=== PATIENT | male | born 1950 | race Caucasian/White ===

== ENCOUNTER 2019-09-01 01:05 | Emergency (ER) | payer MEDICARE, MEDICAID, SELFPAY ==
[2019-09-01 01:14] VITALS: BP 196/116; PULSE 95; RESP 18; TEMP 36.7; O2SAT 94; BMI 27.9
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
[2019-09-01 02:00] VITALS: BP 170/109; PULSE 81; RESP 20; O2SAT 94
[2019-09-01 03:28] VITALS: BP 143/113; PULSE 76; RESP 20; O2SAT 95
--- NOTE | 2019-09-01 03:53 | PC.NURSE ---
Pt attempted to use the urinal without success. Gave pt a whole sandwich, string cheese, and a lorelei carmen. pt requested to sit on the side of the bed to eat . left call light within reach and instructed pt to call when ready to lay down again.
[2019-09-01 06:55] VITALS: BP 130/82; PULSE 87; RESP 20; TEMP 36.7; O2SAT 95
== END 2019-09-01 07:06 | disposition home or self-care (01) ==
PROVIDERS: Emergency Provider Emergency Medicine
DX: T68.XXXA Hypothermia, initial encounter (principal); W17.89XA Other fall from one level to another, initial encounter
CPT/HCPCS: 99282

== ENCOUNTER 2020-01-26 20:04 | Observation (INO) | payer MEDICARE, MEDICAID, SELFPAY ==
[2020-01-26] VITALS (10 sets, daily range): BP systolic 165–183; BP diastolic 100–131; PULSE 83–92; RESP 14–20; TEMP 37.1; O2SAT 94–100; BMI 27.9
--- NOTE | 2020-01-26 20:32 | DI.RAD.S_ITS ---
PROCEDURE: XR CHEST 1V INDICATIONS: Fever TECHNIQUE: One view of the chest was acquired. COMPARISON: [facility], CR, XR CHEST 1 VIEW, 09/23/2019, 5:52. FINDINGS: Surgical changes and devices: None. Lungs and pleura: Mild perihilar prominence is seen that could indicate pulmonary venous congestion or developing lower lobe infiltrates. No pleural effusions or pneumothorax. Aeration of the right lung is markedly improved when compared to the prior radiographs from 09/23/2019. Mediastinum: Mediastinal contours appear normal. Heart size is normal. Bones and chest wall: No suspicious bony lesions. Overlying soft tissues appear unremarkable. IMPRESSION: Mild prominence of the perihilar lung markings may indicate pulmonary vascular congestion or possible developing consolidations. Dictated by: Mikael Moseley M.D. on 01/26/2020 at 21:29 Approved by: Mikael Moseley M.D. on 01/26/2020 at 21:31
--- NOTE | 2020-01-26 20:32 | DI.CT.S_ITS ---
PROCEDURE: CT ABDOMEN PELVIS W CON INDICATIONS: IV contrast only/abdominal pain/diarrhea TECHNIQUE: After the administration of intravenous contrast, 5 mm thick sections acquired from the diaphragm to the symphysis. 5 mm coronal and sagittal reformats were acquired. For radiation dose reduction, the following was used: automated exposure control, adjustment of mA and/or kV according to patient size. COMPARISON: None. FINDINGS: Image quality: Excellent. ABDOMEN: Lung bases: Lung bases are clear except for a slight right pleural effusion. Heart size is mildly enlarged and there is a slight pericardial effusion on the right. Solid organs: Liver is normal in size and enhancement. Gallbladder contains a peripherally calcified gallstone but no definite biliary distension or acute cholecystitis is found.. Biliary system is non dilated. Pancreas enhances normally. Spleen is normal in size and enhancement. No adrenal nodules. Kidneys demonstrate normal size and enhancement, without hydronephrosis. Peritoneum and bowel: Bowel loops demonstrate normal wall thickness and caliber. No free fluid or air. Nodes and vessels: No retroperitoneal or mesenteric adenopathy by size criteria. The inferior vena cava is normal in size. There is a fusiform 4.6 cm maximal axial dimension infrarenal abdominal aortic aneurysm without evidence of associated perianeurysmal fibrosis or aneurysm leak. Miscellaneous: No ventral hernias. PELVIS: Genitourinary: Bladder wall thickness is normal considering absence of full filling. Miscellaneous: No inguinal hernias or adenopathy. Bones: No suspicious bony lesions. No vertebral body compression fractures. IMPRESSION: Source of abdominal pain and diarrhea not found. No sign of diverticulitis or colitis. Note is made of cardiomegaly and a slight right pericardial effusion and also a small right pleural effusion. Note: These findings are concordant with the preliminary interpretation. Dictated by: Simon Alexandra M.D. on 01/27/2020 at 8:50 Approved by: Simon Alexandra M.D. on 01/27/2020 at 8:56
--- NOTE | 2020-01-26 20:32 | DI.CT.S_ITS ---
PROCEDURE: CT HEAD/BRAIN WO CON INDICATIONS: Weakness TECHNIQUE: Noncontrast 4.5 mm thick angled axial sections acquired from the foramen magnum to the vertex, with coronal and sagittal reformats. For radiation dose reduction, the following was used: automated exposure control, adjustment of mA and/or kV according to patient size. COMPARISON: [facility], CT, CT ANGIO HEAD AND NECK TPA, 09/20/2019, 10:14. FINDINGS: Image quality: Excellent. CSF spaces: Basal cisterns are patent. No extra-axial fluid collections. The ventricles are symmetric in size and shape. Brain: No acute intracranial hemorrhage or mass effect. A chronic small focus of encephalomalacia is seen in the white matter of the anterior frontal lobe. A small chronic lacunar infarct is noted in the left thalamus. There is cerebral volume loss for age, with resultant ventricular and sulcal prominence. There are periventricular and deep white matter chronic small vessel ischemic changes. There is intracranial internal carotid artery atherosclerosis. Skull and face: Calvarium and visualized facial bones appear intact, without suspicious lesions. Sinuses: Visualized sinuses and mastoids are clear. IMPRESSION: 1. No acute intracranial abnormality. 2. Old lacunar infarcts in the left thalamus and the right anterior frontal lobe white matter. 3. Mild age related changes including mild cerebral volume loss and chronic microvascular ischemic changes. Dictated by: Mikael Moseley M.D. on 01/26/2020 at 21:31 Approved by: Mikael Moseley M.D. on 01/26/2020 at 21:34
--- NOTE | 2020-01-26 20:37 | ED.WEAKNESS ---
HPI - Weakness General Chief complaint: Weakness Stated complaint: thinks possible stroke Time Seen by Provider: 01/26/20 20:17 Source: patient Mode of arrival: Ambulatory Limitations: no limitations History of Present Illness HPI Narrative: Patient drove himself here. Did take a water taxi from home. Patient complains of worsening ongoing weakness with watery diarrhea in the past month. Patient states he was seen for stroke in [place] within the last 2 months. Syncope was his chief complaint for the stroke. No syncope for this complaint. On complains of watery diarrhea generalized weakness in no injury. Rectal temperature 99.5? increased urination as well. Patient lives alone. Still in process of obtaining of family physician. Was getting medications from an urgent care./walk-in clinic patient denies any chest pain abdominal pain. No headache. Has chronic back pain which is not not new. History of aortic aneurysms but again denies any new back pain. Again, no chest or abdominal pain. No numbness tingling weakness. No syncope. Denies denies any slurred speech or facial droop. No altered mental status or confusion. No numbness or tingling or weakness to the hands or feet. [facility] in last month and a half patient has history of polysubstance abuse, atrial fibrillation as well as congestive heart failure. Hospital had history of intubation secondary to pneumonia? Patient left against medical advice from the hospital at that time. Symptoms ongoing for at least 1 month. Not acute. Ongoing 1 month of generalized weakness and diarrhea MD Complaint: generalized weakness Related Data Home Medications Medication Instructions Recorded Confirmed ATENOLOL (Tenormin) 0 PO *UK DOSE/FREQUENCY #0 11/15/05 FENOFIBRATE (TRICOR) 0 PO * UK DOSE/FREQUENCY #0 11/15/05 Allergies Allergy/AdvReac Type Severity Reaction Status Date / Time No Known Drug Allergies Allergy Verified 01/26/20 20:13 Review of Systems Review of Systems Narrative: GENERAL: Denies chills, complains of fatigue, malaise, denies fever, sweats. HEENT: Denies sinus pain, ear pain, sore throat, difficulty swallowing, dizziness. RESPIRATORY: Denies dyspnea, cough, wheezing, hemoptysis, sputum. CARDIOVASCULAR: Denies chest pain, palpitations, orthopnea, edema, GASTROINTESTINAL: Denies nausea, vomiting, abdominal pain, complains diarrhea, denies constipation, melena. : Denies dysuria, frequency, incontinence, hematuria, urinary retention. MUSCULOSKELETAL: denies weakness, complains of chronic joint pain, or bony pain SKIN: Denies rash, skin lesions NEUROLOGIC: Denies weakness, headache, numbness, change in speech, confusion, seizures, incoordination. PSYCHIATRIC: No concerning psychosocial issues. ROS Unobtainable: All systems reviewed & are unremarkable except as noted in HPI and below Patient History Medical History Hypertension (Acute) Social History household members: none lives independently: Yes Smoking Status: Never smoker Smoking Status: Never smoker alcohol intake frequency: a few times a week Alcohol type: beer Substance Use Type: methamphetamine Exam Narrative Exam Narrative: GENERAL: patient appears stated age. Well-nourished, well-developed patient, in no distress, not toxic HEAD: Atraumatic. Normocephalic. EYES: Pupils equal round and reactive. Extraocular motions intact. No scleral icterus. No injection or drainage. ENT: Nose without bleeding, purulent drainage. Throat without erythema, tonsillar hypertrophy or exudate. Airway patent. NECK: Trachea midline. Non tender CARDIOVASCULAR: Regular rate and rhythm without murmurs, gallops, or rubs. RESPIRATORY: Clear to auscultation. Breath sounds equal bilaterally. No wheezes, rales, or rhonchi. GASTROINTESTINAL: Abdomen soft, non-tender, nondistended. EXTREMITIES: No edema or joint tenderness. BACK: Nontender without deformity or crepitance. No flank tenderness. NEURO: AOx4. Clear speech no facial droop light touch intact to bilateral face hands and legs. Strong equal pretzel twister. Negative pronator drift. Able to lift both legs in the air and hold in here individually for 10 seconds. Strong bilateral hip flexion and knee flexion and extensions SKIN: No rash or erythema of visible areas PSYCH: Not anxious, is cooperative Initial Vital Signs Initial Vital Signs: Vital Signs Temperature 98.8 F 01/26/20 20:10 Pulse Rate 92 H 01/26/20 20:10 Respiratory Rate 17 01/26/20 20:10 Blood Pressure 183/121 H 01/26/20 20:10 Pulse Oximetry 100 10/06/20 20:10 Scores NIH Stroke Scale Level of Conciousness: Alert, keenly responsive Ask month/age: Answers both questions correctly. Open/close eyes, close hand: Performs both tasks correctly Best gaze horizontal: Normal Visual [place]: No visual loss Facial palsy: Normal symetrical movement Left arm drift: No drift for full 10 sec Right arm drift: No drift for full 10 sec Left leg drift: No drift for full 5 sec Right leg drift: No drift for full 5 sec Limb ataxia: Absent Sensory on face/arms/legs: Normal, no sensory loss Best language: No aphasia, normal Dysarthria: Normal Extinction or inattention: No abnormality Total NIH Stroke scale score: 0 Course Course Course Narrative: No new complaints here. Patient had steady self gait in the hallway to the bathroom and back. No ataxia Decision to Admit Date: 01/27/20 Decision to Admit time: 00:08 Orders Ordered: ED Orders 01/26/20 20:25 Complete Blood Count AUTO DIFF Stat Comprehensive Metabolic Panel Stat Ethanol (ETOH) Stat Lipase Stat Troponin I Stat 01/26/20 20:32 CT abdomen pelvis w con Stat CT head/brain wo con Stat XR chest 1V Stat Clostridium Difficile Tox PCR Stat 01/26/20 20:34 Stool Culture Stat 01/26/20 20:36 EKG-12 Lead Stat 01/26/20 21:10 COVID19 -ED/INPAT/OR/L&D Stat 01/26/20 22:06 CT chest wo con Stat 01/26/20 22:20 Urinalysis and Microscopic Stat Urine Drug Screen, Rapid Stat Acetaminophen (Tylenol) 650 mg PO Q6HR PRN PRN Reason: Fever/Mild Pain (1-3) Apixaban (Eliquis) 5 mg PO BID CONG Aspirin (Aspirin Ec) 81 mg PO DAILY CONG Atorvastatin Calcium (Lipitor) 40 mg PO BEDTIME CONG Clopidogrel Bisulfate (Plavix) 75 mg PO DAILY CONG Enoxaparin Sodium (Lovenox) 40 mg SUBCUT DAILY CONG Ondansetron HCl (Zofran) 4 mg IV Q8HR PRN PRN Reason: Nausea And Vomiting Discontinued Medications Aspirin (Aspirin Chew) 324 mg PO NOW ONE Stop: 01/27/20 00:06 Last Admin: 01/27/20 00:15 Dose: 324 mg Documented by: KSWANSO Sodium Chloride (Normal Saline 0.9%) 1,000 mls @ 1,000 mls/hr IV BOLUS ONE Stop: 01/26/20 21:31 Last Infusion: 01/26/20 23:14 Dose: 0 mls/hr Documented by: Admin: 01/26/20 20:44 Dose: 1,000 mls/hr Documented by: DOROTHY Sodium Chloride (Normal Saline 0.9%) 1,000 mls @ 1,000 mls/hr IV BOLUS ONE Stop: 01/26/20 21:31 Last Admin: 01/26/20 23:27 Dose: Not Given Documented by: DOROTHY Metoprolol Succinate (Toprol Xl) 25 mg PO NOW ONE Stop: 01/27/20 00:06 Last Admin: 01/27/20 00:15 Dose: 25 mg Documented by: DOROTHY Ondansetron HCl (Zofran) 4 mg IV NOW ONE Stop: 01/26/20 20:33 Last Admin: 01/26/20 20:44 Dose: 4 mg Documented by: DOROTHY Reevaluation(s) Reevaluation #1: Reviewed results with patient and agrees for admission and MRI in the morning Time: 00:08 Consultations Consultation #1: Spoke with Dr. hall, stroke provider as [facility]. No tPA or endovascular studies indicated this time. Ongoing for 1 month. Would benefit for MRI with and without contrast in the morning Time: 00:08 Consultation #2: Spoke with Nica, hospitalist, will admit observation overnight and MRI in the morning as well as echocardiogram. Patient is not not toxic. No antibiotics indicated this time Time: 00:09 Vital Signs Vital signs: Vital Signs - 8 hr 01/26/20 20:10 01/26/20 20:34 01/26/20 21:06 Temperature 98.8 F Pulse Rate 92 H 91 H 83 Respiratory Rate 17 18 20 Blood Pressure 183/121 H 172/112 H Pulse Oximetry 100 94 97 01/26/20 21:30 01/26/20 22:00 01/26/20 22:03 Temperature Pulse Rate 88 86 87 Respiratory Rate 14 16 15 Blood Pressure 175/131 H Pulse Oximetry 96 94 95 01/26/20 22:04 01/26/20 22:30 01/26/20 23:00 Temperature Pulse Rate 91 H 88 90 Respiratory Rate 17 14 15 Blood Pressure 171/105 H 165/107 H 173/100 H Pulse Oximetry 94 97 96 01/26/20 23:30 01/27/20 00:00 01/27/20 00:02 Temperature Pulse Rate 87 87 89 Respiratory Rate 15 17 16 Blood Pressure 178/112 H Pulse Oximetry 94 96 98 MDM - Weakness Differential Diagnosis Differential diagnosis: Likely anemia, dehydration and other (Electrolyte imbalance/colitis/diarrhea/substance abuse) Medical Records Attestation: I reviewed the patient's medical records. Medical records narrative: [facility] Lab Data Attestation: I reviewed the patient's lab results. Result diagrams: 01/26/20 20:25 01/26/20 20:25 Labs: Lab Results 01/26/20 01/26/20 01/26/20 Range/Units 20:25 20:25 20:25 WBC 6.2 (4.5-11.0) X10^3/uL RBC 4.71 (4.5-5.9) X10^6/uL Hgb 13.0 L (13.5-17.5) g/dL Hct 39.1 L (41-53) % MCV 83.0 (80-100) fL MCH 27.7 (26-34) PG MCHC 33.3 (30-36) % RDW 16.6 H (11.6-14.8) % Plt Count 162 (150-400) X10^3/uL Neut % (Auto) 71.1 (50-75) % Lymph % (Auto) 16.3 L (25-40) % [place] % (Auto) 9.9 (3-14) % Eos % (Auto) 1.9 L (2-4) % Baso % (Auto) 0.8 (0-2) % Neut # (Auto) 4400 (2044-1038) /uL Lymph # (Auto) 1000 L (8461-7416) /uL [place] # (Auto) 600 (0-900) /uL Eos # (Auto) 100 (0-450) /uL Baso # (Auto) 0 (0-100) /uL Sodium 139 (137-145) mmol/L Potassium 3.4 (3.4-5.1) mmol/L Chloride 103 (98-107) mmol/L Carbon Dioxide 32 (22-32) mmol/L BUN 14 (9-20) mg/dL Creatinine 0.68 (0.66-1.25) mg/dL Estimated GFR > 60.0 (>60) mL/min BUN/Creatinine Ratio 20.6 (6-22) Glucose 106 (80-110) mg/dL Calcium 8.9 (8.4-10.2) mg/dL Magnesium (1.6-2.3) mg/dL Total Bilirubin 0.8 (0.2-1.3) mg/dL AST 45 (17-59) IU/L ALT 31 (<50) IU/L Alkaline Phosphatase 85 (38-126) U/L Troponin I < 0.012 (0.01-0.034) ng/mL Total Protein 7.1 (6.3-8.2) g/dL Albumin 3.9 (3.5-5.0) g/dL Globulin 3.2 (1.7-4.1) g/dL Albumin/Globulin Ratio 1.2 (1.0-2.8) Lipase 61 (23-300) U/L Urine Color Urine Appearance Urine pH (4.5-8.0) Ur Specific [place] (1.000-1.035) Urine Protein (Negative) Urine Glucose (UA) (Negative) g/dL Urine Ketones (NEGATIVE) Urine Occult Blood (Negative) Urine Nitrate (Negative) Urine Bilirubin (NEGATIVE) Urine Urobilinogen (0.2) E.U./dL Ur Leukocyte Esterase (NEGATIVE) Urine RBC (0-5/HPF) Urine WBC (0-5/HPF) Uric Acid Crystals (None) Urine Bacteria (None) Hyaline Casts (None) Ur Culture Indicated? U Opiates 300ng/mL cut (Negative) Ur Oxycodone Screen (Negative) Urine Methadone Screen (Negative) Ur Barbiturates Screen (Negative) U Tricyclic Antidepress (Negative) Ur Phencyclidine Scrn (Negative) Ur Amphetamines Screen (Negative) U Methamphetamines Scrn (Negative) Ur MDMA Scrn (Ecstasy) (Negative) U Benzodiazepines Scrn (Negative) Urine Cocaine Screen (Negative) U Marijuana (THC) Screen (Negative) Ethyl Alcohol ( - 10) mg/dL COVID-19 PCR (Negative) 01/26/20 01/26/20 01/26/20 Range/Units 20:25 20:25 21:10 WBC (4.5-11.0) X10^3/uL RBC (4.5-5.9) X10^6/uL Hgb (13.5-17.5) g/dL Hct (41-53) % MCV (80-100) fL MCH (26-34) PG MCHC (30-36) % RDW (11.6-14.8) % Plt Count (150-400) X10^3/uL Neut % (Auto) (50-75) % Lymph % (Auto) (25-40) % [place] % (Auto) (3-14) % Eos % (Auto) (2-4) % Baso % (Auto) (0-2) % Neut # (Auto) (3484-3045) /uL Lymph # (Auto) (5858-6867) /uL [place] # (Auto) (0-900) /uL Eos # (Auto) (0-450) /uL Baso # (Auto) (0-100) /uL Sodium (137-145) mmol/L Potassium (3.4-5.1) mmol/L Chloride (98-107) mmol/L Carbon Dioxide (22-32) mmol/L BUN (9-20) mg/dL Creatinine (0.66-1.25) mg/dL Estimated GFR (>60) mL/min BUN/Creatinine Ratio (6-22) Glucose (80-110) mg/dL Calcium (8.4-10.2) mg/dL Magnesium 2.0 (1.6-2.3) mg/dL Total Bilirubin (0.2-1.3) mg/dL AST (17-59) IU/L ALT (<50) IU/L Alkaline Phosphatase (38-126) U/L Troponin I (0.01-0.034) ng/mL Total Protein (6.3-8.2) g/dL Albumin (3.5-5.0) g/dL Globulin (1.7-4.1) g/dL Albumin/Globulin Ratio (1.0-2.8) Lipase (23-300) U/L Urine Color Urine Appearance Urine pH (4.5-8.0) Ur Specific [place] (1.000-1.035) Urine Protein (Negative) Urine Glucose (UA) (Negative) g/dL Urine Ketones (NEGATIVE) Urine Occult Blood (Negative) Urine Nitrate (Negative) Urine Bilirubin (NEGATIVE) Urine Urobilinogen (0.2) E.U./dL Ur Leukocyte Esterase (NEGATIVE) Urine RBC (0-5/HPF) Urine WBC (0-5/HPF) Uric Acid Crystals (None) Urine Bacteria (None) Hyaline Casts (None) Ur Culture Indicated? U Opiates 300ng/mL cut (Negative) Ur Oxycodone Screen (Negative) Urine Methadone Screen (Negative) Ur Barbiturates Screen (Negative) U Tricyclic Antidepress (Negative) Ur Phencyclidine Scrn (Negative) Ur Amphetamines Screen (Negative) U Methamphetamines Scrn (Negative) Ur MDMA Scrn (Ecstasy) (Negative) U Benzodiazepines Scrn (Negative) Urine Cocaine Screen (Negative) U Marijuana (THC) Screen (Negative) Ethyl Alcohol < 10 ( - 10) mg/dL COVID-19 PCR Negative (Negative) 01/26/20 01/26/20 Range/Units 22:20 22:20 WBC (4.5-11.0) X10^3/uL RBC (4.5-5.9) X10^6/uL Hgb (13.5-17.5) g/dL Hct (41-53) % MCV (80-100) fL MCH (26-34) PG MCHC (30-36) % RDW (11.6-14.8) % Plt Count (150-400) X10^3/uL Neut % (Auto) (50-75) % Lymph % (Auto) (25-40) % [place] % (Auto) (3-14) % Eos % (Auto) (2-4) % Baso % (Auto) (0-2) % Neut # (Auto) (5614-1972) /uL Lymph # (Auto) (9102-9329) /uL [place] # (Auto) (0-900) /uL Eos # (Auto) (0-450) /uL Baso # (Auto) (0-100) /uL Sodium (137-145) mmol/L Potassium (3.4-5.1) mmol/L Chloride (98-107) mmol/L Carbon Dioxide (22-32) mmol/L BUN (9-20) mg/dL Creatinine (0.66-1.25) mg/dL Estimated GFR (>60) mL/min BUN/Creatinine Ratio (6-22) Glucose (80-110) mg/dL Calcium (8.4-10.2) mg/dL Magnesium (1.6-2.3) mg/dL Total Bilirubin (0.2-1.3) mg/dL AST (17-59) IU/L ALT (<50) IU/L Alkaline Phosphatase (38-126) U/L Troponin I (0.01-0.034) ng/mL Total Protein (6.3-8.2) g/dL Albumin (3.5-5.0) g/dL Globulin (1.7-4.1) g/dL Albumin/Globulin Ratio (1.0-2.8) Lipase (23-300) U/L Urine Color Yellow Urine Appearance Clear Urine pH 6.5 (4.5-8.0) Ur Specific [place] 1.015 (1.000-1.035) Urine Protein 1+ H (Negative) Urine Glucose (UA) Negative (Negative) g/dL Urine Ketones Negative (NEGATIVE) Urine Occult Blood Negative (Negative) Urine Nitrate Negative (Negative) Urine Bilirubin Negative (NEGATIVE) Urine Urobilinogen 0.2 (0.2) E.U./dL Ur Leukocyte Esterase Negative (NEGATIVE) Urine RBC None seen (0-5/HPF) Urine WBC None seen (0-5/HPF) Uric Acid Crystals Occasional (None) Urine Bacteria None seen (None) Hyaline Casts 0-1/lpf (None) Ur Culture Indicated? Cult not indicated U Opiates 300ng/mL cut Negative (Negative) Ur Oxycodone Screen Negative (Negative) Urine Methadone Screen Negative (Negative) Ur Barbiturates Screen Negative (Negative) U Tricyclic Antidepress Negative (Negative) Ur Phencyclidine Scrn Negative (Negative) Ur Amphetamines Screen Negative (Negative) U Methamphetamines Scrn Positive H (Negative) Ur MDMA Scrn (Ecstasy) Negative (Negative) U Benzodiazepines Scrn Negative (Negative) Urine Cocaine Screen Negative (Negative) U Marijuana (THC) Screen Negative (Negative) Ethyl Alcohol ( - 10) mg/dL COVID-19 PCR (Negative) Point of Care Testing Glucose POC [address] scan - head: Radiologist Impression: [address] [id number] [address] Scan Report Signed Patient: Alexx Rodriguez#: [id number] : 9Acct:[id number] Age/Sex: 69 / MDate of Service: 01/26/20 Loc: ED Accession Number: [id number] Procedure: CT head/brain wo con Ordering Provider: Jorge Hampton MD PROCEDURE: CT HEAD/BRAIN WO CON INDICATIONS: Weakness TECHNIQUE: Noncontrast 4.5 mm thick angled axial sections acquired from the foramen magnum to the vertex, with coronal and sagittal reformats. For radiation dose reduction, the following was used: automated exposure control, adjustment of mA and/or kV according to patient size. COMPARISON: [facility], CT, CT ANGIO HEAD AND NECK TPA, 09/20/2019, 10:14. FINDINGS: Image quality: Excellent. CSF spaces: Basal cisterns are patent. No extra-axial fluid collections. The ventricles are symmetric in size and shape. Brain: No acute intracranial hemorrhage or mass effect. A chronic small focus of encephalomalacia is seen in the white matter of the anterior frontal lobe. A small chronic lacunar infarct is noted in the left thalamus. There is cerebral volume loss for age, with resultant ventricular and sulcal prominence. There are periventricular and deep white matter chronic small vessel ischemic changes. There is intracranial internal carotid artery atherosclerosis. Skull and face: Calvarium and visualized facial bones appear intact, without suspicious lesions. Sinuses: Visualized sinuses and mastoids are clear. IMPRESSION: 1. No acute intracranial abnormality. 2. Old lacunar infarcts in the left thalamus and the right anterior frontal lobe white matter. 3. Mild age related changes including mild cerebral volume loss and chronic microvascular ischemic changes. Dictated by: Mikael Moseley M.D. on 01/26/2020 at 21:31 Approved by: Mikael Moseley M.D. on 01/26/2020 at 21:34 CT scan - chest: Radiologist Impression: Faxed report small bilateral pleural effusions. Possible bronchitis. Reactive mediastinal lymph nodes. CT scan - abdomen/pelvis: Radiologist Impression: Trace bilateral pleural effusions. Unruptured fusiform infrarenal abdominal aortic aneurysm. Non emergent/incidental findings in the report. Chest x-ray: Radiologist Impression: [address] [address] XRay Report Signed Patient: Alexx Rodriguez#: [id number] : 9Acct:[id number] Age/Sex: 69 / MDate of Service: 01/26/20 Loc: ED Accession Number: [id number] Procedure: XR chest 1V Ordering Provider: Jorge Hampton MD PROCEDURE: XR CHEST 1V INDICATIONS: Fever TECHNIQUE: One view of the chest was acquired. COMPARISON: [facility], , XR CHEST 1 VIEW, 09/23/2019, 5:52. FINDINGS: Surgical changes and devices: None. Lungs and pleura: Mild perihilar prominence is seen that could indicate pulmonary venous congestion or developing lower lobe infiltrates. No pleural effusions or pneumothorax. Aeration of the right lung is markedly improved when compared to the prior radiographs from 09/23/2019. Mediastinum: Mediastinal contours appear normal. Heart size is normal. Bones and chest wall: No suspicious bony lesions. Overlying soft tissues appear unremarkable. IMPRESSION: Mild prominence of the perihilar lung markings may indicate pulmonary vascular congestion or possible developing consolidations. Dictated by: Mikael Moseley M.D. on 01/26/2020 at 21:29 Approved by: Mikael Moseley M.D. on 01/26/2020 at 21:31 ECG Data Attestation: I personally reviewed and interpreted this ECG as follows: Interpretation: Atrial fibrillation [place] rate 79, no ST elevation or depression MDM Narrative Medical decision making narrative: At this time, patient does not present clinically for acute stroke. Has generalized weakness ongoing steadily for the past month with daily watery diarrhea. Has decreased oral intake as well. NIH score 0 Discharge Plan Departure Patient Disposition: Admitted as Observation Clinical Impression: Altered mental status Qualifiers: Altered mental status type: unspecified Qualified Code(s): R41.82 - Altered mental status, unspecified Discharge Date/Time: 01/27/20 01:01 Admit Date/Time: 01/27/20 00:04 Admit Provider: Emelia Schwarz
[2020-01-26] MEDS: ONDANSETRON 4 MG/2 ML INJ IV (20:44)
[2020-01-26] MEDS: SODIUM CHLORIDE 0.9% 1,000 ML 1000 ML IV (20:44)
[2020-01-26 20:57] LABS: Add Manual Diff / Slide Review NO; Basophils Absolute Auto 0 /uL (0-100); Basophils Percent Auto 0.8 % (0-2); Eosinophils Absolute Auto 100 /uL (0-450); Eosinophils Percent Auto 1.9 % (2-4); Hematocrit 39.1 % (41-53); Lymphocytes Absolute Auto 1000 /uL (1100-4500); Lymphocytes Percent Auto 16.3 % (25-40); Mean Corpuscular HGB Conc 33.3 % (30-36); Mean Corpuscular Hemoglobin 27.7 PG (26-34); Monocytes Absolute Auto 600 /uL (0-900); Monocytes Percent Auto 9.9 % (3-14); Neutrophils Absolute Auto 4400 /uL (1500-7000); Neutrophils Percent Auto 71.1 % (50-75); Platelet Count 162 X10^3/uL (150-400); Red Blood Cell Count 4.71 X10^6/uL (4.5-5.9); Red Cell Distribution Width 16.6 % (11.6-14.8); White Blood Cell Count 6.2 X10^3/uL (4.5-11.0)
[2020-01-26 21:04] LABS: Lipase 61 U/L (23-300)
[2020-01-26 21:06] LABS: Alanine Aminotransferase 31 IU/L (<50); Albumin 3.9 g/dL (3.5-5.0); Albumin Globulin Ratio 1.2 (1.0-2.8); Alkaline Phosphatase 85 U/L (38-126); Aspartate Aminotransferase 45 IU/L (17-59); BUN Creatinine Ratio 20.6 (6-22); Bilirubin Total 0.8 mg/dL (0.2-1.3); Blood Urea Nitrogen 14 mg/dL (9-20); Calcium 8.9 mg/dL (8.4-10.2); Carbon Dioxide 32 mmol/L (22-32); Chloride 103 mmol/L (98-107); Estimated Glomerular Filt Rate > 60.0 mL/min (>60); Globulin 3.2 g/dL (1.7-4.1); Glucose 106 mg/dL (80-110); HEMOLYSIS < 15 (0-50); Potassium 3.4 mmol/L (3.4-5.1); Sodium 139 mmol/L (137-145); Total Protein 7.1 g/dL (6.3-8.2)
[2020-01-26 21:17] LABS: Troponin I < 0.012 ng/mL (0.01-0.034)
[2020-01-26 21:41] LABS: COVID19 -Nasal RAPID Negative (Negative)
--- NOTE | 2020-01-26 22:06 | DI.CT.S_ITS ---
PROCEDURE: CT CHEST WO CON INDICATIONS: shortness of breath TECHNIQUE: Noncontrast 5 mm thick sections acquired from the pulmonary apices to the posterior costophrenic angles. 1 mm lung window, 5 mm thick coronal and sagittal and 7 mm axial MIP reformats were then acquired. For radiation dose reduction, the following was used: automated exposure control, adjustment of mA and/or kV according to patient size. COMPARISON: [facility], CT, CT CHEST WITH CONTRAST, 09/20/2019, 10:26. [facility], CR, XR CHEST 1 VIEW, 09/21/2019, 12:22. [facility], CR, XR CHEST 1V, 01/26/2020, 20:47. FINDINGS: Image quality: Excellent. Lungs and pleura: No definite acute air space opacities. No significant pleural effusions or pneumothorax. There is a scant right posterior pleural effusion measuring approximately 1.3 cm in maximal thickness. Central and peripheral airways are patent and normal in internal caliber but there is a chronic pattern of mild peribronchial soft tissue prominence, consistent with chronic bronchitis. Suspect chronic CHF is superimposed. Mediastinum: Heart size is globally enlarged, chronically. No pericardial effusion. No mediastinal adenopathy by size criteria. Thoracic aorta and central pulmonary arteries are normal in size. Esophagus is normal in caliber. No hiatal hernia. Bones and chest wall: No suspicious bony lesions. No vertebral body compression fractures. No axillary or supraclavicular adenopathy by size criteria. Thyroid gland is not well seen. Abdomen: Visualized upper abdominal solid organs and bowel loops appear normal in the absence of contrast. IMPRESSION: Chronic CHF pattern with superimposed scant right posterior pleural effusion and chronic peribronchial soft tissue prominence consistent with chronic bronchitis. No focal pneumonia found. Note: These findings are concordant with the preliminary interpretation. Dictated by: Simon Alexandra M.D. on 01/27/2020 at 8:07 Approved by: Simon Alexandra M.D. on 01/27/2020 at 8:12
[2020-01-26 22:26] LABS: Bacteria Urine None Seen; RBC Urine None Seen (0-5/HPF); WBC Urine None Seen (0-5/HPF)
[2020-01-26 22:28] LABS: Appearance Urine UA CLEAR; Bilirubin Urine UA NEGATIVE (NEGATIVE); Color Urine UA YELLOW; Glucose Urine UA NEGATIVE (Negative); Ketones Urine UA NEGATIVE (NEGATIVE); Leukocyte Esterase Urine UA NEGATIVE (NEGATIVE); Nitrite Urine UA NEGATIVE (Negative); Occult Blood Urine UA NEGATIVE (Negative); Protein Urine UA 1+ (Negative); Specific Gravity Urine UA 1.015 (1.000-1.035); Urobilinogen Urine UA 0.2 E.U./dL (0.2); pH Urine UA 6.5 (4.5-8.0)
[2020-01-26 22:32] LABS: UR Morphine/Opiate cutoff 300 Negative (Negative); Ur Creatinine Normal (Normal); Ur Specific Gravity Normal (Normal); Urine Amphetamines Negative (Negative); Urine Barbiturates Negative (Negative); Urine Benzodiazepines Negative (Negative); Urine Cocaine Negative (Negative); Urine MDMA Negative (Negative); Urine Methadone Negative (Negative); Urine Methamphetamines Positive (Negative); Urine Oxycodone Negative (Negative); Urine Phencyclidine Negative (Negative); Urine Tetrahydrocannabinol Negative (Negative); Urine Tricyclic Antidepressant Negative (Negative); Urine pH Normal (Normal)
[2020-01-26 22:37] LABS: Hyaline Casts Urine 0-1/LPF; Uric Acid Crystals Urine Occasional
[2020-01-26 22:38] LABS: Culture Indicated Urine Cult Not Indicated
[2020-01-26 22:38] LABS: Ethanol (ETOH) < 10 mg/dL
[2020-01-27] VITALS (10 sets, daily range): BP systolic 134–178; BP diastolic 88–112; PULSE 74–93; RESP 14–20; TEMP 36.2–37.1; O2SAT 91–98; BMI 27.9
[2020-01-27] MEDS: ASPIRIN 81 MG CHEW TAB 324 MG PO (00:15)
[2020-01-27] MEDS: METOPROLOL ER 25 MG TABLET PO (00:15)
[2020-01-27 01:23] LABS: Hemoglobin A1C% w Est Avg Glu 5.9 % (4.0-6.0)
--- NOTE | 2020-01-27 02:03 | P.HP_ITS ---
History of Present Illness History of Present Illness Date Patient Seen: 01/27/20 Time Patient Seen: 01:30 Chief complaint: Recent CVA, altered mentation and weakness Narrative: Jayden Rodriguez is a 69-year-old male with a history of methamphetamine use who presented to the emergency department with weakness. The patient has a stroke history dating back to September 06 of this year where upon he initially presented to [place] with shortness of breath and diagnosed with pneumonia. He left Against Medical Advice. He then presented himself to [facility] where he became very agitated and confused, was sedated and intubated. At that time his only complaint was that he had scrotal pain and that he had a past medical history of hypertension and hyperlipidemia and was not taking any medications at that time. At that time he was admitted to the ICU for management of acute encephalopathy related to substance abuse. Imaging indicated that he had a acute infarction involving deep white matter of the right frontal lobe. He was eventually discharged to home 36 days later. The patient was then seen in the [facility] Emergency Department id and admitted on October 16 for confusion and disorientation. He was placed on a psychiatric hold and then eventually released. Today he basically stated that he was feeling weak for several weeks. He does not complain of any chest pain or shortness of breath, denies headaches, visual changes, numbing or tingling of the upper or lower extremities, diarrhea or constipation. He states that his last methamphetamine use was 2 weeks ago. He continues to state that he is not taking any of his prescribed medications. He does state he is interested in inpatient rehab. States he has been using methamphetamine for the past 7 years, intermittently. In the ED they did a multitude of imaging studies most of which were negative except for his head CT which reported ?Old lacunar infarcts in the left thalamus and the right anterior frontal lobe white matter.?. He was administered aspirin 325 mg p.o. and metoprolol 25 mg p.o. in the emergency department. His admission temperature was 98.8?, blood pressure 155/111, heart rate 74, respiratory rate 16, oxygen saturation 98% on room air, he weighs 88.4 kg with a BMI of 27.9. His WBC is 6.2, RBC 4.71, hemoglobin 13, hematocrit 39.1, platelet count 162. Basic metabolic panel is generally within normal limits, hemoglobin A1c is normal at 5.9, liver enzymes are also within normal limits, troponin is negative, lipase normal at 61, and COVID-19 screen is negative. Patient History Medical History (Updated 01/27/20 @ 02:17 by ISABEL Benavidez) Atrial fibrillation, chronic (Acute) Essential hypertension (Acute) Essential hypertension (Chronic) History of CVA (cerebrovascular accident) (Acute) Hypertension (Acute) Methamphetamine use (Acute) Surgical History (Updated 01/27/20 @ 02:18 by ISABEL Benavidez) History of appendectomy (Acute) History of inguinal hernia repair (Acute) History of tonsillectomy (Acute) Family & Social History Family History (Updated 01/27/20 @ 02:19 by ISABEL Benavidez) Mother CVA (cerebral vascular accident) Father Leukemia Social History: household members none Prior Living Arrangements House lives independently Yes Safety & Behavioral: Feels Safe in Current No Environment Suicidal Ideation Description None Suicide Plan Description No Plan Tobacco & Substance use: Smoking Status Never smoker alcohol intake frequency a few times a week Substance Use Type methamphetamine Meds Home Medications and Allergies Home Medications Medication Instructions Recorded Confirmed Type apixaban [Eliquis] 5 mg PO BID 01/27/20 01/27/20 History atorvastatin 40 mg PO BEDTIME 01/27/20 01/27/20 History clonidine [[id number]] 0.1 mg TRANSDERMAL WEEKLY 01/27/20 01/27/20 History famotidine [Pepcid] 20 mg PO BID 01/27/20 01/27/20 History furosemide [Lasix] 40 mg PO BID 01/27/20 01/27/20 History lisinopril [Prinivil] 20 mg PO DAILY 01/27/20 01/27/20 History melatonin 3 mg PO BEDTIME PRN 01/27/20 01/27/20 History metoprolol succinate [Toprol XL] 50 mg PO DAILY 01/27/20 01/27/20 History olanzapine [Zyprexa Zydis] 5 mg PO BEDTIME 01/27/20 01/27/20 History potassium chloride 20 meq PO DAILY 01/27/20 01/27/20 History Allergies Allergy/AdvReac Type Severity Reaction Status Date / Time No Known Drug Allergies Allergy Verified 01/26/20 20:13 Review of Systems Review of Systems ROS: Yes All systems reviewed with the patient and are negative except as otherwise documented Exam Vital Signs (past 8 hours): - 01/26/20 20:10 01/26/20 20:34 01/26/20 21:06 Temperature 98.8 F Pulse Rate 92 H 91 H 83 Respiratory Rate 17 18 20 Blood Pressure 183/121 H 172/112 H Pulse Oximetry 100 94 97 01/26/20 21:30 01/26/20 22:00 01/26/20 22:03 Temperature Pulse Rate 88 86 87 Respiratory Rate 14 16 15 Blood Pressure 175/131 H Pulse Oximetry 96 94 95 01/26/20 22:04 01/26/20 22:30 01/26/20 23:00 Temperature Pulse Rate 91 H 88 90 Respiratory Rate 17 14 15 Blood Pressure 171/105 H 165/107 H 173/100 H Pulse Oximetry 94 97 96 01/26/20 23:30 01/27/20 00:00 01/27/20 00:02 Temperature Pulse Rate 87 87 89 Respiratory Rate 15 17 16 Blood Pressure 178/112 H Pulse Oximetry 94 96 98 01/27/20 00:15 01/27/20 01:00 Temperature Pulse Rate 79 74 Respiratory Rate Blood Pressure 178/112 H 155/111 H Pulse Oximetry Oxygen Delivery Method Room Air Narrative Exam Narrative: Gen: Alert, oriented, ill-appearing 69 y.o. male, NAD HEENT: normocephalic, atraumatic, conjunctiva clear, sclera non-icteric, oral mucosa pink and moist Neck: supple, full ROM, no JVD, trachea is midline Resp: Lungs CTA, non-labored breathing CV: RRR, no murmur or rubs Abd: soft, non-tender, normoactive BTs Skin: no lesions or rashes, dry and intact Neuro: NIH score 0, Alert and oriented X 4 w/no focal deficits. Speech clear and coherent. Extremities: moves all 4 extremities, is ambulatory, negative Martha?s sign Psyche: Depressed affect. Objective Labs Result Diagrams: 01/26/20 20:25 01/26/20 20:25 Labs: Laboratory Results - last 24 hr 01/26/20 01/26/20 01/26/20 20:25 20:25 20:25 WBC 6.2 RBC 4.71 Hgb 13.0 L Hct 39.1 L MCV 83.0 MCH 27.7 MCHC 33.3 RDW 16.6 H Plt Count 162 Neut % (Auto) 71.1 Lymph % (Auto) 16.3 L [place] % (Auto) 9.9 Eos % (Auto) 1.9 L Baso % (Auto) 0.8 Neut # (Auto) 4400 Lymph # (Auto) 1000 L [place] # (Auto) 600 Eos # (Auto) 100 Baso # (Auto) 0 Sodium 139 Potassium 3.4 Chloride 103 Carbon Dioxide 32 BUN 14 Creatinine 0.68 Estimated GFR > 60.0 BUN/Creatinine Ratio 20.6 Glucose 106 Hemoglobin A1c Calcium 8.9 Magnesium Total Bilirubin 0.8 AST 45 ALT 31 Alkaline Phosphatase 85 Troponin I < 0.012 Total Protein 7.1 Albumin 3.9 Globulin 3.2 Albumin/Globulin Ratio 1.2 Lipase 61 Urine Color Urine Appearance Urine pH Ur Specific Merkel Urine Protein Urine Glucose (UA) Urine Ketones Urine Occult Blood Urine Nitrate Urine Bilirubin Urine Urobilinogen Ur Leukocyte Esterase Urine RBC Urine WBC Uric Acid Crystals Urine Bacteria Hyaline Casts Ur Culture Indicated? U Opiates 300ng/mL cut Ur Oxycodone Screen Urine Methadone Screen Ur Barbiturates Screen U Tricyclic Antidepress Ur Phencyclidine Scrn Ur Amphetamines Screen U Methamphetamines Scrn Ur MDMA Scrn (Ecstasy) U Benzodiazepines Scrn Urine Cocaine Screen U Marijuana (THC) Screen Ethyl Alcohol COVID-19 PCR 01/26/20 01/26/20 01/26/20 20:25 20:25 20:25 WBC RBC Hgb Hct MCV MCH MCHC RDW Plt Count Neut % (Auto) Lymph % (Auto) [place] % (Auto) Eos % (Auto) Baso % (Auto) Neut # (Auto) Lymph # (Auto) [place] # (Auto) Eos # (Auto) Baso # (Auto) Sodium Potassium Chloride Carbon Dioxide BUN Creatinine Estimated GFR BUN/Creatinine Ratio Glucose Hemoglobin A1c 5.9 Calcium Magnesium 2.0 Total Bilirubin AST ALT Alkaline Phosphatase Troponin I Total Protein Albumin Globulin Albumin/Globulin Ratio Lipase Urine Color Urine Appearance Urine pH Ur Specific Merkel Urine Protein Urine Glucose (UA) Urine Ketones Urine Occult Blood Urine Nitrate Urine Bilirubin Urine Urobilinogen Ur Leukocyte Esterase Urine RBC Urine WBC Uric Acid Crystals Urine Bacteria Hyaline Casts Ur Culture Indicated? U Opiates 300ng/mL cut Ur Oxycodone Screen Urine Methadone Screen Ur Barbiturates Screen U Tricyclic Antidepress Ur Phencyclidine Scrn Ur Amphetamines Screen U Methamphetamines Scrn Ur MDMA Scrn (Ecstasy) U Benzodiazepines Scrn Urine Cocaine Screen U Marijuana (THC) Screen Ethyl Alcohol < 10 COVID-19 PCR 01/26/20 01/26/20 01/26/20 21:10 22:20 22:20 WBC RBC Hgb Hct MCV MCH MCHC RDW Plt Count Neut % (Auto) Lymph % (Auto) [place] % (Auto) Eos % (Auto) Baso % (Auto) Neut # (Auto) Lymph # (Auto) [place] # (Auto) Eos # (Auto) Baso # (Auto) Sodium Potassium Chloride Carbon Dioxide BUN Creatinine Estimated GFR BUN/Creatinine Ratio Glucose Hemoglobin A1c Calcium Magnesium Total Bilirubin AST ALT Alkaline Phosphatase Troponin I Total Protein Albumin Globulin Albumin/Globulin Ratio Lipase Urine Color Yellow Urine Appearance Clear Urine pH 6.5 Ur Specific Merkel 1.015 Urine Protein 1+ H Urine Glucose (UA) Negative Urine Ketones Negative Urine Occult Blood Negative Urine Nitrate Negative Urine Bilirubin Negative Urine Urobilinogen 0.2 Ur Leukocyte Esterase Negative Urine RBC None seen Urine WBC None seen Uric Acid Crystals Occasional Urine Bacteria None seen Hyaline Casts 0-1/lpf Ur Culture Indicated? Cult not indicated U Opiates 300ng/mL cut Negative Ur Oxycodone Screen Negative Urine Methadone Screen Negative Ur Barbiturates Screen Negative U Tricyclic Antidepress Negative Ur Phencyclidine Scrn Negative Ur Amphetamines Screen Negative U Methamphetamines Scrn Positive H Ur MDMA Scrn (Ecstasy) Negative U Benzodiazepines Scrn Negative Urine Cocaine Screen Negative U Marijuana (THC) Screen Negative Ethyl Alcohol COVID-19 PCR Negative Assessment & Plan Assessment & Plan narrative: Jayden Rodriguez will be admitted for further workup for further progression of a CVA. Suspected TIA versus stroke, acute, present on admission -Cardiac telemetry -NIH scoring and neuro checks q 4 hours -he is continued on his home dose of apixaban 5 mg p.o. twice daily -initiate clopidogrel 75 mg p.o. daily and aspirin 81 mg p.o. daily -MR stroke scheduled for 01/26 -Complete Echo for 01/26 -PT/OT/ST evaluation Hypertension, acute with an admission bp of 183/121, present on admission -Allow for permissive hypertension of 220/110 HR 60 to allow for brain perfusion -he was given metoprolol 25 mg p.o. once in the emergency department -he will start on his home doses of metoprolol succinate 50 mg p.o. b.i.d. and lisinopril 20 mg p.o. daily in the morning HLD -Lipid panel, pending -Atorvastatin 40 mg po at bedtime Risk stratification -Fasting lipid panel pending -A1c 5.9 % Methamphetamine abuse, current, present on admission -it is still currently showing in his urine, patient states he has not used for 2 weeks. -He would like to go to inpatient rehab, but may need to follow-up outpatient VTE prophylaxis: Wells risk score: 0, however Caprini score of 7 indicates high risk due to a prior stroke he had previously been prescribed apixaban 5 mg p.o. twice daily and he will be restarted on this. Consults: none Patient is observation status as his stay is not likely to exceed 2 midnights. FEN: Saline lock, heart healthy diet, BMP and magnesium in the am. Dispo: Patient would like to go to inpatient rehab, but may need to follow-up outpatient Code Status: full code as discussed with patient Scores NIHSS Level of Conciousness: Alert, keenly responsive Ask month/age: Answers both questions correctly. Open/close eyes, close hand: Performs both tasks correctly Best gaze horizontal: Normal Visual madrid: No visual loss Facial palsy: Normal symetrical movement Left arm drift: No drift for full 10 sec Right arm drift: No drift for full 10 sec Left leg drift: No drift for full 5 sec Right leg drift: No drift for full 5 sec Limb ataxia: Absent Sensory on face/arms/legs: Normal, no sensory loss Best language: No aphasia, normal Dysarthria: Normal Extinction or inattention: No abnormality Total NIH Stroke scale score: 0 Wells' Criteria for PE Clinical signs and symptoms of DVT: No PE is #1 Dx or equally likely: No Heart rate > 100: No Immobilization at least 3 days or surg in previous 4 weeks: No History of PE or DVT: No Hemoptysis: No Malignancy w/Treatment within 6 months or palliative: No Wells' PE Score total: 0 Quality VTE Deep Vein Thrombosis/Pulmonary Embolism Present on Admission: No
[2020-01-27] MEDS: lisinopriL 20 MG TABLET PO ×2 (03:32→09:33)
[2020-01-27 06:21] LABS: Add Manual Diff / Slide Review NO; Basophils Absolute Auto 0 /uL (0-100); Basophils Percent Auto 0.6 % (0-2); Eosinophils Absolute Auto 200 /uL (0-450); Eosinophils Percent Auto 3.7 % (2-4); Hematocrit 39.4 % (41-53); Hemoglobin 13.2 g/dL (13.5-17.5); Lymphocytes Absolute Auto 1200 /uL (1100-4500); Lymphocytes Percent Auto 20.4 % (25-40); Mean Corpuscular HGB Conc 33.7 % (30-36); Mean Corpuscular Volume 83.3 fL (80-100); Monocytes Absolute Auto 600 /uL (0-900); Monocytes Percent Auto 10.8 % (3-14); Neutrophils Absolute Auto 3600 /uL (1500-7000); Neutrophils Percent Auto 64.5 % (50-75); Platelet Count 155 X10^3/uL (150-400); Red Blood Cell Count 4.73 X10^6/uL (4.5-5.9); Red Cell Distribution Width 16.8 % (11.6-14.8); White Blood Cell Count 5.6 X10^3/uL (4.5-11.0)
[2020-01-27 06:33] LABS: Cholesterol 169 mg/dL (140-199); HDL Cholesterol 47 mg/dL (40-60); LDL Cholesterol Calculated 107 mg/dL (<100); Triglycerides 75 mg/dL (35-150)
[2020-01-27 06:35] LABS: Alanine Aminotransferase 31 IU/L (<50); Albumin 3.6 g/dL (3.5-5.0); Albumin Globulin Ratio 1.2 (1.0-2.8); Alkaline Phosphatase 81 U/L (38-126); Aspartate Aminotransferase 39 IU/L (17-59); BUN Creatinine Ratio 19.4 (6-22); Bilirubin Total 0.9 mg/dL (0.2-1.3); Blood Urea Nitrogen 13 mg/dL (9-20); Calcium 8.6 mg/dL (8.4-10.2); Carbon Dioxide 31 mmol/L (22-32); Chloride 104 mmol/L (98-107); Estimated Glomerular Filt Rate > 60.0 mL/min (>60); Globulin 3.1 g/dL (1.7-4.1); Glucose 96 mg/dL (80-110); HEMOLYSIS < 15 (0-50); Magnesium 1.9 mg/dL (1.6-2.3); Potassium 3.3 mmol/L (3.4-5.1); Sodium 138 mmol/L (137-145); Total Protein 6.7 g/dL (6.3-8.2)
[2020-01-27] MEDS: POTASSIUM CHLORIDE 20 MEQ/15 ML UDC 40 MEQ PO (07:40)
--- NOTE | 2020-01-27 08:47 | DI.MRI.S_ITS ---
PROCEDURE: MR STROKE Pre- and post-contrast brain MRI, non-contrast brain MR angiogram, pre- and postcontrast neck MR angiogram INDICATIONS: hx of left and right CVA TECHNIQUE: Brain: Noncontrast axial T1 spin echo, axial T2 fast spin echo, sagittal and axial FLAIR, coronal T2 fast spin echo, axial gradient echo, axial diffusion and ADC through the brain. After the administration of contrast, axial 3D VIBE of the cranial vasculature and brain. Brain MRA: Non-contrast 3-D time of flight MR angiogram, with multiple hunwoex-kqkcsmibw-kyxwcyeuja (MIP) reformats performed. Neck MRA: Axial and sagittal TruFISP through the neck. Coronal dynamic MR angiogram during administration of contrast in the arterial and venous phases, with 3-dimenstional dotsbgr-sjxnjngon-myullcogsj (MIP) reformats constructed from subtraction images. COMPARISON: [facility], CT, CT HEAD WITHOUT CONTRAST, 09/11/2019, 11:51. [facility], MR, MR BRAIN WITHOUT CONTRAST, 09/21/2019, 14:50. [facility], CT, CT HEAD/BRAIN WO CON, 01/26/2020, 20:48. [facility], CT, CT ANGIO HEAD AND NECK TPA, 09/20/2019, 10:14. FINDINGS: Image quality: Excellent. BRAIN: CSF spaces: Ventricles are normal in size and shape. Basal cisterns are patent. No extra-axial fluid collections. Brain: No intracranial bleeds or mass effects. Briones-white matter interface is normal. Diffusion weighted images show no acute ischemic insults. Brainstem appears normal. Normal intravascular flow voids are present. No abnormal intracranial enhancement. Brain parenchymal volume loss is seen. Chronic small vessel ischemic changes are seen. Remote lacunar infarcts are seen involving the left thalamus and the deep white matter of the right frontal lobe. Skull and face: Calvarial marrow signal is normal. Orbits appear normal. Sinuses: Sinuses and mastoids are clear. BRAIN MR ANGIOGRAM: Anterior circulation: Intracranial internal carotid arteries are normal in size and enhancement. The flow within the paired anterior cerebral arteries is normal and symmetric. The flow within the middle cerebral arteries is normal and symmetric. The anterior communicating artery is seen. No stenoses, occlusions, or aneurysms. Posterior circulation: The left vertebral artery is dominant to the right. The distal right vertebral artery largely terminates in the right posterior inferior cerebellar artery. There is a normal appearing basilar artery. The flow within the posterior cerebral arteries is normal and symmetric. No stenoses, occlusions, or aneurysms. NECK MR ANGIOGRAM: Carotids: Great vessels demonstrate a conventional anatomy as they arise from the aortic arch. The origins of the common carotid arteries appear patent. The calibers and courses of both common carotid arteries are normal. The bifurcation regions appear normal bilaterally. The internal carotid arteries demonstrate normal course and caliber. Posterior circulation: The origins of the vertebral arteries are not well seen. However, there is believed to be approximately 50% narrowing of each vertebral artery origin. More superior portions of both vertebral arteries demonstrate normal course and caliber, and join to form a normal appearing basilar artery. The left vertebral artery is dominant to the right. Miscellaneous: Subclavian arteries appear patent. Pre-contrast images through the neck show no soft tissue abnormalities. IMPRESSION: BRAIN MRI: No findings of acute or subacute infarction can be seen. Note is made of age-appropriate brain parenchymal volume loss and chronic small vessel ischemic changes. Areas of prior lacunar infarction are seen involving the left thalamus and the deep white matter of the right frontal lobe. No masses or abnormal enhancement can be seen. BRAIN MR ANGIOGRAM: The distal right vertebral artery largely terminates in the right posterior inferior cerebellar artery. No significant intracranial arterial abnormality is seen. NECK MR ANGIOGRAM: The origins of the vertebral arteries are not well seen. However, it is believed that there is an approximately 50% narrowing involving each vertebral artery origin. No hemodynamically significant stenosis can be seen of the carotid arteries. Dictated by: Jj Paz M.D. on 01/27/2020 at 14:38 Approved by: Jj Paz M.D. on 01/27/2020 at 14:45
[2020-01-27 08:52] LABS: NT-proBNP (BNP-Adult 18+) 3170 pg/mL (<125)
[2020-01-27] MEDS: APIXABAN 5 MG TABLET PO (09:33)
[2020-01-27] MEDS: METOPROLOL ER 50 MG TABLET PO (09:33)
[2020-01-27] MEDS: CLOPIDOGREL 75 MG TABLET PO (09:33)
[2020-01-27] MEDS: ASPIRIN EC 81 MG TABLET PO (09:33)
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
[2020-01-27] MEDS: FUROSEMIDE 40 MG/4 ML VIAL IV (11:27)
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
--- NOTE | 2020-01-27 16:20 | P.DS_ITS ---
History of Present Illness History of Present Illness Date Patient Seen: 01/27/20 Time Patient Seen: 16:20 Chief complaint: Recent CVA, altered mentation and weakness Narrative: As per ISABEL Guardado: Jayden Rodriguez is a 69-year-old male with a history of methamphetamine use who presented to the emergency department with weakness. The patient has a stroke history dating back to September 06 of this year where upon he initially presented t [facility] with shortness of breath and diagnosed with pneumonia. He left Against Medical Advice. He then presented himself to [facility] where he became very agitated and confused, was sedated and intubated. At that time his only complaint was that he had scrotal pain and that he had a past medical history of hypertension and hyperlipidemia and was not taking any medications at that time. At that time he was admitted to the ICU for management of acute encephalopathy related to substance abuse. Imaging indicated that he had a acute infarction involving deep white matter of the right frontal lobe. He was eventually discharged to home 36 days later. The patient was then seen in the [facility] Emergency Department id and admitted on October 16 for confusion and disorientation. He was placed on a psychiatric hold and then eventually released. Today he basically stated that he was feeling weak for several weeks. He does not complain of any chest pain or shortness of breath, denies headaches, visual changes, numbing or tingling of the upper or lower extremities, diarrhea or constipation. He states that his last methamphetamine use was 2 weeks ago. He continues to state that he is not taking any of his prescribed medications. He does state he is interested in inpatient rehab. States he has been using methamphetamine for the past 7 years, intermittently. In the ED they did a multitude of imaging studies most of which were negative except for his head CT which reported ?Old lacunar infarcts in the left thalamus and the right anterior frontal lobe white matter.?. He was administered aspirin 325 mg p.o. and metoprolol 25 mg p.o. in the emergency department. His admission temperature was 98.8?, blood pressure 155/111, heart rate 74, respiratory rate 16, oxygen saturation 98% on room air, he weighs 88.4 kg with a BMI of 27.9. His WBC is 6.2, RBC 4.71, hemoglobin 13, hematocrit 39.1, platelet count 162. Basic metabolic panel is generally within normal limits, hemoglobin A1c is normal at 5.9, liver enzymes are also within normal limits, troponin is negative, lipase normal at 61, and COVID-19 screen is negative. Discharge Providers Provider Date of admission: 01/27/20 00:04 Discharge Date: 01/27/20 Consults: 01/27/20 00:53 Consult to Occupational Therapy Evaluate & Treat Comment: Physician Instructions: Evaluate and treat Consult to Physical Therapy Evaluate & Treat Comment: Physician Instructions: Evaluate and Treat 01/27/20 01:56 Consult to SEISMOGRAPH SUPERVISOR - Derrick Engineer Routine Comment: Interested in inpatient rehab, meth use, CVA SEISMOGRAPH SUPERVISOR Consult: Substance Abuse Assess Discharge provider: DO Lencho Flores Hospital Course Discharge Diagnosis: Fatigue, chronic, present on admission Hypertensive urgency, present on admission Chronic systolic heart failure with an ejection fraction of 40-45% Atrial fibrillation likely chronic HLD, chronic Methamphetamine abuse Hospital Course: Jayden Rodriguez is a 69-year-old male with a past medical history of methamphetamine abuse, hypertension, chronic systolic heart failure, atrial fibrillation of unknown type, hyperlipidemia who presented with fatigue and weakness over the past few weeks. Given his prior history of recent CVA the ER provider was concerned that he may have had a TIA leading to his isolated weakness, despite a nonfocal exam. MRI was performed which was unremarkable except for his prior infarcts. He has not been taking his medications for his heart failure and was likely slightly volume overloaded. He was able to ambulate without difficulty, he did have mild lower extremity edema and some shortness of breath but did not require oxygen. Patient has a complex social situation and social work was consulted. Patient was cleared by physical therapy for return home verses his truck, although the patient knows that he is not supposed to drive. Patient's home medications were sent to a local pharmacy. Social work was able to secure him a couple nights at a motel and will assist the patient and returning to his home. Exam Vital Signs (past 8 hours): - 01/27/20 11:12 01/27/20 15:35 Temperature 98.3 F 98.0 F Pulse Rate 85 85 Respiratory Rate 20 20 Blood Pressure 162/88 H 154/95 H Pulse Oximetry 93 96 Oxygen Delivery Method Room Air Oxygen Flow Rate 0 Narrative Exam Narrative: Gen: Alert, oriented, ill-appearing 69 y.o. male, NAD HEENT: normocephalic, atraumatic, conjunctiva clear, sclera non-icteric, oral mucosa pink and moist Neck: supple, full ROM, no JVD, trachea is midline Resp: Lungs CTA, non-labored breathing CV: RRR, no murmur or rubs Abd: soft, non-tender, normoactive BTs Skin: no lesions or rashes, dry and intact Neuro: NIH score 0, Alert and oriented X 4 w/no focal deficits. Speech clear and coherent. Extremities: moves all 4 extremities, is ambulatory, negative Martha?s sign, mild LE edema. Psyche: Depressed affect, possible mild cognitive impairment. Objective Labs Result Diagrams: 01/27/20 06:03 01/27/20 06:03 Labs: Laboratory Results - last 24 hr 01/26/20 01/26/20 01/26/20 20:25 20:25 20:25 WBC 6.2 RBC 4.71 Hgb 13.0 L Hct 39.1 L MCV 83.0 MCH 27.7 MCHC 33.3 RDW 16.6 H Plt Count 162 Neut % (Auto) 71.1 Lymph % (Auto) 16.3 L [place] % (Auto) 9.9 Eos % (Auto) 1.9 L Baso % (Auto) 0.8 Neut # (Auto) 4400 Lymph # (Auto) 1000 L [place] # (Auto) 600 Eos # (Auto) 100 Baso # (Auto) 0 Sodium 139 Potassium 3.4 Chloride 103 Carbon Dioxide 32 BUN 14 Creatinine 0.68 Estimated GFR > 60.0 BUN/Creatinine Ratio 20.6 Glucose 106 Hemoglobin A1c Calcium 8.9 Magnesium Total Bilirubin 0.8 AST 45 ALT 31 Alkaline Phosphatase 85 Troponin I < 0.012 NT-Pro-B Natriuret Pep Total Protein 7.1 Albumin 3.9 Globulin 3.2 Albumin/Globulin Ratio 1.2 Triglycerides Cholesterol LDL Cholesterol, Calc HDL Cholesterol Lipase 61 Urine Color Urine Appearance Urine pH Ur Specific [place] Urine Protein Urine Glucose (UA) Urine Ketones Urine Occult Blood Urine Nitrate Urine Bilirubin Urine Urobilinogen Ur Leukocyte Esterase Urine RBC Urine WBC Uric Acid Crystals Urine Bacteria Hyaline Casts Ur Culture Indicated? U Opiates 300ng/mL cut Ur Oxycodone Screen Urine Methadone Screen Ur Barbiturates Screen U Tricyclic Antidepress Ur Phencyclidine Scrn Ur Amphetamines Screen U Methamphetamines Scrn Ur MDMA Scrn (Ecstasy) U Benzodiazepines Scrn Urine Cocaine Screen U Marijuana (THC) Screen Ethyl Alcohol COVID-19 PCR 01/26/20 01/26/20 01/26/20 20:25 20:25 20:25 WBC RBC Hgb Hct MCV MCH MCHC RDW Plt Count Neut % (Auto) Lymph % (Auto) [place] % (Auto) Eos % (Auto) Baso % (Auto) Neut # (Auto) Lymph # (Auto) [place] # (Auto) Eos # (Auto) Baso # (Auto) Sodium Potassium Chloride Carbon Dioxide BUN Creatinine Estimated GFR BUN/Creatinine Ratio Glucose Hemoglobin A1c 5.9 Calcium Magnesium 2.0 Total Bilirubin AST ALT Alkaline Phosphatase Troponin I NT-Pro-B Natriuret Pep Total Protein Albumin Globulin Albumin/Globulin Ratio Triglycerides Cholesterol LDL Cholesterol, Calc HDL Cholesterol Lipase Urine Color Urine Appearance Urine pH Ur Specific [place] Urine Protein Urine Glucose (UA) Urine Ketones Urine Occult Blood Urine Nitrate Urine Bilirubin Urine Urobilinogen Ur Leukocyte Esterase Urine RBC Urine WBC Uric Acid Crystals Urine Bacteria Hyaline Casts Ur Culture Indicated? U Opiates 300ng/mL cut Ur Oxycodone Screen Urine Methadone Screen Ur Barbiturates Screen U Tricyclic Antidepress Ur Phencyclidine Scrn Ur Amphetamines Screen U Methamphetamines Scrn Ur MDMA Scrn (Ecstasy) U Benzodiazepines Scrn Urine Cocaine Screen U Marijuana (THC) Screen Ethyl Alcohol < 10 COVID-19 PCR 01/26/20 01/26/20 01/26/20 21:10 22:20 22:20 WBC RBC Hgb Hct MCV MCH MCHC RDW Plt Count Neut % (Auto) Lymph % (Auto) [place] % (Auto) Eos % (Auto) Baso % (Auto) Neut # (Auto) Lymph # (Auto) [place] # (Auto) Eos # (Auto) Baso # (Auto) Sodium Potassium Chloride Carbon Dioxide BUN Creatinine Estimated GFR BUN/Creatinine Ratio Glucose Hemoglobin A1c Calcium Magnesium Total Bilirubin AST ALT Alkaline Phosphatase Troponin I NT-Pro-B Natriuret Pep Total Protein Albumin Globulin Albumin/Globulin Ratio Triglycerides Cholesterol LDL Cholesterol, Calc HDL Cholesterol Lipase Urine Color Yellow Urine Appearance Clear Urine pH 6.5 Ur Specific [place] 1.015 Urine Protein 1+ H Urine Glucose (UA) Negative Urine Ketones Negative Urine Occult Blood Negative Urine Nitrate Negative Urine Bilirubin Negative Urine Urobilinogen 0.2 Ur Leukocyte Esterase Negative Urine RBC None seen Urine WBC None seen Uric Acid Crystals Occasional Urine Bacteria None seen Hyaline Casts 0-1/lpf Ur Culture Indicated? Cult not indicated U Opiates 300ng/mL cut Negative Ur Oxycodone Screen Negative Urine Methadone Screen Negative Ur Barbiturates Screen Negative U Tricyclic Antidepress Negative Ur Phencyclidine Scrn Negative Ur Amphetamines Screen Negative U Methamphetamines Scrn Positive H Ur MDMA Scrn (Ecstasy) Negative U Benzodiazepines Scrn Negative Urine Cocaine Screen Negative U Marijuana (THC) Screen Negative Ethyl Alcohol COVID-19 PCR Negative 01/27/20 01/27/20 01/27/20 06:03 06:03 06:03 WBC 5.6 RBC 4.73 Hgb 13.2 L Hct 39.4 L MCV 83.3 MCH 28.0 MCHC 33.7 RDW 16.8 H Plt Count 155 Neut % (Auto) 64.5 Lymph % (Auto) 20.4 L [place] % (Auto) 10.8 Eos % (Auto) 3.7 Baso % (Auto) 0.6 Neut # (Auto) 3600 Lymph # (Auto) 1200 [place] # (Auto) 600 Eos # (Auto) 200 Baso # (Auto) 0 Sodium 138 Potassium 3.3 L Chloride 104 Carbon Dioxide 31 BUN 13 Creatinine 0.67 Estimated GFR > 60.0 BUN/Creatinine Ratio 19.4 Glucose 96 Hemoglobin A1c Calcium 8.6 Magnesium Total Bilirubin 0.9 AST 39 ALT 31 Alkaline Phosphatase 81 Troponin I NT-Pro-B Natriuret Pep Total Protein 6.7 Albumin 3.6 Globulin 3.1 Albumin/Globulin Ratio 1.2 Triglycerides 75 Cholesterol 169 LDL Cholesterol, Calc 107 H HDL Cholesterol 47 Lipase Urine Color Urine Appearance Urine pH Ur Specific [place] Urine Protein Urine Glucose (UA) Urine Ketones Urine Occult Blood Urine Nitrate Urine Bilirubin Urine Urobilinogen Ur Leukocyte Esterase Urine RBC Urine WBC Uric Acid Crystals Urine Bacteria Hyaline Casts Ur Culture Indicated? U Opiates 300ng/mL cut Ur Oxycodone Screen Urine Methadone Screen Ur Barbiturates Screen U Tricyclic Antidepress Ur Phencyclidine Scrn Ur Amphetamines Screen U Methamphetamines Scrn Ur MDMA Scrn (Ecstasy) U Benzodiazepines Scrn Urine Cocaine Screen U Marijuana (THC) Screen Ethyl Alcohol COVID-19 PCR 01/27/20 01/27/20 06:03 06:03 WBC RBC Hgb Hct MCV MCH MCHC RDW Plt Count Neut % (Auto) Lymph % (Auto) [place] % (Auto) Eos % (Auto) Baso % (Auto) Neut # (Auto) Lymph # (Auto) [place] # (Auto) Eos # (Auto) Baso # (Auto) Sodium Potassium Chloride Carbon Dioxide BUN Creatinine Estimated GFR BUN/Creatinine Ratio Glucose Hemoglobin A1c Calcium Magnesium 1.9 Total Bilirubin AST ALT Alkaline Phosphatase Troponin I NT-Pro-B Natriuret Pep 3170 H Total Protein Albumin Globulin Albumin/Globulin Ratio Triglycerides Cholesterol LDL Cholesterol, Calc HDL Cholesterol Lipase Urine Color Urine Appearance Urine pH Ur Specific [place] Urine Protein Urine Glucose (UA) Urine Ketones Urine Occult Blood Urine Nitrate Urine Bilirubin Urine Urobilinogen Ur Leukocyte Esterase Urine RBC Urine WBC Uric Acid Crystals Urine Bacteria Hyaline Casts Ur Culture Indicated? U Opiates 300ng/mL cut Ur Oxycodone Screen Urine Methadone Screen Ur Barbiturates Screen U Tricyclic Antidepress Ur Phencyclidine Scrn Ur Amphetamines Screen U Methamphetamines Scrn Ur MDMA Scrn (Ecstasy) U Benzodiazepines Scrn Urine Cocaine Screen U Marijuana (THC) Screen Ethyl Alcohol COVID-19 PCR Discharge Plan Discharge Plan Patient Disposition: Home Discharge comment: You were admitted to the hospital with weakness which is likely due to you not taking your chronic medications. You were able to walk around without assistance. please establish care with a primary care provider and continue to take your home medications which were [facility] to [facility]. Discharge orders & Medications Prescriptions: Continued famotidine [Pepcid] 40 mg tablet 20 mg PO BID RF: 0 olanzapine [Zyprexa Zydis] 5 mg tablet,disintegrating 5 mg PO BEDTIME RF: 0 melatonin 3 mg Tablet 3 mg PO BEDTIME PRN (Reason: insomnia) RF: 0 potassium chloride 20 mEq Tablet Extended Release 20 meq PO DAILY RF: 0 furosemide [Lasix] 40 mg tablet 40 mg PO BID 30 Days Qty: 60 RF: 0 atorvastatin 40 mg Tablet 40 mg PO BEDTIME 30 Days Qty: 30 RF: 0 clonidine [[id number]-RQC-5] 0.1 mg/24 hr patch weekly 0.1 mg transdermal WEEKLY 30 Days Qty: 4 RF: 0 metoprolol succinate [Toprol XL] 50 mg tablet extended release 24 hr 50 mg PO DAILY 30 Days Qty: 30 RF: 0 lisinopril [Prinivil] 20 mg tablet 20 mg PO DAILY 30 Days Qty: 30 RF: 0 Eliquis 5 mg tablet 5 mg PO BID 30 Days Qty: 60 RF: 0 Diet/Activity/Treatments Diet: Diet as Tolerated and Low-sodium Activity: As tolerated Visit Report/Discharge Packet Visit Report Forms: Patient Portal/API, Stroke Signs & Symptoms Discharge Data Attending Provider: Emelia Schwarz Admit Date/Time: 01/27/20 00:04 Discharges patient from system. Discharge Date/Time: 01/27/20 18:19 Quality VTE Deep Vein Thrombosis/Pulmonary Embolism Present on Admission: No
--- NOTE | 2020-01-27 17:09 | PM.CHAP ---
Staff referral. Was able to arrange through [facility] two nights in a motel. Nancy at [facility] will be working with Pt on transportation back to [place]. Hernando Yan, [facility] [phone]
--- NOTE | 2020-01-27 18:19 | PC.NURSE ---
pastor Hernando Yan has arranged for pt to stay 2 nights at [facility] (?). pt states knows where it is and denies any difficulties getting there.
[2020-01-27 20:02] LABS: Campylobacter Not Detected (Not Detect); Clostridium difficile toxin AB Not Detected (Not Detect); Enteroaggregative E.coli Not Detected (Not Detect); Enteropathogenic E.coli Not Detected (Not Detect); Enterotoxigenic E.coli It/st Not Detected (Not Detect); Plesiomonsa shigelloides Not Detected (Not Detect); Salmonella Not Detected (Not Detect); Shiga-like toxin-prod E.coli Not Detected (Not Detect); Vibrio Not Detected (Not Detect); Vibrio cholerae Not Detected (Not Detect); Yersinia enterocolitica Not Detected (Not Detect)
[2020-01-27 20:03] LABS: Adenovirus F 40/41 Not Detected (Not Detect); Astrovirus Not Detected (Not Detect); Cryptosporidium Not Detected (Not Detect); Cyclospora cayetanensis Not Detected (Not Detect); Entamoeba histolytica Not Detected (Not Detect); Giardia lamblia Not Detected (Not Detect); Norovirus GI/GII Not Detected (Not Detect); Rotavirus A Not Detected (Not Detect); Sapovirus Not Detected (Not Detect); Shigella/Enteroinvasive E.coli Not Detected (Not Detect)
== END 2020-01-27 18:19 | disposition home or self-care (01) ==
LOC: ED 01-27 00:03 → AC 01-27 00:06
PROVIDERS: Internal Medicine; Admitting Provider Nurse Practitioner Family; Emergency Provider Emergency Medicine; Visit Provider Nurse Practitioner Family
DX: R53.1 Weakness (principal); I48.91 Unspecified atrial fibrillation; I50.22 Chronic systolic (congestive) heart failure; I10 Essential (primary) hypertension; Z86.73 Personal history of transient ischemic attack (TIA), and cerebral infarction without residual deficits; F15.10 Other stimulant abuse, uncomplicated; Z11.59 Encounter for screening for other viral diseases; R10.9 Unspecified abdominal pain; R19.7 Diarrhea, unspecified; R50.9 Fever, unspecified
CPT/HCPCS: 36415; 70450; 70548; 70553; 71045; 71250; 74177; 80053; 80061; 80305; 80320; 81001; 82962; 83036; 83690; 83735; 83880; 84484; 85025; 87045; 87507; 87635; 87899; 93005; 96361; 96374; 96375; 97161; 97165; 97530; 99284; 99285; G0378; A9579; J1940; J2405; Q9967

== ENCOUNTER 2020-04-11 13:43 | Emergency (ER) | payer MEDICARE, MEDICAID, SELFPAY ==
[2020-01-27 00:54] VITALS: BMI 27.9
[2020-04-11] VITALS (28 sets, daily range): BP systolic 139–199; BP diastolic 80–114; PULSE 67–81; RESP 14–37; TEMP 36.4; O2SAT 92–99; BMI 27.2
--- NOTE | 2020-04-11 16:00 | ED.AMS ---
HPI - Altered Mental Status General Chief Complaint: Fever Stated Complaint: confusion,doesn't feel well,keeps falling asleep Time Seen by Provider: 04/11/20 15:52 Source: patient Mode of arrival: Wheelchair History of Present Illness HPI narrative: This is a 69-year-old male who comes forgetfulness and fatigue, chills, shortness of breath and was COVID positive 2 weeks ago. On exam patient denies headache, vision changes. He denies any chest pain shortness of breath or abdominal pain. No nausea or vomiting. No GI or urinary symptoms recently. At this time he is denying any symptoms at all. He does state that his memory has been foggy and a little bit off. He is alert and appropriate on examination patient states he would did test positive for COVID about 2 weeks before. He is on Eliquis, takes medications for hypertension, dyslipidemia, CVA with minimal deficit he describes as generalized weakness and has stated he has a history of triple AAA. He states his only prior surgeries have been tonsil and adenoids. Related Data Home Medications Medication Instructions Recorded Confirmed famotidine [Pepcid] 20 mg PO BID 01/27/20 01/27/20 melatonin 3 mg PO BEDTIME PRN 01/27/20 01/27/20 olanzapine [Zyprexa Zydis] 5 mg PO BEDTIME 01/27/20 01/27/20 potassium chloride 20 meq PO DAILY 01/27/20 01/27/20 Previous Rx's Medication Instructions Recorded Eliquis 5 mg PO BID 30 Days #60 tab 01/27/20 atorvastatin 40 mg PO BEDTIME 30 Days #30 tab 01/27/20 clonidine [Cufjueik-BVP-4] 0.1 mg TRANSDERMAL WEEKLY 30 Days 01/27/20 #4 ea furosemide [Lasix] 40 mg PO BID 30 Days #60 tab 01/27/20 lisinopril [Prinivil] 20 mg PO DAILY 30 Days #30 tab 01/27/20 metoprolol succinate [Toprol XL] 50 mg PO DAILY 30 Days #30 tab 01/27/20 lisinopril 20 mg PO DAILY #30 tab 04/11/20 metoprolol succinate [Toprol XL] 50 mg PO DAILY #30 tab 04/11/20 Allergies Allergy/AdvReac Type Severity Reaction Status Date / Time No Known Drug Allergies Allergy Verified 01/26/20 20:13 Review of Systems Review of Systems ROS Unobtainable: All systems reviewed & are unremarkable except as noted in HPI and below Patient History Medical History Abdominal aortic aneurysm Atrial fibrillation, chronic Essential hypertension Essential hypertension History of CVA (cerebrovascular accident) Hypertension Methamphetamine use Surgical History History of appendectomy History of inguinal hernia repair History of tonsillectomy Family History (Updated 01/27/20 @ 02:19 by ISABEL Benavidez) Mother CVA (cerebral vascular accident) Father Leukemia Social History household members: none lives independently: Yes Smoking Status: Never smoker Smoking Status: Never smoker alcohol intake frequency: a few times a week Alcohol type: beer Substance Use Type: does not use Exam Narrative Exam Narrative: GEN: well nourished, well appearing male, alert and oriented x 3, patient appears to be in mild distress. HEENT: Atraumatic, pupils are equal round reactive to light, extraocular movements are intact, nares are clear, TMs are clear with no fluid, there is no conjunctival pallor. Throat is clear without any exudates, erythema, tonsillar enlargement or uvular deviation, no facial droop. Clear speech. HEART: Regular rate and rhythm without murmur, clicks, rubs. Pulses are equal in upper and lower extremities LUNGS:Lungs clear to auscultation, no wheezes, rales, crackles, chest moves symmetrically ABD:bowel sounds normal, soft, non-tender, no guarding, rebound, rigidity, no masses noted, no hepatosplenomegaly :No CVA tenderness MSCL: Non-tender, no muscle atrophy, muscles strength 5/5 upper and lower extremities, full range of motion, NEURO:CN 2-12 intact SKIN: No rash, erythema or other changes. Initial Vital Signs Initial Vital Signs: Vital Signs Temperature 97.5 F L 04/11/20 14:17 Pulse Rate 72 04/11/20 14:17 Respiratory Rate 20 04/11/20 14:17 Blood Pressure 174/91 H 04/11/20 14:17 Pulse Oximetry 99 04/11/20 14:17 Scores GCS [place] coma scale eye opening: Spontaneous [place] coma scale verbal response: Orientated [place] coma scale motor response: Obey commands [place] coma scale total score: 15 Course Orders Ordered: ED Orders 04/11/20 16:50 CT head/brain wo con Stat EKG-12 Lead Stat 04/11/20 16:51 XR chest 1V Stat 04/11/20 17:30 Arterial Blood Gas Stat C-Reactive Protein Quant Stat Complete Blood Count AUTO DIFF Stat Comprehensive Metabolic Panel Stat D Dimer Stat Ferritin Stat Lactate (Lactic Acid) Stat Lactate Dehydrogenase Stat NT-proBNP (BNP-Adult 18+) Stat Procalcitonin Stat Troponin & CK Cardiac Panel Stat 04/11/20 18:22 COVID19 Stat 04/11/20 18:45 Blood Culture Stat 04/11/20 18:54 Consult to [facility] - Presentation Team Member Stat 04/11/20 19:15 CT angio chest abdomen pelvis Stat Discontinued Medications Metoprolol Succinate (Metoprolol Er 50 Mg Tablet) 50 mg PO NOW ONE Stop: 04/11/20 19:15 Last Admin: 04/11/20 19:55 Dose: 50 mg Documented by: TYSON Metoprolol Tartrate (Metoprolol Tartrate 5 Mg/5 Ml Inj) 5 mg IV Q5M [facility] Stop: 04/11/20 18:11 Last Admin: 04/11/20 19:21 Dose: 5 mg Documented by: Admin: 04/11/20 19:06 Dose: 5 mg Documented by: Admin: 04/11/20 18:32 Dose: 5 mg Documented by: TYSON Vital Signs Vital signs: Vital Signs - 8 hr 04/11/20 14:17 04/11/20 16:26 04/11/20 16:30 Temperature 97.5 F L Pulse Rate 72 74 71 Respiratory Rate 20 Blood Pressure 174/91 H 177/99 H Pulse Oximetry 99 94 93 04/11/20 16:31 04/11/20 17:00 04/11/20 17:30 Temperature Pulse Rate 71 81 78 Respiratory Rate Blood Pressure 166/110 H 187/113 H Pulse Oximetry 94 95 98 04/11/20 18:00 04/11/20 18:30 04/11/20 18:37 Temperature Pulse Rate 81 79 79 Respiratory Rate 14 17 37 H Blood Pressure 187/109 H 197/90 H 199/92 H Pulse Oximetry 94 04/11/20 18:45 04/11/20 19:00 04/11/20 19:09 Temperature Pulse Rate 70 71 75 Respiratory Rate 17 14 19 Blood Pressure 165/105 H 178/102 H 166/112 H Pulse Oximetry 97 96 96 04/11/20 19:10 04/11/20 19:20 04/11/20 19:30 Temperature Pulse Rate 74 68 67 Respiratory Rate 23 21 19 Blood Pressure 177/105 H 181/114 H 166/102 H Pulse Oximetry 96 95 95 04/11/20 19:40 04/11/20 19:55 04/11/20 20:04 Temperature Pulse Rate 73 73 78 Respiratory Rate 15 Blood Pressure 173/93 H 173/93 H Pulse Oximetry 94 04/11/20 20:15 04/11/20 20:20 04/11/20 20:30 Temperature Pulse Rate 71 67 74 Respiratory Rate 19 17 17 Blood Pressure 139/86 153/87 H 150/98 H Pulse Oximetry 94 93 92 MDM - Altered Mental Status Lab Data Attestation: I reviewed the patient's lab results. Result diagrams: 04/11/20 17:30 04/11/20 17:30 Labs: Lab Results 04/11/20 04/11/20 04/11/20 Range/Units 17:30 17:30 17:30 WBC 6.3 (4.5-11.0) X10^3/uL RBC 5.09 (4.5-5.9) X10^6/uL Hgb 13.9 (13.5-17.5) g/dL Hct 42.3 (41-53) % MCV 83.1 (80-100) fL MCH 27.3 (26-34) PG MCHC 32.8 (30-36) % RDW 17.1 H (11.6-14.8) % Plt Count 216 (150-400) X10^3/uL Neut % (Auto) 65.1 (50-75) % Lymph % (Auto) 19.4 L (25-40) % [place] % (Auto) 9.9 (3-14) % Eos % (Auto) 4.5 H (2-4) % Baso % (Auto) 1.1 (0-2) % Neut # (Auto) 4100 (5686-7995) /uL Lymph # (Auto) 1200 (9225-7361) /uL [place] # (Auto) 600 (0-900) /uL Eos # (Auto) 300 (0-450) /uL Baso # (Auto) 100 (0-100) /uL D-Dimer 476 H (<230) ng/mL ABG pH (7.35-7.45) ABG pCO2 (35-45) mmHg ABG pO2 (80-100) mmHg ABG HCO3 (22-26) mmol/L ABG Total CO2 (21-31) mmol/L ABG O2 Saturation (95-100) % ABG Base Excess (-2-2) mmol/L FiO2 Sodium 138 (137-145) mmol/L Potassium 3.2 L (3.4-5.1) mmol/L Chloride 101 (98-107) mmol/L Carbon Dioxide 34 H (22-32) mmol/L BUN 13 (9-20) mg/dL Creatinine 0.75 (0.66-1.25) mg/dL Estimated GFR > 60.0 (>60) mL/min BUN/Creatinine Ratio 17.3 (6-22) Glucose 106 (80-110) mg/dL Lactate (0.7-2.1) mmol/L Calcium 9.0 (8.4-10.2) mg/dL Ferritin 34 (18-464) ng/mL Total Bilirubin 0.8 (0.2-1.3) mg/dL AST 31 (17-59) IU/L ALT 19 (<50) IU/L Alkaline Phosphatase 113 (38-126) U/L Lactate Dehydrogenase 592 (313-618) U/L Total Creatine Kinase 56 (55-170) U/L CK-MB (CK-2) TNP CK-MB (CK-2) Rel Index TNP Troponin I < 0.012 (0.01-0.034) ng/mL C-Reactive Protein 0.8 (<1.0) mg/dL NT-Pro-B Natriuret Pep 1730 H (<125) pg/mL Total Protein 7.7 (6.3-8.2) g/dL Albumin 4.0 (3.5-5.0) g/dL Globulin 3.7 (1.7-4.1) g/dL Albumin/Globulin Ratio 1.1 (1.0-2.8) Procalcitonin (<0.5) ng/mL COVID-19 PCR (Negative) 04/11/20 04/11/20 04/11/20 Range/Units 17:30 17:30 17:30 WBC (4.5-11.0) X10^3/uL RBC (4.5-5.9) X10^6/uL Hgb (13.5-17.5) g/dL Hct (41-53) % MCV (80-100) fL MCH (26-34) PG MCHC (30-36) % RDW (11.6-14.8) % Plt Count (150-400) X10^3/uL Neut % (Auto) (50-75) % Lymph % (Auto) (25-40) % [place] % (Auto) (3-14) % Eos % (Auto) (2-4) % Baso % (Auto) (0-2) % Neut # (Auto) (3268-8991) /uL Lymph # (Auto) (7544-0595) /uL [place] # (Auto) (0-900) /uL Eos # (Auto) (0-450) /uL Baso # (Auto) (0-100) /uL D-Dimer (<230) ng/mL ABG pH 7.45 (7.35-7.45) ABG pCO2 41.4 (35-45) mmHg ABG pO2 74 L (80-100) mmHg ABG HCO3 29 H (22-26) mmol/L ABG Total CO2 30 (21-31) mmol/L ABG O2 Saturation 95 (95-100) % ABG Base Excess 4.0 H (-2-2) mmol/L FiO2 21 Sodium (137-145) mmol/L Potassium (3.4-5.1) mmol/L Chloride (98-107) mmol/L Carbon Dioxide (22-32) mmol/L BUN (9-20) mg/dL Creatinine (0.66-1.25) mg/dL Estimated GFR (>60) mL/min BUN/Creatinine Ratio (6-22) Glucose (80-110) mg/dL Lactate 1.1 (0.7-2.1) mmol/L Calcium (8.4-10.2) mg/dL Ferritin (18-464) ng/mL Total Bilirubin (0.2-1.3) mg/dL AST (17-59) IU/L ALT (<50) IU/L Alkaline Phosphatase (38-126) U/L Lactate Dehydrogenase (313-618) U/L Total Creatine Kinase (55-170) U/L CK-MB (CK-2) CK-MB (CK-2) Rel Index Troponin I (0.01-0.034) ng/mL C-Reactive Protein (<1.0) mg/dL NT-Pro-B Natriuret Pep (<125) pg/mL Total Protein (6.3-8.2) g/dL Albumin (3.5-5.0) g/dL Globulin (1.7-4.1) g/dL Albumin/Globulin Ratio (1.0-2.8) Procalcitonin < 0.05 (<0.5) ng/mL COVID-19 PCR (Negative) 04/11/20 Range/Units 18:22 WBC (4.5-11.0) X10^3/uL RBC (4.5-5.9) X10^6/uL Hgb (13.5-17.5) g/dL Hct (41-53) % MCV (80-100) fL MCH (26-34) PG MCHC (30-36) % RDW (11.6-14.8) % Plt Count (150-400) X10^3/uL Neut % (Auto) (50-75) % Lymph % (Auto) (25-40) % [place] % (Auto) (3-14) % Eos % (Auto) (2-4) % Baso % (Auto) (0-2) % Neut # (Auto) (0660-9116) /uL Lymph # (Auto) (3067-3434) /uL [place] # (Auto) (0-900) /uL Eos # (Auto) (0-450) /uL Baso # (Auto) (0-100) /uL D-Dimer (<230) ng/mL ABG pH (7.35-7.45) ABG pCO2 (35-45) mmHg ABG pO2 (80-100) mmHg ABG HCO3 (22-26) mmol/L ABG Total CO2 (21-31) mmol/L ABG O2 Saturation (95-100) % ABG Base Excess (-2-2) mmol/L FiO2 Sodium (137-145) mmol/L Potassium (3.4-5.1) mmol/L Chloride (98-107) mmol/L Carbon Dioxide (22-32) mmol/L BUN (9-20) mg/dL Creatinine (0.66-1.25) mg/dL Estimated GFR (>60) mL/min BUN/Creatinine Ratio (6-22) Glucose (80-110) mg/dL Lactate (0.7-2.1) mmol/L Calcium (8.4-10.2) mg/dL Ferritin (18-464) ng/mL Total Bilirubin (0.2-1.3) mg/dL AST (17-59) IU/L ALT (<50) IU/L Alkaline Phosphatase (38-126) U/L Lactate Dehydrogenase (313-618) U/L Total Creatine Kinase (55-170) U/L CK-MB (CK-2) CK-MB (CK-2) Rel Index Troponin I (0.01-0.034) ng/mL C-Reactive Protein (<1.0) mg/dL NT-Pro-B Natriuret Pep (<125) pg/mL Total Protein (6.3-8.2) g/dL Albumin (3.5-5.0) g/dL Globulin (1.7-4.1) g/dL Albumin/Globulin Ratio (1.0-2.8) Procalcitonin (<0.5) ng/mL COVID-19 PCR Negative (Negative) Urine Dip Bedside Urine Glucose Negative Bedside Urine Bilirubin - Negative Bedside Urine Ketone - Negative Urine Specific [place] 1.020 Bedside Urine Occult Blood - Negative Bedside Urine pH 7.0 Bedside Urine Protein - Negative Bedside Urine Urobilinogen - Negative Bedside Urine Nitrite - Negative Bedside Urine Leukocytes - Negative Esterase Imaging Data CT scan - head: Radiologist's Impression: Guido Rodriguezsedrick Richard M 1950 [address] [id number] Scan ReportSigned Patient: Jayden Rodriguez AMR#: [id number]: 9Acct:[id number]/Sex: 69 / MDate of Service: 04/11/20Loc: EDAccession Number: [id number] Procedure: CT head/brain wo con Ordering Provider: Shayna Moy D.O. PROCEDURE: CT HEAD/BRAIN WO CON INDICATIONS: confusin, covid + 2 weeks ago, TECHNIQUE: Noncontrast 4.5 mm thick angled axial sections acquired from the foramen magnum to the vertex, with coronal and sagittal reformats. For radiation dose reduction, the following was used: automated exposure control, adjustment of mA and/or kV according to patient size. COMPARISON: [facility], CT, CT HEAD/BRAIN WO CON, 01/26/2020, 20:48. FINDINGS: Image quality: Excellent. CSF spaces: Basal cisterns are patent. No extra-axial fluid collections. Ventricles are normal in size and shape. Brain: No midline shift. No intracranial masses or hemorrhage. Briones-white matter interface is normal. Skull and face: Calvarium and visualized facial bones are intact, without suspicious lesions. Sinuses: Visualized sinuses and mastoids are clear. IMPRESSION: No trauma found. Dictated by: Simon Alexandra M.D. on 04/11/2020 at 17:16 Approved by: Simon Alexandra M.D. on 04/11/2020 at 17:16 Chest x-ray: Radiologist's Impression: Jayden Rodriguez 69 M 1950 [address] [id number] ReportSigned Patient: Jayden Rodriguez AMR#: [id number]: 1950cct:[id number]/Sex: 69 / MDate of Service: 04/11/20Loc: EDAccession Number: [id number] Procedure: XR chest 1V Ordering Provider: Shayna Moy D.O. PROCEDURE: XR CHEST 1V INDICATIONS: flu-like symptoms TECHNIQUE: One view of the chest was acquired. COMPARISON: [facility], CT, CT ANGIO CHEST PE, 04/05/2020, 2:52. [facility], CR, XR CHEST 1 VIEW, 04/05/2020, 0:42. [facility], CT, CT CHEST WO CON, 01/26/2020, 23:02. [facility], CR, XR CHEST 1 VIEW, 09/23/2019, 5:52. [facility], CR, XR CHEST 1V, 01/26/2020, 20:47. FINDINGS: Surgical changes and devices: None. Lungs and pleura: An incomplete inspiratory result is noted, causing a crowded appearance to the lung markings. No focal infiltrates are seen. No pneumothorax or significant pleural effusions are seen. Mediastinum: Mediastinal contours appear normal. Heart size is moderately enlarged. Bones and chest wall: No suspicious bony lesions. Age-appropriate bony degenerative changes are seen. Overlying soft tissues appear unremarkable. IMPRESSION: Limited portable chest examination demonstrating moderate cardiomegaly. If clinically appropriate, a short-term followup chest series (with PA and lateral views) performed in deep inspiration is suggested for further evaluation. Dictated by: Jj Paz M.D. on 04/11/2020 at 16:20 Approved by: Jj Paz M.D. on 04/11/2020 at 16:21 CT scan - abdomen/pelvis: Radiologist's Impression: [address] [id number] Scan ReportSigned Patient: Jayden Rodriguez AMR#: [id number]: 9Acct:[id number]/Sex: 69 / MDate of Service: 04/11/20Loc: EDAccession Number: [id number] Procedure: CT angio chest abdomen pelvis Ordering Provider: Shayna Moy D.O. PROCEDURE: CT ANGIO CHEST ABDOMEN PELVIS INDICATIONS: chest pain/abd, hypertension, confusion TECHNIQUE: Precontrast 5 mm thick sections acquired from the lung apices to the iliac crests. After the administration of intravenous contrast, 2.5 mm thick sections again acquired from the lung apices to the iliac crests. Maximum intensity projection (MIP) oblique sagittal and coronal reformats were then acquired. For radiation dose reduction, the following was used: automated exposure control. COMPARISON: [facility], CT, CT ABDOMEN PELVIS W CON, 01/26/2020, 21:49. [facility], CT, CT ANGIO CHEST PE, 04/05/2020, 2:52. FINDINGS: Image quality: Excellent. AORTA: The ascending thoracic aorta has a normal appearance and size. Scattered atheromatous calcifications are present at the arch. Mild atheromatous plaque is present throughout the descending thoracic aorta. A subtle hypodensity is noted within the anterior aspect of the descending thoracic aorta raising the suspicion for an ill-defined intimal flap; however there is no flow limiting dissection noted. 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 The abdominal aorta measures up to 4.5 cm in lateral diameter. There is no flow differential visualized within the proximal iliac arteries. There is admixture of non-opacified and opacified blood within the descending thoracic and abdominal aorta suggesting poor cardiac output. CHEST: Lungs and pleura: Dependent atelectasis is present bilaterally in the posterior lung bases. No pleural effusion or pneumothorax. No acute airspace opacities. Mediastinum: Heart size is moderately enlarged. Dense atheromatous calcifications are present within the coronary arteries. No pericardial effusion. No mediastinal or hilar adenopathy by size criteria. Central pulmonary arteries are normal in size. Esophagus is normal in caliber. No hiatal hernias. Bones and chest wall: No axillary adenopathy by size criteria. Thyroid gland is unremarkable . No suspicious bony lesions. No vertebral body compression fractures. ABDOMEN: Vasculature: The celiac axis and SMA are widely patent. Moderate stenoses are present at the origins of the bilateral renal arteries. The UMU is patent. Solid organs: Liver is normal in size and enhancement. A solitary calcified gallstone is present within the gallbladder fundus. No gallbladder wall thickening or pericholecystic fluid. Biliary system is non dilated. Pancreas enhances normally. Spleen is normal in size and enhancement. No adrenal nodules. Both kidneys are normal in size and enhancement, without hydronephrosis. Peritoneum and bowel: No free fluid or air. Bowel loops are normal in caliber and wall thickness. The appendix is not visualized; however there is no discrete right lower quadrant fluid or fat stranding to suggest acute appendicitis. There are scattered sigmoid diverticula. No evidence for diverticulitis. Nodes and vessels: No retroperitoneal or mesenteric adenopathy by size criteria. Inferior vena cava is normal in morphology. Miscellaneous: No ventral hernias. PELVIS: Genitourinary: Bladder wall thickness is normal. Miscellaneous: No inguinal adenopathy. There are moderate bilateral fat containing inguinal hernias. Bones: No suspicious bony lesions. No vertebral body compression fractures. IMPRESSION: 1. Questionable partial aortic dissection which appears non flow limiting within the descending thoracic and abdominal aorta as described above. 2. Findings suggesting poor cardiac output. 3. Mild aortic atherosclerosis. Dense coronary atheromatous calcifications. 4. Diverticulosis. No acute diverticulitis. The appendix is not visualized; however there are no ancillary findings to suggest acute appendicitis. Dictated by: Desiree Lentz M.D. on 04/11/2020 at 20:06 Approved by: Desiree Lentz M.D. on 04/11/2020 at 20:23 ECG Data Attestation: I personally reviewed and interpreted this ECG as follows: Interpretation: AFib, rate controlled at 83, QRS of [address]TC [address] No significant ST elevation or depression appreciated. MDM Narrative Medical decision making narrative: CBC does not show major abnormalities. Dimer is elevated, ABG shows elevated bicarb but no other major abnormalities. Mild hypokalemia with a CO2 of 34, normal renal function otherwise normal electrolytes. Patient's LFTs, troponin are negative, and BNP is improved from prior. Patient covid swab is negative today. Patient had a brief episode of abdominal pain while his IV was being placed and was hypertensive, CT imaging was ordered as he has been off his medications for several years. Patient CT imaging shows, angio chest abdomen pelvis which appears non flow-limiting within descending thoracic and abdominal aorta, findings suggesting poor cardiac output. Patient and I discussed findings and patient was also evaluated by social work in department. Discussed at length with patient, recommendations for treatment and to restart his medications. Patient states he was supposed to establish with a local physician this week and skipped his appointment yesterday. Discharge Plan Departure Patient Disposition: Home Clinical Impression: Fatigue, Abdominal aortic aneurysm, Hypertension Activity Restrictions/Additional Instructions: Follow up with your primary care physician. Call in the morning to set up an appointment. You have a aortic aneurysm which does not appear to have acute active changes today but does need close follow-up, further evaluation and intervention. If you continue to not take your medications your high blood pressure will continue to worsen it can break and you would bleed to . It is highly recommended that you take your medications for blood pressure. Return to the ER for fevers, worsening or new chest or abdominal pain lightheadedness, passing out, persistent vomiting, new weakness numbness tingling difficulty with movement or other new or concerning symptoms. You may contact age in disability at [phone] for caregiving coordination You may also contact the emergency department social insurance specialist at [phone] assistance or questions Prescriptions: New lisinopril 20 mg tablet 20 mg PO DAILY Qty: 30 RF: 0 metoprolol succinate [Toprol XL] 50 mg tablet extended release 24 hr 50 mg PO DAILY Qty: 30 RF: 0 No Action famotidine [Pepcid] 40 mg tablet 20 mg PO BID RF: 0 olanzapine [Zyprexa Zydis] 5 mg tablet,disintegrating 5 mg PO BEDTIME RF: 0 melatonin 3 mg Tablet 3 mg PO BEDTIME PRN (Reason: insomnia) RF: 0 potassium chloride 20 mEq Tablet Extended Release 20 meq PO DAILY RF: 0 furosemide [Lasix] 40 mg tablet 40 mg PO BID 30 Days Qty: 60 RF: 0 atorvastatin 40 mg Tablet 40 mg PO BEDTIME 30 Days Qty: 30 RF: 0 clonidine [Gixdwbbp-EBH-4] 0.1 mg/24 hr patch weekly 0.1 mg transdermal WEEKLY 30 Days Qty: 4 RF: 0 metoprolol succinate [Toprol XL] 50 mg tablet extended release 24 hr 50 mg PO DAILY 30 Days Qty: 30 RF: 0 lisinopril [Prinivil] 20 mg tablet 20 mg PO DAILY 30 Days Qty: 30 RF: 0 Eliquis 5 mg tablet 5 mg PO BID 30 Days Qty: 60 RF: 0 Referrals: Alex Huber MD [Primary Care Provider] -
--- NOTE | 2020-04-11 16:50 | DI.CT.S_ITS ---
PROCEDURE: CT HEAD/BRAIN WO CON INDICATIONS: confusin, covid + 2 weeks ago, TECHNIQUE: Noncontrast 4.5 mm thick angled axial sections acquired from the foramen magnum to the vertex, with coronal and sagittal reformats. For radiation dose reduction, the following was used: automated exposure control, adjustment of mA and/or kV according to patient size. COMPARISON: [facility], CT, CT HEAD/BRAIN WO CON, 01/26/2020, 20:48. FINDINGS: Image quality: Excellent. CSF spaces: Basal cisterns are patent. No extra-axial fluid collections. Ventricles are normal in size and shape. Brain: No midline shift. No intracranial masses or hemorrhage. Briones-white matter interface is normal. Skull and face: Calvarium and visualized facial bones are intact, without suspicious lesions. Sinuses: Visualized sinuses and mastoids are clear. IMPRESSION: No trauma found. Dictated by: Simon Alexandra M.D. on 04/11/2020 at 17:16 Approved by: Simon Alexandra M.D. on 04/11/2020 at 17:16
--- NOTE | 2020-04-11 16:51 | DI.RAD.S_ITS ---
PROCEDURE: XR CHEST 1V INDICATIONS: flu-like symptoms TECHNIQUE: One view of the chest was acquired. COMPARISON: [facility], CT, CT ANGIO CHEST PE, 04/05/2020, 2:52. [facility], CR, XR CHEST 1 VIEW, 04/05/2020, 0:42. [facility], CT, CT CHEST WO CON, 01/26/2020, 23:02. [facility], CR, XR CHEST 1 VIEW, 09/23/2019, 5:52. [facility], CR, XR CHEST 1V, 01/26/2020, 20:47. FINDINGS: Surgical changes and devices: None. Lungs and pleura: An incomplete inspiratory result is noted, causing a crowded appearance to the lung markings. No focal infiltrates are seen. No pneumothorax or significant pleural effusions are seen. Mediastinum: Mediastinal contours appear normal. Heart size is moderately enlarged. Bones and chest wall: No suspicious bony lesions. Age-appropriate bony degenerative changes are seen. Overlying soft tissues appear unremarkable. IMPRESSION: Limited portable chest examination demonstrating moderate cardiomegaly. If clinically appropriate, a short-term followup chest series (with PA and lateral views) performed in deep inspiration is suggested for further evaluation. Dictated by: Jj Paz M.D. on 04/11/2020 at 16:20 Approved by: Jj Paz M.D. on 04/11/2020 at 16:21
[2020-04-11 17:38] LABS: Add Manual Diff / Slide Review NO; Basophils Absolute Auto 100 /uL (0-100); Basophils Percent Auto 1.1 % (0-2); Eosinophils Absolute Auto 300 /uL (0-450); Eosinophils Percent Auto 4.5 % (2-4); Hematocrit 42.3 % (41-53); Hemoglobin 13.9 g/dL (13.5-17.5); Lymphocytes Absolute Auto 1200 /uL (1100-4500); Lymphocytes Percent Auto 19.4 % (25-40); Mean Corpuscular HGB Conc 32.8 % (30-36); Mean Corpuscular Hemoglobin 27.3 PG (26-34); Mean Corpuscular Volume 83.1 fL (80-100); Monocytes Absolute Auto 600 /uL (0-900); Monocytes Percent Auto 9.9 % (3-14); Neutrophils Absolute Auto 4100 /uL (1500-7000); Neutrophils Percent Auto 65.1 % (50-75); Platelet Count 216 X10^3/uL (150-400); Red Blood Cell Count 5.09 X10^6/uL (4.5-5.9); Red Cell Distribution Width 17.1 % (11.6-14.8); White Blood Cell Count 6.3 X10^3/uL (4.5-11.0)
[2020-04-11 17:45] LABS: Fractionated Inspired Oxygen 21; HCO3 ABG 29 mmol/L (22-26); Oxygen Saturation ABG 95 % (95-100); PCO2 ABG 41.4 mmHg (35-45); TCO2 ABG 30 mmol/L (21-31); pH ABG 7.45 (7.35-7.45)
[2020-04-11 17:46] LABS: PO2 ABG 74 mmHg (80-100)
[2020-04-11 17:50] LABS: D Dimer 476 ng/mL (<230)
[2020-04-11 17:51] LABS: Alanine Aminotransferase 19 IU/L (<50); Albumin Globulin Ratio 1.1 (1.0-2.8); Alkaline Phosphatase 113 U/L (38-126); Aspartate Aminotransferase 31 IU/L (17-59); BUN Creatinine Ratio 17.3 (6-22); Bilirubin Total 0.8 mg/dL (0.2-1.3); Blood Urea Nitrogen 13 mg/dL (9-20); Carbon Dioxide 34 mmol/L (22-32); Chloride 101 mmol/L (98-107); Creatine Kinase 56 U/L (55-170); Estimated Glomerular Filt Rate > 60.0 mL/min (>60); Globulin 3.7 g/dL (1.7-4.1); Glucose 106 mg/dL (80-110); HEMOLYSIS < 15 (0-50); Lactate (Lactic Acid) 1.1 mmol/L (0.7-2.1); Potassium 3.2 mmol/L (3.4-5.1); Sodium 138 mmol/L (137-145); Total Protein 7.7 g/dL (6.3-8.2)
[2020-04-11 18:03] LABS: NT-proBNP (BNP-Adult 18+) 1730 pg/mL (<125); Troponin I < 0.012 ng/mL (0.01-0.034)
[2020-04-11 18:09] LABS: C-Reactive Protein Quant 0.8 mg/dL (<1.0); Lactate Dehydrogenase 592 U/L (313-618)
[2020-04-11 18:26] LABS: Ferritin 34 ng/mL (18-464)
[2020-04-11 18:30] LABS: Procalcitonin < 0.05 ng/mL (<0.5)
[2020-04-11] MEDS: METOPROLOL TARTRATE 5 MG/5 ML INJ IV ×3 (18:32→19:21)
[2020-04-11 18:40] LABS: COVID19 -Nasal RAPID Negative (Negative)
--- NOTE | 2020-04-11 19:15 | DI.CT.S_ITS ---
PROCEDURE: CT ANGIO CHEST ABDOMEN PELVIS INDICATIONS: chest pain/abd, hypertension, confusion TECHNIQUE: Precontrast 5 mm thick sections acquired from the lung apices to the iliac crests. After the administration of intravenous contrast, 2.5 mm thick sections again acquired from the lung apices to the iliac crests. Maximum intensity projection (MIP) oblique sagittal and coronal reformats were then acquired. For radiation dose reduction, the following was used: automated exposure control. COMPARISON: [facility], CT, CT ABDOMEN PELVIS W CON, 01/26/2020, 21:49. [facility], CT, CT ANGIO CHEST PE, 04/05/2020, 2:52. FINDINGS: Image quality: Excellent. AORTA: The ascending thoracic aorta has a normal appearance and size. Scattered atheromatous calcifications are present at the arch. Mild atheromatous plaque is present throughout the descending thoracic aorta. A subtle hypodensity is noted within the anterior aspect of the descending thoracic aorta raising the suspicion for an ill-defined intimal flap; however there is no flow limiting dissection noted. 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 The abdominal aorta measures up to 4.5 cm in lateral diameter. There is no flow differential visualized within the proximal iliac arteries. There is admixture of non-opacified and opacified blood within the descending thoracic and abdominal aorta suggesting poor cardiac output. CHEST: Lungs and pleura: Dependent atelectasis is present bilaterally in the posterior lung bases. No pleural effusion or pneumothorax. No acute airspace opacities. Mediastinum: Heart size is moderately enlarged. Dense atheromatous calcifications are present within the coronary arteries. No pericardial effusion. No mediastinal or hilar adenopathy by size criteria. Central pulmonary arteries are normal in size. Esophagus is normal in caliber. No hiatal hernias. Bones and chest wall: No axillary adenopathy by size criteria. Thyroid gland is unremarkable . No suspicious bony lesions. No vertebral body compression fractures. ABDOMEN: Vasculature: The celiac axis and SMA are widely patent. Moderate stenoses are present at the origins of the bilateral renal arteries. The UMU is patent. Solid organs: Liver is normal in size and enhancement. A solitary calcified gallstone is present within the gallbladder fundus. No gallbladder wall thickening or pericholecystic fluid. Biliary system is non dilated. Pancreas enhances normally. Spleen is normal in size and enhancement. No adrenal nodules. Both kidneys are normal in size and enhancement, without hydronephrosis. Peritoneum and bowel: No free fluid or air. Bowel loops are normal in caliber and wall thickness. The appendix is not visualized; however there is no discrete right lower quadrant fluid or fat stranding to suggest acute appendicitis. There are scattered sigmoid diverticula. No evidence for diverticulitis. Nodes and vessels: No retroperitoneal or mesenteric adenopathy by size criteria. Inferior vena cava is normal in morphology. Miscellaneous: No ventral hernias. PELVIS: Genitourinary: Bladder wall thickness is normal. Miscellaneous: No inguinal adenopathy. There are moderate bilateral fat containing inguinal hernias. Bones: No suspicious bony lesions. No vertebral body compression fractures. IMPRESSION: 1. Questionable partial aortic dissection which appears non flow limiting within the descending thoracic and abdominal aorta as described above. 2. Findings suggesting poor cardiac output. 3. Mild aortic atherosclerosis. Dense coronary atheromatous calcifications. 4. Diverticulosis. No acute diverticulitis. The appendix is not visualized; however there are no ancillary findings to suggest acute appendicitis. Dictated by: Desiree Lentz M.D. on 04/11/2020 at 20:06 Approved by: Desiree Lentz M.D. on 04/11/2020 at 20:23
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
[2020-04-11] MEDS: METOPROLOL ER 50 MG TABLET PO (19:55)
== END 2020-04-11 22:45 | disposition home or self-care (01) ==
PROVIDERS: Emergency Provider Emergency Medicine; PCP Internal Medicine
DX: R41.0 Disorientation, unspecified (principal); R07.9 Chest pain, unspecified; R10.9 Unspecified abdominal pain; I10 Essential (primary) hypertension; I48.20 Chronic atrial fibrillation, unspecified; Z79.01 Long term (current) use of anticoagulants; Z86.19 Personal history of other infectious and parasitic diseases; R53.83 Other fatigue; I71.4 Abdominal aortic aneurysm, without rupture
CPT/HCPCS: 36415; 36600; 70450; 71045; 71275; 74174; 80053; 81003; 82550; 82728; 82805; 83605; 83615; 83880; 84145; 84484; 85025; 85379; 86140; 87040; 87635; 93005; 96374; 99283; 99284; Q9967

== ENCOUNTER → 2020-04-20 12:21 | Outpatient (CLI) | payer MEDICARE, MEDICAID, SELFPAY ==
[2020-01-27 00:54] VITALS: BMI 27.9
[2020-04-20 13:28] LABS: Add Manual Diff / Slide Review NO; Basophils Absolute Auto 0 /uL (0-100); Basophils Percent Auto 0.6 % (0-2); Eosinophils Absolute Auto 200 /uL (0-450); Eosinophils Percent Auto 3.7 % (2-4); Hematocrit 41.1 % (41-53); Hemoglobin 13.4 g/dL (13.5-17.5); Lymphocytes Absolute Auto 1000 /uL (1100-4500); Lymphocytes Percent Auto 19.1 % (25-40); Mean Corpuscular HGB Conc 32.7 % (30-36); Mean Corpuscular Hemoglobin 27.2 PG (26-34); Mean Corpuscular Volume 83.2 fL (80-100); Monocytes Absolute Auto 500 /uL (0-900); Monocytes Percent Auto 8.8 % (3-14); Neutrophils Absolute Auto 3600 /uL (1500-7000); Neutrophils Percent Auto 67.8 % (50-75); Platelet Count 192 X10^3/uL (150-400); Red Blood Cell Count 4.95 X10^6/uL (4.5-5.9); White Blood Cell Count 5.2 X10^3/uL (4.5-11.0)
[2020-04-20 13:43] LABS: Alanine Aminotransferase 14 IU/L (<50); Albumin 3.9 g/dL (3.5-5.0); Albumin Globulin Ratio 1.3 (1.0-2.8); Alkaline Phosphatase 89 U/L (38-126); Aspartate Aminotransferase 24 IU/L (17-59); BUN Creatinine Ratio 20.3 (6-22); Bilirubin Total 0.9 mg/dL (0.2-1.3); Blood Urea Nitrogen 15 mg/dL (9-20); Calcium 9.2 mg/dL (8.4-10.2); Carbon Dioxide 37 mmol/L (22-32); Chloride 98 mmol/L (98-107); Estimated Glomerular Filt Rate > 60.0 mL/min (>60); Globulin 3.1 g/dL (1.7-4.1); Glucose 134 mg/dL (80-110); HEMOLYSIS < 15 (0-50); Potassium 3.4 mmol/L (3.4-5.1); Sodium 138 mmol/L (137-145)
[2020-04-20 14:14] LABS: Appearance Urine UA CLEAR; Bilirubin Urine UA NEGATIVE (NEGATIVE); Color Urine UA YELLOW; Glucose Urine UA NEGATIVE (Negative); Ketones Urine UA NEGATIVE (NEGATIVE); Leukocyte Esterase Urine UA NEGATIVE (NEGATIVE); Nitrite Urine UA NEGATIVE (Negative); Occult Blood Urine UA TRACE-LYSED (Negative); Protein Urine UA TRACE (Negative); Specific Gravity Urine UA 1.025 (1.000-1.035); pH Urine UA 6.5 (4.5-8.0)
[2020-04-20 14:19] LABS: UR Morphine/Opiate cutoff 300 Negative (Negative); Ur Creatinine Normal (Normal); Ur Specific Gravity Normal (Normal); Urine Amphetamines Positive (Negative); Urine Barbiturates Negative (Negative); Urine Benzodiazepines Negative (Negative); Urine Cocaine Negative (Negative); Urine MDMA Negative (Negative); Urine Methadone Negative (Negative); Urine Methamphetamines Positive (Negative); Urine Oxycodone Negative (Negative); Urine Phencyclidine Negative (Negative); Urine Tetrahydrocannabinol Negative (Negative); Urine Tricyclic Antidepressant Negative (Negative); Urine pH Normal (Normal)
[2020-04-20 14:32] LABS: Bacteria Urine Few (2-10); Culture Indicated Urine Cult Not Indicated; Mucus Urine 2+ (Negative); RBC Urine 0-1/HPF (0-5/HPF); Squamous Epithelial Cell Urine 0-1 /HPF (0-5/HPF); WBC Urine 0-1/HPF (0-5/HPF)
== END ==
PROVIDERS: PCP Family Medicine; Referring Provider Family Medicine; Visit Provider Family Medicine
DX: G92 Toxic encephalopathy (principal); R41.82 Altered mental status, unspecified; I10 Essential (primary) hypertension
CPT/HCPCS: 36415; 80053; 80305; 81001; 85025

== ENCOUNTER 2020-05-09 21:59 | Inpatient (IN) | payer MEDICARE, MEDICAID, SELFPAY ==
[2020-01-27 00:54] VITALS: BMI 27.9
[2020-05-09] VITALS (8 sets, daily range): BP systolic 152–156; BP diastolic 84–90; PULSE 93–102; RESP 15–33; TEMP 37.3–38; O2SAT 93–97
--- NOTE | 2020-05-09 22:07 | DI.RAD.S_ITS ---
PROCEDURE: XR CHEST 1V INDICATIONS: Dyspnea. Fever. TECHNIQUE: One view of the chest was acquired. COMPARISON: [facility], CR, XR CHEST 1V, 04/11/2020, 16:53. [facility], CR, XR CHEST 1V, 01/26/2020, 20:47. FINDINGS: Surgical changes and devices: None. Lungs and pleura: Lungs are unchanged with a chronic interstitial prominence over the mid and lower lungs bilaterally. No pleural effusions or pneumothorax. Mediastinum: Mediastinal contours appear normal. Heart size is at the upper limits of normal. Bones and chest wall: No suspicious bony lesions. Overlying soft tissues appear unremarkable. IMPRESSION: Heart size again seen to be at the upper limits of normal, with stable chronic appearing interstitial prominence over the mid and lower lungs. No definite acute disease. Dictated by: Simon Alexandra M.D. on 05/10/2020 at 8:47 Approved by: Simon Alexandra M.D. on 05/10/2020 at 8:48
[2020-05-09 22:22] LABS: COVID19 -Nasal RAPID Negative (Negative)
--- NOTE | 2020-05-09 22:22 | ED.SOB ---
HPI - SOB/Dyspnea General Chief Complaint: Shortness of Breath/Dyspnea Stated Complaint: SOB COUGH RIGHT INFECTED EYE Time Seen by Provider: 05/09/20 22:07 Source: patient Mode of arrival: Wheelchair Limitations: no limitations History of Present Illness HPI Narrative: The patient has been ill for 2 days. He complains of cough, often productive. He has mild dyspnea. He has fever upon arrival, he does not complain of fever or chills. He has a h/o Afib for which he is anticoagulated as well as a H/O of CVA. Has a history of infrarenal aortic aneurysm measuring 4.5 cm last month. Cholelithiasis was also noted on the CT last month. He does not have chronic dyspnea. He does have chronic lower extremity edema. He denies orthopnea. Hospital records indicate he had an echo August 2019 at [place], [place] revealing left ventricle global hypokinesis with EF of 40-45%. He has no abdominal or back pain. His appetite is normal. He denies genital pain. He says his urine output has increased. There is no associated dysuria. COVID-19 testing has been negative with multiple tests in recent months. He is unaware of direct exposure to COVID-19. Although he does not smoke tobacco, he admits to the triage nurse that he smokes methamphetamine. This is consistent with his known medical history. He has a history of CVA, he is a poor historian. He also informed the triage nurse he has frequent diarrhea. Related Data Home Medications Medication Instructions Recorded Confirmed melatonin 3 mg PO BEDTIME PRN 01/27/20 04/20/20 Previous Rx's Medication Instructions Recorded apixaban 5 mg tablet 5 mg PO BID 30 Days #180 tab 04/20/20 atorvastatin 10 mg tablet 10 mg PO BEDTIME #90 tab 04/20/20 clonidine 0.1 mg/24 hr weekly 0.1 mg TRANSDERMAL WEEKLY 30 Days 04/20/20 transdermal patch #12 ea famotidine 40 mg tablet 20 mg PO BID #180 tab 04/20/20 lisinopril 20 mg tablet 10 mg PO DAILY #90 tab 04/20/20 Allergies Allergy/AdvReac Type Severity Reaction Status Date / Time No Known Drug Allergies Allergy Verified 04/20/20 11:17 Review of Systems Constitutional Constitutional: Reports body ache(s), Denies chills, Reports fatigue, Denies fever(s) and Denies headache(s) Eyes Eyes: Denies change in vision Comments: No visual changes. ENT Ears, Nose, Mouth, and Throat: Denies dizziness, Denies facial pain, Denies headache(s), Denies nasal congestion, Denies neck pain and Denies sore throat Cardiovascular Cardiovascular: Denies chest pain, Denies rapid heart rate, Reports leg edema, Denies lightheadedness and Reports dyspnea Respiratory Respiratory: Reports cough, Reports dyspnea and Denies wheezing Gastrointestinal Gastrointestinal: Denies abdominal pain, Denies diarrhea, Denies nausea and Denies vomiting Comments: Normal appetite. Genitourinary Genitourinary: Denies dysuria Genitourinary: Denies dysuria Comments: See HPI, urinary frequency. Musculoskeletal Musculoskeletal: Denies back pain and Denies neck pain Integumentary/Breasts Skin/Breast: Denies erythema, Denies rash and Denies wounds Neurologic Neurologic: Denies confusion, Denies dizziness and Denies headache(s) Psychiatric Psychiatric: Denies confusion Endocrine Endocrine: Reports fatigue Allergic/Immunologic Allergic/Immunologic: Denies wheezing Patient History Medical History Abdominal aortic aneurysm Atrial fibrillation, chronic Essential hypertension Essential hypertension History of CVA (cerebrovascular accident) Hyperlipidemia Hypertension Methamphetamine use Substance abuse requiring inpatient treatment Surgical History History of appendectomy History of inguinal hernia repair History of tonsillectomy Family History Mother CVA (cerebral vascular accident) Father Leukemia Social History household members: none lives independently: Yes Smoking Status: Never smoker alcohol intake: current (2 beerrs per month ) substance use type: methamphetamine (Uses daily ) Smoking Status: Never smoker alcohol intake frequency: a few times a week Alcohol type: beer Substance Use Type: does not use Exam Initial Vital Signs Initial Vital Signs: Vital Signs Pulse Rate 98 H 05/09/20 22:08 Respiratory Rate 23 05/09/20 22:08 Pulse Oximetry 94 05/09/20 22:08 Const General: cooperative and well developed Nutritional Appearance: well nourished Other: Patient is oriented, but lacks details of his personal medical history. [facility] Head: normal to inspection, normocephalic and atraumatic Mouth: oral mucosae normal Throat: posterior oropharynx normal Eyes Pupils: PERRL EOM: EOM intact bilaterally Neck Neck: No lymphadenopathy and No JVD Chest Chest: normal inspection of the chest Resp Other: Slight right basilar rales. Otherwise clear. Cardio Rate: regular rate Rhythm: regular rhythm Heart Sounds: S1 normal, S2 normal, no click, no gallops, no murmurs and no rubs Pulses: normal peripheral pulses GI Inspection: non-distended Palpation: soft, no hepatosplenomegaly, No guarding and No tender Auscultation: normal bowel sounds Back/Spine/Pelvis Back: No CVA tenderness Skin General: no rashes or lesions noted Neuro General: patient alert, patient oriented x3, gait normal and no focal motor deficits Speech: speech normal Extrem Other: 4+ bilateral lower extremity edema. Normal dorsalis pedis pulses. Psych Other: Oriented, but poor historian. Course Orders Ordered: ED Orders 05/09/20 22:05 COVID19 Stat 05/09/20 22:07 XR chest 1V Stat 05/09/20 22:13 Complete Blood Count AUTO DIFF Stat Comprehensive Metabolic Panel Stat D Dimer Stat Lactate (Lactic Acid) Stat Lipase Stat NT-proBNP (BNP-Adult 18+) Stat Partial Thromboplastin Time Stat Procalcitonin Stat Prothrombin Time INR Stat Troponin & CK Cardiac Panel Stat 05/09/20 22:19 EKG-12 Lead Stat RT Consult Eval and Treat Now 05/09/20 22:48 Blood Culture Stat 05/09/20 23:57 Ictotest Urine Stat 05/10/20 00:04 UA Complete [Urinalysis and Microscopic] Stat 05/10/20 00:05 Urine Drug Screen, Rapid Stat 05/10/20 00:35 US abdomen limited Stat 05/10/20 02:42 CT angio chest abdomen pelvis Stat 05/10/20 04:08 Arterial Blood Gas Stat Acetaminophen (Acetaminophen 325 Mg Tablet) 650 mg PO Q6HR PRN PRN Reason: Fever/Mild Pain (1-3) Bisacodyl (Bisacodyl 10 Mg Supp) 10 mg UT DAILY PRN PRN Reason: Constipation Docusate Sodium (Docusate 100 Mg Capsule) 100 mg PO BID PRN PRN Reason: Constipation Famotidine (Famotidine 20 Mg Tablet) 20 mg PO BID [facility] Azithromycin 500 mg/ Dextrose 250 mls @ 250 mls/hr IV Q24H [facility] Stop: 05/13/20 05:01 Ceftriaxone Sodium/Dextrose (Rocephin) 2 gm in 50 mls @ 100 mls/hr IV Q24H [facility] Naloxone HCl (Naloxone 0.4 Mg/Ml Vial) 0.2 mg IV Q2MIN PRN PRN Reason: Opiate Reversal Ondansetron HCl (Ondansetron 4 Mg/2 Ml Inj) 4 mg IV Q8HR PRN PRN Reason: Nausea And Vomiting Discontinued Medications Acetaminophen (Acetaminophen 325 Mg Tablet) 650 mg PO NOW ONE Stop: 05/09/20 22:38 Last Admin: 05/09/20 22:52 Dose: 650 mg Documented by: ADELIA Furosemide (Furosemide 40 Mg/4 Ml Vial) 40 mg IV NOW ONE Stop: 05/09/20 23:23 Last Admin: 05/09/20 23:31 Dose: 40 mg Documented by: ADELIA Ceftriaxone Sodium/Dextrose (Rocephin) 1 gm in 50 mls @ 100 mls/hr IV NOW ONE Stop: 05/09/20 23:05 Last Infusion: 05/09/20 23:21 Dose: 0 mls/hr Documented by: Admin: 05/09/20 22:49 Dose: 100 mls/hr Documented by: ADELIA Sodium Chloride (Normal Saline 0.9%) 1,000 mls @ 1,000 mls/hr IV BOLUS PRN PRN Reason: Fluid replacement Last Infusion: 05/09/20 23:42 Dose: 0 mls/hr Documented by: Admin: 05/09/20 22:54 Dose: 1,000 mls/hr Documented by: ADELIA Azithromycin 500 mg/ Dextrose 250 mls @ 250 mls/hr IV NOW ONE Stop: 05/10/20 04:42 Last Admin: 05/10/20 05:03 Dose: 250 mls/hr Documented by: Vital Signs Vital signs: Vital Signs - 8 hr 05/09/20 22:08 05/09/20 22:10 05/09/20 22:15 Temperature 100.4 F H Pulse Rate 98 H 102 H 99 H Respiratory Rate 23 27 H 33 H Blood Pressure 152/90 H 152/90 H Pulse Oximetry 94 97 93 05/09/20 22:30 05/09/20 22:52 05/09/20 23:00 Temperature 100.4 F H Pulse Rate 97 H 93 H Respiratory Rate 25 H Blood Pressure 156/84 H Pulse Oximetry 96 05/09/20 23:30 05/09/20 23:45 05/10/20 00:00 Temperature 99.2 F Pulse Rate 93 H 98 H Respiratory Rate 15 20 Blood Pressure Pulse Oximetry 96 05/10/20 00:30 05/10/20 01:00 05/10/20 01:30 Temperature Pulse Rate 89 91 H 85 Respiratory Rate 17 24 21 Blood Pressure Pulse Oximetry 93 94 05/10/20 02:00 05/10/20 02:01 05/10/20 02:30 Temperature Pulse Rate 95 H 89 92 H Respiratory Rate 16 20 23 Blood Pressure 123/74 123/63 Pulse Oximetry 97 96 95 05/10/20 03:02 05/10/20 03:11 05/10/20 03:30 Temperature Pulse Rate 89 91 H 88 Respiratory Rate 13 18 Blood Pressure 128/78 Pulse Oximetry 97 95 91 05/10/20 03:33 05/10/20 04:00 05/10/20 04:30 Temperature Pulse Rate 88 92 H 90 Respiratory Rate 19 16 19 Blood Pressure 135/67 133/79 Pulse Oximetry 93 95 95 05/10/20 04:31 Temperature Pulse Rate 92 H Respiratory Rate 25 H Blood Pressure 112/75 Pulse Oximetry 94 MDM - SOB/Dyspnea Lab Data Result diagrams: 05/09/20 22:13 05/09/20 22:13 Labs: Lab Results 05/09/20 05/09/20 05/09/20 Range/Units 22:05 22:13 22:13 WBC 9.1 (4.5-11.0) X10^3/uL RBC 4.63 (4.5-5.9) X10^6/uL Hgb 12.6 L (13.5-17.5) g/dL Hct 38.8 L (41-53) % MCV 83.8 (80-100) fL MCH 27.2 (26-34) PG MCHC 32.5 (30-36) % RDW 16.7 H (11.6-14.8) % Plt Count 234 (150-400) X10^3/uL Neut % (Auto) 77.5 H (50-75) % Lymph % (Auto) 7.7 L (25-40) % [place] % (Auto) 14.1 H (3-14) % Eos % (Auto) 0.4 L (2-4) % Baso % (Auto) 0.3 (0-2) % Neut # (Auto) 7100 H (5582-8310) /uL Lymph # (Auto) 700 L (9896-8490) /uL [place] # (Auto) 1300 H (0-900) /uL Eos # (Auto) 0 (0-450) /uL Baso # (Auto) 0 (0-100) /uL PT 16.4 H (10.1-12.7) SECONDS INR 1.4 H (0.9-1.3) APTT 36 (26.4-36.2) SECONDS D-Dimer (<230) ng/mL ABG pH (7.35-7.45) ABG pCO2 (35-45) mmHg ABG pO2 (80-100) mmHg ABG HCO3 (22-26) mmol/L ABG Total CO2 (21-31) mmol/L ABG O2 Saturation (95-100) % ABG Base Excess (-2-2) mmol/L FiO2 Sodium (137-145) mmol/L Potassium (3.4-5.1) mmol/L Chloride (98-107) mmol/L Carbon Dioxide (22-32) mmol/L BUN (9-20) mg/dL Creatinine (0.66-1.25) mg/dL Estimated GFR (>60) mL/min BUN/Creatinine Ratio (6-22) Glucose (80-110) mg/dL Lactate (0.7-2.1) mmol/L Calcium (8.4-10.2) mg/dL Total Bilirubin (0.2-1.3) mg/dL AST (17-59) IU/L ALT (<50) IU/L Alkaline Phosphatase (38-126) U/L Total Creatine Kinase (55-170) U/L CK-MB (CK-2) CK-MB (CK-2) Rel Index Troponin I (0.01-0.034) ng/mL NT-Pro-B Natriuret Pep (<125) pg/mL Total Protein (6.3-8.2) g/dL Albumin (3.5-5.0) g/dL Globulin (1.7-4.1) g/dL Albumin/Globulin Ratio (1.0-2.8) Lipase (23-300) U/L Procalcitonin (<0.5) ng/mL Urine Color Urine Appearance Urine pH (4.5-8.0) Ur Specific [place] (1.000-1.035) Urine Protein (Negative) Urine Glucose (UA) (Negative) g/dL Urine Ketones (NEGATIVE) Urine Occult Blood (Negative) Urine Nitrate (Negative) Urine Bilirubin (NEGATIVE) Ur Bilirubin Confirm (Negative) Urine Urobilinogen (0.2) E.U./dL Ur Leukocyte Esterase (NEGATIVE) Urine RBC (0-5/HPF) Urine WBC (0-5/HPF) Ur Squamous Epith Cells (0-5/HPF) Urine Bacteria (None) Urine Mucus (Negative) Ur Culture Indicated? U Opiates 300ng/mL cut (Negative) Ur Oxycodone Screen (Negative) Urine Methadone Screen (Negative) Ur Barbiturates Screen (Negative) U Tricyclic Antidepress (Negative) Ur Phencyclidine Scrn (Negative) Ur Amphetamines Screen (Negative) U Methamphetamines Scrn (Negative) Ur MDMA Scrn (Ecstasy) (Negative) U Benzodiazepines Scrn (Negative) Urine Cocaine Screen (Negative) U Marijuana (THC) Screen (Negative) SARS-CoV-2 (PCR) Negative (Negative) 05/09/20 05/09/20 05/09/20 Range/Units 22:13 22:13 22:13 WBC (4.5-11.0) X10^3/uL RBC (4.5-5.9) X10^6/uL Hgb (13.5-17.5) g/dL Hct (41-53) % MCV (80-100) fL MCH (26-34) PG MCHC (30-36) % RDW (11.6-14.8) % Plt Count (150-400) X10^3/uL Neut % (Auto) (50-75) % Lymph % (Auto) (25-40) % [place] % (Auto) (3-14) % Eos % (Auto) (2-4) % Baso % (Auto) (0-2) % Neut # (Auto) (6057-9300) /uL Lymph # (Auto) (8728-0217) /uL [place] # (Auto) (0-900) /uL Eos # (Auto) (0-450) /uL Baso # (Auto) (0-100) /uL PT (10.1-12.7) SECONDS INR (0.9-1.3) APTT (26.4-36.2) SECONDS D-Dimer (<230) ng/mL ABG pH (7.35-7.45) ABG pCO2 (35-45) mmHg ABG pO2 (80-100) mmHg ABG HCO3 (22-26) mmol/L ABG Total CO2 (21-31) mmol/L ABG O2 Saturation (95-100) % ABG Base Excess (-2-2) mmol/L FiO2 Sodium 134 L (137-145) mmol/L Potassium 3.8 (3.4-5.1) mmol/L Chloride 99 (98-107) mmol/L Carbon Dioxide 30 (22-32) mmol/L BUN 14 (9-20) mg/dL Creatinine 0.68 (0.66-1.25) mg/dL Estimated GFR > 60.0 (>60) mL/min BUN/Creatinine Ratio 20.6 (6-22) Glucose 109 (80-110) mg/dL Lactate 1.4 (0.7-2.1) mmol/L Calcium 8.9 (8.4-10.2) mg/dL Total Bilirubin 2.8 H (0.2-1.3) mg/dL AST 34 (17-59) IU/L ALT 19 (<50) IU/L Alkaline Phosphatase 116 (38-126) U/L Total Creatine Kinase (55-170) U/L CK-MB (CK-2) CK-MB (CK-2) Rel Index Troponin I (0.01-0.034) ng/mL NT-Pro-B Natriuret Pep (<125) pg/mL Total Protein 7.4 (6.3-8.2) g/dL Albumin 4.0 (3.5-5.0) g/dL Globulin 3.4 (1.7-4.1) g/dL Albumin/Globulin Ratio 1.2 (1.0-2.8) Lipase 44 (23-300) U/L Procalcitonin < 0.05 (<0.5) ng/mL Urine Color Urine Appearance Urine pH (4.5-8.0) Ur Specific [place] (1.000-1.035) Urine Protein (Negative) Urine Glucose (UA) (Negative) g/dL Urine Ketones (NEGATIVE) Urine Occult Blood (Negative) Urine Nitrate (Negative) Urine Bilirubin (NEGATIVE) Ur Bilirubin Confirm (Negative) Urine Urobilinogen (0.2) E.U./dL Ur Leukocyte Esterase (NEGATIVE) Urine RBC (0-5/HPF) Urine WBC (0-5/HPF) Ur Squamous Epith Cells (0-5/HPF) Urine Bacteria (None) Urine Mucus (Negative) Ur Culture Indicated? U Opiates 300ng/mL cut (Negative) Ur Oxycodone Screen (Negative) Urine Methadone Screen (Negative) Ur Barbiturates Screen (Negative) U Tricyclic Antidepress (Negative) Ur Phencyclidine Scrn (Negative) Ur Amphetamines Screen (Negative) U Methamphetamines Scrn (Negative) Ur MDMA Scrn (Ecstasy) (Negative) U Benzodiazepines Scrn (Negative) Urine Cocaine Screen (Negative) U Marijuana (THC) Screen (Negative) SARS-CoV-2 (PCR) (Negative) 05/09/20 05/09/20 05/09/20 Range/Units 22:13 22:13 23:57 WBC (4.5-11.0) X10^3/uL RBC (4.5-5.9) X10^6/uL Hgb (13.5-17.5) g/dL Hct (41-53) % MCV (80-100) fL MCH (26-34) PG MCHC (30-36) % RDW (11.6-14.8) % Plt Count (150-400) X10^3/uL Neut % (Auto) (50-75) % Lymph % (Auto) (25-40) % [place] % (Auto) (3-14) % Eos % (Auto) (2-4) % Baso % (Auto) (0-2) % Neut # (Auto) (4731-4443) /uL Lymph # (Auto) (4717-2213) /uL [place] # (Auto) (0-900) /uL Eos # (Auto) (0-450) /uL Baso # (Auto) (0-100) /uL PT (10.1-12.7) SECONDS INR (0.9-1.3) APTT (26.4-36.2) SECONDS D-Dimer 668 H (<230) ng/mL ABG pH (7.35-7.45) ABG pCO2 (35-45) mmHg ABG pO2 (80-100) mmHg ABG HCO3 (22-26) mmol/L ABG Total CO2 (21-31) mmol/L ABG O2 Saturation (95-100) % ABG Base Excess (-2-2) mmol/L FiO2 Sodium (137-145) mmol/L Potassium (3.4-5.1) mmol/L Chloride (98-107) mmol/L Carbon Dioxide (22-32) mmol/L BUN (9-20) mg/dL Creatinine (0.66-1.25) mg/dL Estimated GFR (>60) mL/min BUN/Creatinine Ratio (6-22) Glucose (80-110) mg/dL Lactate (0.7-2.1) mmol/L Calcium (8.4-10.2) mg/dL Total Bilirubin (0.2-1.3) mg/dL AST (17-59) IU/L ALT (<50) IU/L Alkaline Phosphatase (38-126) U/L Total Creatine Kinase 50 L (55-170) U/L CK-MB (CK-2) TNP CK-MB (CK-2) Rel Index TNP Troponin I 0.020 (0.01-0.034) ng/mL NT-Pro-B Natriuret Pep 3010 H (<125) pg/mL Total Protein (6.3-8.2) g/dL Albumin (3.5-5.0) g/dL Globulin (1.7-4.1) g/dL Albumin/Globulin Ratio (1.0-2.8) Lipase (23-300) U/L Procalcitonin (<0.5) ng/mL Urine Color Urine Appearance Urine pH (4.5-8.0) Ur Specific [place] (1.000-1.035) Urine Protein (Negative) Urine Glucose (UA) (Negative) g/dL Urine Ketones (NEGATIVE) Urine Occult Blood (Negative) Urine Nitrate (Negative) Urine Bilirubin (NEGATIVE) Ur Bilirubin Confirm (Negative) Urine Urobilinogen (0.2) E.U./dL Ur Leukocyte Esterase (NEGATIVE) Urine RBC (0-5/HPF) Urine WBC (0-5/HPF) Ur Squamous Epith Cells (0-5/HPF) Urine Bacteria (None) Urine Mucus (Negative) Ur Culture Indicated? U Opiates 300ng/mL cut Negative (Negative) Ur Oxycodone Screen Negative (Negative) Urine Methadone Screen Negative (Negative) Ur Barbiturates Screen Negative (Negative) U Tricyclic Antidepress Negative (Negative) Ur Phencyclidine Scrn Negative (Negative) Ur Amphetamines Screen Positive H (Negative) U Methamphetamines Scrn Positive H (Negative) Ur MDMA Scrn (Ecstasy) Negative (Negative) U Benzodiazepines Scrn Negative (Negative) Urine Cocaine Screen Negative (Negative) U Marijuana (THC) Screen Negative (Negative) SARS-CoV-2 (PCR) (Negative) 05/09/20 05/10/20 Range/Units 23:57 04:08 WBC (4.5-11.0) X10^3/uL RBC (4.5-5.9) X10^6/uL Hgb (13.5-17.5) g/dL Hct (41-53) % MCV (80-100) fL MCH (26-34) PG MCHC (30-36) % RDW (11.6-14.8) % Plt Count (150-400) X10^3/uL Neut % (Auto) (50-75) % Lymph % (Auto) (25-40) % [place] % (Auto) (3-14) % Eos % (Auto) (2-4) % Baso % (Auto) (0-2) % Neut # (Auto) (8643-1917) /uL Lymph # (Auto) (9988-5958) /uL [place] # (Auto) (0-900) /uL Eos # (Auto) (0-450) /uL Baso # (Auto) (0-100) /uL PT (10.1-12.7) SECONDS INR (0.9-1.3) APTT (26.4-36.2) SECONDS D-Dimer (<230) ng/mL ABG pH 7.52 H (7.35-7.45) ABG pCO2 37.3 (35-45) mmHg ABG pO2 92 (80-100) mmHg ABG HCO3 31 H (22-26) mmol/L ABG Total CO2 32 H (21-31) mmol/L ABG O2 Saturation 98 (95-100) % ABG Base Excess 8.0 H (-2-2) mmol/L FiO2 21 Sodium (137-145) mmol/L Potassium (3.4-5.1) mmol/L Chloride (98-107) mmol/L Carbon Dioxide (22-32) mmol/L BUN (9-20) mg/dL Creatinine (0.66-1.25) mg/dL Estimated GFR (>60) mL/min BUN/Creatinine Ratio (6-22) Glucose (80-110) mg/dL Lactate (0.7-2.1) mmol/L Calcium (8.4-10.2) mg/dL Total Bilirubin (0.2-1.3) mg/dL AST (17-59) IU/L ALT (<50) IU/L Alkaline Phosphatase (38-126) U/L Total Creatine Kinase (55-170) U/L CK-MB (CK-2) CK-MB (CK-2) Rel Index Troponin I (0.01-0.034) ng/mL NT-Pro-B Natriuret Pep (<125) pg/mL Total Protein (6.3-8.2) g/dL Albumin (3.5-5.0) g/dL Globulin (1.7-4.1) g/dL Albumin/Globulin Ratio (1.0-2.8) Lipase (23-300) U/L Procalcitonin (<0.5) ng/mL Urine Color [place] Urine Appearance Clear Urine pH 5.5 (4.5-8.0) Ur Specific [place] 1.025 (1.000-1.035) Urine Protein 1+ H (Negative) Urine Glucose (UA) Trace H (Negative) g/dL Urine Ketones Trace H (NEGATIVE) Urine Occult Blood Trace-lysed (Negative) Urine Nitrate Negative (Negative) Urine Bilirubin 1+ H (NEGATIVE) Ur Bilirubin Confirm Negative (Negative) Urine Urobilinogen 4.0 H (0.2) E.U./dL Ur Leukocyte Esterase Negative (NEGATIVE) Urine RBC 0-1/hpf (0-5/HPF) Urine WBC 0-1/hpf (0-5/HPF) Ur Squamous Epith Cells 0-1 /hpf (0-5/HPF) Urine Bacteria None seen (None) Urine Mucus 2+ H (Negative) Ur Culture Indicated? Cult not indicated U Opiates 300ng/mL cut (Negative) Ur Oxycodone Screen (Negative) Urine Methadone Screen (Negative) Ur Barbiturates Screen (Negative) U Tricyclic Antidepress (Negative) Ur Phencyclidine Scrn (Negative) Ur Amphetamines Screen (Negative) U Methamphetamines Scrn (Negative) Ur MDMA Scrn (Ecstasy) (Negative) U Benzodiazepines Scrn (Negative) Urine Cocaine Screen (Negative) U Marijuana (THC) Screen (Negative) SARS-CoV-2 (PCR) (Negative) Imaging Data Chest x-ray: My Impression: Chronic granulomatous changes. Right middle lobe infiltrate. US - abdomen: Radiologist's Impression: Mobile gallstone in the neck of the gallbladder. 7 mm cystic lesion to the anterior head of the pancreas. Partially imaged 6.9 cm distal aortic aneurysm. CTA chest/abdomen/pelvis.: Radiologist's Impression: Infrarenal aortic aneurysm 5.0 x 4.5 cm. No pancreatic cyst is identified. RML bronchovascular ground-glass opacity. The pancreatic cyst identified on ultrasound is not visualized on the CT. Gallstones are once again seen. ECG Data Attestation: I personally reviewed and interpreted this ECG as follows: (Atrial fib rate 100 beats per minute. No acute ST-T wave changes.) [facility] Narrative Medical decision making narrative: The patient presented with productive cough. He had low-grade fever. Chest x-ray was suggestive of RML pneumonia, he was started on Rocephin, followed by Zithromax. Labs indicated a significant increase in his total bilirubin. Cholelithiasis was previously identified on other scans. Ultrasound was done, no evidence of cholecystitis. A pancreatic cyst was seen. There was concern for significant increase in the known aortic aneurysm. CT of the chest/abdomen/pelvis was then ordered. The aneurysm is identified, there is no significant enlargement. An inflammatory area the right middle lobe was identified. It is noted his COVID negative. He has CHF, with complaints of dyspnea and significant peripheral edema. He was treated with Lasix with significant urine output. He is admitted with pneumonia, and CHF. The pancreatic cyst, gallstone, and methamphetamine abuse are also noted. The case was discussed with the hospitalist, ISABEL Montes. He has accepted the patient. Critical Care Time Critical Care Time Critical Care Time: Yes Total Critical Care Time: 60 Attestation: Care included the initial assessment patient, evaluation of EKG, radiology and lab data, and multiple clinical interventions. The findings were discussed with the patient. The clinical situation was then discussed with the admitting hospitalist. See details above. Discharge Plan Departure Clinical Impression: Atrial fibrillation, chronic, Methamphetamine abuse, Cyst of pancreas RML pneumonia Qualifiers: Pneumonia type: due to unspecified organism Qualified Code(s): J18.9 - Pneumonia, unspecified organism Congestive heart failure Qualifiers: Heart failure type: unspecified Heart failure chronicity: acute Qualified Code(s): I50.9 - Heart failure, unspecified Cholelithiasis Qualifiers: Cholecystitis presence: without cholecystitis Biliary obstruction: without biliary obstruction Aortic aneurysm, abdominal Qualifiers: Presence of rupture: without rupture Qualified Code(s): I71.4 - Abdominal aortic aneurysm, without rupture Admit Date/Time: 05/10/20 04:42 Admit Provider: Robert Montes
[2020-05-09 22:33] LABS: INR 1.4 (0.9-1.3); Prothrombin Time 16.4 SECONDS (10.1-12.7)
[2020-05-09 22:35] LABS: Add Manual Diff / Slide Review NO; Basophils Absolute Auto 0 /uL (0-100); Basophils Percent Auto 0.3 % (0-2); Eosinophils Absolute Auto 0 /uL (0-450); Eosinophils Percent Auto 0.4 % (2-4); Hematocrit 38.8 % (41-53); Hemoglobin 12.6 g/dL (13.5-17.5); Lymphocytes Absolute Auto 700 /uL (1100-4500); Lymphocytes Percent Auto 7.7 % (25-40); Mean Corpuscular HGB Conc 32.5 % (30-36); Mean Corpuscular Hemoglobin 27.2 PG (26-34); Mean Corpuscular Volume 83.8 fL (80-100); Monocytes Absolute Auto 1300 /uL (0-900); Monocytes Percent Auto 14.1 % (3-14); Neutrophils Absolute Auto 7100 /uL (1500-7000); Neutrophils Percent Auto 77.5 % (50-75); Platelet Count 234 X10^3/uL (150-400); Red Blood Cell Count 4.63 X10^6/uL (4.5-5.9); Red Cell Distribution Width 16.7 % (11.6-14.8); White Blood Cell Count 9.1 X10^3/uL (4.5-11.0)
[2020-05-09 22:36] LABS: PTT Partial Thromboplastin Tim 36 SECONDS (26.4-36.2)
[2020-05-09 22:44] LABS: Lactate (Lactic Acid) 1.4 mmol/L (0.7-2.1)
[2020-05-09 22:46] LABS: Creatine Kinase 50 U/L (55-170)
[2020-05-09 22:47] LABS: Alanine Aminotransferase 19 IU/L (<50); Albumin Globulin Ratio 1.2 (1.0-2.8); Alkaline Phosphatase 116 U/L (38-126); Aspartate Aminotransferase 34 IU/L (17-59); BUN Creatinine Ratio 20.6 (6-22); Bilirubin Total 2.8 mg/dL (0.2-1.3); Blood Urea Nitrogen 14 mg/dL (9-20); Calcium 8.9 mg/dL (8.4-10.2); Carbon Dioxide 30 mmol/L (22-32); Chloride 99 mmol/L (98-107); Estimated Glomerular Filt Rate > 60.0 mL/min (>60); Globulin 3.4 g/dL (1.7-4.1); Glucose 109 mg/dL (80-110); HEMOLYSIS < 15 (0-50); Lipase 44 U/L (23-300); Potassium 3.8 mmol/L (3.4-5.1); Sodium 134 mmol/L (137-145); Total Protein 7.4 g/dL (6.3-8.2)
[2020-05-09] MEDS: CEFTRIAXONE 1 GM/50 ML FROZ.PIGGY IV (22:49)
[2020-05-09] MEDS: ACETAMINOPHEN 325 MG TABLET 650 MG PO (22:52)
[2020-05-09] MEDS: SODIUM CHLORIDE 0.9% 1,000 ML 1000 ML IV (22:54)
[2020-05-09 22:56] LABS: NT-proBNP (BNP-Adult 18+) 3010 pg/mL (<125)
[2020-05-09 22:57] LABS: D Dimer 668 ng/mL (<230)
[2020-05-09 23:00] LABS: Procalcitonin < 0.05 ng/mL (<0.5)
[2020-05-09] MEDS: FUROSEMIDE 40 MG/4 ML VIAL IV (23:31)
[2020-05-10] VITALS (23 sets, daily range): BP systolic 112–147; BP diastolic 45–86; PULSE 84–98; RESP 13–25; TEMP 36.5–37.8; O2SAT 91–99; BMI 30.2
[2020-05-10 00:16] LABS: Appearance Urine UA CLEAR; Bacteria Urine None Seen; Bilirubin Urine UA 1+ (NEGATIVE); Glucose Urine UA TRACE g/dL (Negative); Ketones Urine UA TRACE (NEGATIVE); Leukocyte Esterase Urine UA NEGATIVE (NEGATIVE); Nitrite Urine UA NEGATIVE (Negative); Occult Blood Urine UA TRACE-LYSED (Negative); Protein Urine UA 1+ (Negative); Specific Gravity Urine UA 1.025 (1.000-1.035); pH Urine UA 5.5 (4.5-8.0)
--- NOTE | 2020-05-10 00:17 | PC.NURSE ---
Patient was using urinal when he had a bowel movement on the floor/side of bed. We cleaned him and the bed and put him back in bed in briefs.
[2020-05-10 00:21] LABS: UR Morphine/Opiate cutoff 300 Negative (Negative); Ur Creatinine 50 (Normal); Ur Specific Gravity 1.025 (Normal); Urine Amphetamines Positive (Negative); Urine Barbiturates Negative (Negative); Urine Benzodiazepines Negative (Negative); Urine Cocaine Negative (Negative); Urine MDMA Negative (Negative); Urine Methadone Negative (Negative); Urine Methamphetamines Positive (Negative); Urine Oxycodone Negative (Negative); Urine Phencyclidine Negative (Negative); Urine Tetrahydrocannabinol Negative (Negative); Urine Tricyclic Antidepressant Negative (Negative); Urine pH 5 (Normal)
[2020-05-10 00:27] LABS: Color Urine UA Amber
--- NOTE | 2020-05-10 00:35 | DI.US.S_ITS ---
PROCEDURE: US ABDOMEN LIMITED INDICATIONS: Elevated LFTs. Fever. TECHNIQUE: Real-time focused scanning was performed of the abdomen, with image documentation. COMPARISON: [facility], CT, CT ANGIO CHEST ABDOMEN PELVIS, 05/10/2020, 2:43. FINDINGS: Limited study at clinician request. The liver is normal in size and echotexture. The hepatic margin may be slightly nodular. The gallbladder is free of wall thickening or adjacent free fluid or tenderness. There is a mobile gallstone within the neck of the gallbladder measuring up to 1.2 x 1.7 cm. The adjacent bile ducts are not dilated. Adjacent to the anterior pancreatic body is a small cyst, measuring 1.7 x 1.2 cm. No pancreatic ductal distension is present. No adjacent inflammation is seen. Note is made of a mid abdominal aortic aneurysm as an incidental finding, measuring up to 4.5 x 4.6 cm in axial dimension and 7 cm craniocaudad, fusiform. IMPRESSION: Fusiform aortic aneurysm as discussed, gallstone mobile within the gallbladder neck. Please refer to the CT scanning with contrast performed same day for additional details. Dictated by: Simon Alexandra M.D. on 05/10/2020 at 8:59 Approved by: Simon Alexandra M.D. on 05/10/2020 at 9:04
[2020-05-10 00:36] LABS: Culture Indicated Urine Cult Not Indicated; Ictotest Urine Negative (Negative); Mucus Urine 2+ (Negative); RBC Urine 0-1/HPF (0-5/HPF); Squamous Epithelial Cell Urine 0-1 /HPF (0-5/HPF); WBC Urine 0-1/HPF (0-5/HPF)
--- NOTE | 2020-05-10 02:42 | DI.CT.S_ITS ---
PROCEDURE: CT ANGIO CHEST ABDOMEN PELVIS INDICATIONS: 6.9 cm aortic aneurysm TECHNIQUE: Precontrast 5 mm thick sections acquired from the lung apices to the iliac crests. After the administration of intravenous contrast, 2.5 mm thick sections again acquired from the lung apices to the iliac crests. Maximum intensity projection (MIP) oblique sagittal and coronal reformats were then acquired. For radiation dose reduction, the following was used: automated exposure control. COMPARISON: [facility], US, US ABDOMEN LIMITED, 05/10/2020, 1:21. [facility], CT, CT ANGIO CHEST ABDOMEN PELVIS, 04/11/2020, 19:34. FINDINGS: Image quality: Excellent. AORTA: Intramural hematoma: Absent Maximum hematoma thickness: Not applicable. Focal contrast enhancement: Intramural blood pool (< 2 mm neck or imperceptible communication with aortic lumen): Absent Ulcer-like projection (broad communication with aortic lumen > 3 mm): Absent . Dissection: Absent Usman classification: Not applicable Maximum aortic diameter: 4.6 x 4.7 cm, behind the transverse duodenum Periaortic hematoma: Absent . CHEST: Lungs and pleura: No acute airspace opacities suggestive of definite pneumonia, but there is what appears to be mild patchy bibasilar alveolar opacification likely secondary to atelectasis. No pleural effusions or pneumothorax. Central and peripheral airways are patent and normal in caliber. Mediastinum: Heart size is normal. No pericardial effusion. No mediastinal or hilar adenopathy by size criteria. Central pulmonary arteries are normal in size. Esophagus is normal in caliber. No hiatal hernias. Bones and chest wall: No axillary adenopathy by size criteria. Thyroid gland normal . No suspicious bony lesions. No vertebral body compression fractures. Normal ABDOMEN: Vasculature: Celiac trunk and mesenteric arteries are patent. Renal arteries are also patent. Solid organs: Liver is normal in size and enhancement. Gallbladder contains a peripherally calcified moderate-sized stones seen at the gallbladder neck, also seen by ultrasound scanning earlier today. . Biliary system is non dilated. Pancreas enhances normally. Spleen is normal in size and enhancement. No adrenal nodules. Both kidneys are normal in size and enhancement, without hydronephrosis. Peritoneum and bowel: No free fluid or air. Bowel loops are normal in caliber and wall thickness. Nodes and vessels: No retroperitoneal or mesenteric adenopathy by size criteria. Inferior vena cava is normal in morphology. Miscellaneous: No ventral hernias. PELVIS: Genitourinary: Bladder wall thickness is normal. Miscellaneous: No inguinal hernias or adenopathy. No ventral hernias. Bones: No suspicious bony lesions. No vertebral body compression fractures. IMPRESSION: Fusiform infrarenal abdominal aortic aneurysm measuring 4.6 x 4.7 cm, somewhat smaller than that measured by ultrasound earlier today likely due to angulation artifact. Note is made of a peripherally calcified gallstone at the gallbladder neck, mobile during ultrasound scanning same day, without evidence of biliary obstruction or acute cholecystitis. Mild lung base presumed dependent atelectasis, producing mild patchy alveolar prominence at each posterior lung base. The appearance is nonspecific. The likelihood of atypical/viral pneumonia as cause of this appearance is considered low. Dictated by: Simon Alexandra M.D. on 05/10/2020 at 9:19 Approved by: Simon Alexandra M.D. on 05/10/2020 at 9:29
[2020-05-10 04:24] LABS: Fractionated Inspired Oxygen 21; HCO3 ABG 31 mmol/L (22-26); Oxygen Saturation ABG 98 % (95-100); PCO2 ABG 37.3 mmHg (35-45); PO2 ABG 92 mmHg (80-100); TCO2 ABG 32 mmol/L (21-31); pH ABG 7.52 (7.35-7.45)
[2020-05-10] MEDS: AZITHROMYCIN 500 MG in DEXTROSE 5% IN WATER 250 ML IV (05:03)
--- NOTE | 2020-05-10 06:05 | PM.HP.1 ---
History of Present Illness History of Present Illness Date Patient Seen: 05/10/20 Time Patient Seen: 06:18 Chief complaint: SOB COUGH Narrative: Mr. Jayden Rodriguez is 69-year-old male with a past medical history significant for methamphetamine abuse, CVA reporting no residual deficits, atrial fibrillation prescribed Eliquis, chronic systolic heart failure, infra-renal abdominal aortic aneurysm hypertension, history of pleural effusion and hyperlipidemia who presents to the ER reporting feeling ill for 2 days and getting worse stating he did not ?think he was going to make?. He denies fever however presents with a fever of 100.4. He reports having a cough and coughing up large amounts of blood-tinged sputum. He denies night sweats or weight loss. The patient additionally reports he has had worsening edema of bilateral lower extremities for 3 days. The patient was seen by Dr. Alex Gonzales to [facility] on 04/20 2020 at that time was referred to a treatment program for his current methamphetamine abuse and history of opiate abuse. He had been previously on Lasix and but potassium for heart failure that were discontinued because the patient was not taking the medications The patient states he had quit taking all his medications because they were ?not right? only to restart 2 days ago. The patient has been previously detained following a DCR evaluation due to grave disability. Today the patient is alert and oriented and conversant and denies thoughts of suicidal ideation or self-harm. The patient denies other recent illnesses and has no headache or dizziness and has sustained no falls or trauma. Reports no nasal congestion or sore throat. He denies complaints of chest pain and feels occasional palpitations but no racing heart with a history of atrial fibrillation. He describes exertional dyspnea but denies shortness of breath at rest. He reports no wheezing. He denies epigastric or abdominal pain. He has no nausea vomiting, no constipation for reports watery diarrhea. Upon arrival to the ER the patient has a temperature of 100.4?, heart rate of 101, blood pressure 152/90, respiratory rate of 20 saturating 96% on room air. Multiple imaging studies are obtained with a CT angiogram of the chest, abdomen pelvis finds no PE, mildly prominent paratracheal lymph nodes, new right middle lobe calcified granuloma, ground-glass opacity surrounding the right middle lobe vasculature with edema, possible pneumonitis of 5.0 by 4.5 infrarenal aortic aneurysm without rupture or acute finding previously measuring 4.9 x 4.4 cm. Normal gallbladder with subtle nodular contour to the liver without mass mild fatty infiltration of the pancreas without inflammation scattered colonic diverticulosis, no free air or fluid. On limited abdominal ultrasound: Mobile gallstone without acute cholecystitis, subtle nodular contour liver without stated ptosis, 7 mm cystic lesion within the anterior head of the pancreas and aortic aneurysm is read described. On laboratory analysis the patient has white count 9.1 with neutrophils of 7100 and monocytes of 13,000. His hemoglobin of 12.6, hematocrit 38.8 platelets of 203 4. PT is 16.4 with an INR 1.4 and PTT of 36. D-dimer is 668. Chemistries are all within normal range and nonfasting glucose is 109. He has elevated bilirubin at 2.8 with AST of 34, ALT of 19 alkaline phosphatase of 116. His lactic acid is 1.4 procalcitonin is negative. He has a proBNP of 3010 and a troponin of 0.020. Urine tox is positive for amphetamines and methamphetamines and urinalysis positive for protein, ketones, bilirubin and Uro bili 10 and negative for leukocyte esterase, nitrites or wbc's. Patient desatted while sleeping in the emergency room an ABG was obtained finding a pH of 7.52, pCO2 37.3, PO2 of 92, bicarb 31 and base excess of 8 on 21% FiO2. In the ER the patient received normal saline 1 L, Tylenol for his fever, Lasix for his heart failure and azithromycin and Rocephin for his pulmonary infiltrate. The patient is admitted to the hospitalist service for further evaluation treatment of CHF and pneumonia Patient History Medical History Abdominal aortic aneurysm Atrial fibrillation, chronic Essential hypertension History of CVA (cerebrovascular accident) Hyperlipidemia Methamphetamine use Substance abuse requiring inpatient treatment Systolic CHF with reduced left ventricular function, NYHA class 2 Surgical History History of appendectomy History of inguinal hernia repair History of tonsillectomy Family & Social History Family History Mother CVA (cerebral vascular accident) Father Leukemia Social History: household members none lives independently Yes Safety & Behavioral: Feels Safe in Current Yes Environment Been Physically Hurt or No Threatened By a Person Tobacco & Substance use: Smoking Status Never smoker alcohol intake current alcohol intake frequency a few times a week Substance Use Type does not use Meds Home Medications and Allergies Home Medications Medication Instructions Recorded Confirmed Type melatonin 3 mg PO BEDTIME PRN 01/27/20 04/20/20 History apixaban 5 mg tablet 5 mg PO BID 30 Days #180 tab 04/20/20 04/20/20 Rx atorvastatin 10 mg tablet 10 mg PO BEDTIME #90 tab 04/20/20 04/20/20 Rx clonidine 0.1 mg/24 hr weekly 0.1 mg TRANSDERMAL WEEKLY 30 Days 04/20/20 04/20/20 Rx transdermal patch #12 ea famotidine 40 mg tablet 20 mg PO BID #180 tab 04/20/20 04/20/20 Rx lisinopril 20 mg tablet 10 mg PO DAILY #90 tab 04/20/20 04/20/20 Rx Allergies Allergy/AdvReac Type Severity Reaction Status Date / Time No Known Drug Allergies Allergy Verified 04/20/20 11:17 Review of Systems Review of Systems ROS: Yes All systems reviewed with the patient and are negative except as otherwise documented Exam Vital Signs (past 8 hours): - 05/09/20 22:08 05/09/20 22:10 05/09/20 22:15 Temperature 100.4 F H Pulse Rate 98 H 102 H 99 H Respiratory Rate 23 27 H 33 H Blood Pressure 152/90 H 152/90 H Pulse Oximetry 94 97 93 05/09/20 22:30 05/09/20 22:52 05/09/20 23:00 Temperature 100.4 F H Pulse Rate 97 H 93 H Respiratory Rate 25 H Blood Pressure 156/84 H Pulse Oximetry 96 05/09/20 23:30 05/09/20 23:45 05/10/20 00:00 Temperature 99.2 F Pulse Rate 93 H 98 H Respiratory Rate 15 20 Blood Pressure Pulse Oximetry 96 05/10/20 00:30 05/10/20 01:00 05/10/20 01:30 Temperature Pulse Rate 89 91 H 85 Respiratory Rate 17 24 21 Blood Pressure Pulse Oximetry 93 94 05/10/20 02:00 05/10/20 02:01 05/10/20 02:30 Temperature Pulse Rate 95 H 89 92 H Respiratory Rate 16 20 23 Blood Pressure 123/74 123/63 Pulse Oximetry 97 96 95 05/10/20 03:02 05/10/20 03:11 05/10/20 03:30 Temperature Pulse Rate 89 91 H 88 Respiratory Rate 13 18 Blood Pressure 128/78 Pulse Oximetry 97 95 91 05/10/20 03:33 05/10/20 04:00 05/10/20 04:30 Temperature Pulse Rate 88 92 H 90 Respiratory Rate 19 16 19 Blood Pressure 135/67 133/79 Pulse Oximetry 93 95 95 05/10/20 04:31 05/10/20 05:00 05/10/20 05:30 Temperature Pulse Rate 92 H 90 87 Respiratory Rate 25 H 18 18 Blood Pressure 112/75 119/67 121/68 Pulse Oximetry 94 94 99 Oxygen Delivery Method Room Air Narrative Exam Narrative: GENERAL APPEARANCE: well developed, overweight elderly male appearing his stated age, in no acute distress. HEENT: Atraumatic, right facial droop, PERRLA, conjunctiva jaundice appearing, EOMs intact without nystagmus, no rhinorrhea, mucous membranes are moist and pink without lesions or exudate. NECK/THYROID: neck supple, no JVD, no carotid bruit, no thyromegaly, trachea midline. LYMPH NODES: no cervical or supraclavicular lymphadenopathy. SKIN: [place], warm and dry, no visible rashes or lesions HEART: Irregularly irregular rhythm, S1-S2, no murmur, no rubs or gallops, brisk capillary refill, 2+ pitting edema LUNGS: Clear upper with bibasilar crackles left greater than right with and expiratory wheeze, no cough present CHEST: Symmetrical movement, no accessory muscle use, good tidal volume, no chest pain with AP or lateral compression. ABDOMEN: Soft, no distention, no abdominal tenderness, palpable liver margin, negative Hitchcock, no flank or suprapubic tenderness, active bowel tones. EXTREMITIES: moves all extremities, strength is 5/5 and symmetrical, no deformities or joint effusions, no clubbing or cyanosis. NEUROLOGIC: AAO x person place and time, no focal neurologic deficits, cranial nerves II-XII grossly intact, sensation intact to light touch. PSYCH: Poor eye contact, cooperative with blunted affect, linear thought, stable behavior. Objective Labs Result Diagrams: 05/10/20 06:20 05/10/20 06:20 Labs: Laboratory Results - last 24 hr 05/09/20 05/09/20 05/09/20 22:05 22:13 22:13 WBC 9.1 RBC 4.63 Hgb 12.6 L Hct 38.8 L MCV 83.8 MCH 27.2 MCHC 32.5 RDW 16.7 H Plt Count 234 Neut % (Auto) 77.5 H Lymph % (Auto) 7.7 L [place] % (Auto) 14.1 H Eos % (Auto) 0.4 L Baso % (Auto) 0.3 Neut # (Auto) 7100 H Lymph # (Auto) 700 L [place] # (Auto) 1300 H Eos # (Auto) 0 Baso # (Auto) 0 PT 16.4 H INR 1.4 H APTT 36 D-Dimer ABG pH ABG pCO2 ABG pO2 ABG HCO3 ABG Total CO2 ABG O2 Saturation ABG Base Excess FiO2 Sodium Potassium Chloride Carbon Dioxide BUN Creatinine Estimated GFR BUN/Creatinine Ratio Glucose Lactate Calcium Total Bilirubin AST ALT Alkaline Phosphatase Total Creatine Kinase CK-MB (CK-2) CK-MB (CK-2) Rel Index Troponin I NT-Pro-B Natriuret Pep Total Protein Albumin Globulin Albumin/Globulin Ratio Lipase Procalcitonin Urine Color Urine Appearance Urine pH Ur Specific [place] Urine Protein Urine Glucose (UA) Urine Ketones Urine Occult Blood Urine Nitrate Urine Bilirubin Ur Bilirubin Confirm Urine Urobilinogen Ur Leukocyte Esterase Urine RBC Urine WBC Ur Squamous Epith Cells Urine Bacteria Urine Mucus Ur Culture Indicated? U Opiates 300ng/mL cut Ur Oxycodone Screen Urine Methadone Screen Ur Barbiturates Screen U Tricyclic Antidepress Ur Phencyclidine Scrn Ur Amphetamines Screen U Methamphetamines Scrn Ur MDMA Scrn (Ecstasy) U Benzodiazepines Scrn Urine Cocaine Screen U Marijuana (THC) Screen SARS-CoV-2 (PCR) Negative 05/09/20 05/09/20 05/09/20 22:13 22:13 22:13 WBC RBC Hgb Hct MCV MCH MCHC RDW Plt Count Neut % (Auto) Lymph % (Auto) [place] % (Auto) Eos % (Auto) Baso % (Auto) Neut # (Auto) Lymph # (Auto) [place] # (Auto) Eos # (Auto) Baso # (Auto) PT INR APTT D-Dimer ABG pH ABG pCO2 ABG pO2 ABG HCO3 ABG Total CO2 ABG O2 Saturation ABG Base Excess FiO2 Sodium 134 L Potassium 3.8 Chloride 99 Carbon Dioxide 30 BUN 14 Creatinine 0.68 Estimated GFR > 60.0 BUN/Creatinine Ratio 20.6 Glucose 109 Lactate 1.4 Calcium 8.9 Total Bilirubin 2.8 H AST 34 ALT 19 Alkaline Phosphatase 116 Total Creatine Kinase CK-MB (CK-2) CK-MB (CK-2) Rel Index Troponin I NT-Pro-B Natriuret Pep Total Protein 7.4 Albumin 4.0 Globulin 3.4 Albumin/Globulin Ratio 1.2 Lipase 44 Procalcitonin < 0.05 Urine Color Urine Appearance Urine pH Ur Specific [place] Urine Protein Urine Glucose (UA) Urine Ketones Urine Occult Blood Urine Nitrate Urine Bilirubin Ur Bilirubin Confirm Urine Urobilinogen Ur Leukocyte Esterase Urine RBC Urine WBC Ur Squamous Epith Cells Urine Bacteria Urine Mucus Ur Culture Indicated? U Opiates 300ng/mL cut Ur Oxycodone Screen Urine Methadone Screen Ur Barbiturates Screen U Tricyclic Antidepress Ur Phencyclidine Scrn Ur Amphetamines Screen U Methamphetamines Scrn Ur MDMA Scrn (Ecstasy) U Benzodiazepines Scrn Urine Cocaine Screen U Marijuana (THC) Screen SARS-CoV-2 (PCR) 05/09/20 05/09/20 05/09/20 22:13 22:13 23:57 WBC RBC Hgb Hct MCV MCH MCHC RDW Plt Count Neut % (Auto) Lymph % (Auto) [place] % (Auto) Eos % (Auto) Baso % (Auto) Neut # (Auto) Lymph # (Auto) [place] # (Auto) Eos # (Auto) Baso # (Auto) PT INR APTT D-Dimer 668 H ABG pH ABG pCO2 ABG pO2 ABG HCO3 ABG Total CO2 ABG O2 Saturation ABG Base Excess FiO2 Sodium Potassium Chloride Carbon Dioxide BUN Creatinine Estimated GFR BUN/Creatinine Ratio Glucose Lactate Calcium Total Bilirubin AST ALT Alkaline Phosphatase Total Creatine Kinase 50 L CK-MB (CK-2) TNP CK-MB (CK-2) Rel Index TNP Troponin I 0.020 NT-Pro-B Natriuret Pep 3010 H Total Protein Albumin Globulin Albumin/Globulin Ratio Lipase Procalcitonin Urine Color Urine Appearance Urine pH Ur Specific [place] Urine Protein Urine Glucose (UA) Urine Ketones Urine Occult Blood Urine Nitrate Urine Bilirubin Ur Bilirubin Confirm Urine Urobilinogen Ur Leukocyte Esterase Urine RBC Urine WBC Ur Squamous Epith Cells Urine Bacteria Urine Mucus Ur Culture Indicated? U Opiates 300ng/mL cut Negative Ur Oxycodone Screen Negative Urine Methadone Screen Negative Ur Barbiturates Screen Negative U Tricyclic Antidepress Negative Ur Phencyclidine Scrn Negative Ur Amphetamines Screen Positive H U Methamphetamines Scrn Positive H Ur MDMA Scrn (Ecstasy) Negative U Benzodiazepines Scrn Negative Urine Cocaine Screen Negative U Marijuana (THC) Screen Negative SARS-CoV-2 (PCR) 05/09/20 05/10/20 23:57 04:08 WBC RBC Hgb Hct MCV MCH MCHC RDW Plt Count Neut % (Auto) Lymph % (Auto) [place] % (Auto) Eos % (Auto) Baso % (Auto) Neut # (Auto) Lymph # (Auto) [place] # (Auto) Eos # (Auto) Baso # (Auto) PT INR APTT D-Dimer ABG pH 7.52 H ABG pCO2 37.3 ABG pO2 92 ABG HCO3 31 H ABG Total CO2 32 H ABG O2 Saturation 98 ABG Base Excess 8.0 H FiO2 21 Sodium Potassium Chloride Carbon Dioxide BUN Creatinine Estimated GFR BUN/Creatinine Ratio Glucose Lactate Calcium Total Bilirubin AST ALT Alkaline Phosphatase Total Creatine Kinase CK-MB (CK-2) CK-MB (CK-2) Rel Index Troponin I NT-Pro-B Natriuret Pep Total Protein Albumin Globulin Albumin/Globulin Ratio Lipase Procalcitonin Urine Color [place] Urine Appearance Clear Urine pH 5.5 Ur Specific [place] 1.025 Urine Protein 1+ H Urine Glucose (UA) Trace H Urine Ketones Trace H Urine Occult Blood Trace-lysed Urine Nitrate Negative Urine Bilirubin 1+ H Ur Bilirubin Confirm Negative Urine Urobilinogen 4.0 H Ur Leukocyte Esterase Negative Urine RBC 0-1/hpf Urine WBC 0-1/hpf Ur Squamous Epith Cells 0-1 /hpf Urine Bacteria None seen Urine Mucus 2+ H Ur Culture Indicated? Cult not indicated U Opiates 300ng/mL cut Ur Oxycodone Screen Urine Methadone Screen Ur Barbiturates Screen U Tricyclic Antidepress Ur Phencyclidine Scrn Ur Amphetamines Screen U Methamphetamines Scrn Ur MDMA Scrn (Ecstasy) U Benzodiazepines Scrn Urine Cocaine Screen U Marijuana (THC) Screen SARS-CoV-2 (PCR) Assessment & Plan Assessment & Plan narrative: This is a 69-year-old male patient who presents to the hospital for 2 days shortness of breath that has been progressive with a productive cough with new findings of [place] granular lesion in the right middle lobe with possible surrounding edema and fever and decompensated heart failure. 1. Right middle lobe lesion, possible pneumonia versus pneumonitis versus granuloma, acute, present on admission, activw. -patient complains 2 days shortness of breath productive cough reporting blood-tinged sputum not previously disclosed to the ER provider and not in evidence since arriving at the hospital. -CT angio of the chest finds calcified granuloma, bronchovesicular ground-glass opacities with edema. -the patient has white count is not elevated at 9.1 have a does have neutrophils of 7100 and monocytes of 13,000. His procalcitonin is negative at less than 0.05 and lactic acid is 1.4. He presents is febrile with temperature 100.4?. -the patient is started on Rocephin in the emergency department will continue Rocephin 2 g IV daily. -the patient is also started on azithromycin in the emergency department and continued at 500 mg daily for 2 more days. -requested respiratory therapy to consult evaluate and treat. -ordered albuterol MDI 2 puffs every 4 hours as needed. -added additional lab testing including CRP, ESR, respiratory panel. -will follow CBC. 2. Decompensated systolic heart failure, acute, present on admission, active. -patient discontinued all his meds until restarting 2 days ago but has not apparently restarted his Lasix. -patient has had progressive swelling in his bilateral lower extremities over the last 3 days. -imaging studies report no evidence of pulmonary edema. ProBNP is 3010. Troponin is within normal range. Last echo apparently from the [facility] in August 2019 finds an EF of 40-45%. -the patient was previously on 40 mg Lasix twice daily. The patient received Lasix 40 mg IV x1 in the emergency department will continue Lasix 40 mg IV daily starting this morning. -will monitor electrolytes and renal function with diuresis. 3. Elevated bilirubin, acute, present on admission, active. -patient has elevated bilirubin on initial labs at 2.8. Previous bilirubin 0.9 obtained on 04/20/2020. -imaging identifies subtle nodularity to the liver with no obstruction and common bile duct measuring 6 mm. -liver margin is palpable and nontender, negative Hitchcock sign. -will obtain acute hepatitis panel. 4. Methamphetamine abuse, chronic, stable -the patient endorses a 40 year history of methamphetamine use current practice is reported as 1 time per week. Patient denies other substance abuse. -urine tox screen is positive for amphetamines and methamphetamines. Last use was a few days ago by smoking, patient denies recent injection of methamphetamine. No evidence of withdrawals. 5. Atrial fibrillation, unknown persistence, chronic, stable. -heart rate on admission is 101. -12 lead EKG reveals atrial fibrillation at a rate of 100 without ectopy or block. No ST or T-wave changes or evidence of infarct. -and potassium is 3.8, obtain a magnesium level. -patient is not currently on rate controlling medication, patient remain on telemetry. 6. Current use long-term anticoagulation, chronic, stable -patient previously been on apixaban for anticoagulation reports having stopped and restarted 2 days ago. -PT is 16.4 and INR is 1.4 with a PTT 36. -will continue apixaban 5 mg twice daily. 7. Hypertension, chronic, stable. -patient with elevated blood pressure 152/90 on admission improving to 125/86 on admission to the acute care floor. -will continue the patient's routine lisinopril 20 mg daily for afterload reduction in heart failure. -will not continue clonidine 0.1 mg with patient discontinuing medication risk of rebound hypertension can complicate his care. 8. Infrarenal abdominal aortic aneurysm, chronic, stable. -imaging describe stable aneurysm at 5 cm how without weaker rupture. VTE prophylaxis: SCDs, anticoagulated on apixaban IV fluid: Saline lock Diet: Heart healthy Code status: Full code, the patient designates Dr. Mckeon to be his surrogate decision maker. The patient is admitted to the hospital due to the severity of his symptoms requiring further treatment and evaluation with complex care plan. Patient is admitted as observation with expected length of stay to be less than 2 midnights. COVID-19 COVID-19 status: Negative Result date/Date tested (Pos, Neg/Pending): 05/10/20
[2020-05-10 06:33] LABS: Add Manual Diff / Slide Review NO; Basophils Absolute Auto 0 /uL (0-100); Basophils Percent Auto 0.4 % (0-2); Eosinophils Absolute Auto 100 /uL (0-450); Eosinophils Percent Auto 1.3 % (2-4); Hematocrit 36.3 % (41-53); Lymphocytes Absolute Auto 1100 /uL (1100-4500); Lymphocytes Percent Auto 11.9 % (25-40); Mean Corpuscular Hemoglobin 27.6 PG (26-34); Mean Corpuscular Volume 83.6 fL (80-100); Monocytes Absolute Auto 1200 /uL (0-900); Monocytes Percent Auto 14.1 % (3-14); Neutrophils Absolute Auto 6400 /uL (1500-7000); Neutrophils Percent Auto 72.3 % (50-75); Platelet Count 214 X10^3/uL (150-400); Red Blood Cell Count 4.34 X10^6/uL (4.5-5.9); Red Cell Distribution Width 16.7 % (11.6-14.8); White Blood Cell Count 8.8 X10^3/uL (4.5-11.0)
[2020-05-10 06:40] LABS: BUN Creatinine Ratio 20.8 (6-22); Blood Urea Nitrogen 16 mg/dL (9-20); Calcium 8.5 mg/dL (8.4-10.2); Carbon Dioxide 36 mmol/L (22-32); Chloride 97 mmol/L (98-107); Estimated Glomerular Filt Rate > 60.0 mL/min (>60); Glucose 110 mg/dL (80-110); HEMOLYSIS < 15 (0-50); Magnesium 1.9 mg/dL (1.6-2.3); Potassium 3.8 mmol/L (3.4-5.1); Sodium 134 mmol/L (137-145)
[2020-05-10 06:49] LABS: NT-proBNP (BNP-Adult 18+) 3440 pg/mL (<125)
[2020-05-10 06:52] LABS: Erythrocyte Sedimentation Rate 22 MM/HR (0-15)
--- NOTE | 2020-05-10 06:54 | DI.ECHO.S_ITS ---
[facility]+ [facility] +---------+ : : [address] : : : : [id number] : : : : Phone: [phone]+ Echocardiogram Report + + :Name: CLAIR MC Study Date: 05/10/2020 Height: 69 in : :[facility] ReadingLocation: Weight: 200 lb : : Gender: Male BSA: 2.1 m2 : :: 1950 Age: 69 yrs BP: 119/67 mmHg: :Ordering Physician: MARIAELENA, : :OCTAVIA Performed By: Mariaa Oliver : :Referring: OCTAVIA FERRELL : + + Interpretation Summary Afib with controlled rate. Normal LV size. Mildly increased wall thickness. Global hypokinesis with dyssynchronous septum consistent with conduction system abnormality. EF is 40- 45%. Severe LAE; moderate ANGELA. Moderate MAc with moderate associated MR. Estimated PA systolic pressure os 61 mm Hg assuming RA pressure of 15 mm Hg. Compared to prior study 09/08/2019 left pleural effusion is no longer present. Procedure: A two-dimensional transthoracic echocardiogram with color flow and Doppler was performed. The study quality was technically adequate. Comparison is made with the echocardiogram of 09/08/2019. The patient was in atrial fibrillation with heart rates between 74-105 bpm during the exam. Left Ventricle: The left ventricle is normal in size. Left ventricular wall thickness is mildly increased. The ejection fraction is estimated to be 40- 45%. Septal motion is consistent with conduction abnormality. Diastolic function could not be accurately assessed due to atrial fibrillation. Right Ventricle: The right ventricle is normal size. Right ventricular systolic function is mildly reduced. Atria: The left atrium is severely dilated. The right atrium is moderately dilated. There is no Doppler evidence for an interatrial shunt. Mitral Valve: There is moderate mitral annular calcification. The mitral valve leaflets are mildly calcified. There is moderate to severe mitral regurgitation. There are multiple regurgitant jets present. Aortic Valve: The aortic valve is trileaflet. The aortic valve opens well. The aortic valve is mildly calcified. There is no aortic valve stenosis. There is mild aortic regurgitation. Tricuspid Valve: The tricuspid valve leaflets are thin and pliable. There is moderate tricuspid regurgitation. The right ventricular systolic pressure is estimated to be at least 61 mmHg based on an estimated right atrial pressure of 15 mm Hg. Pulmonic Valve: The pulmonic valve leaflets are thin and pliable; valve motion is normal. There is mild pulmonic regurgitation. Great Vessels: The aortic root is normal size. The ascending aorta is mildly enlarged. The IVC is dilated (diameter is greater than 2.1 cm) and it collapses less than 50% with a sniff. This suggests a high right atrial pressure of 15 mm Hg. Pericardium/ Pleura There is no pericardial effusion. There is no pleural effusion. MMode/2D Measurements & Calculations LVIDd: 5.1 cm LVOT diam: 2.3 cm IVSd: 1.3 cm Ao root diam: 4.0 cm LVPWd: 1.3 cm asc Aorta Diam: 3.9 cm LV mcdowell. diameter/BSA (cm/m^2): 2.5 LA A2 area: 38.8 cm2 RA long axis: 7.1 cm LA A4 area: 28.0 cm2 RA area: 26.8 cm2 LA length (vol): 6.9 cm RA vol: 86.6 ml LA vol: 133.9 ml RA : 41.9 ml/m2 LA vol index: 64.8 ml/m2 IVC diam: 2.8 cm RVD1 (basal): 4.0 cm TAPSE: 1.5 cm Doppler Measurements & Calculations Ao V2 max: 132.8 cm/sec LVOT Max Donald: 78.4 cm/sec Ao V2 mean: 93.3 cm/sec LV V1 max P.5 mmHg Ao max P.1 mmHg LV V1 VTI: 13.0 cm Ao mean P.0 mmHg BRENDA(I,D): 2.3 cm2 Ao V2 VTI: 23.7 cm BRENDA(V,D): 2.4 cm2 sev ratio: 0.55 BRENDA indexed to BSA (cm^2/m^2): 1.1 MV A max donald: 1.8 cm/sec TR max donald: 337.3 cm/sec Med Peak E' Donald: 63.3 cm/sec TR max P.5 mmHg Lat Peak E' Donald: 6.5 cm/sec PA Accel Time: 0.07 sec MV P1/2t: 46.4 msec MV P1/2t max donald: 121.8 cm/sec SV(LVOT): 53.6 ml MVA(P1/2t): 4.7 cm2 Electronically signed by: Hannah Olivas M.D. on Reading Physician:05/10/2020 07:25 PM
[2020-05-10] MEDS: lisinopriL 20 MG TABLET 10 MG PO (09:17)
[2020-05-10] MEDS: FAMOTIDINE 20 MG TABLET PO ×2 (09:18→20:20)
[2020-05-10] MEDS: FUROSEMIDE 40 MG/4 ML VIAL IV (09:18)
[2020-05-10] MEDS: APIXABAN 5 MG TABLET PO ×2 (09:18→20:20)
[2020-05-10] MEDS: TOBRAMYCIN 0.3% 1 DROPS EYE-BOTH ×5 (09:25→23:29)
[2020-05-10] MEDS: INFLUENZA HD VACCINE 0.7 ML SYRINGE IM (09:26)
--- NOTE | 2020-05-10 10:11 | PT.IIE ---
Surgical History (Last Reviewed 05/10/20 @ 06:30 by ISABEL Sen) History of appendectomy History of inguinal hernia repair History of tonsillectomy Medical History (Last Reviewed 05/10/20 @ 06:30 by ISABEL Sen) Abdominal aortic aneurysm Atrial fibrillation, chronic Essential hypertension History of CVA (cerebrovascular accident) Hyperlipidemia Methamphetamine use Substance abuse requiring inpatient treatment Systolic CHF with reduced left ventricular function, NYHA class 2 Physical Therapy Inpatient Evaluation/Re-Eval M1 PT/OT-IP Prior Functional Status Start: 05/10/20 12:16 Freq: NEEDED Status: Active Protocol: Document 05/10/20 10:11 AB (Rec: 05/10/20 12:31 AB [id number]) Medical Review Prior Functional Status Medical History Reviewed Yes Communication able to make needs known Mobility and Gait pt stated that he is independent with all mobilities and ambulation without AD but limited and with difficulties Social History Household Members none Living Arrangements Homeless Number of Floors (Floors) Two Floors Number of Stairs To Enter/Railing? pt stated that his house is in [facility] but lives in his truck when he is in [place] [facility] information provided is regarding home in [facility]: 3 steps to enter without rails; 10 steps without rails to 2nd level bedroom Home Environment Walk in Shower,Built-In Shower Seat Home Equipment Hand Held Shower,Grab Bars In Shower M2 PT-IP Current Condition Start: 05/10/20 12:16 Freq: NEEDED Status: Active Protocol: Document 05/10/20 10:11 AB (Rec: 05/10/20 12:31 AB [id number]) Physical Therapy Current Condition Current Condition Evaluation Date 05/10/20 Treatment Diagnosis CHF; PNA; generalized weakness Onset Date 05/10/20 Precautions Other Precautions falls M3 PT-IP Subjective Start: 05/10/20 12:16 Freq: NEEDED Status: Active Protocol: Document 05/10/20 10:11 AB (Rec: 05/10/20 12:31 AB [email or web address]) Subjective Physical Therapy Visit Type Type Initial Evaluation Visit Start Time 10:11 Visit Stop Time 10:25 Total Visit Minutes 14 Number of BIT SANDER Visits 0 M4 PT-IP Mobility and Gait Start: 05/10/20 12:16 Freq: NEEDED Status: Active Protocol: Document 05/10/20 10:11 AB (Rec: 05/10/20 12:31 AB [email or web address]) PT-Bed Mobility Assessment Supine to Sit Supine to Sit Standby Assistance Sit to Supine Sit to Supine Standby Assistance PT-Transfer Assessment Sit to and From Stand Sit to and from Stand Standby Assistance Equipment Transfer Assistive Device Front Wheeled Walker Orthotic/Prosthetic Devices or Brace: No Transfers Transfer Destination Toilet Transfer Technique ambulated using FWW Transfer Ability Level of Assist Standby Assistance,Use of Upper Extremities Comments Mobility Comments pt in bed with eyes closed but answered all questions. requested to use the toilet and completed supine to sit SBA. agreed to use the FWW and completed ambulation SBA. completed toileting SBA. ambulated out of the toilet towards the sink using FWW sBA and was able to maintain standing SBA while completing handwashing. pt requested to go back to bed and ambulated ambulation without AD SBA. increase thoracic kyphosis in standing. completed sit to supine SBA. positioned in bed. call light and table placed within reach. Gait Assessment Gait Gait Assistance Required: Standby Assistance Distance (Feet) 15 Able to Maintain Weight Bearing Status Yes During Gait Assistive Devices Assistive Device None,Front Wheeled Walker Orthotic/Prosthetic Devices or Brace: No Gait Deviations General Gait Pattern Antalgic,Decreased Stride Length,Decreased Feet Clearance,Flexed Trunk,Step-to Gait Factors Limiting Gait Function Factors Limiting Gait Function Decreased Activity Tolerance, Limited Range of Motion,Poor Balance,Poor Safety Awareness PT-Balance Assessment Sitting Balance and Reactions Static Sitting Balance Ability Good Dynamic Sitting Balance Ability Good Standing Balance and Reactions Static Standing Balance Ability Good Dynamic Standing Balance Ability Fair Device Used without AD M5 PT-IP Objective Assessments Start: 05/10/20 12:16 Freq: NEEDED Status: Active Protocol: Document 05/10/20 10:11 AB (Rec: 05/10/20 12:31 AB [id number]) Orientation Orientation/Cognition Level of Alertness Alert Orientation Name Safety Awareness Decreased Safety Awareness Comments pt is sleepy but able to participate Gross Range of Motion Lower Extremity ROM Assessment Within Functional Limits Strength Lower Extremity Strength Hip 4-/5 Knee 4-/5 Muscle Tone Muscle Tone WNL Yes M6 PT-IP Treatment Start: 05/10/20 12:16 Freq: NEEDED Status: Active Protocol: Document 05/10/20 10:11 AB (Rec: 05/10/20 12:31 AB [id number]) Physical Therapy Treatment Education Education Provided Safety M7 PT-IP Assessment and Plan Start: 05/10/20 12:16 Freq: NEEDED Status: Active Protocol: Document 05/10/20 10:11 AB (Rec: 05/10/20 12:31 AB [email or web address]) PT Summary Assessment and Plan Potential Rehabilitation Potential Fair Status of Condition at Evaluation Evolving Summary Impairments Pain,ROM,Strength,Balance, Coordination,Sensation,Tone, Cognition,Bed Mobility, Transfers,Gait,Activity Tolerance Assessment Summary pt requiring SBA with mobility but has decrease activity tolerance affecting function. Pt lives on his truck and does not have any assistance. d/c plan depending on progress but pt will need assistance. Goals Bed Mobility Goal Independent Transfer Goal Independent,Front Wheeled Walker Gait Goal Independent,Front Wheel Walker Gait Distance 200 Other Goals improve ambulation without AD SBA 250 up/down 10 steps 1 rail SBA Days to Meet Goals 10 Frequency of Treatment Frequency Of Treatment Once a Day Treatment Plan Physical Therapy Treatment Plan Bed Mobility Training,Transfer Training,Gait Training, Therapeutic Exercise,Balance Retraining,Discharge Planning, Hot or Cold Pack,Neuromuscular Re-ed,Coordination Retraining Recommendations To Nursing Amount of Assist Needed 1 Person Assist Discharge Recommendations PT Discharge Recommendations Home with Assistance,Home Health,SNF Rehab Transportation Needs at Discharge Private Vehicle,Wheelchair/ Cabulance
[2020-05-10 10:26] LABS: Adenovirus Not Detected (Not Detect); Bordetella pertussis Not Detected (Not Detect); Chlamydophila pneumoniae Not Detected (Not Detect); Coronavirus 229E Not Detected (Not Detect); Coronavirus HKU1 Not Detected (Not Detect); Coronavirus NL 63 Not Detected (Not Detect); Coronavirus OC43 Not Detected (Not Detect); Human Metapneumovirus Not Detected (Not Detect); Human Rhinovirus/Enterovirus Detected (Not Detect); Influenza A Not Detected (Not Detect); Influenza B Not Detected (Not Detect); Mycoplasma pneumoniae Not Detected (Not Detect); Parainfluenza Virus 1 Not Detected (Not Detect); Parainfluenza Virus 2 Not Detected (Not Detect); Parainfluenza Virus 3 Not Detected (Not Detect); Parainfluenza Virus 4 Not Detected (Not Detect); Respiratory Syncytial Virus Not Detected (Not Detect); SARS- CoV-2 Not Detected (Not Detecte)
[2020-05-10] MEDS: CEFTRIAXONE 2 GM/50 ML FROZ.PIGGY IV (11:04)
[2020-05-10 11:53] LABS: Adenovirus F 40/41 Not Detected (Not Detect); Astrovirus Not Detected (Not Detect); Campylobacter Not Detected (Not Detect); Clostridium difficile toxin AB Not Detected (Not Detect); Cryptosporidium Not Detected (Not Detect); Cyclospora cayetanensis Not Detected (Not Detect); Entamoeba histolytica Not Detected (Not Detect); Enteroaggregative E.coli Not Detected (Not Detect); Enteropathogenic E.coli Not Detected (Not Detect); Enterotoxigenic E.coli It/st Not Detected (Not Detect); Giardia lamblia Not Detected (Not Detect); Norovirus GI/GII Not Detected (Not Detect); Plesiomonsa shigelloides Not Detected (Not Detect); Rotavirus A Not Detected (Not Detect); Salmonella Not Detected (Not Detect); Sapovirus Not Detected (Not Detect); Shiga-like toxin-prod E.coli Not Detected (Not Detect); Shigella/Enteroinvasive E.coli Not Detected (Not Detect); Vibrio Not Detected (Not Detect); Vibrio cholerae Not Detected (Not Detect); Yersinia enterocolitica Not Detected (Not Detect)
--- NOTE | 2020-05-10 15:05 | CM.IDA ---
Addendum entered by Theodora Hossein, TUNNEL ELASTIC OPERATOR CHAINSTITCH 05/12/20 15:05: According to Chaplain Malia, patient got himself connected w/ Nancy at [facility] and there is a spot at [facility] [employer] for patient this evening, Hernando assisting in transport this afternoon. Addendum entered by Theodora العليniewski, TUNNEL ELASTIC OPERATOR CHAINSTITCH 05/12/20 14:57: DC: Patient DC from the hospital today 05.12.20, patient states he doesn't know if he has a Rx benefit through [facility](?) Discussed w/CM Esperanza Dumas who suggested medical [employer] for Rx coverage? Rx faxed to [facility] and all covered except for Eliquis (which had been filled 05.06.20) for a cost of apprx $17, medical relief fund form completed, signed and provided to [facility]. Patient asks for help to get back to [place] and get a health care technician. Patient cannot tell this TUNNEL ELASTIC OPERATOR CHAINSTITCH if he has a returned case inspector, states he needs one..record shows patient is on Medicaid spend down. Patient says two [place] closed his accts d/t multiple over draft charges. Focused our conversation and suggested the following: DC w/ provided prescription meds, f/u at [facility] for motel voucher program and get to his PCP appts, ask for referral to [facility]/social work. Patient not interested in sobriety at this time. JW Original Note: Initial DCP Assessment Note Patient is a 69 yo male, had been residing alone on [facility] until the last few months, currently living out of his truck in [place]. Patient presents to ED feeling ill over last two days w/persistent SOB and cough PCP: Junior Gonzales (established care 04.20.20) Payer: [facility]/Self Pay Reviewed chart. Patient familiar to this TUNNEL ELASTIC OPERATOR CHAINSTITCH from prior admission January 2020. See assessment note. According to note by Hernando Yan, [facility] P# [phone] on 01.27.20; Was able to arrange through [facility] two nights in a motel. Nancy at [facility] will be working with Pt on transportation back to [place]. Patient reports he is living out of his truck, admits to current poly substance use- ETOH,methamphetamines, opiate abuse. According to RN Malu, patient is able to ambulate, a bit unsteady w/o AD and incontinent of urine on Lasix today. Review of therapy notes tells this TUNNEL ELASTIC OPERATOR CHAINSTITCH that patient is requiring SBA with mobility and does have decrease in activity tolerance affecting his overall function. Therapy recommending home w/assistance. Will plan to complete assessment of need at bedside and complete resource referral if allowed by patient. KATELYN
--- NOTE | 2020-05-10 15:55 | PM.PN.1 ---
Subjective Subjective Date Patient Seen: 05/10/20 Interval history: Patient is 69-year-old male with history of atrial fibrillation, systolic heart failure, infrarenal abdominal aneurysm, hypertension, methamphetamine use presents with cough, dyspnea and complaints of worsening edema in the legs. Patient is quite somnolent this morning and does not offer any complaints. Exam Vital Signs (past 8 hours): - 05/10/20 08:12 05/10/20 09:17 05/10/20 12:25 Temperature 98.1 F 98.9 F Pulse Rate 84 88 Respiratory Rate 16 17 Blood Pressure 114/54 L 119/45 L 130/75 Pulse Oximetry 97 96 05/10/20 15:40 Temperature 98.0 F Pulse Rate 86 Respiratory Rate 20 Blood Pressure 133/83 Pulse Oximetry 96 Oxygen Delivery Method Room Air Oxygen Flow Rate 0 Narrative Exam Narrative: General: Sleepy male no acute distress Lungs: Clear to auscultation Heart: Irregularly irregular Abdomen: Soft nontender Extremities: No edema Objective Labs Result Diagrams: 05/10/20 06:20 05/10/20 06:20 Labs: Laboratory Results - last 24 hr 05/09/20 05/09/20 05/09/20 22:05 22:13 22:13 WBC 9.1 RBC 4.63 Hgb 12.6 L Hct 38.8 L MCV 83.8 MCH 27.2 MCHC 32.5 RDW 16.7 H Plt Count 234 Neut % (Auto) 77.5 H Lymph % (Auto) 7.7 L [place] % (Auto) 14.1 H Eos % (Auto) 0.4 L Baso % (Auto) 0.3 Neut # (Auto) 7100 H Lymph # (Auto) 700 L [place] # (Auto) 1300 H Eos # (Auto) 0 Baso # (Auto) 0 ESR PT 16.4 H INR 1.4 H APTT 36 D-Dimer ABG pH ABG pCO2 ABG pO2 ABG HCO3 ABG Total CO2 ABG O2 Saturation ABG Base Excess FiO2 Sodium Potassium Chloride Carbon Dioxide BUN Creatinine Estimated GFR BUN/Creatinine Ratio Glucose Lactate Calcium Magnesium Total Bilirubin AST ALT Alkaline Phosphatase Total Creatine Kinase CK-MB (CK-2) CK-MB (CK-2) Rel Index Troponin I C-Reactive Protein NT-Pro-B Natriuret Pep Total Protein Albumin Globulin Albumin/Globulin Ratio Lipase Procalcitonin Urine Color Urine Appearance Urine pH Ur Specific [place] Urine Protein Urine Glucose (UA) Urine Ketones Urine Occult Blood Urine Nitrate Urine Bilirubin Ur Bilirubin Confirm Urine Urobilinogen Ur Leukocyte Esterase Urine RBC Urine WBC Ur Squamous Epith Cells Urine Bacteria Urine Mucus Ur Culture Indicated? Stl C. cayetanensis PCR Stool Rotavirus (PCR) Stool Adenovirus (PCR) Stool Astrovirus (PCR) Stool Cryptosporidium PCR Stl E.coli Shiga Tox PCR St Sh/Enteroin Ecoli PCR Stool E coli O157 PCR Stl Enterotoxigenic E PCR Stool EPEC (PCR) Stl E. histolytica PCR Stool Giardia Lamblia PCR Stool Sapovirus (PCR) Stl P. shigelloides PCR St Y.enterocolitica PCR Stool Vibrio (PCR) Stl Vibrio cholerae PCR Stl Enteroaggr Ecoli PCR Stl Norovirus GI/GII PCR U Opiates 300ng/mL cut Ur Oxycodone Screen Urine Methadone Screen Ur Barbiturates Screen U Tricyclic Antidepress Ur Phencyclidine Scrn Ur Amphetamines Screen U Methamphetamines Scrn Ur MDMA Scrn (Ecstasy) U Benzodiazepines Scrn Urine Cocaine Screen U Marijuana (THC) Screen Chlamy pneumoniae PCR Adenovirus (PCR) B.parapertussis DNA PCR Campylobacter (PCR) C. difficile Tox (PCR) Coronavirus OC43 (PCR) Coronavirus HKU1 (PCR) Coronavirus 229E (PCR) SARS-CoV-2 (PCR) Negative Coronavirus NL63 (PCR) Human Metapneumovir PCR Influenza Type A (PCR) Influenza Type B (PCR) M. pneumoniae (PCR) Parainfluenza 1 (PCR) Parainfluenza 2 (PCR) Parainfluenza 3 (PCR) Parainfluenza 4 (PCR) RSV (PCR) Entero/Rhino (PCR) Salmonella (PCR) 05/09/20 05/09/20 05/09/20 22:13 22:13 22:13 WBC RBC Hgb Hct MCV MCH MCHC RDW Plt Count Neut % (Auto) Lymph % (Auto) [place] % (Auto) Eos % (Auto) Baso % (Auto) Neut # (Auto) Lymph # (Auto) [place] # (Auto) Eos # (Auto) Baso # (Auto) ESR PT INR APTT D-Dimer ABG pH ABG pCO2 ABG pO2 ABG HCO3 ABG Total CO2 ABG O2 Saturation ABG Base Excess FiO2 Sodium 134 L Potassium 3.8 Chloride 99 Carbon Dioxide 30 BUN 14 Creatinine 0.68 Estimated GFR > 60.0 BUN/Creatinine Ratio 20.6 Glucose 109 Lactate 1.4 Calcium 8.9 Magnesium Total Bilirubin 2.8 H AST 34 ALT 19 Alkaline Phosphatase 116 Total Creatine Kinase CK-MB (CK-2) CK-MB (CK-2) Rel Index Troponin I C-Reactive Protein NT-Pro-B Natriuret Pep Total Protein 7.4 Albumin 4.0 Globulin 3.4 Albumin/Globulin Ratio 1.2 Lipase 44 Procalcitonin < 0.05 Urine Color Urine Appearance Urine pH Ur Specific [place] Urine Protein Urine Glucose (UA) Urine Ketones Urine Occult Blood Urine Nitrate Urine Bilirubin Ur Bilirubin Confirm Urine Urobilinogen Ur Leukocyte Esterase Urine RBC Urine WBC Ur Squamous Epith Cells Urine Bacteria Urine Mucus Ur Culture Indicated? Stl C. cayetanensis PCR Stool Rotavirus (PCR) Stool Adenovirus (PCR) Stool Astrovirus (PCR) Stool Cryptosporidium PCR Stl E.coli Shiga Tox PCR St Sh/Enteroin Ecoli PCR Stool E coli O157 PCR Stl Enterotoxigenic E PCR Stool EPEC (PCR) Stl E. histolytica PCR Stool Giardia Lamblia PCR Stool Sapovirus (PCR) Stl P. shigelloides PCR St Y.enterocolitica PCR Stool Vibrio (PCR) Stl Vibrio cholerae PCR Stl Enteroaggr Ecoli PCR Stl Norovirus GI/GII PCR U Opiates 300ng/mL cut Ur Oxycodone Screen Urine Methadone Screen Ur Barbiturates Screen U Tricyclic Antidepress Ur Phencyclidine Scrn Ur Amphetamines Screen U Methamphetamines Scrn Ur MDMA Scrn (Ecstasy) U Benzodiazepines Scrn Urine Cocaine Screen U Marijuana (THC) Screen Chlamy pneumoniae PCR Adenovirus (PCR) B.parapertussis DNA PCR Campylobacter (PCR) C. difficile Tox (PCR) Coronavirus OC43 (PCR) Coronavirus HKU1 (PCR) Coronavirus 229E (PCR) SARS-CoV-2 (PCR) Coronavirus NL63 (PCR) Human Metapneumovir PCR Influenza Type A (PCR) Influenza Type B (PCR) M. pneumoniae (PCR) Parainfluenza 1 (PCR) Parainfluenza 2 (PCR) Parainfluenza 3 (PCR) Parainfluenza 4 (PCR) RSV (PCR) Entero/Rhino (PCR) Salmonella (PCR) 05/09/20 05/09/20 05/09/20 22:13 22:13 23:57 WBC RBC Hgb Hct MCV MCH MCHC RDW Plt Count Neut % (Auto) Lymph % (Auto) [place] % (Auto) Eos % (Auto) Baso % (Auto) Neut # (Auto) Lymph # (Auto) [place] # (Auto) Eos # (Auto) Baso # (Auto) ESR PT INR APTT D-Dimer 668 H ABG pH ABG pCO2 ABG pO2 ABG HCO3 ABG Total CO2 ABG O2 Saturation ABG Base Excess FiO2 Sodium Potassium Chloride Carbon Dioxide BUN Creatinine Estimated GFR BUN/Creatinine Ratio Glucose Lactate Calcium Magnesium Total Bilirubin AST ALT Alkaline Phosphatase Total Creatine Kinase 50 L CK-MB (CK-2) TNP CK-MB (CK-2) Rel Index TNP Troponin I 0.020 C-Reactive Protein NT-Pro-B Natriuret Pep 3010 H Total Protein Albumin Globulin Albumin/Globulin Ratio Lipase Procalcitonin Urine Color Urine Appearance Urine pH Ur Specific [place] Urine Protein Urine Glucose (UA) Urine Ketones Urine Occult Blood Urine Nitrate Urine Bilirubin Ur Bilirubin Confirm Urine Urobilinogen Ur Leukocyte Esterase Urine RBC Urine WBC Ur Squamous Epith Cells Urine Bacteria Urine Mucus Ur Culture Indicated? Stl C. cayetanensis PCR Stool Rotavirus (PCR) Stool Adenovirus (PCR) Stool Astrovirus (PCR) Stool Cryptosporidium PCR Stl E.coli Shiga Tox PCR St Sh/Enteroin Ecoli PCR Stool E coli O157 PCR Stl Enterotoxigenic E PCR Stool EPEC (PCR) Stl E. histolytica PCR Stool Giardia Lamblia PCR Stool Sapovirus (PCR) Stl P. shigelloides PCR St Y.enterocolitica PCR Stool Vibrio (PCR) Stl Vibrio cholerae PCR Stl Enteroaggr Ecoli PCR Stl Norovirus GI/GII PCR U Opiates 300ng/mL cut Negative Ur Oxycodone Screen Negative Urine Methadone Screen Negative Ur Barbiturates Screen Negative U Tricyclic Antidepress Negative Ur Phencyclidine Scrn Negative Ur Amphetamines Screen Positive H U Methamphetamines Scrn Positive H Ur MDMA Scrn (Ecstasy) Negative U Benzodiazepines Scrn Negative Urine Cocaine Screen Negative U Marijuana (THC) Screen Negative Chlamy pneumoniae PCR Adenovirus (PCR) B.parapertussis DNA PCR Campylobacter (PCR) C. difficile Tox (PCR) Coronavirus OC43 (PCR) Coronavirus HKU1 (PCR) Coronavirus 229E (PCR) SARS-CoV-2 (PCR) Coronavirus NL63 (PCR) Human Metapneumovir PCR Influenza Type A (PCR) Influenza Type B (PCR) M. pneumoniae (PCR) Parainfluenza 1 (PCR) Parainfluenza 2 (PCR) Parainfluenza 3 (PCR) Parainfluenza 4 (PCR) RSV (PCR) Entero/Rhino (PCR) Salmonella (PCR) 05/09/20 05/10/20 05/10/20 23:57 04:08 06:20 WBC RBC Hgb Hct MCV MCH MCHC RDW Plt Count Neut % (Auto) Lymph % (Auto) [place] % (Auto) Eos % (Auto) Baso % (Auto) Neut # (Auto) Lymph # (Auto) [place] # (Auto) Eos # (Auto) Baso # (Auto) ESR 22 H PT INR APTT D-Dimer ABG pH 7.52 H ABG pCO2 37.3 ABG pO2 92 ABG HCO3 31 H ABG Total CO2 32 H ABG O2 Saturation 98 ABG Base Excess 8.0 H FiO2 21 Sodium Potassium Chloride Carbon Dioxide BUN Creatinine Estimated GFR BUN/Creatinine Ratio Glucose Lactate Calcium Magnesium Total Bilirubin AST ALT Alkaline Phosphatase Total Creatine Kinase CK-MB (CK-2) CK-MB (CK-2) Rel Index Troponin I C-Reactive Protein NT-Pro-B Natriuret Pep Total Protein Albumin Globulin Albumin/Globulin Ratio Lipase Procalcitonin Urine Color [place] Urine Appearance Clear Urine pH 5.5 Ur Specific [place] 1.025 Urine Protein 1+ H Urine Glucose (UA) Trace H Urine Ketones Trace H Urine Occult Blood Trace-lysed Urine Nitrate Negative Urine Bilirubin 1+ H Ur Bilirubin Confirm Negative Urine Urobilinogen 4.0 H Ur Leukocyte Esterase Negative Urine RBC 0-1/hpf Urine WBC 0-1/hpf Ur Squamous Epith Cells 0-1 /hpf Urine Bacteria None seen Urine Mucus 2+ H Ur Culture Indicated? Cult not indicated Stl C. cayetanensis PCR Stool Rotavirus (PCR) Stool Adenovirus (PCR) Stool Astrovirus (PCR) Stool Cryptosporidium PCR Stl E.coli Shiga Tox PCR St Sh/Enteroin Ecoli PCR Stool E coli O157 PCR Stl Enterotoxigenic E PCR Stool EPEC (PCR) Stl E. histolytica PCR Stool Giardia Lamblia PCR Stool Sapovirus (PCR) Stl P. shigelloides PCR St Y.enterocolitica PCR Stool Vibrio (PCR) Stl Vibrio cholerae PCR Stl Enteroaggr Ecoli PCR Stl Norovirus GI/GII PCR U Opiates 300ng/mL cut Ur Oxycodone Screen Urine Methadone Screen Ur Barbiturates Screen U Tricyclic Antidepress Ur Phencyclidine Scrn Ur Amphetamines Screen U Methamphetamines Scrn Ur MDMA Scrn (Ecstasy) U Benzodiazepines Scrn Urine Cocaine Screen U Marijuana (THC) Screen Chlamy pneumoniae PCR Adenovirus (PCR) B.parapertussis DNA PCR Campylobacter (PCR) C. difficile Tox (PCR) Coronavirus OC43 (PCR) Coronavirus HKU1 (PCR) Coronavirus 229E (PCR) SARS-CoV-2 (PCR) Coronavirus NL63 (PCR) Human Metapneumovir PCR Influenza Type A (PCR) Influenza Type B (PCR) M. pneumoniae (PCR) Parainfluenza 1 (PCR) Parainfluenza 2 (PCR) Parainfluenza 3 (PCR) Parainfluenza 4 (PCR) RSV (PCR) Entero/Rhino (PCR) Salmonella (PCR) 05/10/20 05/10/20 05/10/20 06:20 06:20 06:20 WBC 8.8 RBC 4.34 L Hgb 12.0 L Hct 36.3 L MCV 83.6 MCH 27.6 MCHC 33.0 RDW 16.7 H Plt Count 214 Neut % (Auto) 72.3 Lymph % (Auto) 11.9 L [place] % (Auto) 14.1 H Eos % (Auto) 1.3 L Baso % (Auto) 0.4 Neut # (Auto) 6400 Lymph # (Auto) 1100 [place] # (Auto) 1200 H Eos # (Auto) 100 Baso # (Auto) 0 ESR PT INR APTT D-Dimer ABG pH ABG pCO2 ABG pO2 ABG HCO3 ABG Total CO2 ABG O2 Saturation ABG Base Excess FiO2 Sodium 134 L Potassium 3.8 Chloride 97 L Carbon Dioxide 36 H BUN 16 Creatinine 0.77 Estimated GFR > 60.0 BUN/Creatinine Ratio 20.8 Glucose 110 Lactate Calcium 8.5 Magnesium 1.9 Total Bilirubin AST ALT Alkaline Phosphatase Total Creatine Kinase CK-MB (CK-2) CK-MB (CK-2) Rel Index Troponin I C-Reactive Protein 13.0 H NT-Pro-B Natriuret Pep 3440 H Total Protein Albumin Globulin Albumin/Globulin Ratio Lipase Procalcitonin Urine Color Urine Appearance Urine pH Ur Specific [place] Urine Protein Urine Glucose (UA) Urine Ketones Urine Occult Blood Urine Nitrate Urine Bilirubin Ur Bilirubin Confirm Urine Urobilinogen Ur Leukocyte Esterase Urine RBC Urine WBC Ur Squamous Epith Cells Urine Bacteria Urine Mucus Ur Culture Indicated? Stl C. cayetanensis PCR Stool Rotavirus (PCR) Stool Adenovirus (PCR) Stool Astrovirus (PCR) Stool Cryptosporidium PCR Stl E.coli Shiga Tox PCR St Sh/Enteroin Ecoli PCR Stool E coli O157 PCR Stl Enterotoxigenic E PCR Stool EPEC (PCR) Stl E. histolytica PCR Stool Giardia Lamblia PCR Stool Sapovirus (PCR) Stl P. shigelloides PCR St Y.enterocolitica PCR Stool Vibrio (PCR) Stl Vibrio cholerae PCR Stl Enteroaggr Ecoli PCR Stl Norovirus GI/GII PCR U Opiates 300ng/mL cut Ur Oxycodone Screen Urine Methadone Screen Ur Barbiturates Screen U Tricyclic Antidepress Ur Phencyclidine Scrn Ur Amphetamines Screen U Methamphetamines Scrn Ur MDMA Scrn (Ecstasy) U Benzodiazepines Scrn Urine Cocaine Screen U Marijuana (THC) Screen Chlamy pneumoniae PCR Adenovirus (PCR) B.parapertussis DNA PCR Campylobacter (PCR) C. difficile Tox (PCR) Coronavirus OC43 (PCR) Coronavirus HKU1 (PCR) Coronavirus 229E (PCR) SARS-CoV-2 (PCR) Coronavirus NL63 (PCR) Human Metapneumovir PCR Influenza Type A (PCR) Influenza Type B (PCR) M. pneumoniae (PCR) Parainfluenza 1 (PCR) Parainfluenza 2 (PCR) Parainfluenza 3 (PCR) Parainfluenza 4 (PCR) RSV (PCR) Entero/Rhino (PCR) Salmonella (PCR) 05/10/20 05/10/20 07:04 10:29 WBC RBC Hgb Hct MCV MCH MCHC RDW Plt Count Neut % (Auto) Lymph % (Auto) [place] % (Auto) Eos % (Auto) Baso % (Auto) Neut # (Auto) Lymph # (Auto) [place] # (Auto) Eos # (Auto) Baso # (Auto) ESR PT INR APTT D-Dimer ABG pH ABG pCO2 ABG pO2 ABG HCO3 ABG Total CO2 ABG O2 Saturation ABG Base Excess FiO2 Sodium Potassium Chloride Carbon Dioxide BUN Creatinine Estimated GFR BUN/Creatinine Ratio Glucose Lactate Calcium Magnesium Total Bilirubin AST ALT Alkaline Phosphatase Total Creatine Kinase CK-MB (CK-2) CK-MB (CK-2) Rel Index Troponin I C-Reactive Protein NT-Pro-B Natriuret Pep Total Protein Albumin Globulin Albumin/Globulin Ratio Lipase Procalcitonin Urine Color Urine Appearance Urine pH Ur Specific [place] Urine Protein Urine Glucose (UA) Urine Ketones Urine Occult Blood Urine Nitrate Urine Bilirubin Ur Bilirubin Confirm Urine Urobilinogen Ur Leukocyte Esterase Urine RBC Urine WBC Ur Squamous Epith Cells Urine Bacteria Urine Mucus Ur Culture Indicated? Stl C. cayetanensis PCR Not detected Stool Rotavirus (PCR) Not detected Stool Adenovirus (PCR) Not detected Stool Astrovirus (PCR) Not detected Stool Cryptosporidium PCR Not detected Stl E.coli Shiga Tox PCR Not detected St Sh/Enteroin Ecoli PCR Not detected Stool E coli O157 PCR Not detected Stl Enterotoxigenic E PCR Not detected Stool EPEC (PCR) Not detected Stl E. histolytica PCR Not detected Stool Giardia Lamblia PCR Not detected Stool Sapovirus (PCR) Not detected Stl P. shigelloides PCR Not detected St Y.enterocolitica PCR Not detected Stool Vibrio (PCR) Not detected Stl Vibrio cholerae PCR Not detected Stl Enteroaggr Ecoli PCR Not detected Stl Norovirus GI/GII PCR Not detected U Opiates 300ng/mL cut Ur Oxycodone Screen Urine Methadone Screen Ur Barbiturates Screen U Tricyclic Antidepress Ur Phencyclidine Scrn Ur Amphetamines Screen U Methamphetamines Scrn Ur MDMA Scrn (Ecstasy) U Benzodiazepines Scrn Urine Cocaine Screen U Marijuana (THC) Screen Chlamy pneumoniae PCR Not detected Adenovirus (PCR) Not detected B.parapertussis DNA PCR Not detected Campylobacter (PCR) Not detected C. difficile Tox (PCR) Not detected Coronavirus OC43 (PCR) Not detected Coronavirus HKU1 (PCR) Not detected Coronavirus 229E (PCR) Not detected SARS-CoV-2 (PCR) Not detected Coronavirus NL63 (PCR) Not detected Human Metapneumovir PCR Not detected Influenza Type A (PCR) Not detected Influenza Type B (PCR) Not detected M. pneumoniae (PCR) Not detected Parainfluenza 1 (PCR) Not detected Parainfluenza 2 (PCR) Not detected Parainfluenza 3 (PCR) Not detected Parainfluenza 4 (PCR) Not detected RSV (PCR) Not detected Entero/Rhino (PCR) Detected H Salmonella (PCR) Not detected [facility] Medical History Abdominal aortic aneurysm Atrial fibrillation, chronic Essential hypertension History of CVA (cerebrovascular accident) Hyperlipidemia Methamphetamine use Substance abuse requiring inpatient treatment Systolic CHF with reduced left ventricular function, NYHA class 2 Surgical History History of appendectomy History of inguinal hernia repair History of tonsillectomy Family History Mother CVA (cerebral vascular accident) Father Leukemia Social History household members: none lives independently: Yes Smoking Status: Never smoker alcohol intake: current substance use type: methamphetamine (Uses daily ) Assessment & Plan Assessment & Plan narrative: Patient is 69-year-old male with history of atrial fibrillation, systolic heart failure, infrarenal abdominal aneurysm, hypertension, methamphetamine use presents with cough, dyspnea and complaints of worsening edema in the legs. 1. Possible viral pneumonia or pneumonitis -patient complains 2 days shortness of breath productive cough reporting blood-tinged sputum not previously disclosed to the ER provider and not in evidence since arriving at the hospital. -CT angio of the chest finds calcified granuloma, bronchovesicular ground-glass opacities with edema. -the patient has white count is not elevated at 9.1 have a does have neutrophils of 7100 and monocytes of 13,000. His procalcitonin is negative at less than 0.05 and lactic acid is 1.4. He presents is febrile with temperature 100.4?. -COVID PCR negative, respiratory panel positive for rhinovirus -ESR 22, CRP 13, -ordered albuterol MDI 2 puffs every 4 hours as needed. -added additional lab testing including CRP, ESR, respiratory panel. -will follow CBC. 2. Decompensated systolic heart failure, acute, present on admission, active. -patient discontinued all his meds until restarting 2 days ago but has not apparently restarted his Lasix. -patient has had progressive swelling in his bilateral lower extremities over the last 3 days. -imaging studies report no evidence of pulmonary edema. ProBNP is 3010. Troponin is within normal range. Last echo apparently from the [facility] in August 2019 finds an EF of 40-45%. -the patient was previously on 40 mg Lasix twice daily. The patient received Lasix 40 mg IV x1 in the emergency department will continue Lasix 40 mg IV daily starting this morning. -will monitor electrolytes and renal function with diuresis. -echo pending 3. Elevated bilirubin, acute, present on admission, active. -patient has elevated bilirubin on initial labs at 2.8. Previous bilirubin 0.9 obtained on 04/20/2020. -imaging identifies subtle nodularity to the liver with no obstruction and common bile duct measuring 6 mm. -liver margin is palpable and nontender, negative Hitchcock sign. -will obtain acute hepatitis panel. 4. Methamphetamine abuse, chronic, stable -the patient endorses a 40 year history of methamphetamine use current practice is reported as 1 time per week. Patient denies other substance abuse. -urine tox screen is positive for amphetamines and methamphetamines. Last use was a few days ago by smoking, patient denies recent injection of methamphetamine. No evidence of withdrawals. 5. Atrial fibrillation, unknown persistence, chronic, stable. -heart rate on admission is 101. -12 lead EKG reveals atrial fibrillation at a rate of 100 without ectopy or block. No ST or T-wave changes or evidence of infarct. -and potassium is 3.8, magnesium 1.9 -patient is not currently on rate controlling medication, patient remain on telemetry. 6. Current use long-term anticoagulation, chronic, stable -patient previously been on apixaban for anticoagulation reports having stopped and restarted 2 days ago. -PT is 16.4 and INR is 1.4 with a PTT 36. -will continue apixaban 5 mg twice daily. 7. Hypertension, chronic, stable. -patient with elevated blood pressure 152/90 on admission improving to 125/86 on admission to the acute care floor. -will continue the patient's routine lisinopril 20 mg daily for afterload reduction in heart failure. -continue clonidine transdermal patch 8. Infrarenal abdominal aortic aneurysm, chronic, stable. -imaging describe stable aneurysm at 5 cm without rupture VTE prophylaxis: SCDs, anticoagulated on apixaban IV fluid: Saline lock Diet: Heart healthy Code status: Full code, the patient designates Dr. Mckeon to be his surrogate decision maker. Quality VTE Deep Vein Thrombosis/Pulmonary Embolism Present on Admission: No
--- NOTE | 2020-05-10 17:00 | OT.IP.EVAL ---
Past Medical History (Last Reviewed 05/10/20 @ 06:30 by ISABEL Sen) Abdominal aortic aneurysm Atrial fibrillation, chronic Essential hypertension History of CVA (cerebrovascular accident) Hyperlipidemia Methamphetamine use Substance abuse requiring inpatient treatment Systolic CHF with reduced left ventricular function, NYHA class 2 Surgical History (Last Reviewed 05/10/20 @ 06:30 by ISABEL Sen) History of appendectomy History of inguinal hernia repair History of tonsillectomy Occupational Therapy Inpatient Evaluation/Re-Eval M1 PT/OT-IP Prior Functional Status Start: 05/10/20 17:08 Freq: NEEDED Status: Active Protocol: Document 05/10/20 17:09 [facility] (Rec: 05/10/20 17:49 [facility] [id number]) Medical Review Prior Functional Status Medical History Reviewed Yes Communication able to make needs known Mobility and Gait pt stated that he is independent with all mobilities and ambulation without AD but limited and with difficulties Activities of Daily Living and IADL's Pt states needing increased time to do LB dressing needs. Pt states has been just sponge bathing in sinks at restaurants as living out of his truck. Pt states eats out and use of laundry mat for his laundry. Prior Functional Level (Other details) Pt has a CVA 09/07/19 and since that time pt states that he has been weak. Social History Household Members none Living Arrangements Homeless Number of Floors (Floors) Two Floors Number of Stairs To Enter/Railing? pt stated that his house is in [facility] [place] but lives in his truck when he is in [place] [facility] information provided is regarding home in [facility] [place]: 3 steps to enter without rails; 10 steps without rails to 2nd level bedroom Home Environment Walk in Shower,Built-In Shower Seat Home Equipment Hand Held Shower,Grab Bars In Shower M3 OT- IP Subjective and Pain Start: 05/10/20 17:08 Freq: Status: Active Protocol: Document 05/10/20 17:09 [facility] (Rec: 05/10/20 17:49 [facility] [id number]) OT- Subjective Occupational Therapy Visit Type Type Initial Evaluation Visit Start Time 16:34 Visit Stop Time 17:00 Total Visit Minutes 26 Occupational Therapy Visit Comments Patient Comments Pt initially not waking up as very sleepy and then agreed to do OT eval. Patient/Caregiver Goals TO be able to get assist at home to help take care of him. OT Pain Assessment Pain When Pain Assessed During Mobility Pain Present Pain Present Pain Reported M4 OT- IP ADL's Start: 05/10/20 17:08 Freq: Status: Active Protocol: Document 05/10/20 17:09 [facility] (Rec: 05/10/20 17:49 [facility] [id number]) OT [id number] Comments OT Self-Feeding Comments NOt at meal time. OT ADL-Grooming General Evaluation Grooming Ability Standby Assistance Areas Needing Assistance Retrieving/Set-up of Grooming Items Comments OT Grooming Comments Pt able to do while standing at the sink with FWW. OT ADL-Oral Care General Eval Oral Care Ability Standby Assistance Areas of Assistance Retrieving/Set-Up of Items OT ADL-Dressing General Eval Lower Body Dressing Ability Minimal Assistance Comments OT Dressing Comments Pt able to kartik/doff socks while seated at the edge of the bed. Pt able to stand and hold to the wall and grab bar in order to doff brief over his feet while standing. Recommended best for pt to sit in order to doff his brief for safety. OT ADL-Toileting General Evaluation Toileting Ability Independent OT ADL-Bathing Comments OT Bathing Comments Not performed. M5 OT- IP IADL's Start: 05/10/20 17:08 Freq: Status: Active Protocol: Document 05/10/20 17:09 [facility] (Rec: 05/10/20 17:49 [facility] [id number]) OT-Instrumental Activities of Daily Living Medication Management Medication Management Comments Pt states does not take medications as he can not afford them. Money Management Money Management Comments Pt states he gets money from the government, but unable to pay his bills. Meal Preparation Meal Preparation Comments Pt states buys food to eat and also shares with other people . Driving Driving Comments Pt states still drive even though his license has been suspended. M6 OT- IP Functional Cognition Start: 05/10/20 17:08 Freq: Status: Active Protocol: Document 05/10/20 17:09 [facility] (Rec: 05/10/20 17:49 [facility] [id number]) Cognitive Factors Limiting Selfcare Function Cognitive Ability Level of Alertness Alert Patient Orientation Name,Place Attention Span Ability Capable of Focused Attention, Capable of Sustained Attention Ability to Follow Commands Able to Follow One Step Commands Safety Awareness Underestimates Need for Assistance Problem Solving Ability Unable to Identify Errors, Needs Assist to Identify Solutions Cognitive Comments Cognitive Assessment Comments Pt able to follow commands for grooming needs and toileting. Pt just needing safety cues best to sit for LB dressing needs. Pt is aware that he would benefit from assist at home. OT- Vision and Hearing OT- Vision Assessment Vision Assessment Comments Pt states wears glasses but does not have them anymore. M7 OT- IP Mobility and Balance Start: 05/10/20 17:08 Freq: Status: Active Protocol: Document 05/10/20 17:09 [facility] (Rec: 05/10/20 17:49 [facility] [id number]) OT- Bed Mobility Assessment Rolling Type of Rolling Roll to Right Level of Assistance Standby Assistance Supine to Sit Supine to Sit Assist Standby Assistance Sit to Supine Sit to Supine Assist Standby Assistance OT-Transfer Assessment Sit to and From Stand Sit to and from Stand Contact Guard Assistance Transfers Transfer Ability Standby Assistance,Contact Guard Assistance Technique Transfer Destination Bed,Toilet Transfer Technique Stand Step Pivot Devices Transfer Assistive Devices Gait Belt,Front Wheeled Walker Comments Mobility Comments SBA with FWW and CGA without the FWW. OT- Balance Assessment Sitting Balance and Reactions Static Sitting Balance Ability Good Dynamic Sitting Balance Ability Fair Standing Balance and Reactions Static Standing Balance Ability Fair M8 OT- IP Objective Assessments Start: 05/10/20 17:08 Freq: Status: Active Protocol: Document 05/10/20 17:09 [facility] (Rec: 05/10/20 17:49 [facility] [id number]) OT Strength Comments Strength Comments WFL for transfer needs, to formally assess tomorrow. M9 OT- IP Assessment and Plan Start: 05/10/20 17:08 Freq: Status: Active Protocol: Document 05/10/20 17:09 [facility] (Rec: 05/10/20 17:49 [facility] [id number]) OT Summary Assessment and Plan Potential Rehabilitation Potential Good Analytic Complexity at Evaluation Low Summary OT Impairments Pain,Strength,Balance, Functional Cognition, Functional Mobility,Grooming, Dressing,Toileting,Bathing, Toilet Transfers,Shower Transfers,Activity Tolerance Progress Towards Goals Slow Progress due to Medical Issues,Slow Progress due to Activity Tolerance,Slow Progress due to Cognition Assessment Summary Pt low complexity and main barriers are decreased balance , activity tolerance, and now feels that he is needing assist to help care for himself. Pt lives out of his truck when on the [facility] otherwise has a house on [facility] [place]. Pt would benefit from assist at home and home health versus skilled rehab. To do formal cognitive assessment with pt tomorrow. Goals Self-Feeding Goal Independent Grooming Goal Independent Dressing Goal Independent Toileting Goal Independent Bathing Goal Independent Toilet Transfer Goal Independent Shower Transfer Goal Independent Days to Meet Goals 10 Frequency of Treatment Frequency Of Treatment Once a Day Treatment Plan OT Treatment Plan ADL Training,Functional Cognition Training,Functional Mobility,Patient/Family Education,Discharge Planning Other Treatment Recommendations and Next shower , cognitive assessment Treatment Focus Discharge Recommendations OT Discharge Recommendations Home with Assistance,Home Health,SNF Rehab Home Equipment Needs FWW Transportation Needs at Discharge Private Vehicle
[2020-05-10] MEDS: MELATONIN 3 MG TABLET PO (18:40)
[2020-05-10] MEDS: ATORVASTATIN 20 MG TABLET 10 MG PO (20:20)
--- NOTE | 2020-05-10 23:24 | PC.NURSE ---
Patient denies pain. VSS. [place] restless this evening, given PRN melatonin. Patient slept remainder of shift. Refuses SCDs.
[2020-05-11] VITALS (8 sets, daily range): BP systolic 120–166; BP diastolic 71–86; PULSE 93–103; RESP 16–20; TEMP 36.4–37.4; O2SAT 94–98
[2020-05-11 01:50] LABS: HBsAg Screen Negative (Negative); Hepatitis A Antibody IgM Negative (Negative); Hepatitis B Core Antibody IgM Negative (Negative); Hepatitis C Antibody 0.2 s/co ratio (0.0-0.9)
[2020-05-11] MEDS: TOBRAMYCIN 0.3% 1 DROPS EYE-BOTH ×6 (04:09→23:45)
[2020-05-11] MEDS: FAMOTIDINE 20 MG TABLET PO ×2 (08:43→20:35)
[2020-05-11] MEDS: APIXABAN 5 MG TABLET PO ×2 (08:44→20:34)
[2020-05-11] MEDS: FUROSEMIDE 40 MG/4 ML VIAL IV (08:44)
[2020-05-11] MEDS: lisinopriL 20 MG TABLET 10 MG PO (08:45)
--- NOTE | 2020-05-11 09:23 | PT.IPTN ---
Physical Therapy Treatment Note M2 PT-IP Current Condition Start: 05/10/20 12:16 Freq: NEEDED Status: Active Protocol: Document 05/10/20 10:11 [facility] (Rec: 05/10/20 12:31 [facility] [id number]) Physical Therapy Current Condition Current Condition Evaluation Date 05/10/20 Treatment Diagnosis CHF; PNA; generalized weakness Onset Date 05/10/20 Precautions Other Precautions falls M3 PT-IP Subjective Start: 05/10/20 12:16 Freq: NEEDED Status: Active Protocol: Document 05/11/20 09:23 [facility] (Rec: 05/11/20 11:33 [facility] [id number]) Subjective Physical Therapy Visit Type Type Treatment Note Visit Start Time 09:23 Visit Stop Time 09:42 Total Visit Minutes 19 Number of ROLL THREADER OPERATOR Visits 0 Physical Therapy Visit Comments Patient Comments pt requesting to use the toilet M4 PT-IP Mobility and Gait Start: 05/10/20 12:16 Freq: NEEDED Status: Active Protocol: Document 05/11/20 09:23 [facility] (Rec: 05/11/20 11:33 [facility] [id number]) PT-Bed Mobility Assessment Supine to Sit Supine to Sit Standby Assistance PT-Transfer Assessment Sit to and From Stand Sit to and from Stand Standby Assistance Equipment Transfer Assistive Device None Orthotic/Prosthetic Devices or Brace: No Transfers Transfer Destination Toilet Transfer Technique ambulated without AD Transfer Ability Level of Assist Standby Assistance Comments Mobility Comments completed supine to sit SBA and ambulated to the toilet without AD SBA. completed toileting SBA and ambulated to the sink without AD SBA. pt was able to maintain standing balance SBA while completing handwashing. pt agreed to do more ambulation and completed ~ 50 ft in room without AD SBA . cued for upright posture. pt stated that he has to use the toilet again and ambulated to the toilet SBA without AD able to complete handwashing again by the sink. pt agreed to stay up on chair afterwards . positioned on the chair. call light and table placed within reach. Gait Assessment Gait Gait Assistance Required: Standby Assistance Distance (Feet) 50 Able to Maintain Weight Bearing Status Yes During Gait Assistive Devices Assistive Device None Orthotic/Prosthetic Devices or Brace: No Gait Deviations General Gait Pattern Decreased Stride Length, Decreased Feet Clearance, Flexed Trunk Factors Limiting Gait Function Factors Limiting Gait Function Decreased Activity Tolerance, Decreased Strength,Poor Balance,Poor Safety Awareness M5 PT-IP Objective Assessments Start: 05/10/20 12:16 Freq: NEEDED Status: Active Protocol: Document 05/10/20 10:11 [facility] (Rec: 05/10/20 12:31 [facility] [id number]) Orientation Orientation/Cognition Level of Alertness Alert Orientation Name Safety Awareness Decreased Safety Awareness Comments pt is sleepy but able to participate Gross Range of Motion Lower Extremity ROM Assessment Within Functional Limits Strength Lower Extremity Strength Hip 4-/5 Knee 4-/5 Muscle Tone Muscle Tone WNL Yes M6 PT-IP Treatment Start: 05/10/20 12:16 Freq: NEEDED Status: Active Protocol: Document 05/11/20 09:23 [facility] (Rec: 05/11/20 11:33 [facility] [id number]) Physical Therapy Treatment Education Education Provided Safety M7 PT-IP Assessment and Plan Start: 05/10/20 12:16 Freq: NEEDED Status: Active Protocol: Document 05/11/20 09:23 [facility] (Rec: 05/11/20 11:33 [facility] [id number]) PT Summary Assessment and Plan Potential Rehabilitation Potential Good Summary Impairments Strength,Balance,Cognition,Bed Mobility,Transfers,Gait, Activity Tolerance Progress Towards Goals Slow Progress due to Medical Issues,Slow Progress due to Activity Tolerance Assessment Summary pt requiring SBA and was able to tolerate activity better today than yesterday's. will continue to assess progress for d/c plan but at this time need assist at home for safety . Goals Bed Mobility Goal Independent Transfer Goal Independent,Front Wheeled Walker Gait Goal Independent,Front Wheel Walker Gait Distance 200 Other Goals improve ambulation without AD SBA 250 up/down 10 steps 1 rail SBA Days to Meet Goals 10 Frequency of Treatment Frequency Of Treatment Once a Day Treatment Plan Physical Therapy Treatment Plan Bed Mobility Training,Transfer Training,Gait Training, Therapeutic Exercise,Balance Retraining,Discharge Planning, Hot or Cold Pack,Neuromuscular Re-ed,Coordination Retraining Recommendations To Nursing Amount of Assist Needed 1 Person Assist Discharge Recommendations PT Discharge Recommendations Home with Assistance,Home Health,SNF Rehab Transportation Needs at Discharge Private Vehicle,Wheelchair/ Cabulance
--- NOTE | 2020-05-11 13:15 | PM.PN.1 ---
Subjective Subjective Date Patient Seen: 05/11/20 Interval history: Patient is 69-year-old male with history of likely chronic atrial fibrillation, systolic heart failure, infrarenal abdominal aneurysm, hypertension, methamphetamine use presents with low-grade fever, cough, dyspnea and complaints of worsening edema in the legs. Patient is responding to IV Lasix diuresis. He notes improvement in cough and dyspnea though still has some symptoms. Exam Vital Signs (past 8 hours): - 05/11/20 08:00 05/11/20 08:45 05/11/20 12:30 Temperature 98.3 F 97.6 F Pulse Rate 103 H 95 H Respiratory Rate 18 16 Blood Pressure 147/81 H 155/81 H 138/72 Oxygen Delivery Method Room Air Oxygen Flow Rate 0 Narrative Exam Narrative: General: Sleepy male no acute distress Lungs: Bibasilar crackles, no wheeze Heart: Irregularly irregular Abdomen: Soft nontender Extremities: No edema Objective Labs Result Diagrams: 05/10/20 06:20 05/10/20 06:20 Labs: Laboratory Results - last 24 hr 05/10/20 06:20 Hepatitis A IgM Ab Negative Hep Bs Antigen Negative Hep B Core IgM Ab Negative Hepatitis C Antibody 0.2 Hep C Ab Signal/Cutoff Comment PFSH Medical History Abdominal aortic aneurysm Atrial fibrillation, chronic Essential hypertension History of CVA (cerebrovascular accident) Hyperlipidemia Methamphetamine use Substance abuse requiring inpatient treatment Systolic CHF with reduced left ventricular function, NYHA class 2 Surgical History History of appendectomy History of inguinal hernia repair History of tonsillectomy Family History Mother CVA (cerebral vascular accident) Father Leukemia Social History household members: none lives independently: Yes Smoking Status: Never smoker alcohol intake: current substance use type: methamphetamine (Uses daily ) Assessment & Plan Assessment & Plan narrative: Patient is 69-year-old male with history of atrial fibrillation, systolic heart failure, infrarenal abdominal aneurysm, hypertension, methamphetamine use presents with low-grade fever, cough, dyspnea and complaints of worsening edema in the legs. 1. Viral pneumonia or pneumonitis -CT angio of the chest finds calcified granuloma, bronchovesicular ground-glass opacities with edema. -the patient presented febrile with temp 100.4? but normal WBC, normal procalcitonin. -COVID PCR negative, respiratory panel positive for rhinovirus -ESR 22, CRP 13, -ordered albuterol MDI 2 puffs every 4 hours as needed. -continue supportive management 2. Decompensated systolic heart failure, acute, present on admission, active. -improving with IV Lasix diuresis, on 40 mg IV q.d. in addition to 20 mg b.i.d. by mouth -patient was not compliant with home medications including diuretic, most recently on furosemide 20 mg b.i.d. -echo: Normal LV size, mild LVH, LVEF 40-45%, moderate MR -recheck lytes, creatinine in a.m. -consider increase lisinopril from 10 mg to 20 mg q.d. on discharge for more afterload reduction 3. Elevated bilirubin, acute, present on admission, active. -patient has elevated bilirubin on initial labs at 2.8 likely due to hepatic congestion. Previous bilirubin 0.9 obtained on 04/20/2020. -imaging identifies subtle nodularity to the liver with no obstruction and common bile duct measuring 6 mm. -liver margin is palpable and nontender, negative Hitchcock sign. 4. Methamphetamine abuse, chronic, stable -the patient endorses a 40 year history of methamphetamine use current practice is reported as 1 time per week. Patient denies other substance abuse. -urine tox screen is positive for amphetamines and methamphetamines. Last use was a few days ago by smoking, patient denies recent injection of methamphetamine. No evidence of withdrawals. 5. Chronic atrial fibrillation -continue apixaban -patient is not currently on rate controlling medication, patient remain on telemetry. 6. Hypertension, chronic, stable. -continue lisinopril 10 mg q.d., consider increase to 20 mg q.d. on discharge -continue clonidine transdermal 0.1 mg weekly patch 7. Infrarenal abdominal aortic aneurysm, chronic, stable. -imaging describe stable aneurysm at 5 cm without rupture Patient with improvement in hospital course in likely will be ready for discharge tomorrow, . VTE prophylaxis: SCDs, anticoagulated on apixaban IV fluid: Saline lock Diet: Heart healthy Code status: Full code, the patient designates Dr. Linda to be his surrogate decision maker. Quality VTE Deep Vein Thrombosis/Pulmonary Embolism Present on Admission: No
--- NOTE | 2020-05-11 15:56 | OT.IP.TRT ---
Occupational Therapy Treatment Note M2 OT-IP Current Condition Start: 05/10/20 17:08 Freq: Status: Active Protocol: Document 05/10/20 17:09 [facility] (Rec: 05/11/20 08:07 [facility] [id number]) Occupational Therapy Current Condition Current Condition Evaluation Date 05/10/20 Treatment Diagnosis CHF/PNA Diagnosis Onset Date 05/10/20 M3 OT- IP Subjective and Pain Start: 05/10/20 17:08 Freq: Status: Active Protocol: Document 05/11/20 15:37 [facility] (Rec: 05/11/20 15:56 [facility] [id number]) OT- Subjective Occupational Therapy Visit Type Type Treatment Note Visit Start Time 14:50 Visit Stop Time 15:34 Total Visit Minutes 44 Occupational Therapy Visit Comments Patient Comments Pt wanting to shower. Patient/Caregiver Goals Pt wanted someone to help care for him. OT Pain Assessment Pain When Pain Assessed At Rest Pain Present Pain Present Denied Pain M4 OT- IP ADL's Start: 05/10/20 17:08 Freq: Status: Active Protocol: Document 05/11/20 15:37 [facility] (Rec: 05/11/20 15:56 [facility] [id number]) OT ADL-Grooming General Evaluation Grooming Ability Standby Assistance Areas Needing Assistance Retrieving/Set-up of Grooming Items OT ADL-Dressing General Eval Upper Body Dressing Ability Standby Assistance Lower Body Dressing Ability Standby Assistance OT ADL-Toileting Comments OT Toileting Comments Pt not having to use the toilet. OT ADL-Bathing Bathing Type Bathing Type Shower General Evaluation Bathing Ability Minimal Assistance Areas Needing Assistance Wash/Dry Back Devices Bathing Equipment Hand Held Shower Sprayer, Shower Chair with Arms,Grab Bars Comments OT Bathing Comments Pt mainly just needing assist to wash/dry his back. Pt heavy use of grab bars while standing to shower for 50% of the time. M6 OT- IP Functional Cognition Start: 05/10/20 17:08 Freq: Status: Active Protocol: Document 05/11/20 15:37 [facility] (Rec: 05/11/20 15:56 [facility] [id number]) Cognitive Factors Limiting Selfcare Function Cognitive Ability Level of Alertness Alert Patient Orientation Name,Age,Birthday,Month,Date, Year,Day of Week,Place, Situation Attention Span Ability Capable of Focused Attention, Capable of Sustained Attention Ability to Follow Commands Able to Follow Multi-Step Commands Memory Description Short Term Impaired Safety Awareness Underestimates Need for Assistance Cognitive Tests SLUMS Pt scored 27/30 which implies normal for pt's cognition. Pt does admit that he has more trouble with his short term memory since his CVA in 09/08. Cognitive Comments Cognitive Assessment Comments Pt able to sequence on his own for showering needs. Pt just mainly needing cues to sit down while donning/doffing his brief. M7 OT- IP Mobility and Balance Start: 05/10/20 17:08 Freq: Status: Active Protocol: Document 05/11/20 15:37 [facility] (Rec: 05/11/20 15:56 [facility] [id number]) OT- Bed Mobility Assessment Supine to Sit Supine to Sit Assist Standby Assistance Sit to Supine Sit to Supine Assist Standby Assistance Scooting Scooting to Edge of Bed Standby Assistance OT-Transfer Assessment Sit to and From Stand Sit to and from Stand Standby Assistance Transfers Transfer Ability Standby Assistance Technique Transfer Destination Bed,Shower Stall Transfer Technique Stand Step Pivot Devices Transfer Assistive Devices None Comments Mobility Comments SBA for level surfaces and close SBA when stepping over the threshold of the shower. In addition pt having to hold to the grab bar for balance. OT- Balance Assessment Sitting Balance and Reactions Static Sitting Balance Ability Good Dynamic Sitting Balance Ability Good Standing Balance and Reactions Static Standing Balance Ability Fair M8 OT- IP Objective Assessments Start: 05/10/20 17:08 Freq: Status: Active Protocol: Document 05/10/20 17:09 [facility] (Rec: 05/10/20 17:49 [facility] [id number]) OT Strength Comments Strength Comments WFL for transfer needs, to formally assess tomorrow. M9 OT- IP Assessment and Plan Start: 05/10/20 17:08 Freq: Status: Active Protocol: Document 05/11/20 15:37 [facility] (Rec: 05/11/20 15:56 [facility] [id number]) OT Summary Assessment and Plan Potential Rehabilitation Potential Good Analytic Complexity at Evaluation Low Summary OT Impairments Balance,Functional Cognition, Functional Mobility,Dressing, Toileting,Bathing,Shower Transfers Progress Towards Goals Progressing Toward Goals Assessment Summary Pt more steady on his feet and mainly SBA with no devices for level surfaces. Pt is aware that he is forgetful at times and needs to write things down for himself. Pt scored 27/30 for the SLUMS which implies normal cognition . Pt would still benefit from increased assist however unsure where pt will be going. Goals Self-Feeding Goal Independent Grooming Goal Independent Dressing Goal Independent Toileting Goal Independent Bathing Goal Independent Toilet Transfer Goal Independent Shower Transfer Goal Independent Patient/Caregiver Education Goal Demonstrate Energy Conservation and Pacing Days to Meet Goals 5 Frequency of Treatment Frequency Of Treatment Once a Day Treatment Plan OT Treatment Plan ADL Training,Functional Cognition Training,Functional Mobility,Patient/Family Education,Discharge Planning Discharge Recommendations OT Discharge Recommendations Home with Assistance,Home Health,SNF Rehab Transportation Needs at Discharge Private Vehicle
[2020-05-11] MEDS: ATORVASTATIN 20 MG TABLET 10 MG PO (20:35)
[2020-05-12] MEDS: TOBRAMYCIN 0.3% 1 DROPS EYE-BOTH ×3 (04:43→13:48)
[2020-05-12 06:00] VITALS: BP 138/71; PULSE 97; RESP 16; TEMP 36.4; O2SAT 94
[2020-05-12 06:42] LABS: BUN Creatinine Ratio 28.4 (6-22); Blood Urea Nitrogen 19 mg/dL (9-20); Calcium 8.6 mg/dL (8.4-10.2); Carbon Dioxide 36 mmol/L (22-32); Chloride 97 mmol/L (98-107); Estimated Glomerular Filt Rate > 60.0 mL/min (>60); Glucose 165 mg/dL (80-110); HEMOLYSIS < 15 (0-50); Potassium 2.9 mmol/L (3.4-5.1); Sodium 135 mmol/L (137-145)
--- NOTE | 2020-05-12 06:58 | PC.NURSE ---
Pt stable through shift, mild intermittent cough with no expectorant. IV and tele discontinued per PCP. Pt pleasant towards this RN but less pleasant toward others.
[2020-05-12] MEDS: POTASSIUM CHLORIDE 20 MEQ TAB 40 MEQ PO (07:58)
[2020-05-12] MEDS: APIXABAN 5 MG TABLET PO (07:58)
[2020-05-12] MEDS: DOCUSATE 100 MG CAPSULE PO (07:58)
[2020-05-12] MEDS: FUROSEMIDE 20 MG TABLET 40 MG PO (07:58)
[2020-05-12] MEDS: FAMOTIDINE 20 MG TABLET PO (07:58)
[2020-05-12 07:59] VITALS: BP 154/88
[2020-05-12] MEDS: lisinopriL 20 MG TABLET 10 MG PO (07:59)
[2020-05-12 08:00] VITALS: BP 154/88; PULSE 106; RESP 17; TEMP 36.6; O2SAT 95
--- NOTE | 2020-05-12 11:10 | PT-IP ANOTE ---
Patient refused therapy today, stating he does not have further needs and is not willing to participate in ambulation at this time. Offers that he has not had any falls or experienced trouble with ambulation previously.
--- NOTE | 2020-05-12 11:39 | P.DS_ITS ---
History of Present Illness History of Present Illness Chief complaint: SOB COUGH Narrative: Mr. Jayden Rodriguez is 69-year-old male with a past medical history significant for methamphetamine abuse, CVA reporting no residual deficits, atrial fibrillation prescribed Eliquis, chronic systolic heart failure, infra-renal abdominal aortic aneurysm hypertension, history of pleural effusion and hyperlipidemia who presents to the ER reporting feeling ill for 2 days and getting worse stating he did not ?think he was going to make?. He denies fever however presents with a fever of 100.4. He reports having a cough and coughing up large amounts of blood-tinged sputum. He denies night sweats or weight loss. The patient additionally reports he has had worsening edema of bilateral lower extremities for 3 days. The patient was seen by Dr. Alex Gonzales to [facility] on 04/20 2020 at that time was referred to a treatment program for his current methamphetamine abuse and history of opiate abuse. He had been previously on Lasix and but potassium for heart failure that were discontinued because the patient was not taking the medications The patient states he had quit taking all his medications because they were ?not right? only to restart 2 days ago. The patient has been previously detained following a DCR evaluation due to grave disability. Today the patient is alert and oriented and conversant and denies thoughts of suicidal ideation or self-harm. The patient denies other recent illnesses and has no headache or dizziness and has sustained no falls or trauma. Reports no nasal congestion or sore throat. He denies complaints of chest pain and feels occasional palpitations but no racing heart with a history of atrial fibrillation. He describes exertional dyspnea but denies shortness of breath at rest. He reports no wheezing. He denies epigastric or abdominal pain. He has no nausea vomiting, no constipation for reports watery diarrhea. Upon arrival to the ER the patient has a temperature of 100.4?, heart rate of 101, blood pressure 152/90, respiratory rate of 20 saturating 96% on room air. Multiple imaging studies are obtained with a CT angiogram of the chest, abdomen pelvis finds no PE, mildly prominent paratracheal lymph nodes, new right middle lobe calcified granuloma, ground-glass opacity surrounding the right middle lobe vasculature with edema, possible pneumonitis of 5.0 by 4.5 infrarenal aortic aneurysm without rupture or acute finding previously measuring 4.9 x 4.4 cm. Normal gallbladder with subtle nodular contour to the liver without mass mild fatty infiltration of the pancreas without inflammation scattered colonic diverticulosis, no free air or fluid. On limited abdominal ultrasound: Mobile gallstone without acute cholecystitis, subtle nodular contour liver without stated ptosis, 7 mm cystic lesion within the anterior head of the pancreas and aortic aneurysm is read described. On laboratory analysis the patient has white count 9.1 with neutrophils of 7100 and monocytes of 13,000. His hemoglobin of 12.6, hematocrit 38.8 platelets of 203 4. PT is 16.4 with an INR 1.4 and PTT of 36. D-dimer is 668. Chemistries are all within normal range and nonfasting glucose is 109. He has elevated bilirubin at 2.8 with AST of 34, ALT of 19 alkaline phosphatase of 116. His lactic acid is 1.4 procalcitonin is negative. He has a proBNP of 3010 and a troponin of 0.020. Urine tox is positive for amphetamines and methamphetamines and urinalysis positive for protein, ketones, bilirubin and Uro bili 10 and negative for leukocyte esterase, nitrites or wbc's. Patient desatted while sleeping in the emergency room an ABG was obtained finding a pH of 7.52, pCO2 37.3, PO2 of 92, bicarb 31 and base excess of 8 on 21% FiO2. In the ER the patient received normal saline 1 L, Tylenol for his fever, Lasix for his heart failure and azithromycin and Rocephin for his pulmonary infiltrate. The patient is admitted to the hospitalist service for further evaluation treatment of CHF and pneumonia Discharge Providers Provider Date of admission: 05/11/20 15:09 Discharge Date: 05/12/20 Primary care physician: Junior Gonzales DO Consults: 05/10/20 05:17 Consult to Discharge Planning Routine Comment: 05/10/20 05:18 Consult to Physical Therapy Evaluate & Treat Comment: Physician Instructions: Evaluate and Treat 05/10/20 05:23 Consult to CONSOLE ATTENDANT - Slackline Operator Routine Comment: CONSOLE ATTENDANT Consult: Behavioral Health Assess Community Health Res Need Consult to Respiratory Therapy Evaluate & Treat Comment: Physician Instructions: Evaluate and treat 05/10/20 10:46 Consult to Occupational Therapy Evaluate & Treat Comment: Physician Instructions: Evaluate and treat Discharge provider: Thuan Modi MD Summary Hospital Course Discharge Diagnosis: 1. Viral pneumonia 2. Acute on chronic systolic and diastolic heart failure 3. Methamphetamine abuse, chronic 4. Chronic atrial fibrillation 5. Essential hypertension 6. Stable infrarenal abdominal aortic aneurysm Patient is 69-year-old male with history of atrial fibrillation, systolic heart failure, infrarenal abdominal aneurysm, hypertension, methamphetamine use presents with low-grade fever, cough, dyspnea and complaints of worsening edema in the legs. Patient had chest x-ray infiltrate. He was treated supportively for viral pneumonia. He tested negative for COVID but respiratory panel positive for rhinovirus. He had elevated inflammatory markers. He did not have more fevers after admission. He also had evidence of decompensated heart failure. Echo showed normal LV s ize, mild LVH, LVEF 40-45%, moderate MR. Due to atrial fibrillation he probably has combined diastolic and systolic dysfunction. He was diuresed with IV Lasix, lisinopril was increased from 10 mg to 20 mg q.d., and he is started on metoprolol succinate ER 50 mg q.d.. Dyspnea is significantly better/resolved and leg edema also resolved. Patient has limited resources and lives on [address]. We picked up his prescriptions for him and also gave him funds for to nights stay at local [facility]. Status at Discharge Cognitive/behavioral status at discharge: oriented Functional status at discharge: independent ambulation Overall status at discharge: patient is back to baseline Time Spent with Patient Time spent: Greater than 30 minutes Exam Vital Signs (past 8 hours): - 05/12/20 06:00 05/12/20 07:59 05/12/20 08:00 Temperature 97.6 F 97.8 F Pulse Rate 97 H 106 H Respiratory Rate 16 17 Blood Pressure 138/71 154/88 H 154/88 H Pulse Oximetry 94 95 Oxygen Delivery Method Room Air Oxygen Flow Rate 0 Objective Labs Result Diagrams: 05/10/20 06:20 05/12/20 06:10 Labs: Laboratory Results - last 24 hr 05/12/20 06:10 Sodium 135 L Potassium 2.9 L Chloride 97 L Carbon Dioxide 36 H BUN 19 Creatinine 0.67 Estimated GFR > 60.0 BUN/Creatinine Ratio 28.4 H Glucose 165 H Calcium 8.6 PFSH Medical History Abdominal aortic aneurysm Atrial fibrillation, chronic Essential hypertension History of CVA (cerebrovascular accident) Hyperlipidemia Methamphetamine use Substance abuse requiring inpatient treatment Systolic CHF with reduced left ventricular function, NYHA class 2 Surgical History History of appendectomy History of inguinal hernia repair History of tonsillectomy Family History Mother CVA (cerebral vascular accident) Father Leukemia Social History household members: none lives independently: Yes Smoking Status: Never smoker alcohol intake: current substance use type: methamphetamine (Uses daily ) Discharge Plan Discharge Plan Patient Disposition: Home Nursing Discharge Comment: tow picker meds from [place] for patient Discharge orders & Medications Prescriptions: New lisinopril 20 mg tablet 20 mg PO DAILY Qty: 30 RF: 0 metoprolol succinate 50 mg tablet extended release 24 hr 50 mg PO DAILY Qty: 30 RF: 0 furosemide 40 mg tablet 40 mg PO DAILY Qty: 30 RF: 0 atorvastatin [Lipitor] 20 mg Tablet 10 mg PO BEDTIME Qty: 30 RF: 0 Eliquis 5 mg Tablet 5 mg PO BID Qty: 30 RF: 0 Continued melatonin 3 mg Tablet 3 mg PO BEDTIME PRN (Reason: insomnia) RF: 0 famotidine [Pepcid] 40 mg tablet 20 mg PO BID Qty: 30 RF: 0 Discontinued Eliquis 5 mg tablet 5 mg PO BID 30 Days Qty: 180 RF: 1 clonidine [[place]-HGV-3] 0.1 mg/24 hr patch weekly 0.1 mg transdermal WEEKLY 30 Days Qty: 12 RF: 1 lisinopril 20 mg tablet 10 mg PO DAILY Qty: 90 RF: 1 atorvastatin 10 mg tablet 10 mg PO BEDTIME Qty: 90 RF: 1 Follow up/Referrals: Junior Gonzales, [Primary Care Provider] - Discharge Health Status Multidrug resistant organism: No MDRO Diet/Activity/Treatments Diet: Regular Visit Report/Discharge Packet Instructions: DI for Heart Failure, Atorvastatin, Furosemide, Metoprolol, Lisinopril, Apixaban Discharge Data Primary Care Provider: Junior Gonzales Quality VTE Deep Vein Thrombosis/Pulmonary Embolism Present on Admission: No
[2020-05-12 12:00] VITALS: BP 145/76; PULSE 102; RESP 17; TEMP 36.4; O2SAT 94
--- NOTE | 2020-05-12 13:56 | CM.DPC ---
Was called to patient bedside to explain the IMM to him. He said, so you mean I can appeal the discharge?. I explained that he could if he thought he wasn't medically ready for discharge. He said, sure... then I'm appealing the discharge. I said I would get the forms for him to sign to appeal the discharge. He asked if appealing the discharge would give his clothes time to dry. I asked if wet pants were the reason he didn't want to be discharged and he said yes. I asked how he was feeling and he said, I'm feeling just fine. I asked if he thought he needed more time in the hospital to feel better, and he said no - I want to stay until my pants are dry. I told him I could see if we could find a way to dry the pants and he said, than I want to be discharged. I clarified a third time about his desire to appeal his discharge and for a third time said he just wanted to be sure he had dry clothes to leave the hospital and that he did NOT want to appeal the discharge because he felt fine. I feel confident the patient understands that appealing of discharge is about him feeling medically ready for discharge and he clearly doesn't want to appeal the discharge. I spoke to KATHERINE Corral and she was going to get him some paper scrubs to go home in. Marika STONE was going to get his RX filled at [place] (using the medical relief fund) and them point out the hotel he was going to stay in that [facility] was helping to secure. Patient is knowledgeable and accepting of discharge plan of care.
--- NOTE | 2020-05-12 13:59 | PC.NURSE ---
Pt is dressed and ready for discharge home. He has his own vehicle and is not taking any narcotics. Went over d/c instructions with Pt-discussed d/c meds, time of last dose, encouraged Pt to watch for increase in weight or swelling to indicate fluid overload and to try to keep his sodium intake down. Went over stroke education and gave Pt the phone number and location for [facility]. Pt denies further questions and was taken to [facility] via w/c by RESEARCH GENETICIST with all belongings and then free to proceed on to his own vehicle on his own recognizance .
== END 2020-05-12 14:08 | disposition home or self-care (01) | DRG 291 ==
LOC: ED 22:18 → AC 05-10 04:43
PROVIDERS: Internal Medicine; Admitting Provider Nurse Practitioner Adult Health; Emergency Provider Emergency Medicine; PCP Family Medicine; Visit Provider Nurse Practitioner Adult Health
DX: I11.0 Hypertensive heart disease with heart failure (principal); J12.9 Viral pneumonia, unspecified; I48.20 Chronic atrial fibrillation, unspecified; I50.23 Acute on chronic systolic (congestive) heart failure; F15.10 Other stimulant abuse, uncomplicated; B34.8 Other viral infections of unspecified site; R82.2 Biliuria; I71.4 Abdominal aortic aneurysm, without rupture; E78.5 Hyperlipidemia, unspecified; Z91.14 Patient's other noncompliance with medication regimen; Z79.01 Long term (current) use of anticoagulants; Z20.822 Contact with and (suspected) exposure to COVID-19; Z23 Encounter for immunization
CPT/HCPCS: 36415; 36600; 71045; 71275; 74174; 76705; 80048; 80053; 80074; 80305; 81001; 82550; 82805; 83605; 83690; 83735; 83880; 84145; 84484; 85025; 85379; 85610; 85651; 85730; 86140; 87040; 87507; 87633; 87635; 90471; 90662; 93005; 93010; 93306; 94762; 96365; 96375; 97162; 97165; 97530; 97535; 99284; 99291; C9803; G0378; A9270; J0696; J1940; Q9967

== ENCOUNTER 2020-05-20 09:20 | Emergency (ER) | payer MEDICARE, MEDICAID, SELFPAY ==
[2020-05-10 06:07] VITALS: BMI 30.2
[2020-05-20] VITALS (18 sets, daily range): BP systolic 137–182; BP diastolic 85–121; PULSE 70–92; RESP 13–31; TEMP 36.7; O2SAT 96–100
--- NOTE | 2020-05-20 09:28 | DI.RAD.S_ITS ---
PROCEDURE: XR CHEST 1V INDICATIONS: sob TECHNIQUE: One view of the chest was acquired. COMPARISON: [facility], CR, XR CHEST 1V, 05/09/2020, 22:25. FINDINGS: Surgical changes and devices: None. Lungs and pleura: Prominence of the interstitial and central pulmonary vascular markings are again seen, not significantly changed when compared to the radiographs from 05/09/2020. No definite pleural effusion or pneumothorax is identified. Mediastinum: Mediastinal contours appear normal. Heart size is enlarged and stable. Atherosclerotic calcifications are seen in the aorta. Bones and chest wall: No suspicious bony lesions. Overlying soft tissues appear unremarkable. IMPRESSION: Stable cardiomegaly with prominence of the central pulmonary vasculature and interstitial markings that may indicate mild congestive heart failure. Dictated by: Mikael Moseley M.D. on 05/20/2020 at 9:50 Approved by: Mikael Moseley M.D. on 05/20/2020 at 9:52
--- NOTE | 2020-05-20 09:34 | DI.CT.S_ITS ---
PROCEDURE: CT HEAD/BRAIN WO CON INDICATIONS: weakness on eliquis TECHNIQUE: Noncontrast 4.5 mm thick angled axial sections acquired from the foramen magnum to the vertex, with coronal and sagittal reformats. For radiation dose reduction, the following was used: automated exposure control, adjustment of mA and/or kV according to patient size. COMPARISON: [facility], MR, MR BRAIN WITHOUT CONTRAST, 09/21/2019, 14:50. [facility], CT, CT HEAD WITHOUT CONTRAST, 09/08/2019, 3:33. [facility], CT, CT HEAD/BRAIN WO CON, 04/11/2020, 17:04. FINDINGS: Image quality: Excellent. CSF spaces: Basal cisterns are patent. No extra-axial fluid collections. Ventricles are normal in size and shape. Brain: No midline shift. No intracranial masses or hemorrhage. Small area of hypodensity in the right frontal lobe periventricular is unchanged compared to the prior exam. This is at the site of small prior infarct seen on MRI 09/21/2019. No area of hypodensity in a large vascular distribution to suggest acute infarction. Periventricular hypodensity consistent with chronic microvascular ischemic change. Age-related parenchymal loss. Skull and face: Calvarium and visualized facial bones are intact, without suspicious lesions. Sinuses: Visualized sinuses and mastoids are clear. IMPRESSION: 1. No acute intracranial abnormality. 2. Small infarct in the right frontal lobe is unchanged. Dictated by: Sunny Diaz M.D. on 05/20/2020 at 9:48 Approved by: Sunny Diaz M.D. on 05/20/2020 at 9:53
[2020-05-20 09:41] LABS: Add Manual Diff / Slide Review NO; Basophils Absolute Auto 0 /uL (0-100); Basophils Percent Auto 0.7 % (0-2); Eosinophils Absolute Auto 100 /uL (0-450); Eosinophils Percent Auto 2.1 % (2-4); Hematocrit 40.6 % (41-53); Lymphocytes Absolute Auto 900 /uL (1100-4500); Lymphocytes Percent Auto 14.5 % (25-40); Mean Corpuscular Hemoglobin 26.9 PG (26-34); Mean Corpuscular Volume 84.2 fL (80-100); Monocytes Absolute Auto 600 /uL (0-900); Neutrophils Absolute Auto 4800 /uL (1500-7000); Neutrophils Percent Auto 73.7 % (50-75); Platelet Count 263 X10^3/uL (150-400); Red Blood Cell Count 4.83 X10^6/uL (4.5-5.9); White Blood Cell Count 6.5 X10^3/uL (4.5-11.0)
--- NOTE | 2020-05-20 09:42 | ED.NEUROSD ---
HPI - Neuro Symptoms/Deficit General Chief Complaint: Neuro Symptoms/Deficit Stated Complaint: weakness Time Seen by Provider: 05/20/20 09:25 Source: patient and EMS Mode of arrival: EMS Limitations: no limitations History of Present Illness HPI Narrative: Patient is a 69-year-old male past medical history of methamphetamine abuse, CVA with no residual deficits, atrial fibrillation on Eliquis, systolic heart failure, infrarenal abdominal aortic aneurysm, hypertension hyperlipidemia who was admitted to the hospital May 09 through the with pneumonia bland heart failure. He presents today with generalized weakness. He does have some shortness of breath but he thinks that that is always there he does not say that is any worse he is currently afebrile. He denies any chest pain no focal deficits he does seem mildly confused unclear what baseline is. He does live by himself on [facility] Related Data Home Medications Medication Instructions Recorded Confirmed melatonin 3 mg PO BEDTIME PRN 01/27/20 05/10/20 Previous Rx's Medication Instructions Recorded apixaban [Eliquis] 5 mg PO BID #30 tab 05/12/20 atorvastatin [Lipitor] 10 mg PO BEDTIME #30 tab 05/12/20 famotidine [Pepcid] 20 mg PO BID #30 tab 05/12/20 furosemide 40 mg PO DAILY #30 tab 05/12/20 lisinopril 20 mg PO DAILY #30 tab 05/12/20 metoprolol succinate 50 mg PO DAILY #30 tab 05/12/20 Allergies Allergy/AdvReac Type Severity Reaction Status Date / Time No Known Drug Allergies Allergy Verified 05/20/20 09:42 Review of Systems Review of Systems ROS Unobtainable: All systems reviewed & are unremarkable except as noted in HPI and below Constitutional Constitutional: Reports fatigue, Denies fever(s), Denies frequent falls and Reports weakness Eyes Eyes: Denies change in vision, Denies eye discharge, Denies irritation and Denies loss of vision ENT Ears, Nose, Mouth, and Throat: Denies change in voice, Denies neck pain and Denies sore throat Cardiovascular Cardiovascular: Denies chest pain, Reports irregular heart rhythm, Denies lightheadedness, Denies palpitations, Denies dyspnea, Denies dyspnea on exertion and Denies orthopnea Respiratory Respiratory: Denies cough, Denies dyspnea, Denies dyspnea on exertion and Denies wheezing Gastrointestinal Gastrointestinal: Denies abdominal pain, Denies change in bowel habits, Denies diarrhea, Denies nausea and Denies vomiting Genitourinary Genitourinary: Denies urinary incontinence and Denies urinary urgency Genitourinary: Denies urinary incontinence and Denies urinary urgency Musculoskeletal Musculoskeletal: Denies back pain and Denies neck pain Integumentary/Breasts Skin/Breast: Denies pruritus, Denies erythema, Denies rash and Denies wounds Neurologic Neurologic: Reports as per HPI, Denies confusion, Denies syncope, Denies frequent falls, Denies loss of vision and Reports weakness Psychiatric Psychiatric: Denies confusion Endocrine Endocrine: Reports fatigue and Denies palpitations Allergic/Immunologic Allergic/Immunologic: Denies wheezing Patient History Medical History Abdominal aortic aneurysm Atrial fibrillation, chronic Essential hypertension History of CVA (cerebrovascular accident) Hyperlipidemia Methamphetamine use Substance abuse requiring inpatient treatment Systolic CHF with reduced left ventricular function, NYHA class 2 Surgical History History of appendectomy History of inguinal hernia repair History of tonsillectomy Family History Mother CVA (cerebral vascular accident) Father Leukemia Social History household members: none lives independently: Yes Smoking Status: Never smoker alcohol intake: current substance use type: methamphetamine (Uses daily ) Smoking Status: Never smoker alcohol intake frequency: a few times a week Alcohol type: beer Substance Use Type: methamphetamine Exam Initial Vital Signs Initial Vital Signs: Vital Signs Temperature 98.1 F 05/20/20 09:20 Pulse Rate 72 05/20/20 09:20 Respiratory Rate 24 05/20/20 09:20 Blood Pressure 182/85 H 05/20/20 09:20 Pulse Oximetry 96 05/20/20 09:20 GENERAL: Alert pleasant 69-year-old male and in no acute distress. HEENT: Head atraumatic,EOMI, pupils reactive, face symmetric, moist mucous membranes CARDIOVASCULAR: Irregularly irregular RESPIRATORY: Breath sounds equal bilaterally, no wheezes rales or rhonchi. ABDOMEN: Soft, nontender. Normoactive bowel sounds all 4 quadrants. No guarding or rebound. EXTREMITIES: Normal range of motion, no clubbing or edema. Neurovascularly intact NEUROLOGICAL: Alert and oriented x4.Normal gait and speech. Cranial nerves II through XII grossly intact. Good [id number], good [id number], strength equal bilaterally, no dysarthria or aphasia, sensation in tact to soft touch bilaterally, no visual changes, no facial droop SKIN: Warm, dry, no laceration, no petechiae, no rashes or lesions. Scores NIH Stroke Scale Level of Conciousness: Alert, keenly responsive Ask month/age: Answers both questions correctly. Open/close eyes, close hand: Performs both tasks correctly Best gaze horizontal: Normal Visual madrid: No visual loss Facial palsy: Normal symetrical movement Left arm drift: No drift for full 10 sec Right arm drift: No drift for full 10 sec Left leg drift: No drift for full 5 sec Right leg drift: No drift for full 5 sec Limb ataxia: Absent Sensory on face/arms/legs: Normal, no sensory loss Best language: No aphasia, normal Dysarthria: Normal Extinction or inattention: No abnormality Total NIH Stroke scale score: 0 Course Orders Ordered: ED Orders 05/20/20 09:27 EKG-12 Lead Stat 05/20/20 09:28 XR chest 1V Stat 05/20/20 09:30 COVID19 Stat Complete Blood Count AUTO DIFF Stat Comprehensive Metabolic Panel Stat Lactate (Lactic Acid) Stat Magnesium Stat NT-proBNP (BNP-Adult 18+) Stat Partial Thromboplastin Time Stat Procalcitonin Stat Prothrombin Time INR Stat Troponin & CK Cardiac Panel Stat 05/20/20 09:34 CT head/brain wo con Stat 05/20/20 09:43 Consult to TOPOGRAPHICAL ENGINEER - Diamond Blender Stat 05/20/20 10:15 Blood Culture Stat Vital Signs Vital signs: Vital Signs - 8 hr 05/20/20 09:20 05/20/20 09:24 05/20/20 09:27 Temperature 98.1 F Pulse Rate 72 89 85 Respiratory Rate 24 19 Blood Pressure 182/85 H 182/94 H Pulse Oximetry 96 96 100 05/20/20 09:30 05/20/20 09:45 05/20/20 10:00 Temperature Pulse Rate 85 83 81 Respiratory Rate 24 22 16 Blood Pressure 155/105 H Pulse Oximetry 97 97 96 05/20/20 10:15 05/20/20 10:16 05/20/20 10:30 Temperature Pulse Rate 81 82 80 Respiratory Rate 31 H 26 H 15 Blood Pressure 164/121 H 164/108 H Pulse Oximetry 98 97 97 05/20/20 10:45 05/20/20 11:00 05/20/20 11:15 Temperature Pulse Rate 81 92 H 88 Respiratory Rate 16 21 20 Blood Pressure 175/93 H 167/108 H 137/100 H Pulse Oximetry 96 98 97 05/20/20 11:30 05/20/20 11:45 05/20/20 12:00 Temperature Pulse Rate 79 82 88 Respiratory Rate 15 16 13 Blood Pressure Pulse Oximetry 99 98 100 05/20/20 12:13 05/20/20 12:15 05/20/20 14:14 Temperature Pulse Rate 85 83 70 Respiratory Rate 16 16 22 Blood Pressure 142/91 H 154/89 H 168/88 H Pulse Oximetry 96 97 99 MDM - Neuro Symptoms/Deficit Lab Data Attestation: I reviewed the patient's lab results. Result diagrams: 05/20/20 09:30 05/20/20 09:30 Labs: Lab Results 05/20/20 05/20/20 05/20/20 Range/Units 09:30 09:30 09:30 WBC 6.5 (4.5-11.0) X10^3/uL RBC 4.83 (4.5-5.9) X10^6/uL Hgb 13.0 L (13.5-17.5) g/dL Hct 40.6 L (41-53) % MCV 84.2 (80-100) fL MCH 26.9 (26-34) PG MCHC 32.0 (30-36) % RDW 17.0 H (11.6-14.8) % Plt Count 263 (150-400) X10^3/uL Neut % (Auto) 73.7 (50-75) % Lymph % (Auto) 14.5 L (25-40) % Whitley % (Auto) 9.0 (3-14) % Eos % (Auto) 2.1 (2-4) % Baso % (Auto) 0.7 (0-2) % Neut # (Auto) 4800 (9806-2927) /uL Lymph # (Auto) 900 L (9682-1089) /uL Whitley # (Auto) 600 (0-900) /uL Eos # (Auto) 100 (0-450) /uL Baso # (Auto) 0 (0-100) /uL PT 13.3 H (10.1-12.7) SECONDS INR 1.2 (0.9-1.3) APTT 36 (26.4-36.2) SECONDS Sodium (137-145) mmol/L Potassium (3.4-5.1) mmol/L Chloride (98-107) mmol/L Carbon Dioxide (22-32) mmol/L BUN (9-20) mg/dL Creatinine (0.66-1.25) mg/dL Estimated GFR (>60) mL/min BUN/Creatinine Ratio (6-22) Glucose (80-110) mg/dL Lactate (0.7-2.1) mmol/L Calcium (8.4-10.2) mg/dL Magnesium (1.6-2.3) mg/dL Total Bilirubin (0.2-1.3) mg/dL AST (17-59) IU/L ALT (<50) IU/L Alkaline Phosphatase (38-126) U/L Total Creatine Kinase (55-170) U/L CK-MB (CK-2) CK-MB (CK-2) Rel Index Troponin I (0.01-0.034) ng/mL NT-Pro-B Natriuret Pep Cancelled Total Protein (6.3-8.2) g/dL Albumin (3.5-5.0) g/dL Globulin (1.7-4.1) g/dL Albumin/Globulin Ratio (1.0-2.8) Procalcitonin (<0.5) ng/mL SARS-CoV-2 (PCR) (Negative) 05/20/20 05/20/20 05/20/20 Range/Units 09:30 09:30 09:30 WBC (4.5-11.0) X10^3/uL RBC (4.5-5.9) X10^6/uL Hgb (13.5-17.5) g/dL Hct (41-53) % MCV (80-100) fL MCH (26-34) PG MCHC (30-36) % RDW (11.6-14.8) % Plt Count (150-400) X10^3/uL Neut % (Auto) (50-75) % Lymph % (Auto) (25-40) % Whitley % (Auto) (3-14) % Eos % (Auto) (2-4) % Baso % (Auto) (0-2) % Neut # (Auto) (3464-0812) /uL Lymph # (Auto) (0722-0867) /uL Whitley # (Auto) (0-900) /uL Eos # (Auto) (0-450) /uL Baso # (Auto) (0-100) /uL PT (10.1-12.7) SECONDS INR (0.9-1.3) APTT (26.4-36.2) SECONDS Sodium 136 L (137-145) mmol/L Potassium 3.6 (3.4-5.1) mmol/L Chloride 101 (98-107) mmol/L Carbon Dioxide 30 (22-32) mmol/L BUN 12 (9-20) mg/dL Creatinine 0.64 L (0.66-1.25) mg/dL Estimated GFR > 60.0 (>60) mL/min BUN/Creatinine Ratio 18.8 (6-22) Glucose 109 (80-110) mg/dL Lactate 0.8 (0.7-2.1) mmol/L Calcium 8.7 (8.4-10.2) mg/dL Magnesium 2.0 (1.6-2.3) mg/dL Total Bilirubin 0.6 (0.2-1.3) mg/dL AST 35 (17-59) IU/L ALT 23 (<50) IU/L Alkaline Phosphatase 125 (38-126) U/L Total Creatine Kinase 57 (55-170) U/L CK-MB (CK-2) TNP CK-MB (CK-2) Rel Index TNP Troponin I < 0.012 (0.01-0.034) ng/mL NT-Pro-B Natriuret Pep 2810 H Total Protein 7.4 (6.3-8.2) g/dL Albumin 3.8 (3.5-5.0) g/dL Globulin 3.6 (1.7-4.1) g/dL Albumin/Globulin Ratio 1.1 (1.0-2.8) Procalcitonin < 0.05 (<0.5) ng/mL SARS-CoV-2 (PCR) (Negative) 05/20/20 Range/Units 09:30 WBC (4.5-11.0) X10^3/uL RBC (4.5-5.9) X10^6/uL Hgb (13.5-17.5) g/dL Hct (41-53) % MCV (80-100) fL MCH (26-34) PG MCHC (30-36) % RDW (11.6-14.8) % Plt Count (150-400) X10^3/uL Neut % (Auto) (50-75) % Lymph % (Auto) (25-40) % Whitley % (Auto) (3-14) % Eos % (Auto) (2-4) % Baso % (Auto) (0-2) % Neut # (Auto) (3911-8917) /uL Lymph # (Auto) (5253-1595) /uL Whitley # (Auto) (0-900) /uL Eos # (Auto) (0-450) /uL Baso # (Auto) (0-100) /uL PT (10.1-12.7) SECONDS INR (0.9-1.3) APTT (26.4-36.2) SECONDS Sodium (137-145) mmol/L Potassium (3.4-5.1) mmol/L Chloride (98-107) mmol/L Carbon Dioxide (22-32) mmol/L BUN (9-20) mg/dL Creatinine (0.66-1.25) mg/dL Estimated GFR (>60) mL/min BUN/Creatinine Ratio (6-22) Glucose (80-110) mg/dL Lactate (0.7-2.1) mmol/L Calcium (8.4-10.2) mg/dL Magnesium (1.6-2.3) mg/dL Total Bilirubin (0.2-1.3) mg/dL AST (17-59) IU/L ALT (<50) IU/L Alkaline Phosphatase (38-126) U/L Total Creatine Kinase (55-170) U/L CK-MB (CK-2) CK-MB (CK-2) Rel Index Troponin I (0.01-0.034) ng/mL NT-Pro-B Natriuret Pep Total Protein (6.3-8.2) g/dL Albumin (3.5-5.0) g/dL Globulin (1.7-4.1) g/dL Albumin/Globulin Ratio (1.0-2.8) Procalcitonin (<0.5) ng/mL SARS-CoV-2 (PCR) Negative (Negative) Urine Dip Bedside Urine Glucose Negative Bedside Urine Bilirubin - Negative Bedside Urine Ketone - Negative Urine Specific [place] 1.015 Bedside Urine Occult Blood - Negative Bedside Urine pH 8.0 Bedside Urine Protein - Negative Bedside Urine Urobilinogen - Negative Bedside Urine Nitrite - Negative Bedside Urine Leukocytes - Negative Esterase Imaging Data CT scan - head: Radiologist's Impression: PROCEDURE: CT HEAD/BRAIN WO CON INDICATIONS: weakness on eliquis TECHNIQUE: Noncontrast 4.5 mm thick angled axial sections acquired from the foramen magnum to the vertex, with coronal and sagittal reformats. For radiation dose reduction, the following was used: automated exposure control, adjustment of mA and/or kV according to patient size. COMPARISON: [facility], MR, MR BRAIN WITHOUT CONTRAST, 09/21/2019, 14:50. [facility], CT, CT HEAD WITHOUT CONTRAST, 09/08/2019, 3:33. [facility], CT, CT HEAD/BRAIN WO CON, 04/11/2020, 17:04. FINDINGS: Image quality: Excellent. CSF spaces: Basal cisterns are patent. No extra-axial fluid collections. Ventricles are normal in size and shape. Brain: No midline shift. No intracranial masses or hemorrhage. Small area of hypodensity in the right frontal lobe periventricular is unchanged compared to the prior exam. This is at the site of small prior infarct seen on MRI 09/21/2019. No area of hypodensity in a large vascular distribution to suggest acute infarction. Periventricular hypodensity consistent with chronic microvascular ischemic change. Age-related parenchymal loss. Skull and face: Calvarium and visualized facial bones are intact, without suspicious lesions. Sinuses: Visualized sinuses and mastoids are clear. IMPRESSION: 1. No acute intracranial abnormality. 2. Small infarct in the right frontal lobe is unchanged. Dictated by: Sunny Diaz M.D. on 05/20/2020 at 9:48 Chest x-ray: Radiologist's Impression: PROCEDURE: XR CHEST 1V INDICATIONS: sob TECHNIQUE: One view of the chest was acquired. COMPARISON: [facility], CR, XR CHEST 1V, 05/09/2020, 22:25. FINDINGS: Surgical changes and devices: None. Lungs and pleura: Prominence of the interstitial and central pulmonary vascular markings are again seen, not significantly changed when compared to the radiographs from 05/09/2020. No definite pleural effusion or pneumothorax is identified. Mediastinum: Mediastinal contours appear normal. Heart size is enlarged and stable. Atherosclerotic calcifications are seen in the aorta. Bones and chest wall: No suspicious bony lesions. Overlying soft tissues appear unremarkable. IMPRESSION: Stable cardiomegaly with prominence of the central pulmonary vasculature and interstitial markings that may indicate mild congestive heart failure. Dictated by: Mikael Moseley M.D. on 05/20/2020 at 9:50 ECG Data Attestation: I personally reviewed and interpreted this ECG as follows: Prior ECG tracings: available for review Interpretation: Facial fibrillation rate [address] changes similar to previous EKG MDM Narrative Medical decision making narrative: Patient ambulatory in the ED without any difficulty. He has no focal deficits. He has no sign of infection he is alert oriented and appropriate. Social work has been down to evaluate him. [place] family has helped him and given him 2 night stay in a hotel. At this time no indication for admission. Discharge Plan Departure Patient Disposition: Home Clinical Impression: Weakness Instructions: DI for Muscle Weakness Activity Restrictions/Additional Instructions: *You have been diagnosed with weakness *What to do: At this time blood work and scans are overall reassuring no need to stay in the hospital today *Continue to take medications as directed *Follow up with your primary care provider in 2-3 days *Return to ER if you should have increasing weakness, confusion chest pain, shortness of breath or any new, worsening or concerning symptoms You are staying at [facility] at [address] [place] [address] in [place], check in at hotel front desk agent you are staying for 2 night Prescriptions: No Action melatonin 3 mg Tablet 3 mg PO BEDTIME PRN (Reason: insomnia) RF: 0 lisinopril 20 mg tablet 20 mg PO DAILY Qty: 30 RF: 0 metoprolol succinate 50 mg tablet extended release 24 hr 50 mg PO DAILY Qty: 30 RF: 0 furosemide 40 mg tablet 40 mg PO DAILY Qty: 30 RF: 0 famotidine [Pepcid] 40 mg tablet 20 mg PO BID Qty: 30 RF: 0 atorvastatin [Lipitor] 20 mg Tablet 10 mg PO BEDTIME Qty: 30 RF: 0 Eliquis 5 mg Tablet 5 mg PO BID Qty: 30 RF: 0 Referrals: Junior Gonzales DO [Primary Care Provider] -
--- NOTE | 2020-05-20 09:46 | PC.NURSE ---
generalized weakness w/o focal deficit. Breath sounds clear. Easy work of breathing. No sensory deficit. Moving all extremities equally well. States he lives on [address] alone in a two story house that is a mess. Pt states he does not know what meds he takes. He states he feels unsafe at home because he is having difficulty living alone. Denies trauma or people harming him in any way. Denies SI/Hi.
[2020-05-20 09:49] LABS: INR 1.2 (0.9-1.3); Prothrombin Time 13.3 SECONDS (10.1-12.7)
[2020-05-20 09:51] LABS: PTT Partial Thromboplastin Tim 36 SECONDS (26.4-36.2)
[2020-05-20 09:53] LABS: Alanine Aminotransferase 23 IU/L (<50); Albumin 3.8 g/dL (3.5-5.0); Albumin Globulin Ratio 1.1 (1.0-2.8); Alkaline Phosphatase 125 U/L (38-126); Aspartate Aminotransferase 35 IU/L (17-59); BUN Creatinine Ratio 18.8 (6-22); Bilirubin Total 0.6 mg/dL (0.2-1.3); Blood Urea Nitrogen 12 mg/dL (9-20); Calcium 8.7 mg/dL (8.4-10.2); Carbon Dioxide 30 mmol/L (22-32); Chloride 101 mmol/L (98-107); Creatine Kinase 57 U/L (55-170); Estimated Glomerular Filt Rate > 60.0 mL/min (>60); Globulin 3.6 g/dL (1.7-4.1); Glucose 109 mg/dL (80-110); HEMOLYSIS < 15 (0-50); Potassium 3.6 mmol/L (3.4-5.1); Sodium 136 mmol/L (137-145); Total Protein 7.4 g/dL (6.3-8.2)
[2020-05-20 09:54] LABS: Lactate (Lactic Acid) 0.8 mmol/L (0.7-2.1)
[2020-05-20 10:04] LABS: COVID19 -Nasal RAPID Negative (Negative)
[2020-05-20 10:06] LABS: NT-proBNP (BNP-Adult 18+) 2810 pg/mL (<125); Troponin I < 0.012 ng/mL (0.01-0.034)
[2020-05-20 10:08] LABS: Procalcitonin < 0.05 ng/mL (<0.5)
--- NOTE | 2020-05-20 13:42 | CM.SWNOTE ---
SENIOR NETWORK SECURITY ENGINEER Note SENIOR NETWORK SECURITY ENGINEER consult received to discuss community resources with this 69 yo patient, well known to this SENIOR NETWORK SECURITY ENGINEER from prior admissions. Patient is a [facility] resident, lives alone, here in [place] staying on a friend's boat and called 911 today from an [employer] store d/t weakness. PMH includes meth abuse, CVA, afib, systolic heart failure, abd aortic aneurysm, and hypertension hyperlipidemia. Patient is A+O, able to ambulate to/from the BR in the ED today. ED provider Dr Garcia does not plan to medically admit patient today, requests that patient be offered any available community services before DC from the ED today. Met w/patient in ED Rm06, asked what patient's goal was upon arrival to the ED ? Patient unsure, states he went to get a new bank account but could not find the keys to his truck. This SENIOR NETWORK SECURITY ENGINEER asks what can be done to assist patient today? Patient very pleasant, asks for lunch and any other assist available? This SENIOR NETWORK SECURITY ENGINEER placed call to Nancy Renteria at [facility] P# [phone], asked if there is a bed available through the motel voucher program? There is space available, however, Nancy concerned that this would be the third time utilizing this resource and asks, what else can I do to help Guido? This SENIOR NETWORK SECURITY ENGINEER explained that one thing needed is to understand if patient qualifies for intermediate designer care/RAHEEM GANESH placement; so when time, a member of Nancy's or this SENIOR NETWORK SECURITY ENGINEER's team could place call to state to understand if patient requires an additional application for RAHEEM (?) Patient would also need to be agreeable to custodial care placement and potentially relinquishing his income to help pay for care, this SENIOR NETWORK SECURITY ENGINEER unsure if this is realistic (?) Patient also w/long standing meth abuse, last period of sobriety is unknown. Inevitably, Nancy requested that an ED staff member connect her with patient. Requested this from ED provider Indy Garcia, who plans to DC patient after connection w/Nancy. ROSALINE López
== END 2020-05-20 14:17 | disposition home or self-care (01) ==
PROVIDERS: Emergency Provider Emergency Medicine; PCP Family Medicine
DX: R53.1 Weakness (principal); R06.02 Shortness of breath; Z86.73 Personal history of transient ischemic attack (TIA), and cerebral infarction without residual deficits; I48.91 Unspecified atrial fibrillation; Z79.01 Long term (current) use of anticoagulants; I50.20 Unspecified systolic (congestive) heart failure; I10 Essential (primary) hypertension; E78.5 Hyperlipidemia, unspecified; Z86.79 Personal history of other diseases of the circulatory system; Z20.822 Contact with and (suspected) exposure to COVID-19
CPT/HCPCS: 36415; 70450; 71045; 80053; 81003; 82550; 83605; 83735; 83880; 84145; 84484; 85025; 85610; 85730; 87040; 87635; 93005; 99284; C9803

== ENCOUNTER → 2020-06-14 15:10 | Outpatient (CLI) | payer MEDICARE, MEDICAID, SELFPAY ==
[2020-05-10 06:07] VITALS: BMI 30.2
== END ==
PROVIDERS: PCP Family Medicine; Visit Provider Nurse Practitioner
DX: L02.91 Cutaneous abscess, unspecified (principal)
CPT/HCPCS: 87070; 87075; 87077; 87147; 87186; 87205

== ENCOUNTER 2020-07-22 11:58 | Inpatient (IN) | payer MEDICARE, MEDICAID, SELFPAY ==
[2020-05-10 06:07] VITALS: BMI 30.2
[2020-07-22] VITALS (23 sets, daily range): BP systolic 133–217; BP diastolic 86–138; PULSE 79–105; RESP 17–30; TEMP 35.9–37.1; O2SAT 85–100; BMI 31.4
--- NOTE | 2020-07-22 12:21 | DI.RAD.S_ITS ---
PROCEDURE: XR CHEST 1V INDICATIONS: shortness of breath TECHNIQUE: One view of the chest was acquired. COMPARISON: [facility], CR, XR CHEST 1V, 05/20/2020, 9:38. FINDINGS: Surgical changes and devices: None. Lungs and pleura: There is mild pulmonary vascular congestion and suggestion of small right pleural effusion with right basilar atelectasis. No gross pneumothorax. Mediastinum: Mediastinal contours appear normal. Heart size is enlarged. Bones and chest wall: No suspicious bony lesions. Overlying soft tissues appear unremarkable. IMPRESSION: CHF changes. No gross pneumothorax. No definite focal infiltrate. Dictated by: Natanael Cope M.D. on 07/22/2020 at 13:28 Approved by: Natanael Cope M.D. on 07/22/2020 at 13:29
[2020-07-22 12:30] LABS: Add Manual Diff / Slide Review NO; Basophils Absolute Auto 100 /uL (0-100); Eosinophils Absolute Auto 200 /uL (0-450); Hematocrit 38.9 % (41-53); Hemoglobin 12.6 g/dL (13.5-17.5); Lymphocytes Absolute Auto 1000 /uL (1100-4500); Lymphocytes Percent Auto 16.1 % (25-40); Mean Corpuscular HGB Conc 32.3 % (30-36); Mean Corpuscular Hemoglobin 27.1 PG (26-34); Mean Corpuscular Volume 83.8 fL (80-100); Monocytes Absolute Auto 600 /uL (0-900); Monocytes Percent Auto 10.4 % (3-14); Neutrophils Absolute Auto 4100 /uL (1500-7000); Neutrophils Percent Auto 68.5 % (50-75); Platelet Count 210 X10^3/uL (150-400); Red Blood Cell Count 4.65 X10^6/uL (4.5-5.9)
[2020-07-22 12:40] LABS: Alanine Aminotransferase 18 IU/L (<50); Albumin 3.8 g/dL (3.5-5.0); Albumin Globulin Ratio 1.2 (1.0-2.8); Alkaline Phosphatase 124 U/L (38-126); Aspartate Aminotransferase 38 IU/L (17-59); BUN Creatinine Ratio 14.1 (6-22); Bilirubin Total 1.3 mg/dL (0.2-1.3); Blood Urea Nitrogen 11 mg/dL (9-20); Calcium 8.7 mg/dL (8.4-10.2); Carbon Dioxide 34 mmol/L (22-32); Chloride 99 mmol/L (98-107); Estimated Glomerular Filt Rate > 60.0 mL/min (>60); Globulin 3.3 g/dL (1.7-4.1); Glucose 100 mg/dL (80-110); HEMOLYSIS < 15 (0-50); Lactate (Lactic Acid) 1.1 mmol/L (0.7-2.1); Potassium 3.2 mmol/L (3.4-5.1); Sodium 138 mmol/L (137-145); Total Protein 7.1 g/dL (6.3-8.2)
--- NOTE | 2020-07-22 12:47 | ED.GENADULT ---
HPI - General Adult General Chief complaint: Shortness of Breath/Dyspnea Stated complaint: feels like a stroke,lossing strength,out of breath Time Seen by Provider: 07/22/20 12:41 Source: patient Mode of arrival: Family Vehicle Limitations: no limitations History of Present Illness HPI narrative: Patient is a 69-year-old male who arrives the emergency department private vehicle for evaluation of swelling, shortness of breath, weakness. He states the symptoms have been worsening over the past several days. He does have a history of high blood pressure also history of heart failure. He states that he stop taking his blood pressure medicine several days/weeks ago. He states he does not know why he stopped taking them. He states he cannot walk without becoming short of breath. Cannot lie flat. He denies any chest pain. Related Data Home Medications Medication Instructions Recorded Confirmed melatonin 3 mg PO BEDTIME PRN 01/27/20 05/10/20 Previous Rx's Medication Instructions Recorded apixaban [Eliquis] 5 mg PO BID #30 tab 05/12/20 atorvastatin [Lipitor] 10 mg PO BEDTIME #30 tab 05/12/20 famotidine [Pepcid] 20 mg PO BID #30 tab 05/12/20 furosemide 40 mg PO DAILY #30 tab 05/12/20 lisinopril 20 mg PO DAILY #30 tab 05/12/20 metoprolol succinate 50 mg PO DAILY #30 tab 05/12/20 Allergies Allergy/AdvReac Type Severity Reaction Status Date / Time No Known Drug Allergies Allergy Verified 05/20/20 09:42 Review of Systems Constitutional Constitutional: Denies fatigue and Denies headache(s) Eyes Eyes: Denies change in vision ENT Ears, Nose, Mouth, and Throat: Denies headache(s) Cardiovascular Cardiovascular: Denies chest pain, Reports leg edema, Reports dyspnea, Reports dyspnea on exertion and Reports orthopnea Respiratory Respiratory: Denies cough, Reports dyspnea and Reports dyspnea on exertion Gastrointestinal Gastrointestinal: Denies abdominal pain, Denies nausea and Denies vomiting Genitourinary Genitourinary: Denies dysuria Genitourinary: Denies dysuria Musculoskeletal Musculoskeletal: Denies arthralgias and Denies myalgias Integumentary/Breasts Skin/Breast: Denies rash Neurologic Neurologic: Denies behavioral changes and Denies headache(s) Psychiatric Psychiatric: Denies behavioral changes Endocrine Endocrine: Denies fatigue Hematologic/Lymphatic On Anticoagulants: Yes Allergic/Immunologic Allergic/Immunologic: Denies urticaria Patient History Medical History Abdominal aortic aneurysm Atrial fibrillation, chronic Essential hypertension History of CVA (cerebrovascular accident) Hyperlipidemia Methamphetamine use Substance abuse requiring inpatient treatment Systolic CHF with reduced left ventricular function, NYHA class 2 Surgical History History of appendectomy History of inguinal hernia repair History of tonsillectomy Family History Mother CVA (cerebral vascular accident) Father Leukemia Social History household members: none lives independently: Yes Smoking Status: Never smoker alcohol intake: current substance use type: methamphetamine (Uses daily ) Smoking Status: Never smoker alcohol intake frequency: a few times a week Alcohol type: beer Substance Use Type: does not use and methamphetamine Exam Initial Vital Signs Initial Vital Signs: Vital Signs Temperature 97.0 F L 07/22/20 12:10 Pulse Rate 105 H 07/22/20 12:10 Respiratory Rate 30 H 07/22/20 12:10 Blood Pressure 195/120 H 07/22/20 12:10 Pulse Oximetry 91 07/22/20 12:10 Const General: cooperative and comfortable Limitations: mental status not altered HENMT Head: normal to inspection and normocephalic Eyes Periorbital: periorbital findings abnormal bilaterally periorbital swelling Resp Effort & Inspection: not labored and tachypneic Auscultation: rhonchi Cardio Rate: tachycardic Rhythm: abnormal rhythm GI Inspection: distended Palpation: soft and No tender Skin Lesions: no lesions Rashes: no rashes Neuro General: patient alert, patient awake and patient oriented x3 Cognition: normal cognition Extrem General: capillary refill normal and edema Psych Appearance: grossly normal and well kempt Scores GCS [place] coma scale eye opening: Spontaneous Samantha coma scale verbal response: Orientated [place] coma scale motor response: Obey commands [place] coma scale total score: 15 Course Orders Ordered: ED Orders 07/22/20 12:15 COVID19 - ADMIT (METAL TRADES INSTRUCTOR swab/PCR) Stat 07/22/20 12:18 Complete Blood Count AUTO DIFF Stat Comprehensive Metabolic Panel Stat Lactate (Lactic Acid) Stat NT-proBNP (BNP-Adult 18+) Stat 07/22/20 12:21 XR chest 1V Stat EKG-12 Lead Stat RT Consult Eval and Treat Now 07/22/20 13:06 Consult to FINANCIAL RECORDING CLERK - Canvassing Manager Stat 07/22/20 15:29 Troponin I Stat Discontinued Medications Furosemide (Furosemide 100 Mg/10 Ml Vial) 60 mg IV NOW ONE Stop: 07/22/20 12:48 Last Admin: 07/22/20 12:57 Dose: 60 mg Documented by: KRYSTAL Nitroglycerin (Nitroglycerin Oint 1 Inch/Gm Oint...G.) 1 inch TOP NOW ONE Stop: 07/22/20 12:48 Last Admin: 07/22/20 12:55 Dose: 1 inch Documented by: KRYSTAL Vital Signs Vital signs: Vital Signs - 8 hr 07/22/20 12:10 07/22/20 12:26 07/22/20 12:30 Temperature 97.0 F L Pulse Rate 105 H 91 H 85 Respiratory Rate 30 H 30 H Blood Pressure 195/120 H Pulse Oximetry 91 100 100 07/22/20 12:50 07/22/20 12:51 07/22/20 12:55 Temperature Pulse Rate 97 H 90 92 H Respiratory Rate 26 H 17 Blood Pressure 196/120 H 195/118 H 195/118 H Pulse Oximetry 100 99 07/22/20 13:00 07/22/20 13:30 07/22/20 13:31 Temperature Pulse Rate 93 H 96 H 94 H Respiratory Rate 25 H 17 26 H Blood Pressure 193/118 H 213/138 H 217/126 H Pulse Oximetry 100 100 100 07/22/20 13:42 07/22/20 15:11 Temperature Pulse Rate 103 H Respiratory Rate 30 H Blood Pressure 206/107 H Pulse Oximetry 97 96 Medical Decision Making Lab Data Lab results reviewed: Yes I reviewed the patient's lab results. Result diagrams: 07/22/20 12:18 07/22/20 12:18 Labs: Lab Results 07/22/20 07/22/20 07/22/20 Range/Units 12:15 12:18 12:18 WBC 6.0 (4.5-11.0) X10^3/uL RBC 4.65 (4.5-5.9) X10^6/uL Hgb 12.6 L (13.5-17.5) g/dL Hct 38.9 L (41-53) % MCV 83.8 (80-100) fL MCH 27.1 (26-34) PG MCHC 32.3 (30-36) % RDW 17.0 H (11.6-14.8) % Plt Count 210 (150-400) X10^3/uL Neut % (Auto) 68.5 (50-75) % Lymph % (Auto) 16.1 L (25-40) % [place] % (Auto) 10.4 (3-14) % Eos % (Auto) 4.0 (2-4) % Baso % (Auto) 1.0 (0-2) % Neut # (Auto) 4100 (8650-5803) /uL Lymph # (Auto) 1000 L (9082-0320) /uL [place] # (Auto) 600 (0-900) /uL Eos # (Auto) 200 (0-450) /uL Baso # (Auto) 100 (0-100) /uL Sodium 138 (137-145) mmol/L Potassium 3.2 L (3.4-5.1) mmol/L Chloride 99 (98-107) mmol/L Carbon Dioxide 34 H (22-32) mmol/L BUN 11 (9-20) mg/dL Creatinine 0.78 (0.66-1.25) mg/dL Estimated GFR > 60.0 (>60) mL/min BUN/Creatinine Ratio 14.1 (6-22) Glucose 100 (80-110) mg/dL Lactate (0.7-2.1) mmol/L Calcium 8.7 (8.4-10.2) mg/dL Total Bilirubin 1.3 (0.2-1.3) mg/dL AST 38 (17-59) IU/L ALT 18 (<50) IU/L Alkaline Phosphatase 124 (38-126) U/L NT-Pro-B Natriuret Pep (<125) pg/mL Total Protein 7.1 (6.3-8.2) g/dL Albumin 3.8 (3.5-5.0) g/dL Globulin 3.3 (1.7-4.1) g/dL Albumin/Globulin Ratio 1.2 (1.0-2.8) SARS-CoV-2 (PCR) Negative (Negative) 07/22/20 07/22/20 Range/Units 12:18 12:18 WBC (4.5-11.0) X10^3/uL RBC (4.5-5.9) X10^6/uL Hgb (13.5-17.5) g/dL Hct (41-53) % MCV (80-100) fL MCH (26-34) PG MCHC (30-36) % RDW (11.6-14.8) % Plt Count (150-400) X10^3/uL Neut % (Auto) (50-75) % Lymph % (Auto) (25-40) % [place] % (Auto) (3-14) % Eos % (Auto) (2-4) % Baso % (Auto) (0-2) % Neut # (Auto) (2678-6394) /uL Lymph # (Auto) (2296-4483) /uL [place] # (Auto) (0-900) /uL Eos # (Auto) (0-450) /uL Baso # (Auto) (0-100) /uL Sodium (137-145) mmol/L Potassium (3.4-5.1) mmol/L Chloride (98-107) mmol/L Carbon Dioxide (22-32) mmol/L BUN (9-20) mg/dL Creatinine (0.66-1.25) mg/dL Estimated GFR (>60) mL/min BUN/Creatinine Ratio (6-22) Glucose (80-110) mg/dL Lactate 1.1 (0.7-2.1) mmol/L Calcium (8.4-10.2) mg/dL Total Bilirubin (0.2-1.3) mg/dL AST (17-59) IU/L ALT (<50) IU/L Alkaline Phosphatase (38-126) U/L NT-Pro-B Natriuret Pep 2740 H (<125) pg/mL Total Protein (6.3-8.2) g/dL Albumin (3.5-5.0) g/dL Globulin (1.7-4.1) g/dL Albumin/Globulin Ratio (1.0-2.8) SARS-CoV-2 (PCR) (Negative) Urine Dip Bedside Urine Glucose Negative Bedside Urine Bilirubin - Negative Bedside Urine Ketone - Negative Urine Specific [place] 1.015 Bedside Urine Occult Blood - Negative Bedside Urine pH 7.0 Bedside Urine Protein - Negative Bedside Urine Urobilinogen - Negative Bedside Urine Nitrite - Negative Bedside Urine Leukocytes - Negative Esterase Point of care testing: Urine Dip Bedside Urine Glucose Negative Bedside Urine Bilirubin - Negative Bedside Urine Ketone - Negative Urine Specific [place] 1.015 Bedside Urine Occult Blood - Negative Bedside Urine pH 7.0 Bedside Urine Protein - Negative Bedside Urine Urobilinogen - Negative Bedside Urine Nitrite - Negative Bedside Urine Leukocytes - Negative Esterase Imaging Data Chest x-ray: Radiologist's Impression: [address] [id number] ReportSigned Patient: Jayden Rodriguez AMR#: [id number]: 9Acct:[id number]/Sex: 69 / MDate of Service: 07/22/20Loc: EDAccession Number: [id number] Procedure: XR chest 1V Ordering Provider: Sravan Desai D.O. PROCEDURE: XR CHEST 1V INDICATIONS: shortness of breath TECHNIQUE: One view of the chest was acquired. COMPARISON: [facility], , XR CHEST 1V, 05/20/2020, 9:38. FINDINGS: Surgical changes and devices: None. Lungs and pleura: There is mild pulmonary vascular congestion and suggestion of small right pleural effusion with right basilar atelectasis. No gross pneumothorax. Mediastinum: Mediastinal contours appear normal. Heart size is enlarged. Bones and chest wall: No suspicious bony lesions. Overlying soft tissues appear unremarkable. IMPRESSION: CHF changes. No gross pneumothorax. No definite focal infiltrate. Dictated by: Natanael Cope M.D. on 07/22/2020 at 13:28 Approved by: Natanael Cope M.D. on 07/22/2020 at 13:29 ECG Data Attestation: I personally reviewed and interpreted this ECG as follows: Prior ECG tracings: not available for review Interpretation: Atrial fibrillation Ventricular rate [address] T wave changes MDM Narrative Medical decision making narrative: Patient stop taking his blood pressure medication several days/weeks ago for no reason. He is in atrial fibrillation here in the ER but is rate controlled. Unsure if he has been taking the rest of his medication to include his Eliquis. Chest x-ray shows pulmonary edema. He does have swelling in his lower extremities and in his hands and his abdomen and even his eyelids. Was hypertensive. Is not having chest pain. Nonspecific ST changes on his EKG. Was given Lasix and nitro. Discussed the case with who will admit for further evaluation and treatment. Patient was hypoxic in the emergency department on room air and improved with oxygen by nasal cannula. Discharge Plan Departure Patient Disposition: Admitted As Inpatient Clinical Impression: CHF (congestive heart failure), Pulmonary edema, Hypoxia
[2020-07-22 12:48] LABS: NT-proBNP (BNP-Adult 18+) 2740 pg/mL (<125)
[2020-07-22] MEDS: NITROGLYCERIN OINT 1 INCH/GM OINT...G. TOP (12:55)
[2020-07-22] MEDS: FUROSEMIDE 100 MG/10 ML VIAL 60 MG IV (12:57)
[2020-07-22 13:15] LABS: COVID19 - ADMIT (NP swab/PCR) Negative (Negative)
--- NOTE | 2020-07-22 13:47 | PC.NURSE ---
applied a condom catheter on pt. prior to lasix. catheter is draining to gravity.
--- NOTE | 2020-07-22 15:11 | PC.NURSE ---
pulse ox low, reported to dr doherty, placed back on 2l o2 NC.
[2020-07-22 15:58] LABS: Troponin I 0.019 ng/mL (0.01-0.034)
--- NOTE | 2020-07-22 16:30 | P.HP_ITS ---
History of Present Illness History of Present Illness Date Patient Seen: 07/22/20 Time Patient Seen: 16:30 Chief complaint: feels like a stroke,lossing strength,out of breath Narrative: Mr. Jayden Rodriguez is 69-year-old male with a past medical history significant for methamphetamine abuse, CVA reporting no residual deficits, atrial fibrillation prescribed Eliquis, chronic systolic and diastolic heart failure, infra-renal abdominal aortic aneurysm hypertension, history of pleural effusion and hyperlipidemia who presents with shortness of breath over t he past 3 days. This has been increasing in nature and started with initially dyspnea on exertion as per gas to shortness of breath at rest. He has not been taking his home medications for the past 2 months, he was vague on the description of why and fell asleep quite frequently during exam so was unable to accurately assess why he was not compliant with his medications. The patient lives on [facility] and it is very difficult to access resources. It does not appear that he has followed up with his primary care provider since then. He denies fevers, chills, chest pain, palpitations, abdominal pain, dysuria, or urinary frequency. He does endorse worsening lower extremity edema. He denies early satiety. He reports last methamphetamine use was around a month ago and he has been very motivated recently in attempts to stop. In the emergency room, the patient was hypertensive in borderline tachycardic, in atrial fibrillation. He desaturated to 85% on room air but is saturating well on 1-2 L at greater than 90%. Initial laboratory evaluation showed an unremarkable CBC, chemistries show a potassium of 3.2,, creatinine of 0.78 which is near the patient's baseline. Lactic acid was 1.1. ProBNP was 2740. Troponin was within normal limits at 0.019. EKG showed atrial fibrillation with a normal rate and no significant ST or T-wave abnormalities to indicate ischemia. COVID-19 testing was negative. Chest x-ray is consistent with volume overload and heart failure. Patient was admitted for further treatment of presumed acute on chronic heart failure with acute respiratory failure. Patient History Medical History Abdominal aortic aneurysm Atrial fibrillation, chronic Essential hypertension History of CVA (cerebrovascular accident) Hyperlipidemia Methamphetamine use Substance abuse requiring inpatient treatment Systolic CHF with reduced left ventricular function, NYHA class 2 Surgical History History of appendectomy History of inguinal hernia repair History of tonsillectomy Family & Social History Family History Mother CVA (cerebral vascular accident) Father Leukemia Social History: household members none lives independently Yes Safety & Behavioral: Feels Safe in Current Yes Environment Been Physically Hurt or No Threatened By a Person Tobacco & Substance use: Smoking Status Never smoker alcohol intake current alcohol intake frequency a few times a week Substance Use Type does not use,methamphetamine Meds Home Medications and Allergies Home Medications Medication Instructions Recorded Confirmed Type melatonin 3 mg PO BEDTIME PRN 01/27/20 07/22/20 History apixaban [Eliquis] 5 mg PO BID #30 tab 05/12/20 07/22/20 Rx atorvastatin [Lipitor] 10 mg PO BEDTIME #30 tab 05/12/20 07/22/20 Rx famotidine [Pepcid] 20 mg PO BID #30 tab 05/12/20 07/22/20 Rx furosemide 40 mg PO DAILY #30 tab 05/12/20 07/22/20 Rx lisinopril 20 mg PO DAILY #30 tab 05/12/20 07/22/20 Rx metoprolol succinate 50 mg PO DAILY #30 tab 05/12/20 07/22/20 Rx Allergies Allergy/AdvReac Type Severity Reaction Status Date / Time No Known Drug Allergies Allergy Verified 05/20/20 09:42 Review of Systems Review of Systems Narrative: All other systems reviewed with the patient and are negative unless otherwise stated. Exam Vital Signs (past 8 hours): - 07/22/20 12:10 07/22/20 12:26 07/22/20 12:30 Temperature 97.0 F L Pulse Rate 105 H 91 H 85 Respiratory Rate 30 H 30 H Blood Pressure 195/120 H Pulse Oximetry 91 100 100 07/22/20 12:50 07/22/20 12:51 07/22/20 12:55 Temperature Pulse Rate 97 H 90 92 H Respiratory Rate 26 H 17 Blood Pressure 196/120 H 195/118 H 195/118 H Pulse Oximetry 100 99 07/22/20 13:00 07/22/20 13:30 07/22/20 13:31 Temperature Pulse Rate 93 H 96 H 94 H Respiratory Rate 25 H 17 26 H Blood Pressure 193/118 H 213/138 H 217/126 H Pulse Oximetry 100 100 100 07/22/20 13:42 07/22/20 14:00 07/22/20 14:30 Temperature Pulse Rate 103 H 92 H 84 Respiratory Rate 30 H 25 H 18 Blood Pressure 206/107 H 200/109 H 187/112 H Pulse Oximetry 97 96 96 07/22/20 15:00 07/22/20 15:01 07/22/20 15:11 Temperature Pulse Rate 92 H 91 H Respiratory Rate Blood Pressure 136/95 H Pulse Oximetry 89 L 88 L 96 07/22/20 15:23 07/22/20 15:31 Temperature Pulse Rate 95 H Respiratory Rate Blood Pressure 192/109 H Pulse Oximetry 98 Oxygen Delivery Method Nasal Cannula Oxygen Flow Rate 2 Narrative Exam Narrative: GENERAL APPEARANCE: well developed, elderly male appearing his stated age, in no acute distress but falls asleep quite easily. HEENT: NC/AT, MMM, EOMI. NECK/THYROID: neck supple, + JVD, no thyromegaly, trachea midline. LYMPH NODES: no cervical or supraclavicular lymphadenopathy. SKIN: [place], warm and dry, no visible rashes or lesions HEART: Irregularly irregular rhythm, S1-S2, no murmur, no rubs or gallops, brisk capillary refill, 2+ pitting edema LUNGS: Clear upper with bibasilar crackles without wheezing, no cough present CHEST: Symmetrical movement, no accessory muscle use, poor effort. No chest wall tenderness. ABDOMEN: Soft, nontender, nondistended EXTREMITIES: moves all extremities, strength is 5/5 and symmetrical, no deformities or joint effusions, no clubbing or cyanosis. NEUROLOGIC: AAO x person place and time, no focal neurologic deficits, cranial nerves II-XII grossly intact, sensation intact to light touch. PSYCH: Poor eye contact, cooperative with blunted affect, linear thought, stable behavior. Falls asleep easily. Objective ECG Impression: Atrial fibrillation with controlled rate. Prolonged QT Abnormal ECG Imaging Chest x-ray: My impression: Mild pulmonary vascular congestion and a small right pleural effusion. No gross focal infiltrates no suspicious bony lesions. Radiologist's impression: PROCEDURE: XR CHEST 1V INDICATIONS: shortness of breath TECHNIQUE: One view of the chest was acquired. COMPARISON: [facility], CR, XR CHEST 1V, 05/20/2020, 9:38. FINDINGS: Surgical changes and devices: None. Lungs and pleura: There is mild pulmonary vascular congestion and suggestion of small right pleural effusion with right basilar atelectasis. No gross pneumothorax. Mediastinum: Mediastinal contours appear normal. Heart size is enlarged. Bones and chest wall: No suspicious bony lesions. Overlying soft tissues appear unremarkable. IMPRESSION: CHF changes. No gross pneumothorax. No definite focal infiltrate. Labs Result Diagrams: 07/22/20 12:18 07/22/20 12:18 Labs: Laboratory Results - last 24 hr 07/22/20 07/22/20 07/22/20 12:15 12:18 12:18 WBC 6.0 RBC 4.65 Hgb 12.6 L Hct 38.9 L MCV 83.8 MCH 27.1 MCHC 32.3 RDW 17.0 H Plt Count 210 Neut % (Auto) 68.5 Lymph % (Auto) 16.1 L [place] % (Auto) 10.4 Eos % (Auto) 4.0 Baso % (Auto) 1.0 Neut # (Auto) 4100 Lymph # (Auto) 1000 L [place] # (Auto) 600 Eos # (Auto) 200 Baso # (Auto) 100 Sodium 138 Potassium 3.2 L Chloride 99 Carbon Dioxide 34 H BUN 11 Creatinine 0.78 Estimated GFR > 60.0 BUN/Creatinine Ratio 14.1 Glucose 100 Lactate Calcium 8.7 Total Bilirubin 1.3 AST 38 ALT 18 Alkaline Phosphatase 124 Troponin I NT-Pro-B Natriuret Pep Total Protein 7.1 Albumin 3.8 Globulin 3.3 Albumin/Globulin Ratio 1.2 SARS-CoV-2 (PCR) Negative 07/22/20 07/22/20 07/22/20 12:18 12:18 12:18 WBC RBC Hgb Hct MCV MCH MCHC RDW Plt Count Neut % (Auto) Lymph % (Auto) [place] % (Auto) Eos % (Auto) Baso % (Auto) Neut # (Auto) Lymph # (Auto) [place] # (Auto) Eos # (Auto) Baso # (Auto) Sodium Potassium Chloride Carbon Dioxide BUN Creatinine Estimated GFR BUN/Creatinine Ratio Glucose Lactate 1.1 Calcium Total Bilirubin AST ALT Alkaline Phosphatase Troponin I 0.019 NT-Pro-B Natriuret Pep 2740 H Total Protein Albumin Globulin Albumin/Globulin Ratio SARS-CoV-2 (PCR) Assessment & Plan Assessment & Plan narrative: Mr. Jayden Rodriguez is 69-year-old male with a past medical history significant for methamphetamine abuse, CVA reporting no residual deficits, atrial fibrillation prescribed Eliquis, chronic systolic and diastolic heart failure, infra-renal abdominal aortic aneurysm, hypertension, history of pleural effusion and hyperlipidemia who presents with shortness of breath over the past 3 days. Patient admitted for further treatment of presumed acute on chronic heart failure with acute respiratory failure. 1. Acute on chronic diastolic heart failure (borderline EF), present on admission - continue lasix 40 mg IV bid, given 60 mg in the ER. Continue with 40 mg tonight. - last TTE 05/12 with mildly increased wall thickness, global hypokinesis with a dyssynchronous septum and an EF of 40-45% . Will order repeat limited echo. - probnp of 2740 on admission. CXR with evidence of heart failure. - suspect acute heart failure is in the setting of medication non-compliance. - resume home lisinopril and beta tre. - EKG with afib, no evidence of ischemia, no chest pain, troponin within normal limits. 2. Acute respiratory failure with hypoxia, present on admission - continue management as noted above. in the emergency room the patient had desaturations to 85% while on room air. Continue supplemental oxygen to goal of 90-96% while on O2. 3. Chronic atrial fibrillation - continue prescribed eliquis, 5 mg BID 4. Hypertensive urgency, present on admission - resume home medications including lisinopril, metoprolol. Will continue lasix but as noted above under acute heart failure. - BP as high as 217/126 in the ER. Improved somewhat with lasix. Suspect elevated in the setting of medication non-compliance. 5. HLD, chronic - contiue home lipitor 10 mg 6. history of substance use, methamphetamine - counseled on cessation, last use was about a month ago and is very motivated to continue to avoid use. 7. Hypokalemia, acute, present on admission - will repelte. Goal >4. Check Mg level as well. Code: Full as discussed with the patient, we discussed surrogate decision makers but he did not elect one, although on previous admissions he selected Dr. Mckeon. DVT: on apixaban Dispo: Admitted under inpatient status as his stay is expected to exceed 2 midnights
--- NOTE | 2020-07-22 18:25 | DI.ECHO.S_ITS ---
[facility]---------+ [facility] +---------+ : : [address] : [address] : : : : [id number] : : : : Phone: [phone]+ Echocardiogram Report + + :Name: CLAIR MC Study Date: 07/23/2020 Height: 69 in : :[facility] ReadingLocation: Weight: 213 lb : : Gender: Male BSA: 2.1 m2 : :: 1950 Age: 69 yrs BP: 123/76 mmHg: :Reason For Study: CHF EXACERBATION, ASSESS EJECTION FRACTION : :Ordering Physician: ANDI, : :OCTAVIA DEVI Performed By: Mariaa Oliver : :Referring: OCTAVIA ESCAMILLA : + + Interpretation Summary A. fib with controlled rate. Heart rate fluctuated between 63 up to 86 bpm. Left ventricle demonstrates normal size and mild concentric LVH. There is mild global hypokinesis with ejection fraction of 45-50%. Severe left atrial enlargemen and moderate RA enlargement. Moderate MAC; otherwise no significant valvular abnormalities. There is moderate central mitral regurgitation and moderate central tricuspid regurgitation. Estimated pulmonary artery systolic pressure is 55 mmHg assuming right atrial pressure of 20 mmHg. Compared to prior study May 10, 2020 LV is more dynamic. EF is up from 40- 45% to 45-50%. Procedure: A two-dimensional transthoracic echocardiogram with color flow and Doppler was performed in limited views only to assess ejection fraction.. The study quality was technically adequate. Comparison is made with the echocardiogram of 05/10/2020. The heart rate ranged between 63-86 bpm during the study. Left Ventricle: The left ventricle is normal in size. There is mild concentric left ventricular hypertrophy. The ejection fraction is estimated to be 45-50%. Right Ventricle: The right ventricle is normal in size and function. Atria: The left atrium is severely dilated. The right atrium is moderately dilated. Tricuspid Valve: There is moderate tricuspid regurgitation. Great Vessels: IVC is dilated and does not collapse. Estimated PA systolic pressure is 55 mm Hg assuming RA pressure of 20 mm Hg. Pericardium/ Pleura There is no pericardial effusion. There is no pleural effusion. MMode/2D Measurements & Calculations LVIDd: 5.0 cm LA A2 area: 30.6 cm2 LVIDs: 3.7 cm LA A4 area: 31.0 cm2 FS: 24.7 % LA length (vol): 7.5 cm IVSd: 1.1 cm LA vol: 107.2 ml LVPWd: 1.2 cm LA vol index: 50.5 ml/m2 LV mcdowell. diameter/BSA (cm/m^2): 2.3 LV sys. diameter/BSA (cm/m^2): 1.8 RA long axis: 6.7 cm RVD1 (basal): 3.4 cm RA area: 28.8 cm2 TAPSE: 2.0 cm RA vol: 105.4 ml RA : 49.7 ml/m2 IVC diam: 2.8 cm Doppler Measurements & Calculations TR max marie: 296.7 cm/sec TR max P.2 mmHg Electronically signed by: Hannah Olivas M.D. on Reading Physician:07/23/2020 06:57 PM
[2020-07-22] MEDS: METOPROLOL ER 50 MG TABLET PO (19:30)
[2020-07-22] MEDS: FUROSEMIDE 40 MG/4 ML VIAL IV (19:31)
[2020-07-22] MEDS: POTASSIUM CHLORIDE 20 MEQ TAB 40 MEQ PO (19:31)
--- NOTE | 2020-07-22 20:00 | RT ---
Went to assess pt at 1918. Pt sleeping. Will attempt again when pt is awake.
[2020-07-22] MEDS: ATORVASTATIN 20 MG TABLET 10 MG PO (21:09)
[2020-07-22] MEDS: APIXABAN 5 MG TABLET PO (21:10)
[2020-07-23] VITALS (12 sets, daily range): BP systolic 123–143; BP diastolic 75–96; PULSE 68–84; RESP 18–20; TEMP 36.7–37.3; O2SAT 94–97
[2020-07-23 05:58] LABS: Add Manual Diff / Slide Review NO; Basophils Absolute Auto 0 /uL (0-100); Basophils Percent Auto 0.5 % (0-2); Eosinophils Absolute Auto 100 /uL (0-450); Eosinophils Percent Auto 1.7 % (2-4); Hematocrit 37.8 % (41-53); Hemoglobin 12.2 g/dL (13.5-17.5); Lymphocytes Absolute Auto 800 /uL (1100-4500); Lymphocytes Percent Auto 11.7 % (25-40); Mean Corpuscular HGB Conc 32.4 % (30-36); Mean Corpuscular Hemoglobin 26.9 PG (26-34); Mean Corpuscular Volume 83.2 fL (80-100); Monocytes Absolute Auto 900 /uL (0-900); Monocytes Percent Auto 12.7 % (3-14); Neutrophils Absolute Auto 5200 /uL (1500-7000); Neutrophils Percent Auto 73.4 % (50-75); Platelet Count 212 X10^3/uL (150-400); Red Blood Cell Count 4.54 X10^6/uL (4.5-5.9); Red Cell Distribution Width 17.1 % (11.6-14.8); White Blood Cell Count 7.1 X10^3/uL (4.5-11.0)
[2020-07-23 06:01] LABS: BUN Creatinine Ratio 16.7 (6-22); Blood Urea Nitrogen 14 mg/dL (9-20); Calcium 8.8 mg/dL (8.4-10.2); Carbon Dioxide 32 mmol/L (22-32); Chloride 98 mmol/L (98-107); Estimated Glomerular Filt Rate > 60.0 mL/min (>60); Glucose 135 mg/dL (80-110); HEMOLYSIS < 15 (0-50); Magnesium 1.7 mg/dL (1.6-2.3); Potassium 3.2 mmol/L (3.4-5.1); Sodium 137 mmol/L (137-145)
[2020-07-23 06:42] LABS: TSH w/ Reflex to FT4 1.01 uIU/mL (0.47-4.68)
[2020-07-23] MEDS: APIXABAN 5 MG TABLET PO ×2 (09:00→20:37)
[2020-07-23] MEDS: FUROSEMIDE 40 MG/4 ML VIAL IV ×2 (09:00→17:03)
[2020-07-23] MEDS: POTASSIUM CHLORIDE 20 MEQ TAB PO ×2 (09:00→17:04)
[2020-07-23] MEDS: INFLUENZA HD VACCINE 0.7 ML SYRINGE IM (09:00)
[2020-07-23] MEDS: METOPROLOL ER 50 MG TABLET PO (09:02)
[2020-07-23] MEDS: lisinopriL 20 MG TABLET PO (09:02)
--- NOTE | 2020-07-23 10:36 | DI.ECHO.S_ITS ---
Reason For Study: CHF EXACERBATION, ASSESS EJECTION FRACTION : :Ordering Physician: ANDI, : :OCTAVIA DEIV Performed By: Mariaa Oliver : Interpretation Summary A. fib with controlled rate. Heart rate fluctuated between 63 up to 86 bpm. Left ventricle demonstrates normal size and mild concentric LVH. There is mild global hypokinesis with ejection fraction of 45-50%. Severe left atrial enlargemen and moderate RA enlargement. Moderate MAC; otherwise no significant valvular abnormalities. There is moderate central mitral regurgitation and moderate central tricuspid regurgitation. Estimated pulmonary artery systolic pressure is 55 mmHg assuming right atrial pressure of 20 mmHg. Compared to prior study May 10, 2020 LV is more dynamic. EF is up from 40- 45% to 45-50%. Procedure: A two-dimensional transthoracic echocardiogram with color flow and Doppler was performed in limited views only to assess ejection fraction.. The study quality was technically adequate. Comparison is made with the echocardiogram of 05/10/2020. The heart rate ranged between 63-86 bpm during the study. Left Ventricle: The left ventricle is normal in size. There is mild concentric left ventricular hypertrophy. The ejection fraction is estimated to be 45-50%. Right Ventricle: The right ventricle is normal in size and function. Atria: The left atrium is severely dilated. The right atrium is moderately dilated. Tricuspid Valve: There is moderate tricuspid regurgitation. Great Vessels: IVC is dilated and does not collapse. Estimated PA systolic pressure is 55 mm Hg assuming RA pressure of 20 mm Hg. Pericardium/ Pleura There is no pericardial effusion. There is no pleural effusion. MMode/2D Measurements & Calculations LVIDd: 5.0 cm LA A2 area: 30.6 cm2 LVIDs: 3.7 cm LA A4 area: 31.0 cm2 FS: 24.7 % LA length (vol): 7.5 cm IVSd: 1.1 cm LA vol: 107.2 ml LVPWd: 1.2 cm LA vol index: 50.5 ml/m2 LV mcdowell. diameter/BSA (cm/m^2): 2.3 LV sys. diameter/BSA (cm/m^2): 1.8 RA long axis: 6.7 cm RVD1 (basal): 3.4 cm RA area: 28.8 cm2 TAPSE: 2.0 cm RA vol: 105.4 ml RA : 49.7 ml/m2 IVC diam: 2.8 cm Doppler Measurements & Calculations TR max marie: 296.7 cm/sec TR max P.2 mmHg Electronically signed by: Hannah Olivas M.D. on Reading Physician:07/23/2020 06:57 PM
--- NOTE | 2020-07-23 13:13 | PM.PN.1 ---
Subjective Subjective Date Patient Seen: 07/23/20 Time Patient Seen: 09:15 Interval history: Mr. Jayden Rodriguez is 69-year-old male with a past medical history significant for methamphetamine abuse, CVA reporting no residual deficits, atrial fibrillation prescribed Eliquis, chronic systolic and diastolic heart failure, infra-renal abdominal aortic aneurysm hypertension, history of pleural effusion and hyperlipidemia who presents with shortness of breath over the past 3 days. He is feeling much improved but still weak and dyspnic on exertion going to the bathroom. Denies fever, chills. Still with mild cough but improving. Denies abdominal pain, nausea, or vomiting. Exam Vital Signs (past 8 hours): - 07/23/20 07:02 07/23/20 07:18 07/23/20 09:02 Temperature 99.1 F Pulse Rate 84 84 Respiratory Rate 19 Blood Pressure 143/96 H 143/96 H Pulse Oximetry 94 95 07/23/20 11:45 07/23/20 11:48 Temperature 98.7 F Pulse Rate 68 79 Respiratory Rate 18 Blood Pressure 129/85 129/85 Pulse Oximetry 97 Oxygen Delivery Method Room Air Oxygen Flow Rate 0 Narrative Exam Narrative: GENERAL APPEARANCE: well developed, elderly male appearing his stated age, in no acute distress. HEENT: NC/AT, MMM, EOMI. NECK/THYROID: neck supple, + JVD, no thyromegaly, trachea midline. LYMPH NODES: no cervical or supraclavicular lymphadenopathy. SKIN: [place], warm and dry, no visible rashes or lesions HEART: Irregularly irregular rhythm, S1-S2, no murmur, no rubs or gallops, brisk capillary refill, 2+ pitting edema LUNGS: Clear upper with bibasilar crackles without wheezing, no cough present CHEST: Symmetrical movement, no accessory muscle use, poor effort. No chest wall tenderness. ABDOMEN: Soft, nontender, nondistended EXTREMITIES: moves all extremities, strength is 5/5 and symmetrical, no deformities or joint effusions, no clubbing or cyanosis. NEUROLOGIC: AAO x person place and time, no focal neurologic deficits, cranial nerves II-XII grossly intact, sensation intact to light touch. PSYCH: Poor eye contact, cooperative with blunted affect, linear thought, stable behavior. Objective Labs Result Diagrams: 07/23/20 05:22 07/23/20 05:22 Labs: Laboratory Results - last 24 hr 07/22/20 07/22/20 07/22/20 12:15 12:18 12:18 WBC RBC Hgb Hct MCV MCH MCHC RDW Plt Count Neut % (Auto) Lymph % (Auto) [place] % (Auto) Eos % (Auto) Baso % (Auto) Neut # (Auto) Lymph # (Auto) [place] # (Auto) Eos # (Auto) Baso # (Auto) Sodium Potassium Chloride Carbon Dioxide BUN Creatinine Estimated GFR BUN/Creatinine Ratio Glucose Calcium Magnesium 2.0 Troponin I 0.019 TSH SARS-CoV-2 (PCR) Negative 07/23/20 07/23/20 07/23/20 05:22 05:22 05:22 WBC 7.1 RBC 4.54 Hgb 12.2 L Hct 37.8 L MCV 83.2 MCH 26.9 MCHC 32.4 RDW 17.1 H Plt Count 212 Neut % (Auto) 73.4 Lymph % (Auto) 11.7 L [place] % (Auto) 12.7 Eos % (Auto) 1.7 L Baso % (Auto) 0.5 Neut # (Auto) 5200 Lymph # (Auto) 800 L [place] # (Auto) 900 Eos # (Auto) 100 Baso # (Auto) 0 Sodium 137 Potassium 3.2 L Chloride 98 Carbon Dioxide 32 BUN 14 Creatinine 0.84 Estimated GFR > 60.0 BUN/Creatinine Ratio 16.7 Glucose 135 H Calcium 8.8 Magnesium 1.7 Troponin I TSH 1.01 SARS-CoV-2 (PCR) [facility] Medical History Abdominal aortic aneurysm Atrial fibrillation, chronic Essential hypertension History of CVA (cerebrovascular accident) Hyperlipidemia Methamphetamine use Substance abuse requiring inpatient treatment Systolic CHF with reduced left ventricular function, NYHA class 2 Surgical History History of appendectomy History of inguinal hernia repair History of tonsillectomy Family History Mother CVA (cerebral vascular accident) Father Leukemia Social History household members: none lives independently: Yes Smoking Status: Never smoker alcohol intake: current substance use type: methamphetamine (Uses daily ) Assessment & Plan Assessment & Plan narrative: Mr. Jayden Rodriguez is 69-year-old male with a past medical history significant for methamphetamine abuse, CVA reporting no residual deficits, atrial fibrillation prescribed Eliquis, chronic systolic and diastolic heart failure, infra-renal abdominal aortic aneurysm, hypertension, history of pleural effusion and hyperlipidemia who presents with shortness of breath over the past 3 days. Patient admitted for further treatment of acute on chronic heart failure with acute respiratory failure. 1. Acute on chronic diastolic heart failure (borderline EF), present on admission -continue Lasix 40 mg IV b.i.d. given response thus far. He still remains dyspneic on exertion and will require likely a few more days of diuresis to achieve euvolemia. Net negative 4L thus far. - last TTE 05/12 with mildly increased wall thickness, global hypokinesis with a dyssynchronous septum and an EF of 40-45% . Limited echo to reassess EF is currently pending. - probnp of 2740 on admission. CXR with evidence of heart failure. - suspect acute heart failure is in the setting of medication non-compliance. - resumed home lisinopril and beta tre. - EKG with afib, no evidence of ischemia, no chest pain, troponin within normal limits. 2. Acute respiratory failure with hypoxia, present on admission, resolved - continue management as noted above. in the emergency room the patient had desaturations to 85% while on room air. Continue supplemental oxygen to goal of 90-96% while on O2. Currently saturating well on room air. 3. Chronic atrial fibrillation - continue prescribed eliquis, 5 mg BID 4. Hypertensive urgency, present on admission - resume home medications including lisinopril, metoprolol. Will continue lasix but as noted above under acute heart failure. - BP as high as 217/126 in the ER. Improved somewhat with lasix, and has returned to normal today with resumption of his prior home medications. 5. HLD, chronic - contiue home lipitor 10 mg 6. history of substance use, methamphetamine - counseled on cessation, last use was about a month ago and is very motivated to continue to avoid use. 7. Hypokalemia and hypomagnesemia, acute, present on admission - will replete again today. Goal >4. Mg goal >2 currently 1.7 Code: Full as discussed with the patient, we discussed surrogate decision makers but he did not elect one, although on previous admissions he selected Dr. Mckeon. DVT: on apixaban Dispo: Admitted under inpatient status, changed to observation status today, anticipate discharge home in the next 2-3 days most likely.
[2020-07-23] MEDS: MAGNESIUM SULFATE 2 GM/50 ML PIGGYBACK IV (15:05)
--- NOTE | 2020-07-23 15:27 | PC.NURSE ---
Patient is very somnolent today, arousable to voice and A&O X4, but sleeping most of the day; patient did sat up to chair briefly; denies SOB, chest pain, nausea; 2+ edema to BLLE with L>R; ls clear, RA; Tele A fib; pt reflecting on life choices, his adult children and grandchildren; bed alarm
--- NOTE | 2020-07-23 18:31 | PC.NURSE ---
Addendum entered by Ailin Moise R.N. 07/23/20 20:39: Condom cath fell off patient, one incontinent void charted. Original Note: Applied condom catheter to patient and per his request taped it on.
[2020-07-23] MEDS: ATORVASTATIN 20 MG TABLET 10 MG PO (20:37)
[2020-07-24] VITALS (14 sets, daily range): BP systolic 118–157; BP diastolic 67–95; PULSE 62–101; RESP 14–22; TEMP 36.2–37.2; O2SAT 93–98
[2020-07-24 05:20] LABS: Add Manual Diff / Slide Review NO; Basophils Absolute Auto 100 /uL (0-100); Basophils Percent Auto 0.8 % (0-2); Eosinophils Absolute Auto 300 /uL (0-450); Eosinophils Percent Auto 4.1 % (2-4); Hematocrit 39.2 % (41-53); Hemoglobin 12.8 g/dL (13.5-17.5); Lymphocytes Absolute Auto 1300 /uL (1100-4500); Lymphocytes Percent Auto 17.1 % (25-40); Mean Corpuscular HGB Conc 32.8 % (30-36); Mean Corpuscular Hemoglobin 27.3 PG (26-34); Mean Corpuscular Volume 83.2 fL (80-100); Monocytes Absolute Auto 1000 /uL (0-900); Monocytes Percent Auto 13.1 % (3-14); Neutrophils Absolute Auto 4800 /uL (1500-7000); Neutrophils Percent Auto 64.9 % (50-75); Platelet Count 216 X10^3/uL (150-400); Red Blood Cell Count 4.71 X10^6/uL (4.5-5.9); Red Cell Distribution Width 17.1 % (11.6-14.8); White Blood Cell Count 7.4 X10^3/uL (4.5-11.0)
[2020-07-24 05:39] LABS: BUN Creatinine Ratio 23.8 (6-22); Blood Urea Nitrogen 19 mg/dL (9-20); Carbon Dioxide 32 mmol/L (22-32); Chloride 97 mmol/L (98-107); Estimated Glomerular Filt Rate > 60.0 mL/min (>60); Glucose 119 mg/dL (80-110); HEMOLYSIS < 15 (0-50); Potassium 3.5 mmol/L (3.4-5.1); Sodium 137 mmol/L (137-145)
[2020-07-24] MEDS: APIXABAN 5 MG TABLET PO ×2 (08:25→20:55)
[2020-07-24] MEDS: lisinopriL 20 MG TABLET PO (08:25)
[2020-07-24] MEDS: FUROSEMIDE 40 MG/4 ML VIAL IV ×2 (08:26→16:48)
[2020-07-24] MEDS: METOPROLOL ER 50 MG TABLET PO (08:26)
[2020-07-24] MEDS: POTASSIUM CHLORIDE 20 MEQ TAB PO ×2 (08:26→16:48)
--- NOTE | 2020-07-24 10:27 | PM.PN.1 ---
Subjective Subjective Date Patient Seen: 07/24/20 Time Patient Seen: 10:27 Interval history: Mr. Jayden Rodriguez is 69-year-old male with a past medical history significant for methamphetamine abuse, CVA reporting no residual deficits, atrial fibrillation prescribed Eliquis, chronic systolic and diastolic heart failure, infra-renal abdominal aortic aneurysm hypertension, history of pleural effusion and hyperlipidemia who presents with shortness of breath. He is feeling much improved but still weak and dyspnic on exertion going to the bathroom, though it does appear to be slightly improving. Denies fever, chills, cough has resolved. Denies abdominal pain, nausea, or vomiting. Exam Vital Signs (past 8 hours): - 07/24/20 04:55 07/24/20 05:35 07/24/20 07:52 Temperature 98.1 F Pulse Rate 62 Respiratory Rate 16 Blood Pressure 130/67 Pulse Oximetry 94 97 95 07/24/20 07:55 07/24/20 09:22 Temperature 97.1 F L Pulse Rate 63 101 H Respiratory Rate 18 Blood Pressure 118/76 Pulse Oximetry 98 Oxygen Delivery Method Room Air Oxygen Flow Rate 0 Narrative Exam Narrative: GENERAL APPEARANCE: well developed, elderly male appearing his stated age, in no acute distress. HEENT: NC/AT, MMM, EOMI. NECK/THYROID: neck supple, no JVD today, no thyromegaly, trachea midline. LYMPH NODES: no cervical or supraclavicular lymphadenopathy. SKIN: [place], warm and dry, no visible rashes or lesions HEART: Irregularly irregular rhythm with normal rate, S1-S2, no murmur, no rubs or gallops, brisk capillary refill, trace to 1+ pitting edema today, improving LUNGS: Clear upper with improved bibasilar crackles without wheezing, no cough present CHEST: Symmetrical movement, no accessory muscle use, improved effort. No chest wall tenderness. ABDOMEN: Soft, nontender, nondistended EXTREMITIES: moves all extremities, strength is 5/5 and symmetrical, no deformities or joint effusions, no clubbing or cyanosis. NEUROLOGIC: AAO x person place and time, no focal neurologic deficits, cranial nerves II-XII grossly intact, sensation intact to light touch. PSYCH: Poor eye contact, cooperative with blunted affect, linear thought, stable behavior. Objective Labs Result Diagrams: 07/24/20 05:02 07/24/20 05:02 Labs: Laboratory Results - last 24 hr 07/24/20 07/24/20 05:02 05:02 WBC 7.4 RBC 4.71 Hgb 12.8 L Hct 39.2 L MCV 83.2 MCH 27.3 MCHC 32.8 RDW 17.1 H Plt Count 216 Neut % (Auto) 64.9 Lymph % (Auto) 17.[address] [place] % (Auto) 13.1 Eos % (Auto) 4.1 H Baso % (Auto) 0.8 Neut # (Auto) 4800 Lymph # (Auto) 1300 [place] # (Auto) 1000 H Eos # (Auto) 300 Baso # (Auto) 100 Sodium 137 Potassium 3.5 Chloride 97 L Carbon Dioxide 32 BUN 19 Creatinine 0.80 Estimated GFR > 60.0 BUN/Creatinine Ratio 23.8 H Glucose 119 H Calcium 9.0 Magnesium 2.0 PFSH Medical History Abdominal aortic aneurysm Atrial fibrillation, chronic Essential hypertension History of CVA (cerebrovascular accident) Hyperlipidemia Methamphetamine use Substance abuse requiring inpatient treatment Systolic CHF with reduced left ventricular function, NYHA class 2 Surgical History History of appendectomy History of inguinal hernia repair History of tonsillectomy Family History Mother CVA (cerebral vascular accident) Father Leukemia Social History household members: none lives independently: Yes Smoking Status: Never smoker alcohol intake: current substance use type: methamphetamine (Uses daily ) Assessment & Plan Assessment & Plan narrative: Mr. Jayden Rodriguez is 69-year-old male with a past medical history significant for methamphetamine abuse, CVA reporting no residual deficits, atrial fibrillation prescribed Eliquis, chronic systolic and diastolic heart failure, infra-renal abdominal aortic aneurysm, hypertension, history of pleural effusion and hyperlipidemia who presents with shortness of breath over the past 3 days. Patient admitted for further treatment of acute on chronic heart failure with acute respiratory failure. 1. Acute on chronic diastolic heart failure (borderline EF), present on admission -continue Lasix 40 mg IV b.i.d. given response thus far. He still remains dyspnic on exertion, however this is improving, suspect he may be able to discharge as soon as tomorrow with continued diuresis. Net negative 6L thus far. - last TTE 05/12 with mildly increased wall thickness, global hypokinesis with a dyssynchronous septum and an EF of 40-45% . Limited echo to reassess EF showed similar / slightly improved EF at 45-50%. - probnp of 2740 on admission. CXR with evidence of heart failure. - suspect acute heart failure is in the setting of medication non-compliance. - resumed home lisinopril and beta tre. - EKG with afib, no evidence of ischemia, no chest pain, troponin within normal limits. 2. Acute respiratory failure with hypoxia, present on admission, resolved - continue management as noted above. in the emergency room the patient had desaturations to 85% while on room air. Continue supplemental oxygen to goal of 90-96% while on O2. Currently saturating well on room air. 3. Chronic atrial fibrillation - continue prescribed eliquis, 5 mg BID 4. Hypertensive urgency, present on admission - resume home medications including lisinopril, metoprolol. Will continue lasix but as noted above under acute heart failure. - BP as high as 217/126 in the ER. Improved somewhat with lasix, and has returned to normal with resumption of his prior home medications. 5. HLD, chronic - contiue home lipitor 10 mg 6. history of substance use, methamphetamine - counseled on cessation, last use was about a month ago and is very motivated to continue to avoid use. 7. Hypokalemia and hypomagnesemia, acute, present on admission - started on continued potassium replacement with 20 mg PO BID. Goal >4. Mg goal >2. Mg at goal today. Code: Full as discussed with the patient, we discussed surrogate decision makers but he did not elect one, although on previous admissions he selected Dr. Mckeon. DVT: on apixaban Dispo: Anticipate discharge home in the next 1-2 days most likely.
[2020-07-24] MEDS: BISACODYL 5 MG TABLET 10 MG PO (11:07)
--- NOTE | 2020-07-24 15:40 | CM.IDA ---
Initial DCP Assessment Note Patient is a 69 yo male, resident of [facility], presents w/ SOB and admitted observation 4.06.12 and changed to inpatient 4.. w/Acute on chronic diastolic heart failure. Patient familiar to this [facility] from prior hospital visits. PCP: Junior Gonzales Payer: [facility] spend down According to Dr Lima, patient is expected to DC back to [place] tomorrow. Patient has been sleeping most of his admission. Patient able to ambulate w/o AD. Met w/patient this afternoon to complete assessment of need. Patient confirms he is still living on [place], alone, states it's the only place I have. Asked patient the following questions: -Do you have anyone to help you at home or to/from appts? no except for Fidel Goldstein, who flew him off [place] to come to the ED and will take him back home -Are you on any HUD housing wait lists ? no, I guess I haven't paid too much attention to that since I thought I would live out my days on [place] -[facility] [place]... have you had contact w/[facility]? no, my phone is broken and I haven't gotten it fixed -Can you get a friend to help you buy groceries and get a working phone? I don't want to burden anyone HS just took me off of food stamps Patient is A+O, however, consistently presents as not capable of follow through on tasks w/o someone doing it for him (dementia vs [facility] drug use or both?) He knows he needs to see his PCP, get a new phone, and get back on food stamps but can?t problem solve w/me today on how to complete these tasks. Patient has a dtr and son that he says live and work internationally but he has not spoken with them for a month. Plan: DC back home to [place] via friend's airplane (?) may need taxi to [place]. [facility] team following closely. ROSALINE López
[2020-07-24] MEDS: ATORVASTATIN 20 MG TABLET 10 MG PO (20:55)
[2020-07-25 05:00] VITALS: BP 136/89; PULSE 73; RESP 19; TEMP 36.3; O2SAT 95
[2020-07-25 05:44] LABS: Add Manual Diff / Slide Review NO; Basophils Absolute Auto 100 /uL (0-100); Basophils Percent Auto 0.7 % (0-2); Eosinophils Absolute Auto 400 /uL (0-450); Eosinophils Percent Auto 5.6 % (2-4); Hematocrit 41.2 % (41-53); Hemoglobin 13.3 g/dL (13.5-17.5); Lymphocytes Absolute Auto 1400 /uL (1100-4500); Lymphocytes Percent Auto 18.6 % (25-40); Mean Corpuscular HGB Conc 32.4 % (30-36); Mean Corpuscular Volume 83.4 fL (80-100); Monocytes Absolute Auto 900 /uL (0-900); Monocytes Percent Auto 11.7 % (3-14); Neutrophils Absolute Auto 4900 /uL (1500-7000); Neutrophils Percent Auto 63.4 % (50-75); Platelet Count 239 X10^3/uL (150-400); Red Blood Cell Count 4.94 X10^6/uL (4.5-5.9); White Blood Cell Count 7.6 X10^3/uL (4.5-11.0)
[2020-07-25 05:48] LABS: BUN Creatinine Ratio 22.8 (6-22); Blood Urea Nitrogen 18 mg/dL (9-20); Calcium 9.3 mg/dL (8.4-10.2); Carbon Dioxide 34 mmol/L (22-32); Chloride 98 mmol/L (98-107); Estimated Glomerular Filt Rate > 60.0 mL/min (>60); Glucose 106 mg/dL (80-110); HEMOLYSIS < 15 (0-50); Magnesium 1.9 mg/dL (1.6-2.3); Potassium 3.7 mmol/L (3.4-5.1); Sodium 136 mmol/L (137-145)
[2020-07-25 07:20] VITALS: BP 142/88; PULSE 82; RESP 24; TEMP 35.9; O2SAT 97
--- NOTE | 2020-07-25 07:26 | P.DS_ITS ---
History of Present Illness History of Present Illness Date Patient Seen: 07/25/20 Time Patient Seen: 07:26 Chief complaint: feels like a stroke,lossing strength,out of breath Narrative: Mr. Jayden Rodriguez is 69-year-old male with a past medical history significant for methamphetamine abuse, CVA reporting no residual deficits, atrial fibrillation prescribed Eliquis, chronic systolic and diastolic heart failure, infra-renal abdominal aortic aneurysm hypertension, history of pleural effusion and hyperlipidemia who presents with shortness of breath over t he past 3 days. This has been increasing in nature and started with initially dyspnea on exertion as per gas to shortness of breath at rest. He has not been taking his home medications for the past 2 months, he was vague on the description of why and fell asleep quite frequently during exam so was unable to accurately assess why he was not compliant with his medications. The patient lives on [facility] and it is very difficult to access resources. It does not appear that he has followed up with his primary care provider since then. He denies fevers, chills, chest pain, palpitations, abdominal pain, dysuria, or urinary frequency. He does endorse worsening lower extremity edema. He denies early satiety. He reports last methamphetamine use was around a month ago and he has been very motivated recently in attempts to stop. In the emergency room, the patient was hypertensive in borderline tachycardic, in atrial fibrillation. He desaturated to 85% on room air but is saturating well on 1-2 L at greater than 90%. Initial laboratory evaluation showed an unremarkable CBC, chemistries show a potassium of 3.2,, creatinine of 0.78 which is near the patient's baseline. Lactic acid was 1.1. ProBNP was 2740. Troponin was within normal limits at 0.019. EKG showed atrial fibrillation with a normal rate and no significant ST or T-wave abnormalities to indicate ischemia. COVID-19 testing was negative. Chest x-ray is consistent with volume overload and heart failure. Patient was admitted for further treatment of presumed acute on chronic heart failure with acute respiratory failure. Discharge Providers Provider Date of admission: 07/24/20 10:30 Discharge Date: 07/25/20 Primary care physician: Junior Gonzales DO Consults: 07/22/20 13:06 Consult to RN ADMISSION - Electronic Page Makeup System Operator Stat Comment: 07/22/20 18:43 Consult to Respiratory Therapy Evaluate & Treat Comment: Physician Instructions: Evaluate and treat Discharge provider: DO Lencho Flores Hospital Course Discharge Diagnosis: Please see hospital course by problem list noted below. Hospital Course: Mr. Jayden Rodriguez is 69-year-old male with a past medical history significant for methamphetamine abuse, CVA reporting no residual deficits, atrial fibrillation prescribed Eliquis, chronic systolic and diastolic heart failure, infra-renal abdominal aortic aneurysm, hypertension, history of pleural effusion and hyperlipidemia who presents with shortness of breath over the past 3 days. Patient admitted for further treatment of acute on chronic heart failure with acute respiratory failure. On the day of discharge, his usual home medications were refilled and he was encouraged to follow-up with his primary care doctor as an outpatient. 1. Acute on chronic diastolic heart failure (borderline EF), present on admission -continued Lasix 40 mg IV b.i.d. during his admission. He was net negative almost 8 L over the course of his admission and his symptoms had largely resolved on the day of discharge. He will be discharged on 40 mg of Lasix daily for continued maintenance of euvolemia. Recommend repeat evaluation with his primary care provider as an outpatient for further possible adjustment. - last TTE 05/12 with mildly increased wall thickness, global hypokinesis with a dyssynchronous septum and an EF of 40-45% . Limited echo to reassess EF showed similar / slightly improved EF at 45-50%. - probnp of 2740 on admission. CXR with evidence of heart failure on admission. - suspect acute heart failure is in the setting of medication non-compliance. - resumed home lisinopril and beta tre. - EKG with afib, no evidence of ischemia, no chest pain, troponin within normal limits. 2. Acute respiratory failure with hypoxia, present on admission, resolved - continue management as noted above. in the emergency room the patient had desaturations to 85% while on room air. Continued supplemental oxygen to goal of 90-96% while on O2 but he was weaned off of oxygen quickly after rapid diuresis with initial administration of Lasix. Currently saturating well on room air. 3. Chronic atrial fibrillation - continue prescribed eliquis, 5 mg BID 4. Hypertensive urgency, present on admission - resume home medications including lisinopril, metoprolol. Will continue lasix but as noted above under acute heart failure. - BP as high as 217/126 in the ER. Improved somewhat with lasix initially, and returned to normal with resumption of his prior home medications. 5. HLD, chronic - continued home lipitor 10 mg 6. history of substance use, methamphetamine - counseled on cessation, last use was about a month ago and is very motivated to continue to avoid use. 7. Hypokalemia and hypomagnesemia, acute, present on admission - started on continued potassium replacement with 20 mg PO BID with resolution of his electrolyte abnormalities. Discharged on Potassium repletion given continued lasix therapy. Exam Vital Signs (past 8 hours): - 07/24/20 23:54 07/24/20 23:55 07/25/20 05:00 Temperature 98.1 F 97.3 F L Pulse Rate 81 73 Respiratory Rate 22 19 Blood Pressure 123/76 136/89 Pulse Oximetry 97 97 95 Oxygen Delivery Method Room Air Oxygen Flow Rate 0 Narrative Exam Narrative: GENERAL APPEARANCE: well developed, elderly male appearing his stated age, in no acute distress. HEENT: NC/AT, MMM, EOMI. NECK/THYROID: neck supple, no JVD today, no thyromegaly, trachea midline. LYMPH NODES: no cervical or supraclavicular lymphadenopathy. SKIN: [place], warm and dry, no visible rashes or lesions HEART: Irregularly irregular rhythm with normal rate, S1-S2, no murmur, no rubs or gallops, brisk capillary refill, trace edema bilateral LE, L slightly greater than R LUNGS: Clear upper without bibasilar crackles today and without wheezing, no cough present CHEST: Symmetrical movement, no accessory muscle use, improved effort. No chest wall tenderness. ABDOMEN: Soft, nontender, nondistended EXTREMITIES: moves all extremities, strength is 5/5 and symmetrical, no deformities or joint effusions, no clubbing or cyanosis. NEUROLOGIC: AAO x person place and time, no focal neurologic deficits, cranial nerves II-XII grossly intact, sensation intact to light touch. PSYCH: Poor eye contact, cooperative with blunted affect, linear thought, stable behavior. Objective Labs Result Diagrams: 07/25/20 05:30 07/25/20 05:30 Labs: Laboratory Results - last 24 hr 07/25/20 07/25/20 05:30 05:30 WBC 7.6 RBC 4.94 Hgb 13.3 L Hct 41.2 MCV 83.4 MCH 27.0 MCHC 32.4 RDW 17.0 H Plt Count 239 Neut % (Auto) 63.4 Lymph % (Auto) 18.6 L [place] % (Auto) 11.7 Eos % (Auto) 5.6 H Baso % (Auto) 0.7 Neut # (Auto) 4900 Lymph # (Auto) 1400 [place] # (Auto) 900 Eos # (Auto) 400 Baso # (Auto) 100 Sodium 136 L Potassium 3.7 Chloride 98 Carbon Dioxide 34 H BUN 18 Creatinine 0.79 Estimated GFR > 60.0 BUN/Creatinine Ratio 22.8 H Glucose 106 Calcium 9.3 Magnesium 1.9 PFSH Medical History Abdominal aortic aneurysm Atrial fibrillation, chronic Essential hypertension History of CVA (cerebrovascular accident) Hyperlipidemia Methamphetamine use Substance abuse requiring inpatient treatment Systolic CHF with reduced left ventricular function, NYHA class 2 Surgical History History of appendectomy History of inguinal hernia repair History of tonsillectomy Family History Mother CVA (cerebral vascular accident) Father Leukemia Social History household members: none lives independently: Yes Smoking Status: Never smoker alcohol intake: current substance use type: methamphetamine (Uses daily ) Discharge Plan Discharge Plan Patient Disposition: Home Provider Discharge Comment: You were admitted to the hospital with an exacerbation of heart failure and elevated blood pressures. This improved with removal of this fluid with medications, and resuming her home medications for blood pressure. Please follow-up with your primary care provider in the next month to get refills for usual medications. You may need a slight adjustment in her Lasix dosing depending on how things go. Discharge orders & Medications Prescriptions: New potassium chloride [Klor-Con M20] 20 mEq Tablet,Er Particles/Crystals 20 meq PO DAILY 30 Days Qty: 30 RF: 0 Continued melatonin 3 mg Tablet 3 mg PO BEDTIME PRN (Reason: insomnia) RF: 0 famotidine [Pepcid] 40 mg tablet 20 mg PO BID Qty: 30 RF: 0 furosemide 40 mg tablet 40 mg PO DAILY 30 Days Qty: 30 RF: 0 atorvastatin [Lipitor] 20 mg Tablet 10 mg PO BEDTIME 30 Days Qty: 15 RF: 0 metoprolol succinate 50 mg tablet extended release 24 hr 50 mg PO DAILY 30 Days Qty: 30 RF: 0 lisinopril 20 mg tablet 20 mg PO DAILY 30 Days Qty: 30 RF: 0 Eliquis 5 mg Tablet 5 mg PO BID 30 Days Qty: 60 RF: 0 Follow up/Referrals: Junior Gonzales, [Primary Care Provider] - Diet/Activity/Treatments Diet: Diet as Tolerated and Low-sodium Activity: As tolerated Visit Report/Discharge Packet Instructions: DI for Heart Failure, DI for Prescription Opioid Use Discharge Data Primary Care Provider: Junior Gonzales
[2020-07-25 09:56] VITALS: BP 142/88
[2020-07-25] MEDS: lisinopriL 20 MG TABLET PO (09:56)
[2020-07-25] MEDS: METOPROLOL ER 50 MG TABLET PO (09:56)
[2020-07-25] MEDS: POTASSIUM CHLORIDE 20 MEQ TAB PO (09:56)
[2020-07-25] MEDS: APIXABAN 5 MG TABLET PO (09:57)
--- NOTE | 2020-07-25 10:38 | CM.DANOTE ---
Addendum entered by Lyndsay Bliss 07/25/20 13:48: CARE REP provides patient with [facility] resource and Medicare message regarding d/c. Original Note: Discharge Planning: health care consultant met bedside with patient. Patient states that his friend is flying from [facility] to pick him up and will drive to the hospital this afternoon. health care consultant observed patient to be A+Ox4 and sit up on his bed. Patient states that he has a phone service but his phone is currently broken. Patient stated that he qualified for a caregiver before. health care consultant will provide patient with [facility] resource information to access services available to him. ROSALINE Burr
--- NOTE | 2020-07-25 10:46 | PC.NURSE ---
Addendum entered by Senait Dickey R.N. 07/25/20 13:48: Patient assisted with getting dressed. Tele removed, IV removed, tip intact, patient tolerated. Patient given instructions on medication and follow up appointment. Detailed instructions given regarding medications and s/s of worsening conditions. Patient verbalized understanding of discharged. Patient's belongings retrieved from [place]. Original Note: Patient A/O x 4. Up to side of bed eating ice cream. Denies SOB or increased WOB with activity. On room air, lungs CTA. HR irregular, pulses equal, 1+ pitting edema bilateral ankles. Patient on tele. Saline locked. IV patent in L FA. Patient declined PO Lasix d/t pending travel and plans for D/C. MD aware and OK'd. Patient verbalized understanding to continue at home. Voiding in restroom and using urinal. Reports last BM was 07/24. Abdomen is soft, non tender. Patient SBA. Call light in reach, bed alarm on.
[2020-07-25 11:15] VITALS: BP 137/92; PULSE 74; RESP 24; TEMP 36.1; O2SAT 95
== END 2020-07-25 13:30 | disposition home or self-care (01) | DRG 291 ==
LOC: ED 15:22 → AC 16:16
PROVIDERS: Admitting Provider Internal Medicine; Emergency Provider Emergency Medicine; PCP Family Medicine; Referring Provider Emergency Medicine; Visit Provider Internal Medicine
DX: I11.0 Hypertensive heart disease with heart failure (principal); J96.01 Acute respiratory failure with hypoxia; I48.20 Chronic atrial fibrillation, unspecified; I50.33 Acute on chronic diastolic (congestive) heart failure; Z79.01 Long term (current) use of anticoagulants; E78.5 Hyperlipidemia, unspecified; E87.6 Hypokalemia; Z20.822 Contact with and (suspected) exposure to COVID-19; Z91.128 Patient's intentional underdosing of medication regimen for other reason; F15.11 Other stimulant abuse, in remission; E83.42 Hypomagnesemia; Z23 Encounter for immunization
CPT/HCPCS: 36415; 71045; 80048; 80053; 81003; 83605; 83735; 83880; 84443; 84484; 85025; 87635; 90471; 90662; 93005; 93307; 96374; 99285; G0378; J1940; J3475

== ENCOUNTER 2020-07-31 06:24 | Emergency (ER) | payer MEDICARE, MEDICAID, SELFPAY ==
[2020-07-22 16:49] VITALS: BMI 31.4
[2020-07-31 06:39] VITALS: BP 135/89; PULSE 69; PULSE 76; RESP 18; TEMP 36.4; O2SAT 98; O2SAT 99; BMI 28.8
--- NOTE | 2020-07-31 06:45 | PC.NURSE ---
Confusion if patient is intoxicated. Pt denies. Pt does not appear intoxicated.
[2020-07-31 07:00] VITALS: PULSE 86; O2SAT 93
--- NOTE | 2020-07-31 07:15 | ED_ITS ---
HPI - General Adult General Chief complaint: Altered Mental Status Stated complaint: Dementia Time Seen by Provider: 07/31/20 06:52 Source: patient Mode of arrival: Ambulatory Limitations: no limitations History of Present Illness HPI narrative: Patient brought in by BLS from [employer] parking lot. Possible intoxication or confusion. Patient denies any drugs or alcohol. No meth use last night. Patient denies any pain chest pain headache numbness tingling or weakness or dyspnea. At this time he states he is just tired. Has been up all night. He is awake alert oriented to self place and event. Denies any recent illness fever chills cough cold congestion or any urinary complaints. Denies any falls or injuries. Patient states he is tired. He has been up all night Related Data Home Medications Medication Instructions Recorded Confirmed melatonin 3 mg PO BEDTIME PRN 01/27/20 07/22/20 Previous Rx's Medication Instructions Recorded famotidine [Pepcid] 20 mg PO BID #30 tab 05/12/20 Eliquis 5 mg PO BID 30 Days #60 tab 07/25/20 atorvastatin [Lipitor] 10 mg PO BEDTIME 30 Days #15 tab 07/25/20 furosemide 40 mg PO DAILY 30 Days #30 tab 07/25/20 lisinopril 20 mg PO DAILY 30 Days #30 tab 07/25/20 metoprolol succinate 50 mg PO DAILY 30 Days #30 tab 07/25/20 potassium chloride [Klor-Con M20] 20 meq PO DAILY 30 Days #30 tab 07/25/20 Allergies Allergy/AdvReac Type Severity Reaction Status Date / Time No Known Drug Allergies Allergy Verified 05/20/20 09:42 Review of Systems Review of Systems Narrative: GENERAL: Denies chills, fatigue, malaise, fever, sweats. HEENT: Denies sinus pain, ear pain, sore throat RESPIRATORY: Denies dyspnea, cough CARDIOVASCULAR: Denies chest pain, palpitations GASTROINTESTINAL: Denies nausea, vomiting, abdominal pain : Denies dysuria, frequency, hematuria MUSCULOSKELETAL: denies muscle or bony pain SKIN: Denies rash, skin lesions NEUROLOGIC: Denies weakness, numbness ROS Unobtainable: All systems reviewed & are unremarkable except as noted in HPI and below Patient History Medical History Abdominal aortic aneurysm Atrial fibrillation, chronic Essential hypertension History of CVA (cerebrovascular accident) Hyperlipidemia Methamphetamine use Substance abuse requiring inpatient treatment Systolic CHF with reduced left ventricular function, NYHA class 2 Surgical History History of appendectomy History of inguinal hernia repair History of tonsillectomy Family History Mother CVA (cerebral vascular accident) Father Leukemia Social History household members: none lives independently: Yes Smoking Status: Never smoker alcohol intake: current substance use type: methamphetamine (Uses daily ) Smoking Status: Never smoker alcohol intake frequency: a few times a week Alcohol type: beer Substance Use Type: former substance user and methamphetamine Exam Narrative Exam Narrative: GENERAL: in no distress, not toxic not dyspneic HEAD: Normocephalic. EYES: Pupils equal round No scleral icterus. No injection no discharge ENT: Mucous membranes moist. NECK: Trachea midline. CARDIOVASCULAR: Regular rate and rhythm without murmurs RESPIRATORY: Clear to auscultation. Breath sounds equal bilaterally. No wheezes, rales, or rhonchi. GASTROINTESTINAL: Abdomen soft, non-tender EXTREMITIES: No gross deformities. BACK: No flank tenderness. NEURO: AOx4. SKIN: Warm and dry PSYCH: Not anxious, is cooperative Initial Vital Signs Initial Vital Signs: Vital Signs Temperature 97.5 F L 07/31/20 06:39 Pulse Rate 76 07/31/20 06:39 Respiratory Rate 18 07/31/20 06:39 Blood Pressure 135/89 07/31/20 06:39 Pulse Oximetry 98 07/31/20 06:39 Course Course Course Narrative: No new issues during course of stay. Patient states he has been up all night and very tired. He does desire discharge home Orders Ordered: ED Orders 07/31/20 07:19 EKG-12 Lead Stat 07/31/20 07:20 CT head/brain wo con Stat 07/31/20 07:55 Complete Blood Count AUTO DIFF Stat Comprehensive Metabolic Panel Stat Ethanol (ETOH) Stat Partial Thromboplastin Time Stat Prothrombin Time INR Stat Troponin & CK Cardiac Panel Stat 07/31/20 08:45 Urinalysis and Microscopic Stat Urine Drug Screen, Rapid Stat Reevaluation(s) Reevaluation #1: Patient is arousable as he has been sleeping during course of stay but awakes easily. At this time trying to find correct phone number for his daughter. To pick him up Time: 09:24 Vital Signs Vital signs: Vital Signs - 8 hr 07/31/20 06:39 07/31/20 07:00 07/31/20 07:35 Temperature 97.5 F L Pulse Rate 69 86 91 H Respiratory Rate 18 Blood Pressure 135/89 Pulse Oximetry 99 93 98 07/31/20 10:12 07/31/20 10:13 07/31/20 10:48 Temperature Pulse Rate 88 82 Respiratory Rate 15 Blood Pressure 159/84 H 152/88 H Pulse Oximetry 99 99 Medical Decision Making Differential Diagnosis Differential Diagnosis: Substance abuse/alcohol intoxication/altered mental status Medical Records Medical records reviewed: Yes I reviewed the patient's medical records. Lab Data Lab results reviewed: Yes I reviewed the patient's lab results. Result diagrams: 07/31/20 07:55 07/31/20 07:55 Labs: Lab Results 07/31/20 07/31/20 07/31/20 Range/Units 07:55 07:55 07:55 WBC 6.7 (4.5-11.0) X10^3/uL RBC 5.01 (4.5-5.9) X10^6/uL Hgb 13.7 (13.5-17.5) g/dL Hct 42.2 (41-53) % MCV 84.2 (80-100) fL MCH 27.3 (26-34) PG MCHC 32.4 (30-36) % RDW 17.1 H (11.6-14.8) % Plt Count 190 (150-400) X10^3/uL Neut % (Auto) 59.9 (50-75) % Lymph % (Auto) 22.8 L (25-40) % Griggs % (Auto) 9.5 (3-14) % Eos % (Auto) 6.8 H (2-4) % Baso % (Auto) 1.0 (0-2) % Neut # (Auto) 4000 (3677-2398) /uL Lymph # (Auto) 1500 (2481-2308) /uL Griggs # (Auto) 600 (0-900) /uL Eos # (Auto) 500 H (0-450) /uL Baso # (Auto) 100 (0-100) /uL PT 13.1 H (10.1-12.7) SECONDS INR 1.1 (0.9-1.3) APTT 35 (26.4-36.2) SECONDS Sodium (137-145) mmol/L Potassium (3.4-5.1) mmol/L Chloride (98-107) mmol/L Carbon Dioxide (22-32) mmol/L BUN (9-20) mg/dL Creatinine (0.66-1.25) mg/dL Estimated GFR (>60) mL/min BUN/Creatinine Ratio (6-22) Glucose (80-110) mg/dL Calcium (8.4-10.2) mg/dL Total Bilirubin (0.2-1.3) mg/dL AST (17-59) IU/L ALT (<50) IU/L Alkaline Phosphatase (38-126) U/L Total Creatine Kinase 99 (55-170) U/L CK-MB (CK-2) TNP CK-MB (CK-2) Rel Index TNP Troponin I < 0.012 (0.01-0.034) ng/mL Total Protein (6.3-8.2) g/dL Albumin (3.5-5.0) g/dL Globulin (1.7-4.1) g/dL Albumin/Globulin Ratio (1.0-2.8) Urine Color Urine Appearance Urine pH (4.5-8.0) Ur Specific Rice (1.000-1.035) Urine Protein (Negative) Urine Glucose (UA) (Negative) g/dL Urine Ketones (NEGATIVE) Urine Occult Blood (Negative) Urine Nitrate (Negative) Urine Bilirubin (NEGATIVE) Urine Urobilinogen (0.2) E.U./dL Ur Leukocyte Esterase (NEGATIVE) Urine RBC (0-5/HPF) Urine WBC (0-5/HPF) Urine Bacteria (None) Ur Culture Indicated? U Opiates 300ng/mL cut (Negative) Ur Oxycodone Screen (Negative) Urine Methadone Screen (Negative) Ur Barbiturates Screen (Negative) U Tricyclic Antidepress (Negative) Ur Phencyclidine Scrn (Negative) Ur Amphetamines Screen (Negative) U Methamphetamines Scrn (Negative) Ur MDMA Scrn (Ecstasy) (Negative) U Benzodiazepines Scrn (Negative) Urine Cocaine Screen (Negative) U Marijuana (THC) Screen (Negative) Ethyl Alcohol ( - 10) mg/dL 07/31/20 07/31/20 07/31/20 Range/Units 07:55 08:45 08:45 WBC (4.5-11.0) X10^3/uL RBC (4.5-5.9) X10^6/uL Hgb (13.5-17.5) g/dL Hct (41-53) % MCV (80-100) fL MCH (26-34) PG MCHC (30-36) % RDW (11.6-14.8) % Plt Count (150-400) X10^3/uL Neut % (Auto) (50-75) % Lymph % (Auto) (25-40) % Griggs % (Auto) (3-14) % Eos % (Auto) (2-4) % Baso % (Auto) (0-2) % Neut # (Auto) (1891-7875) /uL Lymph # (Auto) (1182-3518) /uL Griggs # (Auto) (0-900) /uL Eos # (Auto) (0-450) /uL Baso # (Auto) (0-100) /uL PT (10.1-12.7) SECONDS INR (0.9-1.3) APTT (26.4-36.2) SECONDS Sodium 139 (137-145) mmol/L Potassium 3.7 (3.4-5.1) mmol/L Chloride 103 (98-107) mmol/L Carbon Dioxide 30 (22-32) mmol/L BUN 15 (9-20) mg/dL Creatinine 0.69 (0.66-1.25) mg/dL Estimated GFR > 60.0 (>60) mL/min BUN/Creatinine Ratio 21.7 (6-22) Glucose 104 (80-110) mg/dL Calcium 9.3 (8.4-10.2) mg/dL Total Bilirubin 0.9 (0.2-1.3) mg/dL AST 43 (17-59) IU/L ALT 19 (<50) IU/L Alkaline Phosphatase 111 (38-126) U/L Total Creatine Kinase (55-170) U/L CK-MB (CK-2) CK-MB (CK-2) Rel Index Troponin I (0.01-0.034) ng/mL Total Protein 7.7 (6.3-8.2) g/dL Albumin 3.9 (3.5-5.0) g/dL Globulin 3.8 (1.7-4.1) g/dL Albumin/Globulin Ratio 1.0 (1.0-2.8) Urine Color Yellow Urine Appearance Clear Urine pH 6.5 (4.5-8.0) Ur Specific Rice 1.025 (1.000-1.035) Urine Protein Negative (Negative) Urine Glucose (UA) Negative (Negative) g/dL Urine Ketones Negative (NEGATIVE) Urine Occult Blood Trace-intact (Negative) Urine Nitrate Negative (Negative) Urine Bilirubin Negative (NEGATIVE) Urine Urobilinogen 0.2 (0.2) E.U./dL Ur Leukocyte Esterase Negative (NEGATIVE) Urine RBC 0-1/hpf (0-5/HPF) Urine WBC None seen (0-5/HPF) Urine Bacteria None seen (None) Ur Culture Indicated? Cult not indicated U Opiates 300ng/mL cut Negative (Negative) Ur Oxycodone Screen Negative (Negative) Urine Methadone Screen Negative (Negative) Ur Barbiturates Screen Negative (Negative) U Tricyclic Antidepress Negative (Negative) Ur Phencyclidine Scrn Negative (Negative) Ur Amphetamines Screen Negative (Negative) U Methamphetamines Scrn Positive H (Negative) Ur MDMA Scrn (Ecstasy) Negative (Negative) U Benzodiazepines Scrn Negative (Negative) Urine Cocaine Screen Negative (Negative) U Marijuana (THC) Screen Negative (Negative) Ethyl Alcohol < 10 ( - 10) mg/dL Imaging Data CT scan - head: Radiologist's Impression: [address] [id number] Scan ReportSigned Patient: Jayden Rodriguez [facility]#: [id number]: 9Acct:[id number]/Sex: 69 / MDate of Service: 07/31/20Loc: EDAccession Number: [id number] Procedure: CT head/brain wo con Ordering Provider: Jorge Hampton MD PROCEDURE: CT HEAD/BRAIN WO CON INDICATIONS: Altered mental status TECHNIQUE: Noncontrast 4.5 mm thick angled axial sections acquired from the foramen magnum to the vertex, with coronal and sagittal reformats. For radiation dose reduction, the following was used: automated exposure control, adjustment of mA and/or kV according to patient size. COMPARISON: [facility], MR, MR BRAIN WITHOUT CONTRAST, 09/21/2019, 14:50. [facility], MR, MR STROKE, 01/27/2020, 14:48. [facility], CT, CT HEAD/BRAIN WO CON, 01/26/2020, 20:48. [facility], CT, CT HEAD/BRAIN WO CON, 04/11/2020, 17:04. [facility], CT, CT HEAD/BRAIN WO CON, 05/20/2020, 9:30. FINDINGS: Image quality: Excellent. CSF spaces: Basal cisterns are patent. No extra-axial fluid collections. The ventricles are symmetric in size and shape. Brain: No intracranial bleeds or masses. There is cerebral volume loss for age, with resultant ventricular and sulcal prominence. There are periventricular and deep white matter chronic small vessel ischemic changes. A stable right frontal lobe infarction is again seen. A remote appearing left thalamus infarction can also be seen. There is intracranial internal carotid artery atherosclerosis. Skull and face: Calvarium and visualized facial bones appear intact, without suspicious lesions. Torus tubarius incidentally noted. Sinuses: Visualized sinuses and mastoids are clear. IMPRESSION: No renay, acute intracranial abnormality is detected. Scattered remote infarctions are seen. If there is strong clinical suspicion for an acute stroke, please consider an MRI for further evaluation, as it is more sensitive (assuming that there is no contraindication to MRI). Dictated by: Jj Paz M.D. on 07/31/2020 at 7:02 Approved by: Jj Paz M.D. on 07/31/2020 at 7:04 ECG Data Attestation: I personally reviewed and interpreted this ECG as follows: Interpretation: Atrial fibrillation with competing junctional pacemaker. Rate 84. No ST elevation depression. History of atrial fibrillation. MDM Narrative Medical decision making narrative: Appropriate for discharge home. Laboratory studies reviewed. No acute findings. Patient has no complaints other being tired and wanting to sleep because he has been up all night. Patient is awake alert oriented x4. In no distress. Patient able [place] Patient [place] home. Discharge Plan Departure Patient Disposition: Home Clinical Impression: Methamphetamine abuse Instructions: Methamphetamine Activity Restrictions/Additional Instructions: Do not do drugs. See family doctor this week for recheck. Return if worse if any questions or concerns. Prescriptions: No Action melatonin 3 mg Tablet 3 mg PO BEDTIME PRN (Reason: insomnia) RF: 0 famotidine [Pepcid] 40 mg tablet 20 mg PO BID Qty: 30 RF: 0 potassium chloride [Klor-Con M20] 20 mEq Tablet,Er Particles/Crystals 20 meq PO DAILY 30 Days Qty: 30 RF: 0 furosemide 40 mg tablet 40 mg PO DAILY 30 Days Qty: 30 RF: 0 atorvastatin [Lipitor] 20 mg Tablet 10 mg PO BEDTIME 30 Days Qty: 15 RF: 0 metoprolol succinate 50 mg tablet extended release 24 hr 50 mg PO DAILY 30 Days Qty: 30 RF: 0 lisinopril 20 mg tablet 20 mg PO DAILY 30 Days Qty: 30 RF: 0 Eliquis 5 mg Tablet 5 mg PO BID 30 Days Qty: 60 RF: 0 Referrals: Junior Gonzales DO [Primary Care Provider] -
--- NOTE | 2020-07-31 07:20 | DI.CT.S_ITS ---
PROCEDURE: CT HEAD/BRAIN WO CON INDICATIONS: Altered mental status TECHNIQUE: Noncontrast 4.5 mm thick angled axial sections acquired from the foramen magnum to the vertex, with coronal and sagittal reformats. For radiation dose reduction, the following was used: automated exposure control, adjustment of mA and/or kV according to patient size. COMPARISON: [facility], MR, MR BRAIN WITHOUT CONTRAST, 09/21/2019, 14:50. [facility], MR, MR STROKE, 01/27/2020, 14:48. [facility], CT, CT HEAD/BRAIN WO CON, 01/26/2020, 20:48. [facility], CT, CT HEAD/BRAIN WO CON, 04/11/2020, 17:04. [facility], CT, CT HEAD/BRAIN WO CON, 05/20/2020, 9:30. FINDINGS: Image quality: Excellent. CSF spaces: Basal cisterns are patent. No extra-axial fluid collections. The ventricles are symmetric in size and shape. Brain: No intracranial bleeds or masses. There is cerebral volume loss for age, with resultant ventricular and sulcal prominence. There are periventricular and deep white matter chronic small vessel ischemic changes. A stable right frontal lobe infarction is again seen. A remote appearing left thalamus infarction can also be seen. There is intracranial internal carotid artery atherosclerosis. Skull and face: Calvarium and visualized facial bones appear intact, without suspicious lesions. Torus tubarius incidentally noted. Sinuses: Visualized sinuses and mastoids are clear. IMPRESSION: No renay, acute intracranial abnormality is detected. Scattered remote infarctions are seen. If there is strong clinical suspicion for an acute stroke, please consider an MRI for further evaluation, as it is more sensitive (assuming that there is no contraindication to MRI). Dictated by: Jj Paz M.D. on 07/31/2020 at 7:02 Approved by: Jj Paz M.D. on 07/31/2020 at 7:04
[2020-07-31 07:35] VITALS: PULSE 91; O2SAT 98
[2020-07-31 08:40] LABS: Add Manual Diff / Slide Review NO; Basophils Absolute Auto 100 /uL (0-100); Eosinophils Absolute Auto 500 /uL (0-450); Eosinophils Percent Auto 6.8 % (2-4); Hematocrit 42.2 % (41-53); Hemoglobin 13.7 g/dL (13.5-17.5); Lymphocytes Absolute Auto 1500 /uL (1100-4500); Lymphocytes Percent Auto 22.8 % (25-40); Mean Corpuscular HGB Conc 32.4 % (30-36); Mean Corpuscular Hemoglobin 27.3 PG (26-34); Mean Corpuscular Volume 84.2 fL (80-100); Monocytes Absolute Auto 600 /uL (0-900); Monocytes Percent Auto 9.5 % (3-14); Neutrophils Absolute Auto 4000 /uL (1500-7000); Neutrophils Percent Auto 59.9 % (50-75); Platelet Count 190 X10^3/uL (150-400); Red Blood Cell Count 5.01 X10^6/uL (4.5-5.9); Red Cell Distribution Width 17.1 % (11.6-14.8); White Blood Cell Count 6.7 X10^3/uL (4.5-11.0)
[2020-07-31 08:52] LABS: Appearance Urine UA CLEAR; Bacteria Urine None Seen; Bilirubin Urine UA NEGATIVE (NEGATIVE); Color Urine UA YELLOW; Glucose Urine UA NEGATIVE (Negative); Ketones Urine UA NEGATIVE (NEGATIVE); Leukocyte Esterase Urine UA NEGATIVE (NEGATIVE); Nitrite Urine UA NEGATIVE (Negative); Occult Blood Urine UA TRACE-INTACT (Negative); Protein Urine UA NEGATIVE (Negative); Specific Gravity Urine UA 1.025 (1.000-1.035); Urobilinogen Urine UA 0.2 E.U./dL (0.2); WBC Urine None Seen (0-5/HPF); pH Urine UA 6.5 (4.5-8.0)
[2020-07-31 08:52] LABS: INR 1.1 (0.9-1.3); Prothrombin Time 13.1 SECONDS (10.1-12.7)
[2020-07-31 08:54] LABS: Creatine Kinase 99 U/L (55-170)
[2020-07-31 08:55] LABS: PTT Partial Thromboplastin Tim 35 SECONDS (26.4-36.2)
[2020-07-31 08:56] LABS: Alanine Aminotransferase 19 IU/L (<50); Albumin 3.9 g/dL (3.5-5.0); Alkaline Phosphatase 111 U/L (38-126); Aspartate Aminotransferase 43 IU/L (17-59); BUN Creatinine Ratio 21.7 (6-22); Bilirubin Total 0.9 mg/dL (0.2-1.3); Blood Urea Nitrogen 15 mg/dL (9-20); Calcium 9.3 mg/dL (8.4-10.2); Carbon Dioxide 30 mmol/L (22-32); Chloride 103 mmol/L (98-107); Estimated Glomerular Filt Rate > 60.0 mL/min (>60); Ethanol (ETOH) < 10 mg/dL; Globulin 3.8 g/dL (1.7-4.1); Glucose 104 mg/dL (80-110); HEMOLYSIS 45 (0-50); Potassium 3.7 mmol/L (3.4-5.1); Sodium 139 mmol/L (137-145); Total Protein 7.7 g/dL (6.3-8.2)
[2020-07-31 09:02] LABS: UR Morphine/Opiate cutoff 300 Negative (Negative); Ur Creatinine Normal (Normal); Ur Specific Gravity Normal (Normal); Urine Amphetamines Negative (Negative); Urine Cocaine Negative (Negative); Urine Tetrahydrocannabinol Negative (Negative); Urine pH Normal (Normal)
[2020-07-31 09:03] LABS: Urine Barbiturates Negative (Negative); Urine Benzodiazepines Negative (Negative); Urine MDMA Negative (Negative); Urine Methadone Negative (Negative); Urine Methamphetamines Positive (Negative); Urine Oxycodone Negative (Negative); Urine Phencyclidine Negative (Negative); Urine Tricyclic Antidepressant Negative (Negative)
[2020-07-31 09:07] LABS: Troponin I < 0.012 ng/mL (0.01-0.034)
[2020-07-31 09:59] LABS: Culture Indicated Urine Cult Not Indicated; RBC Urine 0-1/HPF (0-5/HPF)
[2020-07-31 10:12] VITALS: PULSE 88; O2SAT 99
[2020-07-31 10:13] VITALS: BP 159/84
--- NOTE | 2020-07-31 10:27 | PC.NURSE ---
Fidel Goldstein , patients friend with airplane that comes and gets him. Fidel states he will be here in an hour or so.
[2020-07-31 10:48] VITALS: BP 152/88; PULSE 82; RESP 15; O2SAT 99
== END 2020-07-31 10:51 | disposition home or self-care (01) ==
PROVIDERS: Emergency Provider Emergency Medicine; PCP Family Medicine
DX: F15.10 Other stimulant abuse, uncomplicated (principal); R41.82 Altered mental status, unspecified
CPT/HCPCS: 36415; 70450; 80053; 80305; 80320; 81001; 82550; 84484; 85025; 85610; 85730; 93005; 93010; 99283; 99284

== ENCOUNTER 2020-11-01 23:44 | Emergency (ER) | payer MEDICARE, MEDICAID, SELFPAY ==
[2020-07-22 16:49] VITALS: BMI 31.4
[2020-11-01 23:59] VITALS: BP 159/80; PULSE 71; RESP 18; TEMP 36.4; O2SAT 97; BMI 28.0
[2020-11-02] VITALS (18 sets, daily range): BP systolic 133–184; BP diastolic 68–105; PULSE 64–75; RESP 13–25; TEMP 36.6; O2SAT 93–99
--- NOTE | 2020-11-02 01:44 | PC.NURSE ---
Patient appears sleepy and confused; does not know exactly why he is here, but does remember that he thought he had some shortness of breath earlier; it appears resolved now.
--- NOTE | 2020-11-02 02:20 | ED_ITS ---
HPI - Altered Mental Status General Chief Complaint: Shortness of Breath/Dyspnea Stated Complaint: states fever, chills,nausea feet swollen Time Seen by Provider: 11/01/20 23:49 Source: patient Mode of arrival: Ambulatory Limitations: no limitations History of Present Illness HPI narrative: 70-year-old male nonsmoker with history of atrial fibrillation on Eliquis, prior stroke, hyperlipidemia, hypertension presents with very minimal complaints, largely stating that he had missed his opportunity to catch the last very of the night. He is a poor historian and denies much in the way of symptoms. He states he has a very heavy sleeper, has been taking his medications as directed denies any recent illness. He has had no falls or trauma. He denies any new medications or changes and chronic medications. He denies any change in his diet. He has had no chest pain or shortness of breath and denies nausea, vomiting or diarrhea. Related Data Home Medications Medication Instructions Recorded Confirmed melatonin 3 mg tablet 3 mg PO BEDTIME PRN 01/27/20 07/22/20 Previous Rx's Medication Instructions Recorded famotidine 40 mg tablet (Pepcid) 20 mg PO BID #30 tab 05/12/20 apixaban 5 mg tablet (Eliquis) 5 mg PO BID 30 Days #60 tab 07/25/20 atorvastatin 20 mg tablet (Lipitor) 10 mg PO BEDTIME 30 Days #15 tab 07/25/20 furosemide 40 mg tablet 40 mg PO DAILY 30 Days #30 tab 07/25/20 lisinopril 20 mg tablet 20 mg PO DAILY 30 Days #30 tab 07/25/20 metoprolol succinate 50 mg 50 mg PO DAILY 30 Days #30 tab 07/25/20 tablet,extended release 24 hr Allergies Allergy/AdvReac Type Severity Reaction Status Date / Time No Known Drug Allergies Allergy Verified 05/20/20 09:42 Review of Systems Review of Systems Narrative: GENERAL: Denies chills, fatigue, malaise, fever, sweats. HEENT: Denies sinus pain, ear pain, sore throat, difficulty swallowing, dizziness. RESPIRATORY: Denies dyspnea, cough, wheezing, hemoptysis, sputum. CARDIOVASCULAR: Denies chest pain, palpitations, orthopnea, edema, GASTROINTESTINAL: Denies nausea, vomiting, abdominal pain, diarrhea, const ipation, melena. : Denies dysuria, frequency, incontinence, hematuria, urinary retention. MUSCULOSKELETAL: denies weakness, joint pain, or bony pain SKIN: Denies rash, skin lesions, or other NEUROLOGIC: Denies weakness, headache, numbness, change in speech, confusion, seizures, incoordination. PSYCHIATRIC: No concerning psychosocial issues. 12 point review of systems is negative except for those stated above Patient History Medical History Abdominal aortic aneurysm Atrial fibrillation, chronic Essential hypertension History of CVA (cerebrovascular accident) Hyperlipidemia Methamphetamine use Substance abuse requiring inpatient treatment Systolic CHF with reduced left ventricular function, NYHA class 2 Surgical History History of appendectomy History of inguinal hernia repair History of tonsillectomy Family History Mother CVA (cerebral vascular accident) Father Leukemia Social History household members: none lives independently: Yes Smoking Status: Never smoker alcohol intake: current substance use type: methamphetamine (Uses daily ) Smoking Status: Never smoker alcohol intake frequency: a few times a week Alcohol type: beer Substance Use Type: methamphetamine Exam Narrative Exam Narrative: GENERAL: [70] year old patient appears stated age. Well- developed patient, in mild distress. Pleasantly confused, poor historian, resting comfortably frequently falling asleep in the middle of conversation HEAD: Atraumatic. Normocephalic. EYES: Pupils equal round and reactive. Extraocular motions intact. No scleral icterus. No injection or drainage. ENT: Nose without bleeding, purulent drainage. Throat without erythema, tonsillar hypertrophy or exudate. Airway patent. NECK: Trachea midline. Non tender CARDIOVASCULAR: Regular rate and rhythm without murmurs, gallops, or rubs. RESPIRATORY: Clear to auscultation. Breath sounds equal bilaterally. No wheezes, rales, or rhonchi. GASTROINTESTINAL: Abdomen soft, non-tender, nondistended. EXTREMITIES: No edema or joint tenderness. BACK: Nontender without deformity or crepitance. No flank tenderness. NEURO: AOx3. SKIN: No rash or erythema of visible areas Initial Vital Signs Initial Vital Signs: Vital Signs Temperature 97.6 F 11/01/20 23:59 Pulse Rate 71 11/01/20 23:59 Respiratory Rate 18 11/01/20 23:59 Blood Pressure 159/80 H 11/01/20 23:59 Pulse Oximetry 97 11/01/20 23:59 Course Orders Ordered: ED Orders 11/02/20 02:20 CT head/brain wo con Stat EKG-12 Lead Stat 11/02/20 02:30 Complete Blood Count AUTO DIFF Stat Comprehensive Metabolic Panel Stat Ethanol (ETOH) Stat Lactate (Lactic Acid) Stat Magnesium Stat NT-proBNP (BNP-Adult 18+) Stat Salicylate Stat Troponin & CK Cardiac Panel Stat 11/02/20 03:55 Urine Drug Screen, Rapid Stat POTASSIUM CHLORIDE IN WATER (Potassium Cl 10 Meq/100 Ml Leann) 10 meq in 100 mls @ 100 mls/hr IV Q1H CONG Stop: 11/02/20 07:14 Last Admin: 11/02/20 05:43 Dose: 100 mls/hr Documented by: Infusion: 11/02/20 05:41 Dose: 100 mls/hr Documented by: Admin: 11/02/20 04:41 Dose: 100 mls/hr Documented by: Infusion: 11/02/20 04:09 Dose: 100 mls/hr Documented by: Admin: 11/02/20 03:09 Dose: 100 mls/hr Documented by: EUN Discontinued Medications Sodium Chloride (Normal Saline 0.9%) 1,000 mls @ 1,000 mls/hr IV BOLUS ONE Stop: 11/02/20 03:19 Last Infusion: 11/02/20 04:12 Dose: 0 mls/hr Documented by: Admin: 11/02/20 02:49 Dose: 1,000 mls/hr Documented by: EUN Vital Signs Vital signs: Vital Signs - 8 hr 11/01/20 23:59 11/02/20 01:58 11/02/20 02:00 Temperature 97.6 F Pulse Rate 71 68 67 Respiratory Rate 18 Blood Pressure 159/80 H Pulse Oximetry 97 98 97 11/02/20 02:01 11/02/20 02:36 11/02/20 02:37 Temperature Pulse Rate 64 72 72 Respiratory Rate Blood Pressure 133/68 162/95 H Pulse Oximetry 97 97 99 11/02/20 03:00 11/02/20 03:30 11/02/20 03:31 Temperature Pulse Rate 71 68 68 Respiratory Rate 15 21 19 Blood Pressure 173/83 H 161/75 H Pulse Oximetry 96 98 11/02/20 04:00 11/02/20 04:30 11/02/20 04:31 Temperature Pulse Rate 75 68 72 Respiratory Rate 24 25 H 24 Blood Pressure 174/94 H 169/105 H Pulse Oximetry 11/02/20 05:00 11/02/20 05:01 Temperature Pulse Rate 71 71 Respiratory Rate 13 17 Blood Pressure 168/79 H Pulse Oximetry MDM - Altered Mental Status Lab Data Result diagrams: 11/02/20 02:30 11/02/20 02:30 Labs: Lab Results 11/02/20 11/02/20 11/02/20 Range/Units 02:30 02:30 02:30 WBC 5.0 (4.5-11.0) X10^3/uL RBC 4.91 (4.5-5.9) X10^6/uL Hgb 13.7 (13.5-17.5) g/dL Hct 41.9 (41-53) % MCV 85.5 (80-100) fL MCH 28.0 (26-34) PG MCHC 32.7 (30-36) % RDW 17.8 H (11.6-14.8) % Plt Count 179 (150-400) X10^3/uL Neut % (Auto) 58.1 (50-75) % Lymph % (Auto) 23.5 L (25-40) % [place] % (Auto) 12.9 (3-14) % Eos % (Auto) 4.4 H (2-4) % Baso % (Auto) 1.1 (0-2) % Neut # (Auto) 2900 (6237-4854) /uL Lymph # (Auto) 1200 (3949-5638) /uL [place] # (Auto) 700 (0-900) /uL Eos # (Auto) 200 (0-450) /uL Baso # (Auto) 100 (0-100) /uL Sodium (137-145) mmol/L Potassium (3.4-5.1) mmol/L Chloride (98-107) mmol/L Carbon Dioxide (22-32) mmol/L BUN (9-20) mg/dL Creatinine (0.66-1.25) mg/dL Estimated GFR (>60) mL/min BUN/Creatinine Ratio (6-22) Glucose (80-110) mg/dL Lactate 1.1 (0.7-2.1) mmol/L Calcium (8.4-10.2) mg/dL Magnesium 2.1 (1.6-2.3) mg/dL Total Bilirubin (0.2-1.3) mg/dL AST (17-59) IU/L ALT (<50) IU/L Alkaline Phosphatase (38-126) U/L Total Creatine Kinase 66 (55-170) U/L CK-MB (CK-2) TNP CK-MB (CK-2) Rel Index TNP Troponin I < 0.012 (0.01-0.034) ng/mL NT-Pro-B Natriuret Pep 1180 H (<125) pg/mL Total Protein (6.3-8.2) g/dL Albumin (3.5-5.0) g/dL Globulin (1.7-4.1) g/dL Albumin/Globulin Ratio (1.0-2.8) Salicylates < 1.0 (<20) mg/dL U Opiates 300ng/mL cut (Negative) Ur Oxycodone Screen (Negative) Urine Methadone Screen (Negative) Ur Barbiturates Screen (Negative) U Tricyclic Antidepress (Negative) Ur Phencyclidine Scrn (Negative) Ur Amphetamines Screen (Negative) U Methamphetamines Scrn (Negative) Ur MDMA Scrn (Ecstasy) (Negative) U Benzodiazepines Scrn (Negative) Urine Cocaine Screen (Negative) U Marijuana (THC) Screen (Negative) Ethyl Alcohol < 10 ( - 10) mg/dL 11/02/20 11/02/20 Range/Units 02:30 03:55 WBC (4.5-11.0) X10^3/uL RBC (4.5-5.9) X10^6/uL Hgb (13.5-17.5) g/dL Hct (41-53) % MCV (80-100) fL MCH (26-34) PG MCHC (30-36) % RDW (11.6-14.8) % Plt Count (150-400) X10^3/uL Neut % (Auto) (50-75) % Lymph % (Auto) (25-40) % [place] % (Auto) (3-14) % Eos % (Auto) (2-4) % Baso % (Auto) (0-2) % Neut # (Auto) (9788-4876) /uL Lymph # (Auto) (9698-4365) /uL [place] # (Auto) (0-900) /uL Eos # (Auto) (0-450) /uL Baso # (Auto) (0-100) /uL Sodium 140 (137-145) mmol/L Potassium 3.2 L (3.4-5.1) mmol/L Chloride 103 (98-107) mmol/L Carbon Dioxide 32 (22-32) mmol/L BUN 17 (9-20) mg/dL Creatinine 0.74 (0.66-1.25) mg/dL Estimated GFR > 60.0 (>60) mL/min BUN/Creatinine Ratio 23.0 H (6-22) Glucose 114 H (80-110) mg/dL Lactate (0.7-2.1) mmol/L Calcium 9.3 (8.4-10.2) mg/dL Magnesium (1.6-2.3) mg/dL Total Bilirubin 0.7 (0.2-1.3) mg/dL AST 29 (17-59) IU/L ALT 22 (<50) IU/L Alkaline Phosphatase 87 (38-126) U/L Total Creatine Kinase (55-170) U/L CK-MB (CK-2) CK-MB (CK-2) Rel Index Troponin I (0.01-0.034) ng/mL NT-Pro-B Natriuret Pep (<125) pg/mL Total Protein 6.7 (6.3-8.2) g/dL Albumin 3.7 (3.5-5.0) g/dL Globulin 3.0 (1.7-4.1) g/dL Albumin/Globulin Ratio 1.2 (1.0-2.8) Salicylates (<20) mg/dL U Opiates 300ng/mL cut Negative (Negative) Ur Oxycodone Screen Negative (Negative) Urine Methadone Screen Negative (Negative) Ur Barbiturates Screen Negative (Negative) U Tricyclic Antidepress Negative (Negative) Ur Phencyclidine Scrn Negative (Negative) Ur Amphetamines Screen Positive H (Negative) U Methamphetamines Scrn Positive H (Negative) Ur MDMA Scrn (Ecstasy) Negative (Negative) U Benzodiazepines Scrn Negative (Negative) Urine Cocaine Screen Negative (Negative) U Marijuana (THC) Screen Negative (Negative) Ethyl Alcohol ( - 10) mg/dL Urine Dip Bedside Urine Glucose Negative Bedside Urine Bilirubin - Negative Bedside Urine Ketone - Negative Urine Specific [place] 1.020 Bedside Urine Occult Blood - Negative Bedside Urine pH 6.5 Bedside Urine Protein - Negative Bedside Urine Urobilinogen - Negative Bedside Urine Nitrite - Negative Bedside Urine Leukocytes - Negative Esterase Discharge Plan Departure Patient Disposition: Home Clinical Impression: Acute hypokalemia Activity Restrictions/Additional Instructions: *You have been diagnosed with [ Hypokalemia] *What to do: *Please continue to take your regular medications as directed. [ ] New medication prescriptions sent to your pharmacy: [ ] [ ] New medication written as a paper prescription [ x] No new medications given *Please follow up with your primary care provider in 2-3 days, call for an appointment. Let them know you were seen in the Emergency Department and that we ask that you be seen in follow up. We will electronically transmit a record of today's note if your PCP is in our system *If you do not have a primary care provider please contact the [facility] Resource line at [phone]. They will ask some questions about your medical history and help get you set up with a doctor in the community. *Return to Emergency Department if you should have any new, worsening or concerning symptoms, such as [fever greater than 101 F, shaking chills, worsening pain, persistent vomiting or other bothersome symptoms] Prescriptions: No Action melatonin 3 mg Tablet 3 mg PO BEDTIME PRN (Reason: insomnia) RF: 0 famotidine [Pepcid] 40 mg tablet 20 mg PO BID Qty: 30 RF: 0 furosemide 40 mg tablet 40 mg PO DAILY 30 Days Qty: 30 RF: 0 atorvastatin [Lipitor] 20 mg Tablet 10 mg PO BEDTIME 30 Days Qty: 15 RF: 0 metoprolol succinate 50 mg tablet extended release 24 hr 50 mg PO DAILY 30 Days Qty: 30 RF: 0 lisinopril 20 mg tablet 20 mg PO DAILY 30 Days Qty: 30 RF: 0 Eliquis 5 mg Tablet 5 mg PO BID 30 Days Qty: 60 RF: 0 Referrals: Junior Gonzales DO [Primary Care Provider] -
--- NOTE | 2020-11-02 02:20 | DI.CT.S_ITS ---
PROCEDURE: CT HEAD/BRAIN WO CON INDICATIONS: altered TECHNIQUE: Noncontrast 4.5 mm thick angled axial sections acquired from the foramen magnum to the vertex, with coronal and sagittal reformats. For radiation dose reduction, the following was used: automated exposure control, adjustment of mA and/or kV according to patient size. COMPARISON: [facility], CT, CT HEAD/BRAIN WO CON, 07/31/2020, 7:46. FINDINGS: Image quality: Excellent. CSF spaces: Basal cisterns are patent. No extra-axial fluid collections. The ventricles are symmetric in size and shape. Brain: No intracranial bleeds or masses. There is cerebral volume loss for age, with resultant ventricular and sulcal prominence. There are periventricular and deep white matter chronic small vessel ischemic changes. Old left thalamic lacunar infarction. There is intracranial internal carotid artery atherosclerosis. Skull and face: Calvarium and visualized facial bones appear intact, without suspicious lesions. There is an incidental prominent exophytic osteoma off the roof of the mouth. Sinuses: Visualized sinuses and mastoids are clear. IMPRESSION: 1. Age-related volume loss and small vessel ischemic change, old left lacunar infarction. 2. No evidence of acute stroke, hemorrhage, or mass. Comment: Final report is concordant with preliminary interpretation provided by [facility]. Dictated by: Luis Carlos Deluna M.D. on 11/02/2020 at 8:05 Approved by: Luis Carlos Deluna M.D. on 11/02/2020 at 8:08
[2020-11-02 02:45] LABS: Add Manual Diff / Slide Review NO; Basophils Absolute Auto 100 /uL (0-100); Basophils Percent Auto 1.1 % (0-2); Eosinophils Absolute Auto 200 /uL (0-450); Eosinophils Percent Auto 4.4 % (2-4); Hematocrit 41.9 % (41-53); Hemoglobin 13.7 g/dL (13.5-17.5); Lymphocytes Absolute Auto 1200 /uL (1100-4500); Lymphocytes Percent Auto 23.5 % (25-40); Mean Corpuscular HGB Conc 32.7 % (30-36); Mean Corpuscular Volume 85.5 fL (80-100); Monocytes Absolute Auto 700 /uL (0-900); Monocytes Percent Auto 12.9 % (3-14); Neutrophils Absolute Auto 2900 /uL (1500-7000); Neutrophils Percent Auto 58.1 % (50-75); Platelet Count 179 X10^3/uL (150-400); Red Blood Cell Count 4.91 X10^6/uL (4.5-5.9); Red Cell Distribution Width 17.8 % (11.6-14.8)
[2020-11-02 02:48] LABS: Lactate (Lactic Acid) 1.1 mmol/L (0.7-2.1)
[2020-11-02 02:49] LABS: Alanine Aminotransferase 22 IU/L (<50); Albumin 3.7 g/dL (3.5-5.0); Albumin Globulin Ratio 1.2 (1.0-2.8); Alkaline Phosphatase 87 U/L (38-126); Aspartate Aminotransferase 29 IU/L (17-59); Bilirubin Total 0.7 mg/dL (0.2-1.3); Blood Urea Nitrogen 17 mg/dL (9-20); Calcium 9.3 mg/dL (8.4-10.2); Carbon Dioxide 32 mmol/L (22-32); Chloride 103 mmol/L (98-107); Creatine Kinase 66 U/L (55-170); Estimated Glomerular Filt Rate > 60.0 mL/min (>60); Ethanol (ETOH) < 10 mg/dL; Glucose 114 mg/dL (80-110); HEMOLYSIS < 15 (0-50); Magnesium 2.1 mg/dL (1.6-2.3); Potassium 3.2 mmol/L (3.4-5.1); Salicylate < 1.0 mg/dL (<20); Sodium 140 mmol/L (137-145); Total Protein 6.7 g/dL (6.3-8.2)
[2020-11-02] MEDS: SODIUM CHLORIDE 0.9% 1,000 ML 1000 ML IV (02:49)
[2020-11-02 03:01] LABS: NT-proBNP (BNP-Adult 18+) 1180 pg/mL (<125); Troponin I < 0.012 ng/mL (0.01-0.034)
[2020-11-02] MEDS: POTASSIUM CHLORIDE IN WATER 10 MEQ/100 ML PIGGYBACK 100 MEQ IV ×3 (03:09→05:43)
[2020-11-02 04:05] LABS: UR Morphine/Opiate cutoff 300 Negative (Negative); Ur Creatinine Normal (Normal); Ur Specific Gravity Normal (Normal); Urine Amphetamines Positive (Negative); Urine Barbiturates Negative (Negative); Urine Benzodiazepines Negative (Negative); Urine Cocaine Negative (Negative); Urine MDMA Negative (Negative); Urine Methadone Negative (Negative); Urine Methamphetamines Positive (Negative); Urine Oxycodone Negative (Negative); Urine Phencyclidine Negative (Negative); Urine Tetrahydrocannabinol Negative (Negative); Urine Tricyclic Antidepressant Negative (Negative); Urine pH Normal (Normal)
== END 2020-11-02 06:52 | disposition home or self-care (01) ==
PROVIDERS: Emergency Provider Emergency Medicine; PCP Family Medicine
DX: E87.6 Hypokalemia (principal); R41.82 Altered mental status, unspecified
CPT/HCPCS: 36415; 70450; 80053; 80305; 80320; 80329; 81003; 82550; 83605; 83735; 83880; 84484; 85025; 93005; 93010; 96360; 99284; G0480

== ENCOUNTER → 2021-03-14 12:19 | Outpatient (CLI) | payer MEDICARE, MEDICAID, SELFPAY ==
[2020-07-22 16:49] VITALS: BMI 31.4
[2021-03-14 13:31] LABS: Alanine Aminotransferase 21 IU/L (<50); Albumin Globulin Ratio 1.5 (1.0-2.8); Alkaline Phosphatase 78 U/L (38-126); Aspartate Aminotransferase 32 IU/L (17-59); BUN Creatinine Ratio 19.6 (6-22); Bilirubin Total 0.7 mg/dL (0.2-1.3); Blood Urea Nitrogen 20 mg/dL (9-20); Calcium 9.4 mg/dL (8.4-10.2); Carbon Dioxide 32 mmol/L (22-32); Chloride 98 mmol/L (98-107); Cholesterol 171 mg/dL (140-199); Estimated Glomerular Filt Rate > 60.0 mL/min (>60); Globulin 2.7 g/dL (1.7-4.1); Glucose 119 mg/dL (80-110); HDL Cholesterol 58 mg/dL (40-60); HEMOLYSIS < 15 (0-50); LDL Cholesterol Calculated 98 mg/dL (<100); Sodium 139 mmol/L (137-145); Total Protein 6.7 g/dL (6.3-8.2); Triglycerides 77 mg/dL (35-150)
[2021-03-14 13:47] LABS: Ur Creatinine Normal (Normal); Ur Specific Gravity Normal (Normal); Urine pH Normal (Normal)
[2021-03-14 13:48] LABS: UR Morphine/Opiate cutoff 300 Negative (Negative); Urine Amphetamines Positive (Negative); Urine Barbiturates Negative (Negative); Urine Benzodiazepines Negative (Negative); Urine Cocaine Negative (Negative); Urine MDMA Negative (Negative); Urine Methadone Negative (Negative); Urine Methamphetamines Positive (Negative); Urine Oxycodone Negative (Negative); Urine Phencyclidine Negative (Negative); Urine Tetrahydrocannabinol Negative (Negative); Urine Tricyclic Antidepressant Negative (Negative)
== END ==
PROVIDERS: PCP Family Medicine; Referring Provider Family Medicine; Visit Provider Family Medicine
DX: I10 Essential (primary) hypertension (principal); F15.10 Other stimulant abuse, uncomplicated; I50.9 Heart failure, unspecified
CPT/HCPCS: 36415; 80053; 80061; 80305

== ENCOUNTER 2021-04-30 15:34 | Emergency (ER) | payer MEDICARE, MEDICAID, SELFPAY ==
[2021-04-07 11:14] VITALS: BMI 31.4
[2021-04-30 15:42] VITALS: BP 130/60; PULSE 53; RESP 20; TEMP 36.8; O2SAT 99
--- NOTE | 2021-04-30 15:48 | DI.RAD.S_ITS ---
PROCEDURE: XR CHEST 1V INDICATIONS: chest pain TECHNIQUE: One view of the chest was acquired. COMPARISON: [facility], CR, XR CHEST 1V, 07/22/2020, 13:08. FINDINGS: Surgical changes and devices: None. Lungs and pleura: Streaky left basilar opacity. No pleural effusions or pneumothorax. Prominence of the pulmonary vasculature. Mediastinum: Mediastinal contours appear normal. Heart size is enlarged Bones and chest wall: No suspicious bony lesions. Overlying soft tissues appear unremarkable. IMPRESSION: Cardiomegaly with findings suggestive of pulmonary congestion. Streaky left basilar opacity may represent atelectasis versus developing consolidation. Dictated by: Alberto Robertson D.O. on 04/30/2021 at 15:28 Approved by: Alberto Robertson D.O. on 04/30/2021 at 15:28
[2021-04-30 16:03] LABS: Add Manual Diff / Slide Review NO; Basophils Absolute Auto 0 /uL (0-100); Basophils Percent Auto 0.8 % (0-2); Eosinophils Absolute Auto 100 /uL (0-450); Eosinophils Percent Auto 2.5 % (2-4); Hematocrit 38.5 % (41-53); Lymphocytes Absolute Auto 900 /uL (1100-4500); Lymphocytes Percent Auto 18.4 % (25-40); Mean Corpuscular HGB Conc 33.6 % (30-36); Mean Corpuscular Volume 86.4 fL (80-100); Monocytes Absolute Auto 600 /uL (0-900); Monocytes Percent Auto 12.9 % (3-14); Neutrophils Absolute Auto 3000 /uL (1500-7000); Neutrophils Percent Auto 65.4 % (50-75); Platelet Count 184 X10^3/uL (150-400); Red Blood Cell Count 4.46 X10^6/uL (4.5-5.9); Red Cell Distribution Width 15.5 % (11.6-14.8); White Blood Cell Count 4.7 X10^3/uL (4.5-11.0)
[2021-04-30 16:17] LABS: Alanine Aminotransferase 25 IU/L (<50); Albumin 3.8 g/dL (3.5-5.0); Albumin Globulin Ratio 1.2 (1.0-2.8); Alkaline Phosphatase 60 U/L (38-126); Aspartate Aminotransferase 34 IU/L (17-59); BUN Creatinine Ratio 28.7 (6-22); Bilirubin Total 0.7 mg/dL (0.2-1.3); Blood Urea Nitrogen 25 mg/dL (9-20); Calcium 9.1 mg/dL (8.4-10.2); Carbon Dioxide 34 mmol/L (22-32); Chloride 104 mmol/L (98-107); Creatine Kinase 125 U/L (55-170); Estimated Glomerular Filt Rate > 60.0 mL/min (>60); Globulin 3.1 g/dL (1.7-4.1); Glucose 116 mg/dL (80-110); HEMOLYSIS < 15 (0-50); Lipase 65 U/L (23-300); Potassium 3.2 mmol/L (3.4-5.1); Sodium 140 mmol/L (137-145); Total Protein 6.9 g/dL (6.3-8.2)
[2021-04-30 16:29] LABS: Troponin I < 0.012 ng/mL (0.01-0.034)
[2021-04-30 16:32] LABS: CKMB % Relative Index 3.3 % (1.5-5.0); Creatine Kinase MB 4.14 ng/mL (<2.37)
[2021-04-30 16:37] LABS: COVID19 -Nasal RAPID POSITIVE (Negative)
[2021-04-30 18:52] VITALS: PULSE 43; RESP 18; O2SAT 98
[2021-04-30 19:00] VITALS: PULSE 42; RESP 24; O2SAT 98
--- NOTE | 2021-04-30 19:31 | PC.NURSE ---
Patient reports no energy and generalized weakness that began over a month ago. He reports some SOB with exertion. Also reports a history of several concussions and 3 aortic aneurisms. Both feet have some edema noted. His abdomen is also distended. Monitor shows sinus pallavi.
--- NOTE | 2021-04-30 19:33 | ED.GENADULT ---
HPI - General Adult General Chief complaint: Weakness Stated complaint: Fatigue/unsteady/left foot infection x30 days Time Seen by Provider: 04/30/21 18:26 Source: patient Mode of arrival: Wheelchair History of Present Illness HPI narrative: Patient is a 70-year-old male who is here for evaluation of multiple symptoms. He states that for the past month he has had fatigue and some mild shortness of breath especially with exertion. He sometimes feel unsteady on his feet. He states that he has had an infection in left foot for the past 30 days as well. He has put some topical antibiotic ointment over the area and also some other lotions and he feels like it has improved over the past couple days. He Had a stroke 3 years ago and states that he has never really recovered since then. He also states that he has abscesses that come up around his groin and around his rectum that spontaneously drain and is concerned about a parasite infection. He does not currently have any of these infections. Has not spoken with his primary doctor about the symptoms. He states that he is taking his medications as directed. No fevers. No chest pain. Related Data Home Medications Medication Instructions Recorded Confirmed melatonin 3 mg tablet 3 mg PO BEDTIME PRN 01/27/20 07/22/20 Previous Rx's Medication Instructions Recorded apixaban 5 mg tablet (Eliquis) 5 mg PO BID 30 Days #60 tab 02/22/21 atorvastatin 20 mg tablet (Lipitor) 20 mg PO BEDTIME 30 Days #30 tab 02/22/21 famotidine 20 mg tablet 20 mg PO DAILY #30 tab 02/22/21 furosemide 20 mg tablet 20 mg PO DAILY 30 Days #30 tab 02/22/21 lisinopril 10 mg tablet 10 mg PO DAILY 30 Days #30 tab 02/22/21 metoprolol succinate 25 mg 25 mg PO BEDTIME 30 Days #30 tab 02/22/21 tablet,extended release 24 hr Allergies Allergy/AdvReac Type Severity Reaction Status Date / Time No Known Drug Allergies Allergy Verified 05/20/20 09:42 Review of Systems Constitutional Constitutional: Reports fatigue, Denies fever(s) and Denies headache(s) ENT Ears, Nose, Mouth, and Throat: Denies headache(s) Cardiovascular Cardiovascular: Reports system reviewed and no additional complaints, except as documented, Denies chest pain, Denies rapid heart rate and Reports dyspnea on exertion Respiratory Respiratory: Reports as per HPI, Reports system reviewed and no additional complaints, except as documented, Denies cough and Reports dyspnea on exertion Gastrointestinal Gastrointestinal: Reports system reviewed and no additional complaints, except as documented Genitourinary Genitourinary: Reports system reviewed and no additional complaints, except as documented Musculoskeletal Musculoskeletal: Reports system reviewed and no additional complaints, except as documented and Reports as per HPI Integumentary/Breasts Skin/Breast: Reports system reviewed and no additional complaints, except as documented and Reports as per HPI Neurologic Neurologic: Reports system reviewed and no additional complaints, except as documented and Denies headache(s) Endocrine Endocrine: Reports fatigue Hematologic/Lymphatic On Anticoagulants: Yes Allergic/Immunologic Allergic/Immunologic: Reports system reviewed and no additional complaints, except as documented Patient History Medical History Abdominal aortic aneurysm Atrial fibrillation, chronic Essential hypertension History of CVA (cerebrovascular accident) Hyperlipidemia Methamphetamine use Substance abuse requiring inpatient treatment Systolic CHF with reduced left ventricular function, NYHA class 2 Surgical History History of appendectomy History of inguinal hernia repair History of tonsillectomy Family History Mother CVA (cerebral vascular accident) Father Leukemia Social History household members: none lives independently: Yes Smoking Status: Never smoker alcohol intake: current substance use type: methamphetamine Smoking Status: Never smoker alcohol intake frequency: a few times a week Alcohol type: beer Substance Use Type: methamphetamine Exam Initial Vital Signs Initial Vital Signs: Vital Signs Temperature 98.3 F 04/30/21 15:42 Pulse Rate 53 L 04/30/21 15:42 Respiratory Rate 20 04/30/21 15:42 Blood Pressure 130/60 04/30/21 15:42 Pulse Oximetry 99 04/30/21 15:42 Const General: cooperative, comfortable, well developed and well groomed Limitations: mental status not altered HENUT Head: normal to inspection and normocephalic Chest Chest: normal inspection of the chest Resp Effort & Inspection: normal respiratory effort Auscultation: clear to auscultation bilaterally Cardio Rate: regular rate Rhythm: regular rhythm GI Inspection: non-distended Palpation: soft External: normal external exam Skin Other: He does have a scab just proximal to the left ankle joint without surrounding erythema which is where he states the foot infection was located. He has no areas of redness or abscesses around his inner thighs or groin area. Neuro General: patient alert, patient awake and patient oriented x3 Extrem General: normal to inspection and edema Psych Appearance: grossly normal and disheveled Course Orders Ordered: ED Orders 04/30/21 15:48 XR chest 1V Stat EKG-12 Lead Stat 04/30/21 15:55 Complete Blood Count AUTO DIFF Stat Comprehensive Metabolic Panel Stat Lipase Stat Magnesium Stat Troponin & CK Cardiac Panel Stat 04/30/21 16:15 COVID19 -Nasal swab/Pre-Proc Stat Vital Signs Vital signs: Vital Signs - 8 hr 04/30/21 18:52 04/30/21 19:00 Pulse Rate 43 L 42 L Respiratory Rate 18 24 Pulse Oximetry 98 98 Medical Decision Making Lab Data Lab results reviewed: Yes I reviewed the patient's lab results. Result diagrams: 04/30/21 15:55 04/30/21 15:55 Labs: Lab Results 04/30/21 04/30/21 04/30/21 Range/Units 15:55 15:55 16:15 WBC 4.7 (4.5-11.0) X10^3/uL RBC 4.46 L (4.5-5.9) X10^6/uL Hgb 13.0 L (13.5-17.5) g/dL Hct 38.5 L (41-53) % MCV 86.4 (80-100) fL MCH 29.0 (26-34) PG MCHC 33.6 (30-36) % RDW 15.5 H (11.6-14.8) % Plt Count 184 (150-400) X10^3/uL Neut % (Auto) 65.4 (50-75) % Lymph % (Auto) 18.4 L (25-40) % Laurens % (Auto) 12.9 (3-14) % Eos % (Auto) 2.5 (2-4) % Baso % (Auto) 0.8 (0-2) % Neut # (Auto) 3000 (5593-1572) /uL Lymph # (Auto) 900 L (4665-8131) /uL Laurens # (Auto) 600 (0-900) /uL Eos # (Auto) 100 (0-450) /uL Baso # (Auto) 0 (0-100) /uL Sodium 140 (137-145) mmol/L Potassium 3.2 L (3.4-5.1) mmol/L Chloride 104 (98-107) mmol/L Carbon Dioxide 34 H (22-32) mmol/L BUN 25 H (9-20) mg/dL Creatinine 0.87 (0.66-1.25) mg/dL Estimated GFR > 60.0 (>60) mL/min BUN/Creatinine Ratio 28.7 H (6-22) Glucose 116 H (80-110) mg/dL Calcium 9.1 (8.4-10.2) mg/dL Magnesium 2.0 (1.6-2.3) mg/dL Total Bilirubin 0.7 (0.2-1.3) mg/dL AST 34 (17-59) IU/L ALT 25 (<50) IU/L Alkaline Phosphatase 60 (38-126) U/L Total Creatine Kinase 125 (55-170) U/L CK-MB (CK-2) 4.14 H (<2.37) ng/mL CK-MB (CK-2) Rel Index 3.3 (1.5-5.0) % Troponin I < 0.012 (0.01-0.034) ng/mL Total Protein 6.9 (6.3-8.2) g/dL Albumin 3.8 (3.5-5.0) g/dL Globulin 3.1 (1.7-4.1) g/dL Albumin/Globulin Ratio 1.2 (1.0-2.8) Lipase 65 (23-300) U/L SARS-CoV-2 (PCR) Positive H (Negative) Imaging Data Chest x-ray: Radiologist's Impression: [address] [address] XRay Report Signed Patient: Jayden Rodriguez MR#: [id number] : 1950 Acct:[id number] Age/Sex: 70 / M Date of Service: 04/30/21 Loc: ED Accession Number: [id number] ?? Procedure: XR chest 1V Ordering Provider: Shayna Moy D.O. PROCEDURE:? XR CHEST 1V ? INDICATIONS:? chest pain ? TECHNIQUE:? One view of the chest was acquired.? ? COMPARISON:? [facility], CR, XR CHEST 1V, 07/22/2020, 13:08. ? FINDINGS:? ? Surgical changes and devices:? None.? ? Lungs and pleura:? Streaky left basilar opacity.? No pleural effusions or pneumothorax.? Prominence of the pulmonary vasculature.? ? Mediastinum:? Mediastinal contours appear normal.? Heart size is enlarged ? Bones and chest wall:? No suspicious bony lesions.? Overlying soft tissues appear unremarkable.? ? IMPRESSION:? ? Cardiomegaly with findings suggestive of pulmonary congestion. ? Streaky left basilar opacity may represent atelectasis versus developing consolidation. ? ? Dictated by: Alberto Robertson D.O. on 04/30/2021 at 15:28 ? ? Approved by: Alberto Robertson D.O. on 04/30/2021 at 15:28? ECG Data Attestation: I personally reviewed and interpreted this ECG as follows: Interpretation: Atrial fibrillation Ventricular rate of 47 Normal QRS Normal QTC No ST T wave changes MDM Narrative Medical decision making narrative: His presenting symptoms today have been going on for the past month. He is unsure exactly what medicines he takes but he states that what ever medicines are listed in our medical record are what he takes. Does have Lasix listed. He is having some lower extremity swelling. He is not clinically in heart failure. Chest x-ray some concern about pulmonary congestion. Will increase his Lasix to see if this improves his symptoms. Patient is also in atrial fibrillation. He is on apixaban per his medication list. His heart rate has been anywhere from the upper 40s to 60s. I have some suspicion that maybe this could be some of the cause of his fatigue over the past couple days. He is on metoprolol most likely because of the atrial fibrillation. Will have him cut his metoprolol in half to see if this increases his heart rate. He was provided all of these instructions. Patient does not require admission to the hospital today. Have him contact his primary doctor for follow-up. He was given return precautions. Expressed understanding and agreement. Discharge Plan Departure Patient Disposition: Home Clinical Impression: COVID-19, Fatigue, Atrial fibrillation with slow ventricular response Instructions: DI for COVID-19 (Suspected or Confirmed ) Activity Restrictions/Additional Instructions: It is important that you follow-up with your primary care doctor. I recommend that tomorrow you contact him to schedule follow-up appointment. Please follow current CDC guidelines with regard to quarantine is you were positive for COVID today. Continue all of your medications as directed however I recommend that you increase your furosemide/Lasix from 20 mg a day (1 tablet) to 40 mg a day (2 tablets) I also recommend that you decrease your metoprolol from 25 mg (1 tablet) a day to 12.5 mg (1/2 tablet) a day. Prescriptions: No Action Eliquis 5 mg tablet 5 mg PO BID 30 Days Qty: 60 5RF atorvastatin [Lipitor] 20 mg tablet 20 mg PO BEDTIME 30 Days Qty: 30 5RF famotidine 20 mg tablet 20 mg PO DAILY Qty: 30 5RF furosemide 20 mg tablet 20 mg PO DAILY 30 Days Qty: 30 5RF lisinopril 10 mg tablet 10 mg PO DAILY 30 Days Qty: 30 5RF metoprolol succinate 25 mg tablet extended release 24 hr 25 mg PO BEDTIME 30 Days Qty: 30 5RF melatonin 3 mg Tablet 3 mg PO BEDTIME PRN (Reason: insomnia) 0RF Referrals: Junior Gonzales, [Primary Care Provider] -
== END 2021-04-30 19:55 | disposition home or self-care (01) ==
PROVIDERS: Emergency Medicine; Emergency Provider Emergency Medicine; PCP Family Medicine
DX: U07.1 COVID-19 (principal); I48.91 Unspecified atrial fibrillation
CPT/HCPCS: 71045; 80053; 82550; 82553; 83690; 83735; 84484; 85025; 87635; 93005; 93010; 99281; 99284; C9803

== ENCOUNTER → 2021-05-25 14:35 | Outpatient (CLI) | payer MEDICARE, MEDICAID, SELFPAY ==
[2021-04-07 11:14] VITALS: BMI 31.4
--- NOTE | 2021-05-25 14:37 | DI.US.S_ITS ---
PROCEDURE: US PERIPH VENOUS LOW EXTREM LT INDICATIONS: SWELLING TECHNIQUE: Real-time imaging, as well as color and pulse Doppler interrogation, were performed of the lower extremity deep veins from the inguinal ligament to the popliteal fossa. COMPARISON: None. FINDINGS: The common femoral, femoral and popliteal veins are normally compressible, and free of intraluminal thrombus. Color and pulse Doppler demonstrate normal phasic intraluminal flow. There is normal augmentation response to distal compression maneuver. Soft tissue edema is noted at the level of the ankle. IMPRESSION: Negative for deep venous thrombosis. Dictated by: Jj Paz M.D. on 05/25/2021 at 14:13 Approved by: Jj Paz M.D. on 05/25/2021 at 14:13
== END ==
PROVIDERS: PCP Family Medicine; Referring Provider Physician Assistant; Visit Provider Physician Assistant
DX: M79.89 Other specified soft tissue disorders (principal)
CPT/HCPCS: 93971

== ENCOUNTER 2021-07-11 13:14 | Emergency (ER) | payer MEDICARE, MEDICAID, SELFPAY ==
[2021-04-07 11:14] VITALS: BMI 31.4
[2021-07-11 13:26] VITALS: BP 137/100; PULSE 71; RESP 16; TEMP 36.2; O2SAT 97; BMI 28.0
--- NOTE | 2021-07-11 13:33 | DI.CT.S_ITS ---
PROCEDURE: CT HEAD/BRAIN WO CON INDICATIONS: falling, loosing track of time TECHNIQUE: Noncontrast 4.5 mm thick angled axial sections acquired from the foramen magnum to the vertex, with coronal and sagittal reformats. For radiation dose reduction, the following was used: automated exposure control, adjustment of mA and/or kV according to patient size. COMPARISON: [facility], CT, CT HEAD/BRAIN WO CON, 11/02/2020, 2:29. FINDINGS: Image quality: Excellent. CSF spaces: Basal cisterns are patent. No extra-axial fluid collections. The ventricles are symmetric in size and shape. Brain: No intracranial bleeds or masses. There is cerebral volume loss for age, with resultant ventricular and sulcal prominence. There are moderate periventricular and deep white matter chronic small vessel ischemic changes. Remote bilateral thalamic lacunar infarcts. There is intracranial internal carotid artery atherosclerosis. Skull and face: Calvarium and visualized facial bones appear intact, without suspicious lesions. Sinuses: Visualized sinuses and mastoids are clear. IMPRESSION: 1. No CT evidence of acute intracranial process. 2. Age-appropriate cerebral cortical volume loss and chronic microvascular ischemic changes including remote thalamic lacunar infarcts. Dictated by: Autumn Edmond M.D. on 07/11/2021 at 15:07 Approved by: Autumn Edmond M.D. on 07/11/2021 at 15:11
--- NOTE | 2021-07-11 14:42 | PC.NURSE ---
DI staff attempted to bring pt in for CT of his head 3 times in the last 30 minutes. Unable to locate pt and he did not answer his phone when I called him.
--- NOTE | 2021-07-11 16:22 | PC.NURSE ---
Patient called back to department on [employer] demanding for us to pay for a hotel for him due to his wait. Reassured patient he would be back shortly.
--- NOTE | 2021-07-11 16:30 | PC.NURSE ---
Called for patient, no answer in lobby. Called for patient outside, no answer.
== END 2021-07-11 16:30 | disposition left against medical advice (07) ==
PROVIDERS: PCP Family Medicine
DX: Z53.21 Procedure and treatment not carried out due to patient leaving prior to being seen by health care provider (principal); R41.82 Altered mental status, unspecified; W19.XXXA Unspecified fall, initial encounter
CPT/HCPCS: 70450; 99281

== ENCOUNTER 2021-07-12 11:39 | Emergency (ER) | payer MEDICARE, MEDICAID, SELFPAY ==
[2021-04-07 11:14] VITALS: BMI 31.4
[2021-07-12 11:42] VITALS: BP 141/102; PULSE 65; RESP 15; TEMP 36.4; O2SAT 97; BMI 28.0
--- NOTE | 2021-07-12 13:39 | PC.NURSE ---
Pt states he has been using meth for 30 yrs and feels isolated from other people and from his feelings. Pt denies family/friends in the area, lives full-time on [facility]. Patient requesting evaluation for inpatient treatment facility.
--- NOTE | 2021-07-12 14:10 | ED_ITS ---
HPI - Alcohol <ISABEL Shepard - Last Filed: 07/12/21 16:45> General Chief Complaint: Toxicology Problem Stated Complaint: DETOX Time Seen by Provider: 07/12/21 13:42 Source: patient Mode of arrival: Ambulatory History of Present Illness HPI narrative: 70-year-old male with a 30 year meth use history presents to the emergency department complaining of seeking detox. Last meth use was 3 days ago he states, last alcohol use was 1 week ago. Patient states that he fell few days ago was evaluated in the emergency department yesterday with a head CT and he left prior to discharge. Patient denies any mental status changes, is seeking detox, states that he has completed to detox admissions in the past, left 1 of those admissions early. Patient denies any homicidal or suicidal ideation. He denies any chest pain, shortness of breath, tremors, hallucinations, or illness. Patient denies any nausea vomiting, hallucinations, diarrhea, or other physical elements. He complains of some generalized muscle soreness from his fall a couple days ago. Related Data Home Medications Medication Instructions Recorded Confirmed melatonin 3 mg tablet 3 mg PO BEDTIME PRN 01/27/20 05/25/21 Previous Rx's Medication Instructions Recorded apixaban 5 mg tablet (Eliquis) 5 mg PO BID 30 Days #60 tab 02/22/21 atorvastatin 20 mg tablet (Lipitor) 20 mg PO BEDTIME 30 Days #30 tab 02/22/21 famotidine 20 mg tablet 20 mg PO DAILY #30 tab 02/22/21 furosemide 20 mg tablet 20 mg PO DAILY 30 Days #30 tab 02/22/21 lisinopril 10 mg tablet 10 mg PO DAILY 30 Days #30 tab 02/22/21 metoprolol succinate 25 mg 25 mg PO BEDTIME 30 Days #30 tab 02/22/21 tablet,extended release 24 hr Allergies Allergy/AdvReac Type Severity Reaction Status Date / Time No Known Drug Allergies Allergy Verified 07/12/21 11:42 Review of Systems <ISABEL Shepard - Last Filed: 07/12/21 16:45> Review of Systems Narrative: General: denies fever, chills, malaise, sweats, fatigue Head/Neck: denies headache, neck pain, dizziness Eyes: denies visual changes, eye pain Cardio: denies chest pain, palpitations, edema Respiratory: denies dyspnea, cough, orthopnea GI: denies abdominal pain, nausea, vomiting, or diarrhea : denies dysuria, hematuria, urinary retention, frequency or incontinence MSK: denies joint pain, muscle weakness Skin: denies rash, itching, skin lesions or other Neuro: denies numbness, tingling Patient History <ISABEL Shepard - Last Filed: 07/12/21 16:45> Medical History Abdominal aortic aneurysm Atrial fibrillation, chronic Essential hypertension History of CVA (cerebrovascular accident) Hyperlipidemia Methamphetamine use Substance abuse requiring inpatient treatment Systolic CHF with reduced left ventricular function, NYHA class 2 Surgical History History of appendectomy History of inguinal hernia repair History of tonsillectomy Family History Mother CVA (cerebral vascular accident) Father Leukemia Social History household members: none lives independently: Yes Smoking Status: Never smoker alcohol intake: current substance use type: methamphetamine Smoking Status: Never smoker alcohol intake frequency: holidays/special occasions only Alcohol type: beer Substance Use Type: methamphetamine Exam <ISABEL Shepard - Last Filed: 07/12/21 16:45> Narrative Exam Narrative: Independently reviewed vitals signs and nursing notes. General: cooperative, comfortable, in no acute distress, well developed and well groomed Head: atraumatic, symmetrical facial expressions Neck: supple, atraumatic, without lymphadenopathy. Eyes: pupils equal round and reactive, EOMI, conjunctiva normal Nose: nares patent, no rhinorrhea Mouth/Throat: uvula midline, moist mucus membranes Cardiovascular: regular rate and rhythm, no peripheral edema, warm extremities Respiratory: normal effort, able to speak in complete sentences, no audible wheezing, stridor, or rales. No retractions or tachypnea. GI: abdomen soft, nontender to palpation, nondistended, no masses, no exquisite tenderness with exam, without guarding or rebound. MSK: moves all extremities, ambulatory w/steady gait, neurovascularly intact, no weakness Skin: brisk capillary refill, no rash, no erythema Neuro: normal speech and cognition, A&O x3, normal tone Psych: mental status is grossly normal, congruent mood, normal affect Initial Vital Signs Initial Vital Signs: Vital Signs Temperature 97.5 F L 07/12/21 11:42 Pulse Rate 65 07/12/21 11:42 Respiratory Rate 15 07/12/21 11:42 Blood Pressure 141/102 H 07/12/21 11:42 Pulse Oximetry 97 07/12/21 11:42 <Sravan Desai DO - Last Filed: 07/12/21 16:52> Initial Vital Signs Initial Vital Signs: Vital Signs Temperature 97.5 F L 07/12/21 11:42 Pulse Rate 65 07/12/21 11:42 Respiratory Rate 15 07/12/21 11:42 Blood Pressure 141/102 H 07/12/21 11:42 Pulse Oximetry 97 07/12/21 11:42 Course <ISABEL Shepard - Last Filed: 07/12/21 16:45> Orders Ordered: ED Orders 07/12/21 12:18 Consult to [facility] [place] - [employer] Stat 07/12/21 14:26 Urinalysis and Microscopic Stat Urine Drug Screen, Rapid Stat 07/12/21 14:30 COVID19 -Nasal swab/Pre-Proc Stat 07/12/21 14:31 EKG-12 Lead Stat 07/12/21 14:46 Comprehensive Metabolic Panel Stat Ethanol (ETOH) Stat Consultations Consultation #1: Please see social work's notes for details on consult Vital Signs Vital signs: Vital Signs - 8 hr 07/12/21 11:42 07/12/21 16:45 Temperature 97.5 F L Pulse Rate 65 65 Respiratory Rate 15 16 Blood Pressure 141/102 H Pulse Oximetry 97 97 <Sravan Desai DO - Last Filed: 07/12/21 16:52> Orders Ordered: ED Orders 07/12/21 12:18 Consult to [facility] [place] - [employer] Stat 07/12/21 14:26 Urinalysis and Microscopic Stat Urine Drug Screen, Rapid Stat 07/12/21 14:30 COVID19 -Nasal swab/Pre-Proc Stat 07/12/21 14:31 EKG-12 Lead Stat 07/12/21 14:46 Comprehensive Metabolic Panel Stat Ethanol (ETOH) Stat Vital Signs Vital signs: Vital Signs - 8 hr 07/12/21 11:42 07/12/21 16:45 Temperature 97.5 F L Pulse Rate 65 65 Respiratory Rate 15 16 Blood Pressure 141/102 H Pulse Oximetry 97 97 MDM - Alcohol <RENNY ShepardP - Last Filed: 07/12/21 16:45> Lab Data Result diagrams: 07/12/21 14:46 Labs: Lab Results 07/12/21 07/12/21 07/12/21 Range/Units 14:26 14:26 14:30 Sodium (137-145) mmol/L Potassium (3.4-5.1) mmol/L Chloride (98-107) mmol/L Carbon Dioxide (22-32) mmol/L BUN (9-20) mg/dL Creatinine (0.66-1.25) mg/dL Estimated GFR (>60) mL/min BUN/Creatinine Ratio (6-22) Glucose (80-110) mg/dL Calcium (8.4-10.2) mg/dL Total Bilirubin (0.2-1.3) mg/dL AST (17-59) IU/L ALT (<50) IU/L Alkaline Phosphatase (38-126) U/L Total Protein (6.3-8.2) g/dL Albumin (3.5-5.0) g/dL Globulin (1.7-4.1) g/dL Albumin/Globulin Ratio (1.0-2.8) Urine Color Yellow Urine Appearance Clear Urine pH 6.5 (4.5-8.0) Ur Specific Cascilla 1.015 (1.000-1.035) Urine Protein Negative (Negative) Urine Glucose (UA) Negative (Negative) g/dL Urine Ketones Negative (NEGATIVE) Urine Occult Blood Trace-lysed (Negative) Urine Nitrate Negative (Negative) Urine Bilirubin Negative (NEGATIVE) Urine Urobilinogen 0.2 (0.2) E.U./dL Ur Leukocyte Esterase Negative (NEGATIVE) Urine RBC 0-1/hpf (0-5/HPF) Urine WBC 0-1/hpf (0-5/HPF) Ur Squamous Epith Cells 0-1 /hpf (0-5/HPF) Urine Bacteria None seen (None) Ur Culture Indicated? Cult not indicated U Opiates 300ng/mL cut Negative (Negative) Ur Oxycodone Screen Negative (Negative) Urine Methadone Screen Negative (Negative) Ur Barbiturates Screen Negative (Negative) U Tricyclic Antidepress Negative (Negative) Ur Phencyclidine Scrn Negative (Negative) Ur Amphetamines Screen Negative (Negative) U Methamphetamines Scrn Negative (Negative) Ur MDMA Scrn (Ecstasy) Negative (Negative) U Benzodiazepines Scrn Negative (Negative) Urine Cocaine Screen Negative (Negative) U Marijuana (THC) Screen Negative (Negative) Ethyl Alcohol ( - 10) mg/dL SARS-CoV-2 (PCR) Negative (Negative) 07/12/21 Range/Units 14:46 Sodium 140 (137-145) mmol/L Potassium 4.1 (3.4-5.1) mmol/L Chloride 101 (98-107) mmol/L Carbon Dioxide 32 (22-32) mmol/L BUN 17 (9-20) mg/dL Creatinine 0.67 (0.66-1.25) mg/dL Estimated GFR > 60.0 (>60) mL/min BUN/Creatinine Ratio 25.4 H (6-22) Glucose 100 (80-110) mg/dL Calcium 8.7 (8.4-10.2) mg/dL Total Bilirubin 0.6 (0.2-1.3) mg/dL AST 39 (17-59) IU/L ALT 26 (<50) IU/L Alkaline Phosphatase 64 (38-126) U/L Total Protein 7.5 (6.3-8.2) g/dL Albumin 4.2 (3.5-5.0) g/dL Globulin 3.3 (1.7-4.1) g/dL Albumin/Globulin Ratio 1.3 (1.0-2.8) Urine Color Urine Appearance Urine pH (4.5-8.0) Ur Specific Cascilla (1.000-1.035) Urine Protein (Negative) Urine Glucose (UA) (Negative) g/dL Urine Ketones (NEGATIVE) Urine Occult Blood (Negative) Urine Nitrate (Negative) Urine Bilirubin (NEGATIVE) Urine Urobilinogen (0.2) E.U./dL Ur Leukocyte Esterase (NEGATIVE) Urine RBC (0-5/HPF) Urine WBC (0-5/HPF) Ur Squamous Epith Cells (0-5/HPF) Urine Bacteria (None) Ur Culture Indicated? U Opiates 300ng/mL cut (Negative) Ur Oxycodone Screen (Negative) Urine Methadone Screen (Negative) Ur Barbiturates Screen (Negative) U Tricyclic Antidepress (Negative) Ur Phencyclidine Scrn (Negative) Ur Amphetamines Screen (Negative) U Methamphetamines Scrn (Negative) Ur MDMA Scrn (Ecstasy) (Negative) U Benzodiazepines Scrn (Negative) Urine Cocaine Screen (Negative) U Marijuana (THC) Screen (Negative) Ethyl Alcohol < 10 ( - 10) mg/dL SARS-CoV-2 (PCR) (Negative) Imaging Data CT scan - head: Radiologist's Impressoin: PROCEDURE:? CT HEAD/BRAIN WO CON ? INDICATIONS:? falling, loosing track of time ? TECHNIQUE:? Noncontrast 4.5 mm thick angled axial sections acquired from the foramen magnum to the vertex, with coronal and sagittal reformats.? For radiation dose reduction, the following was used:? automated exposure control, adjustment of mA and/or kV according to patient size.? ? COMPARISON:? [facility], CT, CT HEAD/BRAIN WO CON, 11/02/2020, 2:29. ? FINDINGS:? Image quality:? Excellent.? ? CSF spaces:? Basal cisterns are patent.? No extra-axial fluid collections.? The ventricles are symmetric in size and shape.? ? Brain:? No intracranial bleeds or masses.? There is cerebral volume loss for ag e, with resultant ventricular and sulcal prominence.? There are moderate periventricular and deep white matter chronic small vessel ischemic changes.? Remote bilateral thalamic lacunar infarcts.? There is intracranial internal carotid artery atherosclerosis.? ? Skull and face:? Calvarium and visualized facial bones appear intact, without suspicious lesions.? ? Sinuses:? Visualized sinuses and mastoids are clear.? ? IMPRESSION:? ? 1. No CT evidence of acute intracranial process.? ? 2. Age-appropriate cerebral cortical volume loss and chronic microvascular ischemic changes including remote thalamic lacunar infarcts.? Dictated by: Autumn Edmond M.D. on 07/11/2021 at 15:07 ? ? Approved by: Autumn Edmond M.D. on 07/11/2021 at 15:11 ? MDM Narrative Medical decision making narrative: 70-year-old male history of CHF, methamphetamine abuse, atrial fibrillation presents to the emergency department seeking inpatient detox care for methamphetamine abuse. Patient has a 30 year history of using methamphetamine. He states he last used 3 days ago, last drink of alcohol was 1 week ago, patient was seen in the emergency department yesterday for a fall but left prior to receiving his results. Patient denies any homicidal suicidal ideation, seeking medical screening evaluation. Urine drug screen was negative for all tested drugs. EKG shows atrial fibrillation which is chronic for him. Work's out patient, he was given resources for outpatient treatment options. [facility] is reviewing his case, he is medically cleared from the emergency department at this point for admission to detox. [facility] refused patient for admission due to a negative urine tox and it being over 3 days since he last used methamphetamine. Patient was informed, and now he is wondering where he is going to [facility]. Patient states he does not have the money to get home, does not have a money for room, and he also states that he does not have money for transportation. Patient lives on [address] and there are no boats to his [facility]. Pt was aware of this. Social work is attempting to get patient a room at a hotel nearby. Patient is appropriate and amenable to discharge home. Vital signs are stable on repeat examination is unremarkable. Patient has been informed of results. Patient has been given strict return to ER precautions for any new or worsening symptoms. Patient understands to follow up closely with outpatient providers as instructed. Patient understands plan and agrees to discharge home. All questions and concerns answered at this time. <Sravan Desai, - Last Filed: 07/12/21 16:52> Lab Data Labs: Lab Results 07/12/21 07/12/21 07/12/21 Range/Units 14:26 14:26 14:30 Sodium (137-145) mmol/L Potassium (3.4-5.1) mmol/L Chloride (98-107) mmol/L Carbon Dioxide (22-32) mmol/L BUN (9-20) mg/dL Creatinine (0.66-1.25) mg/dL Estimated GFR (>60) mL/min BUN/Creatinine Ratio (6-22) Glucose (80-110) mg/dL Calcium (8.4-10.2) mg/dL Total Bilirubin (0.2-1.3) mg/dL AST (17-59) IU/L ALT (<50) IU/L Alkaline Phosphatase (38-126) U/L Total Protein (6.3-8.2) g/dL Albumin (3.5-5.0) g/dL Globulin (1.7-4.1) g/dL Albumin/Globulin Ratio (1.0-2.8) Urine Color Yellow Urine Appearance Clear Urine pH 6.5 (4.5-8.0) Ur Specific Cascilla 1.015 (1.000-1.035) Urine Protein Negative (Negative) Urine Glucose (UA) Negative (Negative) g/dL Urine Ketones Negative (NEGATIVE) Urine Occult Blood Trace-lysed (Negative) Urine Nitrate Negative (Negative) Urine Bilirubin Negative (NEGATIVE) Urine Urobilinogen 0.2 (0.2) E.U./dL Ur Leukocyte Esterase Negative (NEGATIVE) Urine RBC 0-1/hpf (0-5/HPF) Urine WBC 0-1/hpf (0-5/HPF) Ur Squamous Epith Cells 0-1 /hpf (0-5/HPF) Urine Bacteria None seen (None) Ur Culture Indicated? Cult not indicated U Opiates 300ng/mL cut Negative (Negative) Ur Oxycodone Screen Negative (Negative) Urine Methadone Screen Negative (Negative) Ur Barbiturates Screen Negative (Negative) U Tricyclic Antidepress Negative (Negative) Ur Phencyclidine Scrn Negative (Negative) Ur Amphetamines Screen Negative (Negative) U Methamphetamines Scrn Negative (Negative) Ur MDMA Scrn (Ecstasy) Negative (Negative) U Benzodiazepines Scrn Negative (Negative) Urine Cocaine Screen Negative (Negative) U Marijuana (THC) Screen Negative (Negative) Ethyl Alcohol ( - 10) mg/dL SARS-CoV-2 (PCR) Negative (Negative) 07/12/21 Range/Units 14:46 Sodium 140 (137-145) mmol/L Potassium 4.1 (3.4-5.1) mmol/L Chloride 101 (98-107) mmol/L Carbon Dioxide 32 (22-32) mmol/L BUN 17 (9-20) mg/dL Creatinine 0.67 (0.66-1.25) mg/dL Estimated GFR > 60.0 (>60) mL/min BUN/Creatinine Ratio 25.4 H (6-22) Glucose 100 (80-110) mg/dL Calcium 8.7 (8.4-10.2) mg/dL Total Bilirubin 0.6 (0.2-1.3) mg/dL AST 39 (17-59) IU/L ALT 26 (<50) IU/L Alkaline Phosphatase 64 (38-126) U/L Total Protein 7.5 (6.3-8.2) g/dL Albumin 4.2 (3.5-5.0) g/dL Globulin 3.3 (1.7-4.1) g/dL Albumin/Globulin Ratio 1.3 (1.0-2.8) Urine Color Urine Appearance Urine pH (4.5-8.0) Ur Specific Cascilla (1.000-1.035) Urine Protein (Negative) Urine Glucose (UA) (Negative) g/dL Urine Ketones (NEGATIVE) Urine Occult Blood (Negative) Urine Nitrate (Negative) Urine Bilirubin (NEGATIVE) Urine Urobilinogen (0.2) E.U./dL Ur Leukocyte Esterase (NEGATIVE) Urine RBC (0-5/HPF) Urine WBC (0-5/HPF) Ur Squamous Epith Cells (0-5/HPF) Urine Bacteria (None) Ur Culture Indicated? U Opiates 300ng/mL cut (Negative) Ur Oxycodone Screen (Negative) Urine Methadone Screen (Negative) Ur Barbiturates Screen (Negative) U Tricyclic Antidepress (Negative) Ur Phencyclidine Scrn (Negative) Ur Amphetamines Screen (Negative) U Methamphetamines Scrn (Negative) Ur MDMA Scrn (Ecstasy) (Negative) U Benzodiazepines Scrn (Negative) Urine Cocaine Screen (Negative) U Marijuana (THC) Screen (Negative) Ethyl Alcohol < 10 ( - 10) mg/dL SARS-CoV-2 (PCR) (Negative) Discharge Plan Departure Patient Disposition: Home Clinical Impression: Methamphetamine abuse Instructions: DI for Substance Use Disorder Activity Restrictions/Additional Instructions: *You have been diagnosed with methamphetamine use. I am sorry that you do not qualify for detox at this time. I hope you seek treatment with outpatient therapy. This is a hard problem to navigate, I emphasize for you, and I am sorry that financial strain makes it even more difficult. Please follow-up with the resources that Christian the hospice social worker provided for you. Wishing you luck. *What to do: *Please continue to take your regular medications as directed. [ ] New medication prescriptions sent to your pharmacy: [ ] [ ] New medication written as a paper prescription [ ] No new medications given *Please follow up with your primary care provider in 2-3 days, call for an appointment. Let them know you were seen in the Emergency Department and that we asked that you be seen for follow-up. We will electronically transmit a record of today's note if your PCP is in our system *If you do not have a primary care provider please contact [phone] to establish care with one of the [facility] primary care providers. *Return to Emergency Department if you should have any new, worsening or concerning symptoms, such as [fever greater than 101F, chills, worsening pain, persistent vomiting or other bothersome symptoms] Prescriptions: No Action Eliquis 5 mg tablet 5 mg PO BID 30 Days Qty: 60 5RF atorvastatin [Lipitor] 20 mg tablet 20 mg PO BEDTIME 30 Days Qty: 30 5RF famotidine 20 mg tablet 20 mg PO DAILY Qty: 30 5RF furosemide 20 mg tablet 20 mg PO DAILY 30 Days Qty: 30 5RF lisinopril 10 mg tablet 10 mg PO DAILY 30 Days Qty: 30 5RF metoprolol succinate 25 mg tablet extended release 24 hr 25 mg PO BEDTIME 30 Days Qty: 30 5RF melatonin 3 mg Tablet 3 mg PO BEDTIME PRN (Reason: insomnia) 0RF Referrals: Junior Gonzales DO [Primary Care Provider] - Stand Alone Forms: Naloxone Standing Order [facility] <Sravan Desai DO - Last Filed: 07/12/21 16:52> [facility]: Dr Desai Co-Sign Statement: I was available for consultation during this patient's emergency department visit. This chart is signed by myself for administrative purposes only. I did not have direct contact with this patient during this visit. They were seen independently by the APC.
--- NOTE | 2021-07-12 14:29 | CM.SWNOTE ---
ED Social Work Note: Patient is 70yo male requesting assistance with access to detox for methamphetamine use. Patient reported last meth use was approximately 3 days ago. Patient reported his last ETOH use was one beer approx 3 days ago. Patient reported his brother and sister have been life long substance abusers and that he has been using for 30 years or so. Patient reported he wants to understand why he started using and isn't able to stop using. Patient reported he has fractured relationships with his two adult children as well as more distant and nontrusting relationships with his nieces/nephews. 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 Patient reported he would like to enter detox but if detox facility will not admit him, he would like to follow up with outpatient treatment services, preferrably in [place] as he resides on [address]. Patient reports the last ferry to [place] [place] leaves at 1500 and he will need to remain at hospital if detox doesn't accept him as he doesn't have anywhere else he can stay once the last ferry departs. Patient provided outpatient treatment resources for follow up post ED setting/post detox if patient is admitted. Patient completed screening call with [facility] who is willing to review clinicals incl etoh, utox, covid labs. [facility] detox requested fentanyl specific lab; they were informed does not test specifically for fentanyl. Patient currently awaiting detox screening review, clinicals to be faxed to [facility] once labwork has been completed. [facility]
[2021-07-12 14:46] LABS: Appearance Urine UA CLEAR; Bilirubin Urine UA NEGATIVE (NEGATIVE); Color Urine UA YELLOW; Glucose Urine UA NEGATIVE (Negative); Ketones Urine UA NEGATIVE (NEGATIVE); Leukocyte Esterase Urine UA NEGATIVE (NEGATIVE); Nitrite Urine UA NEGATIVE (Negative); Occult Blood Urine UA TRACE-LYSED (Negative); Protein Urine UA NEGATIVE (Negative); Specific Gravity Urine UA 1.015 (1.000-1.035); Urobilinogen Urine UA 0.2 E.U./dL (0.2); pH Urine UA 6.5 (4.5-8.0)
[2021-07-12 14:52] LABS: UR Morphine/Opiate cutoff 300 Negative (Negative); Ur Creatinine Normal (Normal); Ur Specific Gravity Normal (Normal); Urine Amphetamines Negative (Negative); Urine Barbiturates Negative (Negative); Urine Benzodiazepines Negative (Negative); Urine Cocaine Negative (Negative); Urine MDMA Negative (Negative); Urine Methadone Negative (Negative); Urine Methamphetamines Negative (Negative); Urine Oxycodone Negative (Negative); Urine Phencyclidine Negative (Negative); Urine Tetrahydrocannabinol Negative (Negative); Urine Tricyclic Antidepressant Negative (Negative); Urine pH Normal (Normal)
[2021-07-12 14:55] LABS: Bacteria Urine None Seen; Culture Indicated Urine Cult Not Indicated; RBC Urine 0-1/HPF (0-5/HPF); Squamous Epithelial Cell Urine 0-1 /HPF (0-5/HPF); WBC Urine 0-1/HPF (0-5/HPF)
[2021-07-12 15:05] LABS: COVID19 -Nasal RAPID Negative (Negative)
[2021-07-12 15:06] LABS: Alanine Aminotransferase 26 IU/L (<50); Albumin 4.2 g/dL (3.5-5.0); Albumin Globulin Ratio 1.3 (1.0-2.8); Alkaline Phosphatase 64 U/L (38-126); Aspartate Aminotransferase 39 IU/L (17-59); BUN Creatinine Ratio 25.4 (6-22); Bilirubin Total 0.6 mg/dL (0.2-1.3); Blood Urea Nitrogen 17 mg/dL (9-20); Calcium 8.7 mg/dL (8.4-10.2); Carbon Dioxide 32 mmol/L (22-32); Chloride 101 mmol/L (98-107); Estimated Glomerular Filt Rate > 60.0 mL/min (>60); Ethanol (ETOH) < 10 mg/dL; Globulin 3.3 g/dL (1.7-4.1); Glucose 100 mg/dL (80-110); HEMOLYSIS 26 (0-50); Potassium 4.1 mmol/L (3.4-5.1); Sodium 140 mmol/L (137-145); Total Protein 7.5 g/dL (6.3-8.2)
[2021-07-12 16:45] VITALS: PULSE 65; RESP 16; O2SAT 97
== END 2021-07-12 16:46 | disposition home or self-care (01) ==
PROVIDERS: Emergency Provider Nurse Practitioner Critical Care Medicine; PCP Family Medicine
DX: F15.10 Other stimulant abuse, uncomplicated (principal); Z20.822 Contact with and (suspected) exposure to COVID-19
CPT/HCPCS: 36415; 80053; 80305; 80320; 81001; 87635; 93005; 99283; 99284; C9803

== ENCOUNTER 2021-08-02 13:28 | Emergency (ER) | payer MEDICARE, MEDICAID, SELFPAY ==
[2021-04-07 11:14] VITALS: BMI 31.4
[2021-08-02] VITALS (7 sets, daily range): BP systolic 146–172; BP diastolic 68–92; PULSE 68–84; RESP 15–20; TEMP 36.7; O2SAT 98–99
--- NOTE | 2021-08-02 13:41 | DI.CT.S_ITS ---
PROCEDURE: CT HEAD/BRAIN WO CON INDICATIONS: fall, syncope TECHNIQUE: Noncontrast 4.5 mm thick angled axial sections acquired from the foramen magnum to the vertex, with coronal and sagittal reformats. For radiation dose reduction, the following was used: automated exposure control, adjustment of mA and/or kV according to patient size. COMPARISON: [facility], MR, MR BRAIN WITHOUT CONTRAST, 09/14/2020, 7:31. [facility], CT, CT HEAD/BRAIN WO CON, 11/02/2020, 2:29. [facility], CT, CT CERVICAL SPINE WO CON, 08/02/2021, 13:46. [facility], CR, XR CHEST 1V, 08/02/2021, 13:34. [facility], CT, CT HEAD/BRAIN WO CON, 07/11/2021, 14:00. FINDINGS: Image quality: Mild streak artifact can be seen through the skull base. CSF spaces: Basal cisterns are patent. No extra-axial fluid collections. The ventricles are symmetric in size and shape. Brain: No intracranial bleeds or masses. There is cerebral volume loss for age, with resultant ventricular and sulcal prominence. There are periventricular and deep white matter chronic small vessel ischemic changes. There is intracranial internal carotid artery atherosclerosis. Skull and face: Calvarium and visualized facial bones appear intact, without suspicious lesions. Sinuses: Moderate mucosal thickening is seen within the ethmoid air cells. The visualized paranasal sinuses are otherwise unremarkable. Note is made that the frontal sinuses are not well developed. No abnormal fluid is seen within the mastoid air cells. IMPRESSION: No acute intracranial hemorrhage is seen. No acute intracranial process is seen. Note is made of age-appropriate brain parenchymal volume loss and chronic small vessel ischemic changes. Dictated by: Jj Paz M.D. on 08/02/2021 at 13:05 Approved by: Jj Paz M.D. on 08/02/2021 at 13:07
--- NOTE | 2021-08-02 13:41 | DI.CT.S_ITS ---
PROCEDURE: CT CERVICAL SPINE WO CON INDICATIONS: fall, syncope TECHNIQUE: Noncontrast 3 mm thick sections acquired from the skull base to the T4 level. Sagittal and coronal reformats were then constructed. For radiation dose reduction, the following was used: automated exposure control, adjustment of mA and/or kV according to patient size. COMPARISON: [facility], CT, CT ANGIO CHEST ABDOMEN PELVIS, 05/10/2020, 2:43. [facility], CT, CT ANGIO HEAD AND NECK, 09/13/2020, 20:46. [facility], CT, CT HEAD/BRAIN WO CON, 08/02/2021, 13:46. FINDINGS: Image quality: Excellent. Bones: No fractures or dislocations. Visualized superior ribs are intact. Multilevel degenerative moderate to severe disc space narrowing most notable at C5-6 and C6-7. There is slight reversal cervical curvature with apex at C5-6. Soft tissues: Prevertebral soft tissues are normal in thickness. No paravertebral hematomas. No apical pneumothoraces. Multilevel subcentimeter lymph nodes appearing more numerous than typically seen. It is unchanged compared to prior exam. IMPRESSION: Multilevel degenerative changes without visualized fracture. Multilevel subcentimeter lymph nodes appearing more numerous than typically seen. However, this is unchanged from prior exam. Dictated by: Starr Woods M.D. on 08/02/2021 at 14:02 Approved by: Starr Woods M.D. on 08/02/2021 at 14:17
--- NOTE | 2021-08-02 13:41 | DI.RAD.S_ITS ---
PROCEDURE: XR CHEST 1V INDICATIONS: chest pain TECHNIQUE: One view of the chest was acquired. COMPARISON: [facility], CR, XR CHEST 1V, 04/30/2021, 16:04. FINDINGS: Surgical changes and devices: None. Lungs and pleura: Lungs are clear. No pleural effusions or pneumothorax. Mediastinum: Mediastinal contours appear normal. Heart size is enlarged. Bones and chest wall: No suspicious bony lesions. Overlying soft tissues appear unremarkable. IMPRESSION: No acute pulmonary process. Dictated by: Starr Woods M.D. on 08/02/2021 at 14:17 Approved by: Starr Woods M.D. on 08/02/2021 at 14:17
--- NOTE | 2021-08-02 14:08 | PC.NURSE ---
Pt states he lives alone on [address] and has difficulty accessing health care services r/t poor mobility. C/O episodes of 'passing out' unrelated to position changes. c/o chest pain/ pressure w/ shortness of breath 'on and off' but states he does not know if it occurs at rest or with exertion. Denies chest pain at present. Moving all extremities equally well. Slightly pale, cool but dry skin. Denies sensation difficulty. + pulses in all four extremities.
[2021-08-02 14:22] LABS: Add Manual Diff / Slide Review NO; Basophils Absolute Auto 0 /uL (0-100); Basophils Percent Auto 0.5 % (0-2); Eosinophils Absolute Auto 200 /uL (0-450); Eosinophils Percent Auto 2.5 % (2-4); Hemoglobin 13.6 g/dL (13.5-17.5); Lymphocytes Absolute Auto 800 /uL (1100-4500); Lymphocytes Percent Auto 11.1 % (25-40); Mean Corpuscular Hemoglobin 28.8 PG (26-34); Mean Corpuscular Volume 84.8 fL (80-100); Monocytes Absolute Auto 700 /uL (0-900); Monocytes Percent Auto 10.2 % (3-14); Neutrophils Absolute Auto 5300 /uL (1500-7000); Neutrophils Percent Auto 75.7 % (50-75); Platelet Count 171 X10^3/uL (150-400); Red Blood Cell Count 4.72 X10^6/uL (4.5-5.9); Red Cell Distribution Width 15.2 % (11.6-14.8); White Blood Cell Count 7.1 X10^3/uL (4.5-11.0)
[2021-08-02 14:30] LABS: Alanine Aminotransferase 14 IU/L (<50); Albumin 3.9 g/dL (3.5-5.0); Albumin Globulin Ratio 1.1 (1.0-2.8); Alkaline Phosphatase 73 U/L (38-126); Aspartate Aminotransferase 27 IU/L (17-59); BUN Creatinine Ratio 14.1 (6-22); Blood Urea Nitrogen 10 mg/dL (9-20); Calcium 8.7 mg/dL (8.4-10.2); Carbon Dioxide 34 mmol/L (22-32); Chloride 97 mmol/L (98-107); Creatine Kinase 67 U/L (55-170); Estimated Glomerular Filt Rate > 60 mL/min (>60); Globulin 3.4 g/dL (1.7-4.1); Glucose 111 mg/dL (80-110); HEMOLYSIS < 15 (0-50); Lipase 62 U/L (23-300); Magnesium 1.9 mg/dL (1.6-2.3); Potassium 3.2 mmol/L (3.4-5.1); Sodium 137 mmol/L (137-145); Total Protein 7.3 g/dL (6.3-8.2)
--- NOTE | 2021-08-02 14:39 | ED_ITS ---
HPI - Syncope General Chief Complaint: Syncope Stated Complaint: HX CVA Syncope Time Seen by Provider: 08/02/21 13:44 Source: patient Mode of arrival: Wheelchair History of Present Illness HPI narrative: Patient is a 70-year-old male history of atrial fibrillation, supposed to be on Eliquis, hypertension, alcohol use, remote methamphetamine abuse, presenting today with multiple syncopal episodes. He apparently has been out of all his m edications for over 1 month. He says it is difficult for him to pickle cutter his prescriptions. He was seen and evaluated July 12 seeking detox for alcohol abuse. A which he says that he has passed out multiple times. It comes without warning. He fell and hit his head and knocked out couple of teeth. He has fallen multiple times. He has no chest pain or palpitations. No shortness of breath. He overall is a poor historian. He does report that he was on the Sensee and would like to off of the Sensee. Related Data Home Medications Medication Instructions Recorded Confirmed melatonin 3 mg tablet 3 mg PO BEDTIME PRN 01/27/20 05/25/21 Previous Rx's Medication Instructions Recorded apixaban 5 mg tablet (Eliquis) 5 mg PO BID 30 Days #60 tab 02/22/21 atorvastatin 20 mg tablet (Lipitor) 20 mg PO BEDTIME 30 Days #30 tab 02/22/21 famotidine 20 mg tablet 20 mg PO DAILY #30 tab 02/22/21 furosemide 20 mg tablet 20 mg PO DAILY 30 Days #30 tab 02/22/21 lisinopril 10 mg tablet 10 mg PO DAILY 30 Days #30 tab 02/22/21 metoprolol succinate 25 mg 25 mg PO BEDTIME 30 Days #30 tab 02/22/21 tablet,extended release 24 hr apixaban 5 mg tablet 5 mg PO BID #60 tab 08/02/21 atorvastatin 20 mg tablet 20 mg PO BEDTIME #30 tab 08/02/21 furosemide 20 mg tablet (Lasix) 20 mg PO QAM #30 tab 08/02/21 lisinopril 10 mg tablet 10 mg PO DAILY #30 tab 08/02/21 metoprolol succinate 25 mg 25 mg PO .HS #30 tab 08/02/21 tablet,extended release 24 hr Allergies Allergy/AdvReac Type Severity Reaction Status Date / Time No Known Drug Allergies Allergy Verified 07/12/21 11:42 Review of Systems Review of Systems Narrative: GENERAL: Denies chills, fatigue, malaise, fever, sweats, travel HEENT: Denies sinus pain, ear pain, sore throat, difficulty swallowing, neck pain RESPIRATORY: Denies dyspnea, cough, wheezing, hemoptysis, sputum. CARDIOVASCULAR: + syncope Denies chest pain, palpitations, orthopnea, edema GASTROINTESTINAL: Denies nausea, vomiting, abdominal pain, diarrhea, constipation, melena. : Denies dysuria, frequency, incontinence, hematuria, urinary retention, flank pain. MUSCULOSKELETAL: Denies weakness, joint pain, or bony pain SKIN: No rash, no erythema, no pruritus NEUROLOGIC: Denies weakness, dizziness, headache, numbness, change in speech, confusion PSYCHIATRIC: No concerning psychosocial issues. 12 point review of systems is negative except for those stated above and HPI Patient History Medical History Abdominal aortic aneurysm Atrial fibrillation, chronic Essential hypertension History of CVA (cerebrovascular accident) Hyperlipidemia Methamphetamine use Substance abuse requiring inpatient treatment Systolic CHF with reduced left ventricular function, NYHA class 2 Surgical History History of appendectomy History of inguinal hernia repair History of tonsillectomy Family History Mother CVA (cerebral vascular accident) Father Leukemia Social History household members: none lives independently: Yes Smoking Status: Never smoker alcohol intake: current substance use type: methamphetamine Smoking Status: Never smoker alcohol intake frequency: holidays/special occasions only Alcohol type: beer Substance Use Type: methamphetamine Exam Initial Vital Signs Initial Vital Signs: Vital Signs Temperature 98.1 F 08/02/21 13:38 Pulse Rate 73 08/02/21 13:38 Respiratory Rate 18 08/02/21 13:38 Pulse Oximetry 98 08/02/21 13:38 GENERAL: Alert pleasant cooperative 70-year-old male HEENT: Head atraumatic,EOMI, pupils reactive, face symmetric, moist mucous membranes CARDIOVASCULAR: Regular rate and rhythm without murmurs, rubs or gallops. RESPIRATORY: Breath sounds equal bilaterally, no wheezes rales or rhonchi. ABDOMEN: Soft, nontender. Normoactive bowel sounds all 4 quadrants. No guarding or rebound. EXTREMITIES: Normal range of motion, no clubbing or edema. Neurovascularly intact NEUROLOGICAL: Alert and oriented x4.Normal gait and speech. Cranial nerves II through XII grossly intact. Good [id number], good [id number], strength equal bilaterally, no dysarthria or aphasia, sensation in tact to soft touch bilaterally, no visual changes, no facial droop SKIN: Warm, dry, no laceration, no petechiae, no rashes or lesions. Scores NIH Stroke Scale Level of Conciousness: Alert, keenly responsive Ask month/age: Answers both questions correctly. Open/close eyes, close hand: Performs both tasks correctly Best gaze horizontal: Normal Visual madrid: No visual loss Facial palsy: Normal symetrical movement Left arm drift: No drift for full 10 sec Right arm drift: No drift for full 10 sec Left leg drift: No drift for full 5 sec Right leg drift: No drift for full 5 sec Limb ataxia: Absent Sensory on face/arms/legs: Normal, no sensory loss Best language: No aphasia, normal Dysarthria: Normal Extinction or inattention: No abnormality Total NIH Stroke scale score: 0 Course Orders Ordered: Discontinued Medications Furosemide (Furosemide 40 Mg/4 Ml Vial) 20 mg IV NOW ONE Stop: 08/02/21 17:01 Last Admin: 08/02/21 18:10 Dose: 20 mg Documented by: CARLOS Sodium Chloride (Normal Saline 0.9%) 1,000 mls @ 1,000 mls/hr IV BOLUS ONE Stop: 08/02/21 16:09 Last Infusion: 08/02/21 16:46 Dose: 0 mls/hr Documented by: Admin: 08/02/21 15:29 Dose: 1,000 mls/hr Documented by: CARLOS Vital Signs Vital signs: Vital Signs - 8 hr 08/02/21 13:38 08/02/21 14:07 08/02/21 14:30 Temperature 98.1 F Pulse Rate 73 72 72 Pulse Rate [Orthostatic Lying] Pulse Rate [Orthostatic Sitting] Respiratory Rate 18 20 15 Blood Pressure 158/72 H 146/82 H Blood Pressure [Orthostatic Lying] Blood Pressure [Orthostatic Sitting] Blood Pressure [Orthostatic Standing] Pulse Oximetry 98 99 99 08/02/21 15:21 08/02/21 15:33 Temperature Pulse Rate 70 Pulse Rate [Orthostatic Lying] 77 Pulse Rate [Orthostatic Sitting] 84 Respiratory Rate 16 Blood Pressure 152/78 H Blood Pressure [Orthostatic Lying] 153/86 H Blood Pressure [Orthostatic Sitting] 166/92 H Blood Pressure [Orthostatic Standing] 166/77 H Pulse Oximetry 99 MDM - Syncope Lab Data Result diagrams: 08/02/21 14:00 08/02/21 14:15 Labs: Lab Results 08/02/21 08/02/21 08/02/21 Range/Units 14:00 14:15 14:15 WBC 7.1 (4.5-11.0) X10^3/uL RBC 4.72 (4.5-5.9) X10^6/uL Hgb 13.6 (13.5-17.5) g/dL Hct 40.0 L (41-53) % MCV 84.8 (80-100) fL MCH 28.8 (26-34) PG MCHC 34.0 (30-36) % RDW 15.2 H (11.6-14.8) % Plt Count 171 (150-400) X10^3/uL Neut % (Auto) 75.7 H (50-75) % Lymph % (Auto) 11.1 L (25-40) % Laurel % (Auto) 10.2 (3-14) % Eos % (Auto) 2.5 (2-4) % Baso % (Auto) 0.5 (0-2) % Neut # (Auto) 5300 (1490-5721) /uL Lymph # (Auto) 800 L (1826-5155) /uL [place]urel # (Auto) 700 (0-900) /uL Eos # (Auto) 200 (0-450) /uL Baso # (Auto) 0 (0-100) /uL D-Dimer (<230) ng/mL Sodium 137 (137-145) mmol/L Potassium 3.2 L (3.4-5.1) mmol/L Chloride 97 L (98-107) mmol/L Carbon Dioxide 34 H (22-32) mmol/L BUN 10 (9-20) mg/dL Creatinine 0.71 (0.66-1.25) mg/dL Estimated GFR > 60 (>60) mL/min BUN/Creatinine Ratio 14.1 (6-22) Glucose 111 H (80-110) mg/dL Calcium 8.7 (8.4-10.2) mg/dL Magnesium 1.9 (1.6-2.3) mg/dL Total Bilirubin 1.0 (0.2-1.3) mg/dL AST 27 (17-59) IU/L ALT 14 (<50) IU/L Alkaline Phosphatase 73 (38-126) U/L Total Creatine Kinase 67 (55-170) U/L CK-MB (CK-2) TNP CK-MB (CK-2) Rel Index TNP Troponin I < 0.012 (0.01-0.034) ng/mL NT-Pro-B Natriuret Pep 4680 H (<125) pg/mL Total Protein 7.3 (6.3-8.2) g/dL Albumin 3.9 (3.5-5.0) g/dL Globulin 3.4 (1.7-4.1) g/dL Albumin/Globulin Ratio 1.1 (1.0-2.8) Lipase 62 (23-300) U/L Urine RBC (0-5/HPF) Urine WBC (0-5/HPF) Ur Squamous Epith Cells (0-5/HPF) Amorphous Sediment Urine Bacteria (None) Ur Culture Indicated? U Opiates 300ng/mL cut (Negative) Ur Oxycodone Screen (Negative) Urine Methadone Screen (Negative) Ur Barbiturates Screen (Negative) U Tricyclic Antidepress (Negative) Ur Phencyclidine Scrn (Negative) Ur Amphetamines Screen (Negative) U Methamphetamines Scrn (Negative) Ur MDMA Scrn (Ecstasy) (Negative) U Benzodiazepines Scrn (Negative) Urine Cocaine Screen (Negative) U Marijuana (THC) Screen (Negative) Ethyl Alcohol < 10 ( - 10) mg/dL 08/02/21 08/02/21 08/02/21 Range/Units 15:24 15:25 15:30 WBC (4.5-11.0) X10^3/uL RBC (4.5-5.9) X10^6/uL Hgb (13.5-17.5) g/dL Hct (41-53) % MCV (80-100) fL MCH (26-34) PG MCHC (30-36) % RDW (11.6-14.8) % Plt Count (150-400) X10^3/uL Neut % (Auto) (50-75) % Lymph % (Auto) (25-40) % Laurel % (Auto) (3-14) % Eos % (Auto) (2-4) % Baso % (Auto) (0-2) % Neut # (Auto) (0015-9902) /uL Lymph # (Auto) (9334-3347) /uL Laurel # (Auto) (0-900) /uL Eos # (Auto) (0-450) /uL Baso # (Auto) (0-100) /uL D-Dimer 409 H (<230) ng/mL Sodium (137-145) mmol/L Potassium (3.4-5.1) mmol/L Chloride (98-107) mmol/L Carbon Dioxide (22-32) mmol/L BUN (9-20) mg/dL Creatinine (0.66-1.25) mg/dL Estimated GFR (>60) mL/min BUN/Creatinine Ratio (6-22) Glucose (80-110) mg/dL Calcium (8.4-10.2) mg/dL Magnesium (1.6-2.3) mg/dL Total Bilirubin (0.2-1.3) mg/dL AST (17-59) IU/L ALT (<50) IU/L Alkaline Phosphatase (38-126) U/L Total Creatine Kinase (55-170) U/L CK-MB (CK-2) CK-MB (CK-2) Rel Index Troponin I (0.01-0.034) ng/mL NT-Pro-B Natriuret Pep (<125) pg/mL Total Protein (6.3-8.2) g/dL Albumin (3.5-5.0) g/dL Globulin (1.7-4.1) g/dL Albumin/Globulin Ratio (1.0-2.8) Lipase (23-300) U/L Urine RBC None seen (0-5/HPF) Urine WBC None seen (0-5/HPF) Ur Squamous Epith Cells 5-10 /hpf H (0-5/HPF) Amorphous Sediment 2+ Urine Bacteria Occasional (0-1) (None) Ur Culture Indicated? Cult not indicated U Opiates 300ng/mL cut Negative (Negative) Ur Oxycodone Screen Negative (Negative) Urine Methadone Screen Negative (Negative) Ur Barbiturates Screen Negative (Negative) U Tricyclic Antidepress Negative (Negative) Ur Phencyclidine Scrn Negative (Negative) Ur Amphetamines Screen Positive H (Negative) U Methamphetamines Scrn Positive H (Negative) Ur MDMA Scrn (Ecstasy) Negative (Negative) U Benzodiazepines Scrn Negative (Negative) Urine Cocaine Screen Negative (Negative) U Marijuana (THC) Screen Negative (Negative) Ethyl Alcohol ( - 10) mg/dL Urine Dip Bedside Urine Glucose Negative Bedside Urine Bilirubin - Negative Bedside Urine Ketone - Negative Urine Specific [place] 1.02 Bedside Urine Occult Blood +/- Bedside Urine pH 6.5 Bedside Urine Protein +/- 15 Bedside Urine Urobilinogen - Negative Bedside Urine Nitrite - Negative Bedside Urine Leukocytes - Negative Esterase Imaging Data CT scan - head: Radiologist's Impression: [address] [address] [address] Scan Report Signed Patient: Jayden Rodriguez MR#: [id number] : 1950 Acct:[id number] Age/Sex: 70 / M Date of Service: 08/02/21 Loc: ED Accession Number: [id number] ?? Procedure: CT head/brain wo con Ordering Provider: Indy Garcia D.O. PROCEDURE:? CT HEAD/BRAIN WO CON ? INDICATIONS:? fall, syncope ? TECHNIQUE:? Noncontrast 4.5 mm thick angled axial sections acquired from the foramen magnum to the vertex, with coronal and sagittal reformats.? For radiation dose reduction, the following was used:? automated exposure control, adjustment of mA and/or kV according to patient size.? ? COMPARISON:? [facility], MR, MR BRAIN WITHOUT CONTRAST, 09/14/2020, 7:31.? [facility], CT, CT HEAD/BRAIN WO CON, 11/02/2020, 2:29.? [facility], CT, CT CERVICAL SPINE WO CON, 08/02/2021, 13:46.? [facility], CR, XR CHEST 1V, 08/02/2021, 13:34.? [facility], CT, CT HEAD/BRAIN WO CON, 07/11/2021, 14:00. ? FINDINGS:? Image quality:? Mild streak artifact can be seen through the skull base. ? CSF spaces:? Basal cisterns are patent.? No extra-axial fluid collections.? The ventricles are symmetric in size and shape.? ? Brain:? No intracranial bleeds or masses.? There is cerebral volume loss for age, with resultant ventricular and sulcal prominence.? There are periventricular and deep white matter chronic small vessel ischemic changes.? There is intracranial internal carotid artery atherosclerosis.? ? Skull and face:? Calvarium and visualized facial bones appear intact, without suspicious lesions.? ? Sinuses:? Moderate mucosal thickening is seen within the ethmoid air cells.? The visualized paranasal sinuses are otherwise unremarkable.? Note is made that the frontal sinuses are not well developed. No abnormal fluid is seen within the mastoid air cells. ? ? IMPRESSION:? No acute intracranial hemorrhage is seen.? ? No acute intracranial process is seen.? ? Note is made of age-appropriate brain parenchymal volume loss and chronic small vessel ischemic changes. ? ? Dictated by: Jj Paz M.D. on 08/02/2021 at 13:05 ?? CT - cervical spine: Radiologist's Impression: [place] [address] CT Scan Report Signed Patient: Jayden Rodriguez MR#: [id number] : 1950 Acct:[id number] Age/Sex: 70 / M Date of Service: 08/02/21 Loc: ED Accession Number: [id number] ?? Procedure: CT cervical spine wo con Ordering Provider: Indy Garcia D.O. PROCEDURE:? CT CERVICAL SPINE WO CON ? INDICATIONS:? fall, syncope ? TECHNIQUE:? Noncontrast 3 mm thick sections acquired from the skull base to the T4 level.? Sagittal and coronal reformats were then constructed.? For radiation dose reduction, the following was used:? automated exposure control, adjustment of mA and/or kV according to patient size.? ? COMPARISON:? [facility], CT, CT ANGIO CHEST ABDOMEN PELVIS, 05/10/2020, 2:43.? [facility], CT, CT ANGIO HEAD AND NECK, 09/13/2020, 20:46.? [facility], CT, CT HEAD/BRAIN WO CON, 08/02/2021, 13:46. ? FINDINGS:? Image quality:? Excellent.? ? Bones:? No fractures or dislocations.? Visualized superior ribs are intact.? Multilevel degenerative moderate to severe disc space narrowing most notable at C5-6 and C6-7.? There is slight reversal cervical curvature with apex at C5-6. ? Soft tissues:? Prevertebral soft tissues are normal in thickness.? No paravertebral hematomas.? No apical pneumothoraces.? Multilevel subcentimeter lymph nodes appearing more numerous than typically seen.? It is unchanged compared to prior exam. ? ? IMPRESSION:? Multilevel degenerative changes without visualized fracture. ? Multilevel subcentimeter lymph nodes appearing more numerous than typically seen.? However, this is unchanged from prior exam. ? Dictated by: Starr Woods M.D. on 08/02/2021 at 14:02 ? Chest x-ray: Radiologist's Impression: Launch?[address] [address] XRay Report Signed Patient: Jayden Rodriguez MR#: [id number] : 1950 Acct:[id number] Age/Sex: 70 / M Date of Service: 08/02/21 Loc: ED Accession Number: [id number] ?? Procedure: XR chest 1V Ordering Provider: Indy Garcia D.O. PROCEDURE:? XR CHEST 1V ? INDICATIONS:? chest pain ? TECHNIQUE:? One view of the chest was acquired.? ? COMPARISON:? [facility], , XR CHEST 1V, 04/30/2021, 16:04. ? FINDINGS:? ? Surgical changes and devices:? None.? ? Lungs and pleura:? Lungs are clear.? No pleural effusions or pneumothorax.? ? Mediastinum:? Mediastinal contours appear normal.? Heart size is enlarged. ? Bones and chest wall:? No suspicious bony lesions.? Overlying soft tissues appear unremarkable.? ? IMPRESSION:? No acute pulmonary process. ? ? Dictated by: Starr Woods M.D. on 08/02/2021 at 14:17 ? ? Approved by: Starr Woods M.D. on 08/02/2021 at 14:17 ? CTA - brain/neck: Radiologist's Impression: Launch?[address] [place] [address] XRay Report Signed Patient: Jayden Rodriguez MR#: [id number] : 1950 Acct:[id number] Age/Sex: 70 / M Date of Service: 08/02/21 Loc: ED Accession Number: [id number] ?? Procedure: XR chest 1V Ordering Provider: Indy Garcia D.O. PROCEDURE:? XR CHEST 1V ? INDICATIONS:? chest pain ? TECHNIQUE:? One view of the chest was acquired.? ? COMPARISON:? [facility], , XR CHEST 1V, 04/30/2021, 16:04. ? FINDINGS:? ? Surgical changes and devices:? None.? ? Lungs and pleura:? Lungs are clear.? No pleural effusions or pneumothorax.? ? Mediastinum:? Mediastinal contours appear normal.? Heart size is enlarged. ? Bones and chest wall:? No suspicious bony lesions.? Overlying soft tissues appear unremarkable.? ? IMPRESSION:? No acute pulmonary process. ? ? Dictated by: Starr Woods M.D. on 08/02/2021 at 14:17 ? ? Approved by: Starr Woods M.D. on 08/02/2021 at 14:17 ? ECG Data Interpretation: Atrial Fibrillation rate [address] changes similar to previous EKG MDM Narrative Medical decision making narrative: Patient is noncompliant with his medications he continues to use methamphetamine and alcohol all likely contributing to his syncopal episodes. Today his BNP is mildly elevated at 4000 without overt signs of acute CHF exacerbation. He is not hypoxic or having difficulty breathing. He is given 1 dose of Lasix here in the ED. scans are negative without other cause of syncope. He has no carotid occlusion. I have given him prescriptions for all of his medications and encouraged him to get them filled which he will. Social work saw him on his last visit in tried to place him but was eventually unable to. Patient was going to work on detox placement by himself. Not interested in that at this time. Social work consult is requested however declines at this time. Patient is ambulatory in the ED with steady gait no signs of intoxication at this time he is clinically sober. At this time no need for admission. Discharge Plan Departure Patient Disposition: Home Clinical Impression: Congestive heart failure, Atrial fibrillation, Near syncope Instructions: DI for Syncope in Adults (Fainting) Activity Restrictions/Additional Instructions: *You have been diagnosed with near syncope, atrial fibrillation, congestive heart failure *What to do: I do think that some of your symptoms are related to not taking her medication. That he stop using methamphetamine. It may also be contributing to your syncopal episodes. *Continue to take medications as directed Eliquis 5 mg twice a day Atorvastatin 20 mg at bedtime Lasix 20 mg once a day Lisinopril 10mg once a day Metoprolol 25 mg extended release at bedtime *Follow up with your primary care provider in 2-3 days or call [phone] *Return to ER if you should have persistent passing out, palpitations chest pain hitting your head or any new, worsening or concerning symptoms Prescriptions: New lisinopril 10 mg tablet 10 mg PO DAILY Qty: 30 0RF metoprolol succinate 25 mg tablet extended release 24 hr 25 mg PO .HS Qty: 30 0RF furosemide [Lasix] 20 mg tablet 20 mg PO QAM Qty: 30 0RF apixaban 5 mg tablet 5 mg PO BID Qty: 60 0RF atorvastatin 20 mg tablet 20 mg PO BEDTIME Qty: 30 0RF No Action Eliquis 5 mg tablet 5 mg PO BID 30 Days Qty: 60 5RF atorvastatin [Lipitor] 20 mg tablet 20 mg PO BEDTIME 30 Days Qty: 30 5RF famotidine 20 mg tablet 20 mg PO DAILY Qty: 30 5RF furosemide 20 mg tablet 20 mg PO DAILY 30 Days Qty: 30 5RF lisinopril 10 mg tablet 10 mg PO DAILY 30 Days Qty: 30 5RF metoprolol succinate 25 mg tablet extended release 24 hr 25 mg PO BEDTIME 30 Days Qty: 30 5RF melatonin 3 mg Tablet 3 mg PO BEDTIME PRN (Reason: insomnia) 0RF Referrals: Junior Gonzales, [Primary Care Provider] -
[2021-08-02 14:40] LABS: Troponin I < 0.012 ng/mL (0.01-0.034)
--- NOTE | 2021-08-02 15:03 | DI.CT.S_ITS ---
PROCEDURE: CT ANGIO HEAD AND NECK INDICATIONS: recurrent episodes of syncope TECHNIQUE: After the administration of intravenous contrast, 1 mm thick sections acquired from the aortic arch through the Otis of El. Post-contrast 4.5 mm thick sections then re-acquired from the foramen magnum to the vertex. 3-dimensional [id number]-[id number] (MIP) and/or volume rendering reformats were acquired of the central intracranial vasculature and neck separately. For radiation dose reduction, the following was used: automated exposure control, adjustment of mA and/or kV according to patient size. COMPARISON: [facility], CT, CT HEAD/BRAIN WO CON, 07/11/2021, 14:00. [facility], CT, CT ANGIO CHEST ABDOMEN PELVIS, 05/10/2020, 2:43. [facility], CT, CT ANGIO HEAD AND NECK, 09/13/2020, 20:46. FINDINGS: Image quality: Excellent. BRAIN: CSF spaces: Ventricles are normal in size and shape. Basal cisterns are patent. No extra-axial fluid collections. Brain: No midline shift. No intracranial bleeds or masses. Briones-white matter interface appears intact. Age-related volume loss and small vessel ischemic change. Skull and face: Calvarium and facial bones appear intact, without suspicious lesions. Orbits appear normal. Sinuses: Sinuses and mastoids are clear. HEAD CT ANGIOGRAPHY: Anterior circulation: Intracranial internal carotid arteries are normal in size and flow. The flow within the paired anterior cerebral arteries is normal and symmetric. The flow within the middle cerebral arteries is normal and symmetric. The anterior communicating artery is seen. No aneurysms are seen. Posterior circulation: Visualized portions of the vertebral arteries demonstrate normal caliber, and join to form a normal appearing basilar artery. Right vertebral artery is somewhat diminutive. Left vertebral artery is dominant. Flow within the posterior cerebral arteries is normal and symmetric. No aneurysms are seen. NECK CT ANGIOGRAPHY: Carotid system: The great vessels demonstrate a conventional anatomy as they arise from the aortic arch. The origins of the common carotid arteries appear patent. The common carotid arteries demonstrate normal caliber and courses. Bilateral calcified plaque in the carotid bifurcations. Mild bilateral, less than 50% proximal internal carotid artery stenosis. Posterior circulation: The origins of the vertebral arteries both appear widely patent. The more superior extracranial portions of both vertebral arteries also demonstrate normal courses and calibers. Right vertebral artery is somewhat diminutive. Left vertebral artery is dominant. They join to form a normal appearing basilar artery. Soft tissues: Visualized neck soft tissues demonstrate no suspicious abnormalities. There is extensive shotty mediastinal adenopathy, not significantly changed from the previous CT angiogram. The mediastinum is incompletely visualized. Bones: No suspicious bony lesions. Visualized cervical spine appears normally aligned. IMPRESSION: 1. No evidence acute stroke, hemorrhage, or mass. 2. Unremarkable CTA head. No stenosis, aneurysm, occlusion, or focal filling defect. 3. Bilateral less than 50% internal carotid artery stenosis, non flow limiting. 4. Extensive shotty mediastinal adenopathy. Mediastinum incompletely imaged. Visualized portions are similar to the previous CTA head neck from 2020. Any quantitative measurements of stenosis were performed using NASCET criteria. Dictated by: Luis Carlos Deluna M.D. on 08/02/2021 at 17:31 Approved by: Luis Carlos Delnua M.D. on 08/02/2021 at 17:40
[2021-08-02 15:25] LABS: Ethanol (ETOH) < 10 mg/dL
[2021-08-02] MEDS: SODIUM CHLORIDE 0.9% 1,000 ML 1000 ML IV (15:29)
[2021-08-02 15:36] LABS: NT-proBNP (BNP-Adult 18+) 4680 pg/mL (<125)
[2021-08-02 15:51] LABS: Amorphous Sediment Urine 2+; Bacteria Urine Occasional (0-1); RBC Urine None Seen (0-5/HPF); Squamous Epithelial Cell Urine 5-10 /HPF (0-5/HPF); WBC Urine None Seen (0-5/HPF)
[2021-08-02 15:51] LABS: UR Morphine/Opiate cutoff 300 Negative (Negative); Ur Creatinine Normal (Normal); Ur Specific Gravity Normal (Normal); Urine Amphetamines Positive (Negative); Urine Barbiturates Negative (Negative); Urine Benzodiazepines Negative (Negative); Urine Cocaine Negative (Negative); Urine MDMA Negative (Negative); Urine Methadone Negative (Negative); Urine Methamphetamines Positive (Negative); Urine Oxycodone Negative (Negative); Urine Phencyclidine Negative (Negative); Urine Tetrahydrocannabinol Negative (Negative); Urine Tricyclic Antidepressant Negative (Negative); Urine pH Normal (Normal)
[2021-08-02 15:52] LABS: Culture Indicated Urine Cult Not Indicated
[2021-08-02 16:02] LABS: D Dimer 409 ng/mL (<230)
[2021-08-02] MEDS: FUROSEMIDE 40 MG/4 ML VIAL 20 MG IV (18:10)
== END 2021-08-02 18:29 | disposition home or self-care (01) ==
PROVIDERS: Emergency Provider Emergency Medicine; PCP Family Medicine
DX: R55 Syncope and collapse (principal); I50.9 Heart failure, unspecified; I48.91 Unspecified atrial fibrillation; I11.0 Hypertensive heart disease with heart failure; F15.90 Other stimulant use, unspecified, uncomplicated; W19.XXXA Unspecified fall, initial encounter; Z91.81 History of falling; Z79.01 Long term (current) use of anticoagulants; Z72.89 Other problems related to lifestyle
CPT/HCPCS: 36415; 70450; 70496; 70498; 71045; 72125; 80053; 80305; 80320; 81003; 81015; 82550; 83690; 83735; 83880; 84484; 85025; 85379; 93005; 93010; 96374; 99284; 99285; J1940; Q9967

== ENCOUNTER 2021-08-09 17:28 | Inpatient (IN) | payer MEDICARE, MEDICAID, SELFPAY ==
[2021-04-07 11:14] VITALS: BMI 31.4
[2021-08-09] VITALS (23 sets, daily range): BP systolic 122–184; BP diastolic 70–100; PULSE 58–95; RESP 18; TEMP 38.3–39.2; O2SAT 91–97; BMI 28.0
--- NOTE | 2021-08-09 17:56 | DI.RAD.S_ITS ---
PROCEDURE: XR CHEST 2V INDICATIONS: shortness of breath TECHNIQUE: 2 views of the chest were acquired. COMPARISON: [facility], , XR CHEST 1V, 08/02/2021, 13:34. FINDINGS: Heart size is enlarged. Moderate vascular congestion noted. Atherosclerotic vascular calcification noted in the aortic arch. Pleural spaces are clear. Osseous structures normal. IMPRESSION: Cardiomegaly and moderate vascular congestion Aortic atherosclerosis Approved by: Dominic Hale M.D. on 08/09/2021 at 17:43
[2021-08-09 18:35] LABS: Add Manual Diff / Slide Review NO; Basophils Absolute Auto 100 /uL (0-100); Basophils Percent Auto 0.5 % (0-2); Eosinophils Absolute Auto 0 /uL (0-450); Eosinophils Percent Auto 0.3 % (2-4); Hematocrit 39.4 % (41-53); Hemoglobin 13.1 g/dL (13.5-17.5); Lymphocytes Absolute Auto 900 /uL (1100-4500); Mean Corpuscular HGB Conc 33.4 % (30-36); Mean Corpuscular Hemoglobin 28.2 PG (26-34); Mean Corpuscular Volume 84.4 fL (80-100); Monocytes Absolute Auto 1100 /uL (0-900); Monocytes Percent Auto 9.3 % (3-14); Neutrophils Absolute Auto 10200 /uL (1500-7000); Neutrophils Percent Auto 82.9 % (50-75); Platelet Count 238 X10^3/uL (150-400); Red Blood Cell Count 4.67 X10^6/uL (4.5-5.9); Red Cell Distribution Width 14.7 % (11.6-14.8); White Blood Cell Count 12.3 X10^3/uL (4.5-11.0)
[2021-08-09 18:52] LABS: Lactate (Lactic Acid) 1.1 mmol/L (0.7-2.1)
[2021-08-09 18:53] LABS: Alanine Aminotransferase 23 IU/L (<50); Albumin 3.9 g/dL (3.5-5.0); Albumin Globulin Ratio 1.1 (1.0-2.8); Alkaline Phosphatase 90 U/L (38-126); Aspartate Aminotransferase 41 IU/L (17-59); BUN Creatinine Ratio 14.9 (6-22); Bilirubin Total 1.5 mg/dL (0.2-1.3); Blood Urea Nitrogen 11 mg/dL (9-20); Calcium 8.2 mg/dL (8.4-10.2); Carbon Dioxide 30 mmol/L (22-32); Chloride 96 mmol/L (98-107); Estimated Glomerular Filt Rate > 60 mL/min (>60); Globulin 3.7 g/dL (1.7-4.1); Glucose 101 mg/dL (80-110); HEMOLYSIS < 15 (0-50); Potassium 3.2 mmol/L (3.4-5.1); Sodium 133 mmol/L (137-145); Total Protein 7.6 g/dL (6.3-8.2)
[2021-08-09 19:08] LABS: Procalcitonin 0.09 ng/mL (<0.5)
--- NOTE | 2021-08-09 19:13 | ED_ITS ---
HPI - General Adult General Chief complaint: Shortness of Breath/Dyspnea Stated complaint: vomiting, states passing out on his feet Time Seen by Provider: 08/09/21 18:06 Source: patient Mode of arrival: Wheelchair History of Present Illness HPI narrative: Patient is a 70-year-old male. Multiple chronic medical issues to include atrial fibrillation, high cholesterol, hypertension. He states that he has not been on his medication for ?sometime ?is states that his prescriptions ran out and he has been unable to get to the pharmacy in order to refill his medications. He is here today for multiple reasons to include vomiting, chest discomfort, coughing, balance issues. Patient is a known meth user. Has been to the emergency department multiple times in the past for various issues. Most recently admitted to the hospital earlier this month. The balance issues and he presents with a not new. His chest discomfort started yesterday. Shortness of breath started yesterday as well. [place] for him to see primary doctor and also get to the pharmacy. Related Data Home Medications Medication Instructions Recorded Confirmed melatonin 3 mg tablet 3 mg PO BEDTIME PRN 01/27/20 05/25/21 Previous Rx's Medication Instructions Recorded apixaban 5 mg tablet (Eliquis) 5 mg PO BID 30 Days #60 tab 02/22/21 atorvastatin 20 mg tablet (Lipitor) 20 mg PO BEDTIME 30 Days #30 tab 02/22/21 famotidine 20 mg tablet 20 mg PO DAILY #30 tab 02/22/21 furosemide 20 mg tablet 20 mg PO DAILY 30 Days #30 tab 02/22/21 lisinopril 10 mg tablet 10 mg PO DAILY 30 Days #30 tab 02/22/21 metoprolol succinate 25 mg 25 mg PO BEDTIME 30 Days #30 tab 02/22/21 tablet,extended release 24 hr apixaban 5 mg tablet 5 mg PO BID #60 tab 08/02/21 atorvastatin 20 mg tablet 20 mg PO BEDTIME #30 tab 08/02/21 furosemide 20 mg tablet (Lasix) 20 mg PO QAM #30 tab 08/02/21 lisinopril 10 mg tablet 10 mg PO DAILY #30 tab 08/02/21 metoprolol succinate 25 mg 25 mg PO .HS #30 tab 08/02/21 tablet,extended release 24 hr Allergies Allergy/AdvReac Type Severity Reaction Status Date / Time No Known Drug Allergies Allergy Verified 07/12/21 11:42 Review of Systems Review of Systems ROS Unobtainable: All systems reviewed & are unremarkable except as noted in HPI and below Patient History Medical History Abdominal aortic aneurysm Atrial fibrillation, chronic Essential hypertension History of CVA (cerebrovascular accident) Hyperlipidemia Methamphetamine use Substance abuse requiring inpatient treatment Systolic CHF with reduced left ventricular function, NYHA class 2 Surgical History History of appendectomy History of inguinal hernia repair History of tonsillectomy Family History Mother CVA (cerebral vascular accident) Father Leukemia Social History household members: none lives independently: Yes Smoking Status: Never smoker alcohol intake: current substance use type: methamphetamine Smoking Status: Never smoker alcohol intake frequency: holidays/special occasions only Alcohol type: beer Substance Use Type: methamphetamine Exam Initial Vital Signs Initial Vital Signs: Vital Signs Temperature 101 F H 08/09/21 17:50 Pulse Rate 78 08/09/21 17:50 Respiratory Rate 18 08/09/21 17:50 Blood Pressure 153/71 H 08/09/21 17:50 Pulse Oximetry 97 08/09/21 17:50 Const General: cooperative and No in distress HENMT Head: normal to inspection and normocephalic Eyes General: appearance normal, both eyes and all related structures Chest Chest: normal inspection of the chest Resp Effort & Inspection: normal respiratory effort Auscultation: clear to auscultation bilaterally Cardio Rate: regular rate Rhythm: abnormal rhythm GI Inspection: normal to inspection Skin General: no rashes or lesions noted Neuro General: patient alert, patient awake, patient oriented x3 and moves all extremities Extrem General: No edema Psych Appearance: grossly normal and disheveled Scores GCS [place] coma scale eye opening: Spontaneous [place] coma scale verbal response: Orientated Sam[place] coma scale motor response: Obey commands [place] coma scale total score: 15 Course Orders Ordered: ED Orders 08/09/21 18:18 Complete Blood Count AUTO DIFF Stat Comprehensive Metabolic Panel Stat Lactate (Lactic Acid) Stat NT-proBNP (BNP-Adult 18+) Stat Procalcitonin Stat Troponin & CK Cardiac Panel Stat 08/09/21 19:05 Ictotest Urine Stat Urinalysis and Microscopic Stat Urine Culture Stat Urine Drug Screen, Rapid Stat 08/09/21 19:15 CT angio chest PE protocol Stat 08/09/21 19:25 Respiratory Panel (Film Array) Stat Acetaminophen (Acetaminophen 325 Mg Tablet) 650 mg PO Q6HR PRN PRN Reason: Fever/Mild Pain (1-3) Amlodipine Besylate (Amlodipine 5 Mg Tablet) 5 mg PO BID CONG Apixaban (Apixaban 5 Mg Tablet) 5 mg PO BID CONG Azithromycin (Azithromycin 250 Mg Tablet) 500 mg PO DAILY [facility] Furosemide (Furosemide 100 Mg/10 Ml Vial) 60 mg IV Q8H [facility] Ceftriaxone Sodium 1,000 mg/ (Sodium Chloride) 100 mls @ 200 mls/hr IV Q24H [facility] Lisinopril (Lisinopril 10 Mg Tablet) 10 mg PO DAILY [facility] Metoprolol Tartrate (Metoprolol Ir 50 Mg Tablet) 100 mg PO BEDTIME [facility] Naloxone HCl (Naloxone 0.4 Mg/Ml Vial) 0.2 mg IV Q2MIN PRN PRN Reason: Opiate Reversal Ondansetron HCl (Ondansetron 4 Mg/2 Ml Inj) 4 mg IV Q6HR PRN PRN Reason: Nausea And Vomiting Discontinued Medications Acetaminophen (Acetaminophen 325 Mg Tablet) 650 mg PO NOW ONE Stop: 08/09/21 23:55 Last Admin: 08/10/21 00:01 Dose: 650 mg Documented by: RAFFY Aspirin (Aspirin 81 Mg Chew Tab) 324 mg PO NOW ONE Stop: 08/09/21 19:15 Last Admin: 08/09/21 19:20 Dose: 324 mg Documented by: RAFFY Furosemide (Furosemide 100 Mg/10 Ml Vial) 60 mg IV Q8H [facility] Last Admin: 08/10/21 02:57 Dose: Not Given Documented by: RAFFY Ceftriaxone Sodium 1,000 mg/ (Sodium Chloride) 100 mls @ 200 mls/hr IV NOW ONE Stop: 08/09/21 18:58 Last Infusion: 08/09/21 20:31 Dose: 0 mls/hr Documented by: Admin: 08/09/21 19:18 Dose: 200 mls/hr Documented by: RAFFY Vancomycin HCl (Vancomycin) 1,000 mg in 200 mls @ 200 mls/hr IV NOW ONE Stop: 08/09/21 19:56 Last Infusion: 08/09/21 22:33 Dose: 0 mls/hr Documented by: Admin: 08/09/21 20:23 Dose: 200 mls/hr Documented by: RAFFY Sodium Chloride (Normal Saline 0.9%) 1,000 mls @ 1,000 mls/hr IV BOLUS ONE Stop: 08/09/21 20:13 Last Infusion: 08/09/21 23:23 Dose: 0 mls/hr Documented by: Admin: 08/09/21 19:18 Dose: 1,000 mls/hr Documented by: RAFFY Vital Signs Vital signs: Vital Signs - 8 hr 08/09/21 19:35 08/09/21 19:51 08/09/21 20:00 Temperature Pulse Rate 88 86 83 Respiratory Rate Blood Pressure 161/83 H 165/80 H Pulse Oximetry 91 97 94 08/09/21 20:30 08/09/21 21:00 08/09/21 21:05 Temperature Pulse Rate 80 81 81 Respiratory Rate Blood Pressure 122/70 152/76 H Pulse Oximetry 93 93 91 08/09/21 21:24 08/09/21 21:32 08/09/21 21:34 Temperature Pulse Rate 81 81 Respiratory Rate Blood Pressure 173/87 H Pulse Oximetry 96 08/09/21 22:00 08/09/21 22:01 08/09/21 22:30 Temperature Pulse Rate 81 77 80 Respiratory Rate Blood Pressure 147/83 H 145/91 H Pulse Oximetry 96 96 92 08/09/21 23:00 08/09/21 23:01 08/09/21 23:09 Temperature Pulse Rate 87 87 95 H Respiratory Rate Blood Pressure 184/100 H Pulse Oximetry 96 08/09/21 23:30 08/09/21 23:31 08/09/21 23:39 Temperature Pulse Rate 86 58 L Respiratory Rate Blood Pressure 180/97 H Pulse Oximetry 91 08/09/21 23:54 08/10/21 00:01 08/10/21 00:05 Temperature 102.5 F H 102.5 F H Pulse Rate 81 Respiratory Rate 22 Blood Pressure 160/78 H Pulse Oximetry 08/10/21 00:30 08/10/21 00:51 08/10/21 01:00 Temperature 101.1 F H Pulse Rate 81 85 Respiratory Rate 18 Blood Pressure 143/79 H Pulse Oximetry 08/10/21 01:30 Temperature Pulse Rate 84 Respiratory Rate 35 H Blood Pressure 158/87 H Pulse Oximetry Medical Decision Making Medical Records Medical records reviewed: Yes I reviewed the patient's medical records. Lab Data Lab results reviewed: Yes I reviewed the patient's lab results. Result diagrams: 08/09/21 18:18 08/09/21 18:18 Labs: Lab Results 08/09/21 08/09/21 08/09/21 Range/Units 18:18 18:18 18:18 WBC 12.3 H (4.5-11.0) X10^3/uL RBC 4.67 (4.5-5.9) X10^6/uL Hgb 13.1 L (13.5-17.5) g/dL Hct 39.4 L (41-53) % MCV 84.4 (80-100) fL MCH 28.2 (26-34) PG MCHC 33.4 (30-36) % RDW 14.7 (11.6-14.8) % Plt Count 238 (150-400) X10^3/uL Neut % (Auto) 82.9 H (50-75) % Lymph % (Auto) 7.0 L (25-40) % [place] % (Auto) 9.3 (3-14) % Eos % (Auto) 0.3 L (2-4) % Baso % (Auto) 0.5 (0-2) % Neut # (Auto) 31712 H (1462-2634) /uL Lymph # (Auto) 900 L (6398-2437) /uL [place] # (Auto) 1100 H (0-900) /uL Eos # (Auto) 0 (0-450) /uL Baso # (Auto) 100 (0-100) /uL Sodium 133 L (137-145) mmol/L Potassium 3.2 L (3.4-5.1) mmol/L Chloride 96 L (98-107) mmol/L Carbon Dioxide 30 (22-32) mmol/L BUN 11 (9-20) mg/dL Creatinine 0.74 (0.66-1.25) mg/dL Estimated GFR > 60 (>60) mL/min BUN/Creatinine Ratio 14.9 (6-22) Glucose 101 (80-110) mg/dL Lactate 1.1 (0.7-2.1) mmol/L Calcium 8.2 L (8.4-10.2) mg/dL Magnesium (1.6-2.3) mg/dL Total Bilirubin 1.5 H (0.2-1.3) mg/dL AST 41 (17-59) IU/L ALT 23 (<50) IU/L Alkaline Phosphatase 90 (38-126) U/L Total Creatine Kinase (55-170) U/L CK-MB (CK-2) CK-MB (CK-2) Rel Index Troponin I (0.01-0.034) ng/mL NT-Pro-B Natriuret Pep (<125) pg/mL Total Protein 7.6 (6.3-8.2) g/dL Albumin 3.9 (3.5-5.0) g/dL Globulin 3.7 (1.7-4.1) g/dL Albumin/Globulin Ratio 1.1 (1.0-2.8) Procalcitonin (<0.5) ng/mL Urine Color Urine Appearance Urine pH (4.5-8.0) Ur Specific [place] (1.000-1.035) Urine Protein (Negative) Urine Glucose (UA) (Negative) g/dL Urine Ketones (NEGATIVE) Urine Occult Blood (Negative) Urine Nitrate (Negative) Urine Bilirubin (NEGATIVE) Ur Bilirubin Confirm (Negative) Urine Urobilinogen (0.2) E.U./dL Ur Leukocyte Esterase (NEGATIVE) Urine RBC (0-5/HPF) Urine WBC (0-5/HPF) Ur Squamous Epith Cells (0-5/HPF) Urine Bacteria (None) Ur Culture Indicated? U Opiates 300ng/mL cut (Negative) Ur Oxycodone Screen (Negative) Urine Methadone Screen (Negative) Ur Barbiturates Screen (Negative) U Tricyclic Antidepress (Negative) Ur Phencyclidine Scrn (Negative) Ur Amphetamines Screen (Negative) U Methamphetamines Scrn (Negative) Ur MDMA Scrn (Ecstasy) (Negative) U Benzodiazepines Scrn (Negative) Urine Cocaine Screen (Negative) U Marijuana (THC) Screen (Negative) Chlamy pneumoniae PCR (Not Detect) Adenovirus (PCR) (Not Detect) B. pertussis DNA (PCR) (Not Detecte) B.parapertussis DNA PCR (Not Detecte) Coronavirus OC43 (PCR) (Not Detect) Coronavirus HKU1 (PCR) (Not Detect) Coronavirus 229E (PCR) (Not Detect) SARS-CoV-2 (PCR) (Not Detecte) Coronavirus NL63 (PCR) (Not Detect) Human Metapneumovir PCR (Not Detect) Influenza Type A (PCR) (Not Detect) Influenza Type B (PCR) (Not Detect) M. pneumoniae (PCR) (Not Detect) Parainfluenza 1 (PCR) (Not Detect) Parainfluenza 2 (PCR) (Not Detect) Parainfluenza 3 (PCR) (Not Detect) Parainfluenza 4 (PCR) (Not Detect) RSV (PCR) (Not Detect) Entero/Rhino (PCR) (Not Detect) 08/09/21 08/09/21 08/09/21 Range/Units 18:18 18:18 18:18 WBC (4.5-11.0) X10^3/uL RBC (4.5-5.9) X10^6/uL Hgb (13.5-17.5) g/dL Hct (41-53) % MCV (80-100) fL MCH (26-34) PG MCHC (30-36) % RDW (11.6-14.8) % Plt Count (150-400) X10^3/uL Neut % (Auto) (50-75) % Lymph % (Auto) (25-40) % [place] % (Auto) (3-14) % Eos % (Auto) (2-4) % Baso % (Auto) (0-2) % Neut # (Auto) (8558-6349) /uL Lymph # (Auto) (8183-4698) /uL [place] # (Auto) (0-900) /uL Eos # (Auto) (0-450) /uL Baso # (Auto) (0-100) /uL Sodium (137-145) mmol/L Potassium (3.4-5.1) mmol/L Chloride (98-107) mmol/L Carbon Dioxide (22-32) mmol/L BUN (9-20) mg/dL Creatinine (0.66-1.25) mg/dL Estimated GFR (>60) mL/min BUN/Creatinine Ratio (6-22) Glucose (80-110) mg/dL Lactate (0.7-2.1) mmol/L Calcium (8.4-10.2) mg/dL Magnesium (1.6-2.3) mg/dL Total Bilirubin (0.2-1.3) mg/dL AST (17-59) IU/L ALT (<50) IU/L Alkaline Phosphatase (38-126) U/L Total Creatine Kinase 59 (55-170) U/L CK-MB (CK-2) TNP CK-MB (CK-2) Rel Index TNP Troponin I < 0.012 (0.01-0.034) ng/mL NT-Pro-B Natriuret Pep 3440 H (<125) pg/mL Total Protein (6.3-8.2) g/dL Albumin (3.5-5.0) g/dL Globulin (1.7-4.1) g/dL Albumin/Globulin Ratio (1.0-2.8) Procalcitonin 0.09 (<0.5) ng/mL Urine Color Urine Appearance Urine pH (4.5-8.0) Ur Specific [place] (1.000-1.035) Urine Protein (Negative) Urine Glucose (UA) (Negative) g/dL Urine Ketones (NEGATIVE) Urine Occult Blood (Negative) Urine Nitrate (Negative) Urine Bilirubin (NEGATIVE) Ur Bilirubin Confirm (Negative) Urine Urobilinogen (0.2) E.U./dL Ur Leukocyte Esterase (NEGATIVE) Urine RBC (0-5/HPF) Urine WBC (0-5/HPF) Ur Squamous Epith Cells (0-5/HPF) Urine Bacteria (None) Ur Culture Indicated? U Opiates 300ng/mL cut (Negative) Ur Oxycodone Screen (Negative) Urine Methadone Screen (Negative) Ur Barbiturates Screen (Negative) U Tricyclic Antidepress (Negative) Ur Phencyclidine Scrn (Negative) Ur Amphetamines Screen (Negative) U Methamphetamines Scrn (Negative) Ur MDMA Scrn (Ecstasy) (Negative) U Benzodiazepines Scrn (Negative) Urine Cocaine Screen (Negative) U Marijuana (THC) Screen (Negative) Chlamy pneumoniae PCR (Not Detect) Adenovirus (PCR) (Not Detect) B. pertussis DNA (PCR) (Not Detecte) B.parapertussis DNA PCR (Not Detecte) Coronavirus OC43 (PCR) (Not Detect) Coronavirus HKU1 (PCR) (Not Detect) Coronavirus 229E (PCR) (Not Detect) SARS-CoV-2 (PCR) (Not Detecte) Coronavirus NL63 (PCR) (Not Detect) Human Metapneumovir PCR (Not Detect) Influenza Type A (PCR) (Not Detect) Influenza Type B (PCR) (Not Detect) M. pneumoniae (PCR) (Not Detect) Parainfluenza 1 (PCR) (Not Detect) Parainfluenza 2 (PCR) (Not Detect) Parainfluenza 3 (PCR) (Not Detect) Parainfluenza 4 (PCR) (Not Detect) RSV (PCR) (Not Detect) Entero/Rhino (PCR) (Not Detect) 08/09/21 08/09/21 08/09/21 Range/Units 18:18 19:05 19:05 WBC (4.5-11.0) X10^3/uL RBC (4.5-5.9) X10^6/uL Hgb (13.5-17.5) g/dL Hct (41-53) % MCV (80-100) fL MCH (26-34) PG MCHC (30-36) % RDW (11.6-14.8) % Plt Count (150-400) X10^3/uL Neut % (Auto) (50-75) % Lymph % (Auto) (25-40) % [place] % (Auto) (3-14) % Eos % (Auto) (2-4) % Baso % (Auto) (0-2) % Neut # (Auto) (9915-7917) /uL Lymph # (Auto) (5995-1620) /uL [place] # (Auto) (0-900) /uL Eos # (Auto) (0-450) /uL Baso # (Auto) (0-100) /uL Sodium (137-145) mmol/L Potassium (3.4-5.1) mmol/L Chloride (98-107) mmol/L Carbon Dioxide (22-32) mmol/L BUN (9-20) mg/dL Creatinine (0.66-1.25) mg/dL Estimated GFR (>60) mL/min BUN/Creatinine Ratio (6-22) Glucose (80-110) mg/dL Lactate (0.7-2.1) mmol/L Calcium (8.4-10.2) mg/dL Magnesium 1.8 (1.6-2.3) mg/dL Total Bilirubin (0.2-1.3) mg/dL AST (17-59) IU/L ALT (<50) IU/L Alkaline Phosphatase (38-126) U/L Total Creatine Kinase (55-170) U/L CK-MB (CK-2) CK-MB (CK-2) Rel Index Troponin I (0.01-0.034) ng/mL NT-Pro-B Natriuret Pep (<125) pg/mL Total Protein (6.3-8.2) g/dL Albumin (3.5-5.0) g/dL Globulin (1.7-4.1) g/dL Albumin/Globulin Ratio (1.0-2.8) Procalcitonin (<0.5) ng/mL Urine Color Yellow Urine Appearance Clear Urine pH 5.0 (4.5-8.0) Ur Specific [place] 1.025 (1.000-1.035) Urine Protein 1+ H (Negative) Urine Glucose (UA) Trace H (Negative) g/dL Urine Ketones Trace H (NEGATIVE) Urine Occult Blood 1+ H (Negative) Urine Nitrate Negative (Negative) Urine Bilirubin 1+ H (NEGATIVE) Ur Bilirubin Confirm Positive H (Negative) Urine Urobilinogen 1.0 (0.2) E.U./dL Ur Leukocyte Esterase Negative (NEGATIVE) Urine RBC 1-5/hpf (0-5/HPF) Urine WBC 0-1/hpf (0-5/HPF) Ur Squamous Epith Cells 0-1 /hpf (0-5/HPF) Urine Bacteria Occasional (0-1) (None) Ur Culture Indicated? Cult not indicated U Opiates 300ng/mL cut Negative (Negative) Ur Oxycodone Screen Negative (Negative) Urine Methadone Screen Negative (Negative) Ur Barbiturates Screen Negative (Negative) U Tricyclic Antidepress Negative (Negative) Ur Phencyclidine Scrn Negative (Negative) Ur Amphetamines Screen Negative (Negative) U Methamphetamines Scrn Negative (Negative) Ur MDMA Scrn (Ecstasy) Negative (Negative) U Benzodiazepines Scrn Negative (Negative) Urine Cocaine Screen Negative (Negative) U Marijuana (THC) Screen Negative (Negative) Chlamy pneumoniae PCR (Not Detect) Adenovirus (PCR) (Not Detect) B. pertussis DNA (PCR) (Not Detecte) B.parapertussis DNA PCR (Not Detecte) Coronavirus OC43 (PCR) (Not Detect) Coronavirus HKU1 (PCR) (Not Detect) Coronavirus 229E (PCR) (Not Detect) SARS-CoV-2 (PCR) (Not Detecte) Coronavirus NL63 (PCR) (Not Detect) Human Metapneumovir PCR (Not Detect) Influenza Type A (PCR) (Not Detect) Influenza Type B (PCR) (Not Detect) M. pneumoniae (PCR) (Not Detect) Parainfluenza 1 (PCR) (Not Detect) Parainfluenza 2 (PCR) (Not Detect) Parainfluenza 3 (PCR) (Not Detect) Parainfluenza 4 (PCR) (Not Detect) RSV (PCR) (Not Detect) Entero/Rhino (PCR) (Not Detect) 08/09/21 Range/Units 19:25 WBC (4.5-11.0) X10^3/uL RBC (4.5-5.9) X10^6/uL Hgb (13.5-17.5) g/dL Hct (41-53) % MCV (80-100) fL MCH (26-34) PG MCHC (30-36) % RDW (11.6-14.8) % Plt Count (150-400) X10^3/uL Neut % (Auto) (50-75) % Lymph % (Auto) (25-40) % [place] % (Auto) (3-14) % Eos % (Auto) (2-4) % Baso % (Auto) (0-2) % Neut # (Auto) (1933-5490) /uL Lymph # (Auto) (2342-9752) /uL [place] # (Auto) (0-900) /uL Eos # (Auto) (0-450) /uL Baso # (Auto) (0-100) /uL Sodium (137-145) mmol/L Potassium (3.4-5.1) mmol/L Chloride (98-107) mmol/L Carbon Dioxide (22-32) mmol/L BUN (9-20) mg/dL Creatinine (0.66-1.25) mg/dL Estimated GFR (>60) mL/min BUN/Creatinine Ratio (6-22) Glucose (80-110) mg/dL Lactate (0.7-2.1) mmol/L Calcium (8.4-10.2) mg/dL Magnesium (1.6-2.3) mg/dL Total Bilirubin (0.2-1.3) mg/dL AST (17-59) IU/L ALT (<50) IU/L Alkaline Phosphatase (38-126) U/L Total Creatine Kinase (55-170) U/L CK-MB (CK-2) CK-MB (CK-2) Rel Index Troponin I (0.01-0.034) ng/mL NT-Pro-B Natriuret Pep (<125) pg/mL Total Protein (6.3-8.2) g/dL Albumin (3.5-5.0) g/dL Globulin (1.7-4.1) g/dL Albumin/Globulin Ratio (1.0-2.8) Procalcitonin (<0.5) ng/mL Urine Color Urine Appearance Urine pH (4.5-8.0) Ur Specific [place] (1.000-1.035) Urine Protein (Negative) Urine Glucose (UA) (Negative) g/dL Urine Ketones (NEGATIVE) Urine Occult Blood (Negative) Urine Nitrate (Negative) Urine Bilirubin (NEGATIVE) Ur Bilirubin Confirm (Negative) Urine Urobilinogen (0.2) E.U./dL Ur Leukocyte Esterase (NEGATIVE) Urine RBC (0-5/HPF) Urine WBC (0-5/HPF) Ur Squamous Epith Cells (0-5/HPF) Urine Bacteria (None) Ur Culture Indicated? U Opiates 300ng/mL cut (Negative) Ur Oxycodone Screen (Negative) Urine Methadone Screen (Negative) Ur Barbiturates Screen (Negative) U Tricyclic Antidepress (Negative) Ur Phencyclidine Scrn (Negative) Ur Amphetamines Screen (Negative) U Methamphetamines Scrn (Negative) Ur MDMA Scrn (Ecstasy) (Negative) U Benzodiazepines Scrn (Negative) Urine Cocaine Screen (Negative) U Marijuana (THC) Screen (Negative) Chlamy pneumoniae PCR Not detected (Not Detect) Adenovirus (PCR) Not detected (Not Detect) B. pertussis DNA (PCR) Not detected (Not Detecte) B.parapertussis DNA PCR Not detected (Not Detecte) Coronavirus OC43 (PCR) Not detected (Not Detect) Coronavirus HKU1 (PCR) Not detected (Not Detect) Coronavirus 229E (PCR) Not detected (Not Detect) SARS-CoV-2 (PCR) Not detected (Not Detecte) Coronavirus NL63 (PCR) Not detected (Not Detect) Human Metapneumovir PCR Not detected (Not Detect) Influenza Type A (PCR) Not detected (Not Detect) Influenza Type B (PCR) Not detected (Not Detect) M. pneumoniae (PCR) Not detected (Not Detect) Parainfluenza 1 (PCR) Not detected (Not Detect) Parainfluenza 2 (PCR) Not detected (Not Detect) Parainfluenza 3 (PCR) Not detected (Not Detect) Parainfluenza 4 (PCR) Not detected (Not Detect) RSV (PCR) Not detected (Not Detect) Entero/Rhino (PCR) Not detected (Not Detect) Imaging Data Chest x-ray: Radiologist's Impression: [address] [address] XRay Report Signed Patient: Jayden Rodriguez MR#: [id number] : 1950 Acct:[id number] Age/Sex: 70 / M Date of Service: 08/09/21 Loc: Accession Number: [id number] ?? Procedure: XR chest 2V Ordering Provider: Dea Soto MD PROCEDURE:? XR CHEST 2V ? INDICATIONS:? shortness of breath ? TECHNIQUE:? 2 views of the chest were acquired.? ? COMPARISON:? [facility], CR, XR CHEST 1V, 08/02/2021, 13:34. ? FINDINGS: Heart size is enlarged.? Moderate vascular congestion noted. Atherosclerotic vascular calcification noted in the aortic arch.? Pleural spaces are clear.? Osseous structures normal. ? IMPRESSION:? ? Cardiomegaly and moderate vascular congestion Aortic atherosclerosis ? ? ? Approved by: Dominic Hale M.D. on 07/22 CT scan - chest: Radiologist's Impression: Launch?Image [address] [address] [address] Scan Report Signed Patient: Jayden Rodriguez MR#: [id number] : 1950 Acct:[id number] Age/Sex: 70 / M Date of Service: 08/09/21 Loc: ED Accession Number: [id number] ?? Procedure: CT angio chest PE protocol Ordering Provider: Sravan Desai D.O. PROCEDURE:? CT ANGIO CHEST PE PROTOCOL ? INDICATIONS:? Chest pain, shortness of breath, tachycardia ? TECHNIQUE:? After the administration of intravenous contrast, 2 mm thick sections acquired from the pulmonary apices to the posterior costophrenic angles.? 3-dimensional maximum intensity projection (MIP) coronal and sagittal reformats were then acquired through the thorax.? For radiation dose reduction, the following was used:? automated exposure control, adjustment of mA and/or kV according to patient size.? ? COMPARISON:? None. ? FINDINGS:? Image quality:? Excellent.? ? Pulmonary arteries:? Pulmonary arteries are normal in size, and demonstrate no intraluminal filling defects to suggest central pulmonary embolism.? ? Lungs and pleura:? Patchy alveolar opacity in the right middle lobe region and mild reticulation and ground-glass opacity at both posterior lung bases.? Minor patchy alveolar opacity also present in the perihilar right upper lobe at a mid lung level.? There are no pleural effusions. ? Mediastinum:? The heart is moderately enlarged.? There is moderate mitral annular calcification and heavy coronary artery calcification.? Aortic valvular calcification is also present.? There is no pericardial effusion.? Confluent soft tissue in the right hilar region suggests adenopathy.? There is moderate mediastinal adenopathy in the pretracheal region and AP window.? The esophagus is normal caliber.? No hiatal hernia.? The thoracic vessels are normal caliber. ? Bones and chest wall:? No suspicious bony lesions. Degenerative endplate spurs in the thoracic spine. ? Ribs and thoracic spine appear intact throughout.? Thyroid gland is normal.? No axillary or supraclavicular adenopathy.? ? Abdomen:? Visualized upper abdominal solid organs appear normal in the early arterial phase of enhancement.? ? IMPRESSION:? ? 1. No pulmonary embolus. ? 2. Patchy alveolar opacity in the right middle lobe with moderately prominent right hilar and mediastinal adenopathy.? This is most likely infectious, however given the degree of adenopathy, this should be followed to resolution.? Follow-up chest CT in 1-2 months is recommended.? ? 3. Cardiomegaly and mild interstitial changes at both lung bases suggesting slight interstitial edema. ? 4. Heavy coronary artery and valvular calcification.? ? Dictated by: Autumn Edmond M.D. on 08/09/2021 at 20:22 ? ? Approved by: Autumn Edmond M.D. on 08/09/2021 at 20:30?? ECG Data Attestation: I personally reviewed and interpreted this ECG as follows: Interpretation: Atrial fibrillation Ventricular rate 85 Normal axis Normal QRS LVH Nonspecific ST T wave changes MDM Narrative Medical decision making narrative: Patient is febrile. Leukocytosis. Heart rate greater than 90. CT scan of the chest shows no signs of pulmonary embolism but he does have what appears to be pneumonia which does correspond to his presenting symptoms. Was given antibiotics. Blood cultures obtained. Patient lactate not elevated, not hypotensive, not dehydrated so will hold on 30 cc/kilogram of fluid as I do not feel this is necessary given his presentation. EKG shows nonspecific changes. Troponin is negative greater than 6 hours of the onset of symptoms. BNP elevated but not clinically in heart failure. Given his age, living situation, lack of assistance at home, pneumonia on the CT scan, lack of medications at home patient does require admission to the hospital for further evaluation and treatment. Discussed the case with CLAIR Schwarz who will admit for further evaluation and treatment. Patient also requiring admission for further risk str atification of his chest discomfort. Discharge Plan Departure Patient Disposition: Admitted as Observation Clinical Impression: Pneumonia, Chest pain Admit Date/Time: 08/10/21 01:34 Admit Provider: Emelia Schwarz
--- NOTE | 2021-08-09 19:15 | DI.CT.S_ITS ---
PROCEDURE: CT ANGIO CHEST PE PROTOCOL INDICATIONS: Chest pain, shortness of breath, tachycardia TECHNIQUE: After the administration of intravenous contrast, 2 mm thick sections acquired from the pulmonary apices to the posterior costophrenic angles. 3-dimensional maximum intensity projection (MIP) coronal and sagittal reformats were then acquired through the thorax. For radiation dose reduction, the following was used: automated exposure control, adjustment of mA and/or kV according to patient size. COMPARISON: None. FINDINGS: Image quality: Excellent. Pulmonary arteries: Pulmonary arteries are normal in size, and demonstrate no intraluminal filling defects to suggest central pulmonary embolism. Lungs and pleura: Patchy alveolar opacity in the right middle lobe region and mild reticulation and ground-glass opacity at both posterior lung bases. Minor patchy alveolar opacity also present in the perihilar right upper lobe at a mid lung level. There are no pleural effusions. Mediastinum: The heart is moderately enlarged. There is moderate mitral annular calcification and heavy coronary artery calcification. Aortic valvular calcification is also present. There is no pericardial effusion. Confluent soft tissue in the right hilar region suggests adenopathy. There is moderate mediastinal adenopathy in the pretracheal region and AP window. The esophagus is normal caliber. No hiatal hernia. The thoracic vessels are normal caliber. Bones and chest wall: No suspicious bony lesions. Degenerative endplate spurs in the thoracic spine. Ribs and thoracic spine appear intact throughout. Thyroid gland is normal. No axillary or supraclavicular adenopathy. Abdomen: Visualized upper abdominal solid organs appear normal in the early arterial phase of enhancement. IMPRESSION: 1. No pulmonary embolus. 2. Patchy alveolar opacity in the right middle lobe with moderately prominent right hilar and mediastinal adenopathy. This is most likely infectious, however given the degree of adenopathy, this should be followed to resolution. Follow-up chest CT in 1-2 months is recommended. 3. Cardiomegaly and mild interstitial changes at both lung bases suggesting slight interstitial edema. 4. Heavy coronary artery and valvular calcification. Dictated by: Autumn Edmond M.D. on 08/09/2021 at 20:22 Approved by: Autumn Edmond M.D. on 08/09/2021 at 20:30
[2021-08-09] MEDS: SODIUM CHLORIDE 0.9% 1,000 ML 1000 ML IV (19:18)
[2021-08-09] MEDS: cefTRIAXone 1,000 MG in SODIUM CHLORIDE 0.9% 100 ML 200 ML IV (19:18)
[2021-08-09] MEDS: ASPIRIN 81 MG CHEW TAB 324 MG PO (19:20)
[2021-08-09 19:27] LABS: Appearance Urine UA CLEAR; Bilirubin Urine UA 1+ (NEGATIVE); Color Urine UA YELLOW; Glucose Urine UA TRACE g/dL (Negative); Ketones Urine UA TRACE (NEGATIVE); Leukocyte Esterase Urine UA NEGATIVE (NEGATIVE); Nitrite Urine UA NEGATIVE (Negative); Occult Blood Urine UA 1+ (Negative); Protein Urine UA 1+ (Negative); Specific Gravity Urine UA 1.025 (1.000-1.035)
[2021-08-09 19:32] LABS: Creatine Kinase 59 U/L (55-170)
[2021-08-09 19:32] LABS: UR Morphine/Opiate cutoff 300 Negative (Negative); Ur Creatinine Normal (Normal); Ur Specific Gravity Normal (Normal); Urine Amphetamines Negative (Negative); Urine Barbiturates Negative (Negative); Urine Benzodiazepines Negative (Negative); Urine Cocaine Negative (Negative); Urine MDMA Negative (Negative); Urine Methadone Negative (Negative); Urine Methamphetamines Negative (Negative); Urine Oxycodone Negative (Negative); Urine Phencyclidine Negative (Negative); Urine Tetrahydrocannabinol Negative (Negative); Urine Tricyclic Antidepressant Negative (Negative); Urine pH Normal (Normal)
[2021-08-09 19:42] LABS: NT-proBNP (BNP-Adult 18+) 3440 pg/mL (<125)
[2021-08-09 19:45] LABS: Troponin I < 0.012 ng/mL (0.01-0.034)
[2021-08-09 19:48] LABS: Culture Indicated Urine Cult Not Indicated; Ictotest Urine Positive (Negative); RBC Urine 1-5/HPF (0-5/HPF); Squamous Epithelial Cell Urine 0-1 /HPF (0-5/HPF); WBC Urine 0-1/HPF (0-5/HPF)
[2021-08-09 19:49] LABS: Bacteria Urine Occasional (0-1)
[2021-08-09] MEDS: VANCOMYCIN 1,000 MG/200 ML PIGGYBACK 200 MG IV (20:23)
[2021-08-09 20:25] LABS: Adenovirus Not Detected (Not Detect); B. parapertussis Not Detected (Not Detecte); Bordetella pertussis Not Detected (Not Detecte); Chlamydophila pneumoniae Not Detected (Not Detect); Coronavirus 229E Not Detected (Not Detect); Coronavirus HKU1 Not Detected (Not Detect); Coronavirus NL 63 Not Detected (Not Detect); Coronavirus OC43 Not Detected (Not Detect); Human Metapneumovirus Not Detected (Not Detect); Human Rhinovirus/Enterovirus Not Detected (Not Detect); Influenza A Not Detected (Not Detect); Influenza B Not Detected (Not Detect); Mycoplasma pneumoniae Not Detected (Not Detect); Parainfluenza Virus 1 Not Detected (Not Detect); Parainfluenza Virus 2 Not Detected (Not Detect); Parainfluenza Virus 3 Not Detected (Not Detect); Parainfluenza Virus 4 Not Detected (Not Detect); Respiratory Syncytial Virus Not Detected (Not Detect); SARS- CoV-2 Not Detected (Not Detecte)
[2021-08-10] VITALS (34 sets, daily range): BP systolic 112–162; BP diastolic 53–94; PULSE 69–92; RESP 14–35; TEMP 36.7–39.2; O2SAT 91–99; BMI 27.1
[2021-08-10] MEDS: ACETAMINOPHEN 325 MG TABLET 650 MG PO (00:01)
--- NOTE | 2021-08-10 02:39 | RT ---
ab results 08/10/2021 @ 0204 room air ph. 7.47 , co2 40.9, po2 64 , hco3 29.7 , tco2 31 , so2 93%
[2021-08-10 02:53] LABS: Magnesium 1.8 mg/dL (1.6-2.3)
--- NOTE | 2021-08-10 03:02 | P.HP_ITS ---
History of Present Illness History of Present Illness Date Patient Seen: 08/10/21 Time Patient Seen: 03:03 Chief complaint: Fever, chest pain, found to have RML pneumonia Narrative: Patient unable to participate in exam, lethargic and cannot keep his eyes open or stay awake. History gleaned from ED provider and prior records. Jayden Rodriguez is 69-year-old male with a past medical history significant for methamphetamine abuse (last use 08/02/21), CVA reporting no residual deficits, atrial fibrillation normally anticoagulated on Eliquis, chronic systolic and diastolic heart failure, infra-renal abdominal aortic aneurysm, hypertension, history of pleural effusion and hyperlipidemia who presented to the ED with shortness of breath, chest pain, and generalized weakness over the past several days.? It is believed he has not been taking his home medications for some time, and appears to have difficulty accessing his medications as he lives on [facility] and where it is very difficult to access resources.? It does not appear that he has followed up with his primary care provider since then.? What little he told me was I heard I have a fever, chest hurts and then he fell asleep. Chest CT angio ruled out a PE but noted Patchy alveolar opacity in the right middle lobe with moderately prominent right hilar and mediastinal adenopathy.? This is most likely infectious, however given the degree of adenopathy, this should be followed to resolution.? Follow-up chest CT in 1-2 months is recommended.He is febrile with a temperature of 101.1?, blood pressure 128/80, heart rate 81, respiratory rate 28, oxygen saturation 91% on room air, he weighs 86.1 kg with a BMI of 28.1. WBC is mildly elevated at 12.3, hemoglobin is 13.1 hematocrit 39.4, he has a neutrophil count of 10,200, sodium 133, potassium 3.2, chloride 96, bicarb 30, his calcium is 8.2, his bilirubin is 1.5, proBNP is 3440, procalcitonin is 0.09, urine does have positive urine bilirubin 1+, urinary tox screen is negative, and COVID-19 PCR as well as viral PCR are all negative. Patient History Medical History Abdominal aortic aneurysm Atrial fibrillation, chronic Essential hypertension History of CVA (cerebrovascular accident) Hyperlipidemia Methamphetamine use Substance abuse requiring inpatient treatment Systolic CHF with reduced left ventricular function, NYHA class 2 Surgical History History of appendectomy History of inguinal hernia repair History of tonsillectomy Family & Social History Family History Mother CVA (cerebral vascular accident) Father Leukemia Social History: household members none lives independently Yes Safety & Behavioral: Feels Safe in Current No Environment Been Physically Hurt or No Threatened By a Person Tobacco & Substance use: Smoking Status Never smoker alcohol intake current alcohol intake frequency holiday/special occasion Substance Use Type methamphetamine Meds Home Medications and Allergies Home Medications Medication Instructions Recorded Confirmed Type melatonin 3 mg tablet 3 mg PO BEDTIME PRN 01/27/20 05/25/21 History apixaban 5 mg tablet (Eliquis) 5 mg PO BID 30 Days #60 tab 02/22/21 05/25/21 Rx atorvastatin 20 mg tablet (Lipitor) 20 mg PO BEDTIME 30 Days #30 tab 02/22/21 05/25/21 Rx famotidine 20 mg tablet 20 mg PO DAILY #30 tab 02/22/21 05/25/21 Rx furosemide 20 mg tablet 20 mg PO DAILY 30 Days #30 tab 02/22/21 05/25/21 Rx lisinopril 10 mg tablet 10 mg PO DAILY 30 Days #30 tab 02/22/21 05/25/21 Rx metoprolol succinate 25 mg 25 mg PO BEDTIME 30 Days #30 tab 02/22/21 05/25/21 Rx tablet,extended release 24 hr apixaban 5 mg tablet 5 mg PO BID #60 tab 08/02/21 Rx atorvastatin 20 mg tablet 20 mg PO BEDTIME #30 tab 08/02/21 Rx furosemide 20 mg tablet (Lasix) 20 mg PO QAM #30 tab 08/02/21 Rx lisinopril 10 mg tablet 10 mg PO DAILY #30 tab 08/02/21 Rx metoprolol succinate 25 mg 25 mg PO .HS #30 tab 08/02/21 Rx tablet,extended release 24 hr Allergies Allergy/AdvReac Type Severity Reaction Status Date / Time No Known Drug Allergies Allergy Verified 07/12/21 11:42 Review of Systems Review of Systems ROS: Yes unobtainable due to mental status Exam Vital Signs (past 8 hours): - 08/09/21 19:35 08/09/21 19:51 08/09/21 20:00 Temperature Pulse Rate 88 86 83 Respiratory Rate Blood Pressure 161/83 H 165/80 H Pulse Oximetry 91 97 94 08/09/21 20:30 08/09/21 21:00 08/09/21 21:05 Temperature Pulse Rate 80 81 81 Respiratory Rate Blood Pressure 122/70 152/76 H Pulse Oximetry 93 93 91 08/09/21 21:24 08/09/21 21:32 08/09/21 21:34 Temperature Pulse Rate 81 81 Respiratory Rate Blood Pressure 173/87 H Pulse Oximetry 96 08/09/21 22:00 08/09/21 22:01 08/09/21 22:30 Temperature Pulse Rate 81 77 80 Respiratory Rate Blood Pressure 147/83 H 145/91 H Pulse Oximetry 96 96 92 08/09/21 23:00 08/09/21 23:01 08/09/21 23:09 Temperature Pulse Rate 87 87 95 H Respiratory Rate Blood Pressure 184/100 H Pulse Oximetry 96 08/09/21 23:30 08/09/21 23:31 08/09/21 23:39 Temperature Pulse Rate 86 58 L Respiratory Rate Blood Pressure 180/97 H Pulse Oximetry 91 08/09/21 23:54 08/10/21 00:01 08/10/21 00:05 Temperature 102.5 F H 102.5 F H Pulse Rate 81 Respiratory Rate 22 Blood Pressure 160/78 H Pulse Oximetry 08/10/21 00:30 08/10/21 00:51 08/10/21 01:00 Temperature 101.1 F H Pulse Rate 81 85 Respiratory Rate 18 Blood Pressure 143/79 H Pulse Oximetry 08/10/21 01:30 08/10/21 02:00 Temperature Pulse Rate 84 81 Respiratory Rate 35 H 28 H Blood Pressure 158/87 H 128/80 Pulse Oximetry Oxygen Delivery Method Room Air Narrative Exam Narrative: Gen: Temporarely arousable 70 y.o. male, unable to maintain a conversation HEENT: normocephalic, atraumatic, conjunctiva clear, sclera non-icteric, oral mucosa pink and dry Neck: supple, full ROM, no JVD, trachea is midline Resp: Lungs w/bilateral rhonchi and rales, apneac breathing CV: RRR, no murmur or rubs Abd: soft, non-tender, normoactive BTs Skin: no lesions or rashes, dry and intact Neuro: Lethargic. Speech is muddled. Extremities: moves all 4 extremities, is ambulatory, negative Martha?s sign Psyche: depressed affect. Objective Labs Result Diagrams: 08/09/21 18:18 08/09/21 18:18 Labs: Laboratory Results - last 24 hr 08/09/21 08/09/21 08/09/21 18:18 18:18 18:18 WBC 12.3 H RBC 4.67 Hgb 13.1 L Hct 39.4 L MCV 84.4 MCH 28.2 MCHC 33.4 RDW 14.7 Plt Count 238 Neut % (Auto) 82.9 H Lymph % (Auto) 7.0 L [place] % (Auto) 9.3 Eos % (Auto) 0.3 L Baso % (Auto) 0.5 Neut # (Auto) 61824 H Lymph # (Auto) 900 L [place] # (Auto) 1100 H Eos # (Auto) 0 Baso # (Auto) 100 Sodium 133 L Potassium 3.2 L Chloride 96 L Carbon Dioxide 30 BUN 11 Creatinine 0.74 Estimated GFR > 60 BUN/Creatinine Ratio 14.9 Glucose 101 Lactate 1.1 Calcium 8.2 L Total Bilirubin 1.5 H AST 41 ALT 23 Alkaline Phosphatase 90 Total Creatine Kinase CK-MB (CK-2) CK-MB (CK-2) Rel Index Troponin I NT-Pro-B Natriuret Pep Total Protein 7.6 Albumin 3.9 Globulin 3.7 Albumin/Globulin Ratio 1.1 Procalcitonin Urine Color Urine Appearance Urine pH Ur Specific [place] Urine Protein Urine Glucose (UA) Urine Ketones Urine Occult Blood Urine Nitrate Urine Bilirubin Ur Bilirubin Confirm Urine Urobilinogen Ur Leukocyte Esterase Urine RBC Urine WBC Ur Squamous Epith Cells Urine Bacteria Ur Culture Indicated? U Opiates 300ng/mL cut Ur Oxycodone Screen Urine Methadone Screen Ur Barbiturates Screen U Tricyclic Antidepress Ur Phencyclidine Scrn Ur Amphetamines Screen U Methamphetamines Scrn Ur MDMA Scrn (Ecstasy) U Benzodiazepines Scrn Urine Cocaine Screen U Marijuana (THC) Screen Chlamy pneumoniae PCR Adenovirus (PCR) B. pertussis DNA (PCR) B.parapertussis DNA PCR Coronavirus OC43 (PCR) Coronavirus HKU1 (PCR) Coronavirus 229E (PCR) SARS-CoV-2 (PCR) Coronavirus NL63 (PCR) Human Metapneumovir PCR Influenza Type A (PCR) Influenza Type B (PCR) M. pneumoniae (PCR) Parainfluenza 1 (PCR) Parainfluenza 2 (PCR) Parainfluenza 3 (PCR) Parainfluenza 4 (PCR) RSV (PCR) Entero/Rhino (PCR) 08/09/21 08/09/21 08/09/21 18:18 18:18 18:18 WBC RBC Hgb Hct MCV MCH MCHC RDW Plt Count Neut % (Auto) Lymph % (Auto) [place] % (Auto) Eos % (Auto) Baso % (Auto) Neut # (Auto) Lymph # (Auto) [place] # (Auto) Eos # (Auto) Baso # (Auto) Sodium Potassium Chloride Carbon Dioxide BUN Creatinine Estimated GFR BUN/Creatinine Ratio Glucose Lactate Calcium Total Bilirubin AST ALT Alkaline Phosphatase Total Creatine Kinase 59 CK-MB (CK-2) TNP CK-MB (CK-2) Rel Index TNP Troponin I < 0.012 NT-Pro-B Natriuret Pep 3440 H Total Protein Albumin Globulin Albumin/Globulin Ratio Procalcitonin 0.09 Urine Color Urine Appearance Urine pH Ur Specific [place] Urine Protein Urine Glucose (UA) Urine Ketones Urine Occult Blood Urine Nitrate Urine Bilirubin Ur Bilirubin Confirm Urine Urobilinogen Ur Leukocyte Esterase Urine RBC Urine WBC Ur Squamous Epith Cells Urine Bacteria Ur Culture Indicated? U Opiates 300ng/mL cut Ur Oxycodone Screen Urine Methadone Screen Ur Barbiturates Screen U Tricyclic Antidepress Ur Phencyclidine Scrn Ur Amphetamines Screen U Methamphetamines Scrn Ur MDMA Scrn (Ecstasy) U Benzodiazepines Scrn Urine Cocaine Screen U Marijuana (THC) Screen Chlamy pneumoniae PCR Adenovirus (PCR) B. pertussis DNA (PCR) B.parapertussis DNA PCR Coronavirus OC43 (PCR) Coronavirus HKU1 (PCR) Coronavirus 229E (PCR) SARS-CoV-2 (PCR) Coronavirus NL63 (PCR) Human Metapneumovir PCR Influenza Type A (PCR) Influenza Type B (PCR) M. pneumoniae (PCR) Parainfluenza 1 (PCR) Parainfluenza 2 (PCR) Parainfluenza 3 (PCR) Parainfluenza 4 (PCR) RSV (PCR) Entero/Rhino (PCR) 08/09/21 08/09/21 08/09/21 19:05 19:05 19:25 WBC RBC Hgb Hct MCV MCH MCHC RDW Plt Count Neut % (Auto) Lymph % (Auto) [place] % (Auto) Eos % (Auto) Baso % (Auto) Neut # (Auto) Lymph # (Auto) [place] # (Auto) Eos # (Auto) Baso # (Auto) Sodium Potassium Chloride Carbon Dioxide BUN Creatinine Estimated GFR BUN/Creatinine Ratio Glucose Lactate Calcium Total Bilirubin AST ALT Alkaline Phosphatase Total Creatine Kinase CK-MB (CK-2) CK-MB (CK-2) Rel Index Troponin I NT-Pro-B Natriuret Pep Total Protein Albumin Globulin Albumin/Globulin Ratio Procalcitonin Urine Color Yellow Urine Appearance Clear Urine pH 5.0 Ur Specific [place] 1.025 Urine Protein 1+ H Urine Glucose (UA) Trace H Urine Ketones Trace H Urine Occult Blood 1+ H Urine Nitrate Negative Urine Bilirubin 1+ H Ur Bilirubin Confirm Positive H Urine Urobilinogen 1.0 Ur Leukocyte Esterase Negative Urine RBC 1-5/hpf Urine WBC 0-1/hpf Ur Squamous Epith Cells 0-1 /hpf Urine Bacteria Occasional (0-1) Ur Culture Indicated? Cult not indicated U Opiates 300ng/mL cut Negative Ur Oxycodone Screen Negative Urine Methadone Screen Negative Ur Barbiturates Screen Negative U Tricyclic Antidepress Negative Ur Phencyclidine Scrn Negative Ur Amphetamines Screen Negative U Methamphetamines Scrn Negative Ur MDMA Scrn (Ecstasy) Negative U Benzodiazepines Scrn Negative Urine Cocaine Screen Negative U Marijuana (THC) Screen Negative Chlamy pneumoniae PCR Not detected Adenovirus (PCR) Not detected B. pertussis DNA (PCR) Not detected B.parapertussis DNA PCR Not detected Coronavirus OC43 (PCR) Not detected Coronavirus HKU1 (PCR) Not detected Coronavirus 229E (PCR) Not detected SARS-CoV-2 (PCR) Not detected Coronavirus NL63 (PCR) Not detected Human Metapneumovir PCR Not detected Influenza Type A (PCR) Not detected Influenza Type B (PCR) Not detected M. pneumoniae (PCR) Not detected Parainfluenza 1 (PCR) Not detected Parainfluenza 2 (PCR) Not detected Parainfluenza 3 (PCR) Not detected Parainfluenza 4 (PCR) Not detected RSV (PCR) Not detected Entero/Rhino (PCR) Not detected Assessment & Plan Assessment & Plan narrative: Jayden Rodriguez is admitted to the inpatient service for a right middle lobe pneumonia. 1. Community-acquired pneumonia, acute, present on admission * He is initiated on IV ceftriaxone 1 g daily and oral azithromycin 500 mg a day 2. Acute on chronic respiratory failure with a initial presenting oxygen saturation of 91%, acute, present on admission * ABG results are pending in the chart cursory view of results did not indicate any gross abnormalities * He is written for DuoNebs q.4 hours as needed for shortness of breath and wheezing 3. Probable diastolic heart failure exacerbation with the proBNP of greater than 3000, acute, present on admission * He will be on a fluid restricted diet * IV Lasix 60 mg t.i.d. Holding oral lasix 4. Paroxysmal Atrial fibrillation, unknown if acute * Cardiac monitoring * He will be restarted on Eliquis 5 mg p.o. b.i.d. * Rate control with metoprolol 25 mg p.o. at bedtime 5. Essential hypertension, chronic * Continue home dose of lisinopril 10 mg p.o. daily, amlodipine 5 mg p.o. b.i.d. VTE Prophylaxis: Wells risk score 4.5 Bilateral SCDs Patient will resume anticoagulation on apixaban 5 mg po bid. Patient is admitted to the inpatient service due to the severity of disease, risks of further disease progression and this stay is expected to exceed 2 midnights. FEN: IV fluids: 1000 cc fluid restriction, labs: CBC, C/BMP, liver enzymes, Mag, PT/INR Consultants None Dispo: unknown at this time, appears patient may not be safe at home Code status: Presumed to be full as patient does not appear to have capability to express preferences. [X] I have utilized all available immediate resources to obtain, update, or review of the patient's current medications COVID-19 COVID-19 status: Negative Result date/Date tested (Pos, Neg/Pending): 08/10/21 Scores GCS [place] coma scale eye opening: To sound Samantha coma scale verbal response: Confused [place] coma scale motor response: Localising Samantha coma scale total score: 12 Wells' Criteria for PE Clinical signs and symptoms of DVT: Yes PE is #1 Dx or equally likely: No Heart rate > 100: No Immobilization at least 3 days or surg in previous 4 weeks: Yes History of PE or DVT: No Hemoptysis: No Malignancy w/Treatment within 6 months or palliative: No Wells' PE Score total: 4.5 Quality VTE Deep Vein Thrombosis/Pulmonary Embolism Present on Admission: No MIPS - Admit The patient?s Advance Care plan is not present because I confirmed today that the patient does not wish or was not able to name a surrogate decision maker or provide an Advance Care Plan.: Yes MIPS - DC The patient has current or prior documentation of left ventricular ejection fraction (LVEF) less than 40%, or moderate or severely depressed left ventricular systolic function.: No
[2021-08-10 05:34] LABS: Alanine Aminotransferase 22 IU/L (<50); Albumin 3.7 g/dL (3.5-5.0); Alkaline Phosphatase 77 U/L (38-126); Aspartate Aminotransferase 33 IU/L (17-59); BUN Creatinine Ratio 14.3 (6-22); Bilirubin Total 1.5 mg/dL (0.2-1.3); Bilirubin Unconjugated 1.4 mg/dL (0.0-1.1); Blood Urea Nitrogen 11 mg/dL (9-20); Calcium 8.2 mg/dL (8.4-10.2); Carbon Dioxide 30 mmol/L (22-32); Chloride 103 mmol/L (98-107); Estimated Glomerular Filt Rate > 60 mL/min (>60); Globulin 3.7 g/dL (1.7-4.1); Glucose 133 mg/dL (80-110); HEMOLYSIS 19 (0-50); Magnesium 2.1 mg/dL (1.6-2.3); Potassium 3.5 mmol/L (3.4-5.1); Sodium 139 mmol/L (137-145); Total Protein 7.4 g/dL (6.3-8.2)
[2021-08-10 05:41] LABS: Add Manual Diff / Slide Review NO; Basophils Absolute Auto 100 /uL (0-100); Basophils Percent Auto 0.9 % (0-2); Eosinophils Absolute Auto 100 /uL (0-450); Eosinophils Percent Auto 0.6 % (2-4); Hematocrit 40.2 % (41-53); Hemoglobin 13.3 g/dL (13.5-17.5); Lymphocytes Absolute Auto 800 /uL (1100-4500); Lymphocytes Percent Auto 6.8 % (25-40); Mean Corpuscular HGB Conc 33.1 % (30-36); Mean Corpuscular Volume 84.5 fL (80-100); Monocytes Absolute Auto 800 /uL (0-900); Monocytes Percent Auto 6.7 % (3-14); Neutrophils Absolute Auto 10300 /uL (1500-7000); Platelet Count 221 X10^3/uL (150-400); Red Blood Cell Count 4.76 X10^6/uL (4.5-5.9); Red Cell Distribution Width 15.4 % (11.6-14.8); White Blood Cell Count 12.2 X10^3/uL (4.5-11.0)
[2021-08-10] MEDS: FUROSEMIDE 100 MG/10 ML VIAL 60 MG IV (06:43)
[2021-08-10 08:39] LABS: HCO3 ABG 30 mmol/L (22-26); PCO2 ABG 40.9 mmHg (35-45); PO2 ABG 64 mmHg (80-100); TCO2 ABG 31 mmol/L (21-31); pH ABG 7.47 (7.35-7.45)
[2021-08-10 08:43] LABS: Fractionated Inspired Oxygen 21; Oxygen Saturation ABG 93 % (95-100)
[2021-08-10] MEDS: AMLODIPINE 5 MG TABLET PO ×2 (09:20→20:27)
[2021-08-10] MEDS: APIXABAN 5 MG TABLET PO ×2 (09:20→20:28)
[2021-08-10] MEDS: cefTRIAXone 1,000 MG in SODIUM CHLORIDE 0.9% 100 ML 200 ML IV (09:20)
[2021-08-10] MEDS: AZITHROMYCIN 250 MG TABLET 500 MG PO (09:20)
[2021-08-10] MEDS: lisinopriL 10 MG TABLET PO (09:31)
--- NOTE | 2021-08-10 10:41 | PC.NURSE ---
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
[2021-08-10] MEDS: FUROSEMIDE 100 MG/10 ML VIAL 20 MG IV (15:51)
[2021-08-10] MEDS: METOPROLOL IR 50 MG TABLET 100 MG PO (20:27)
[2021-08-11] MEDS: FUROSEMIDE 20 MG/2 ML VIAL IV ×2 (00:14→08:20)
[2021-08-11 00:22] VITALS: BP 110/62; PULSE 63; RESP 14; TEMP 37.1; O2SAT 95
[2021-08-11 06:45] LABS: Add Manual Diff / Slide Review NO; Basophils Absolute Auto 100 /uL (0-100); Basophils Percent Auto 0.7 % (0-2); Eosinophils Absolute Auto 200 /uL (0-450); Hematocrit 38.3 % (41-53); Lymphocytes Absolute Auto 900 /uL (1100-4500); Lymphocytes Percent Auto 8.4 % (25-40); Mean Corpuscular HGB Conc 33.9 % (30-36); Mean Corpuscular Hemoglobin 28.5 PG (26-34); Monocytes Absolute Auto 900 /uL (0-900); Monocytes Percent Auto 8.8 % (3-14); Neutrophils Absolute Auto 8200 /uL (1500-7000); Neutrophils Percent Auto 80.1 % (50-75); Platelet Count 244 X10^3/uL (150-400); Red Blood Cell Count 4.56 X10^6/uL (4.5-5.9); White Blood Cell Count 10.3 X10^3/uL (4.5-11.0)
[2021-08-11 06:57] LABS: Alanine Aminotransferase 25 IU/L (<50); Albumin 3.7 g/dL (3.5-5.0); Alkaline Phosphatase 80 U/L (38-126); Aspartate Aminotransferase 38 IU/L (17-59); Bilirubin Total 0.7 mg/dL (0.2-1.3); Bilirubin Unconjugated 0.5 mg/dL (0.0-1.1); Blood Urea Nitrogen 17 mg/dL (9-20); Calcium 8.2 mg/dL (8.4-10.2); Carbon Dioxide 32 mmol/L (22-32); Chloride 99 mmol/L (98-107); Estimated Glomerular Filt Rate > 60 mL/min (>60); Globulin 3.7 g/dL (1.7-4.1); Glucose 108 mg/dL (80-110); HEMOLYSIS < 15 (0-50); Potassium 2.9 mmol/L (3.4-5.1); Sodium 138 mmol/L (137-145); Total Protein 7.4 g/dL (6.3-8.2)
[2021-08-11 08:09] VITALS: BP 146/84; PULSE 70; RESP 18; TEMP 36.8; O2SAT 100
[2021-08-11] MEDS: lisinopriL 10 MG TABLET PO (08:20)
[2021-08-11] MEDS: AZITHROMYCIN 250 MG TABLET 500 MG PO (08:20)
[2021-08-11] MEDS: APIXABAN 5 MG TABLET PO (08:20)
[2021-08-11] MEDS: cefTRIAXone 1,000 MG in SODIUM CHLORIDE 0.9% 100 ML 200 ML IV (08:20)
[2021-08-11] MEDS: AMLODIPINE 5 MG TABLET PO (08:20)
[2021-08-11 09:23] VITALS: O2SAT 96
[2021-08-11] MEDS: POTASSIUM CHLORIDE 20 MEQ TAB 40 MEQ PO (09:38)
--- NOTE | 2021-08-11 11:11 | PM.DS.1 ---
History of Present Illness History of Present Illness Date Patient Seen: 08/11/21 Time Patient Seen: 10:30 Chief complaint: Fever, chest pain, found to have RML pneumonia Narrative: Per ISABEL Benavidez: Patient unable to participate in exam, lethargic and cannot keep his eyes open or stay awake. History gleaned from ED provider and prior records. Jayden Rodriguez is 69-year-old male with a past medical history significant for methamphetamine abuse (last use 08/02/21), CVA reporting no residual deficits, atrial fibrillation normally anticoagulated on Eliquis, chronic systolic and diastolic heart failure, infra-renal abdominal aortic aneurysm, hypertension, history of pleural effusion and hyperlipidemia who presented to the ED with shortness of breath, chest pain, and generalized weakness over the past several days.? It is believed he has not been taking his home medications for some time, and appears to have difficulty accessing his medications as he lives on [facility] and where it is very difficult to access resources.? It does not appear that he has followed up with his primary care provider since then.? What little he told me was I heard I have a fever, chest hurts and then he fell asleep. Chest CT angio ruled out a PE but noted Patchy alveolar opacity in the right middle lobe with moderately prominent right hilar and mediastinal adenopathy.? This is most likely infectious, however given the degree of adenopathy, this should be followed to resolution.? Follow-up chest CT in 1-2 months is recommended.He is febrile with a temperature of 101.1?, blood pressure 128/80, heart rate 81, respiratory rate 28, oxygen saturation 91% on room air, he weighs 86.1 kg with a BMI of 28.1.? WBC is mildly elevated at 12.3, hemoglobin is 13.1 hematocrit 39.4, he has a neutrophil count of 10,200, sodium 133, potassium 3.2, chloride 96, bicarb 30, his calcium is 8.2, his bilirubin is 1.5, proBNP is 3440, procalcitonin is 0.09, urine does have positive urine bilirubin 1+, urinary tox screen is negative, and COVID-19 PCR as well as viral PCR are all negative. Discharge Providers Provider Date of admission: 08/10/21 01:34 Discharge Date: 08/11/21 Primary care physician: Junior Gonzales DO Consults: 08/09/21 17:55 Consult to SENIOR MECHANICAL ENGINEER - Medical Technologist Chemistry Stat Comment: needs help 08/10/21 02:40 Consult to Respiratory Therapy Evaluate & Treat Comment: hypoxia Physician Instructions: Evaluate and treat Discharge provider: Robert Lima DO Summary Hospital Course Discharge Diagnosis: 1. Community-acquired pneumonia, acute, present on admission 2. Chronic hypoxemic respiratory failure present on admission 3. Possible acute on chronic diastolic heart failure 4. Paroxysmal Atrial fibrillation, unknown if acute 5. Essential hypertension, chronic Hospital Course: This is a 70-year-old male with a past medical history of diastolic heart failure, paroxysmal atrial fibrillation, chronic hypoxemic respiratory failure methamphetamine use admitted with shortness of breath. He was found to have a community-acquired pneumonia on imaging as well as possible acute on chronic diastolic heart failure with an elevated proBNP. Patient was given diuresis and antibiotics and improved more quickly than expected. He was discharged the following day to complete an oral antibiotic at home. He appeared euvolemic at the time of discharge and was continued on furosemide 20 mg daily. Time Spent with Patient Time spent: Greater than 30 minutes Exam Vital Signs (past 8 hours): - 08/11/21 08:09 08/11/21 09:23 Temperature 98.3 F Pulse Rate 70 Respiratory Rate 18 Blood Pressure 146/84 H Pulse Oximetry 100 96 Oxygen Delivery Method Room Air Oxygen Flow Rate 0 Narrative Exam Narrative: Exam Narrative: GENERAL APPEARANCE: well developed, elderly male appearing his stated age, in no acute distress. HEENT:? NC/AT, MMM, EOMI. NECK/THYROID: neck supple, no JVD today, no thyromegaly, trachea midline. LYMPH NODES: no cervical or supraclavicular lymphadenopathy. SKIN:? [place], warm and dry, no visible rashes or lesions HEART:? Irregularly irregular rhythm with normal rate, S1-S2, no murmur, no rubs or gallops, brisk capillary refill, trace edema bilateral LE, L slightly greater than R LUNGS:? Clear upper without bibasilar crackles today and without wheezing, no cough present CHEST: Symmetrical movement, no accessory muscle use, improved effort. No chest wall tenderness. ABDOMEN: Soft, nontender, nondistended EXTREMITIES:? moves all extremities, strength is 5/5 and symmetrical, no deformities or joint effusions, no clubbing or cyanosis. NEUROLOGIC: AAO x person place and time, no focal neurologic deficits, cranial nerves II-XII grossly intact, sensation intact to light touch. PSYCH:? Poor eye contact, cooperative with blunted affect, linear thought, stable behavior. Objective Labs Result Diagrams: 08/11/21 06:25 08/11/21 06:25 Labs: Laboratory Results - last 24 hr 08/11/21 04 06:25 06:25 WBC 10.3 RBC 4.56 Hgb 13.0 L Hct 38.3 L MCV 84.0 MCH 28.5 MCHC 33.9 RDW 15.0 H Plt Count 244 Neut % (Auto) 80.1 H Lymph % (Auto) 8.4 L [place] % (Auto) 8.8 Eos % (Auto) 2.0 Baso % (Auto) 0.7 Neut # (Auto) 8200 H Lymph # (Auto) 900 L [place] # (Auto) 900 Eos # (Auto) 200 Baso # (Auto) 100 Sodium 138 Potassium 2.9 L Chloride 99 Carbon Dioxide 32 BUN 17 Creatinine 0.81 Estimated GFR > 60 BUN/Creatinine Ratio 21.0 Glucose 108 Calcium 8.2 L Magnesium 2.0 Total Bilirubin 0.7 Conjugated Bilirubin 0.0 Unconjugated Bilirubin 0.5 AST 38 ALT 25 Alkaline Phosphatase 80 Total Protein 7.4 Albumin 3.7 Globulin 3.7 Albumin/Globulin Ratio 1.0 [facility] Medical History Abdominal aortic aneurysm Atrial fibrillation, chronic Essential hypertension History of CVA (cerebrovascular accident) Hyperlipidemia Methamphetamine use Substance abuse requiring inpatient treatment Systolic CHF with reduced left ventricular function, NYHA class 2 Surgical History History of appendectomy History of inguinal hernia repair History of tonsillectomy Family History Mother CVA (cerebral vascular accident) Father Leukemia Social History household members: none lives independently: Yes Smoking Status: Never smoker alcohol intake: current substance use type: methamphetamine Discharge Plan Discharge Plan Patient Disposition: Home Provider Discharge Comment: You were admitted to the hospital with shortness of breath and chest pain. Improved with fluid removal and some antibiotics for possible pneumonia. Medications were refilled. Please follow up with your PCP in the next few weeks for continued outpatient medications. For the medications not changed, please call ahead to ruthann alanis as it appears you have plenty of refills left. Discharge orders & Medications Prescriptions: New amoxicillin-pot clavulanate 875-125 mg tablet 1 tab PO BID 3 Days Qty: 6 0RF furosemide 20 mg tablet 20 mg PO DAILY 30 Days Qty: 30 0RF Continued Eliquis 5 mg tablet 5 mg PO BID 30 Days Qty: 60 5RF atorvastatin [Lipitor] 20 mg tablet 20 mg PO BEDTIME 30 Days Qty: 30 5RF famotidine 20 mg tablet 20 mg PO DAILY Qty: 30 5RF lisinopril 10 mg tablet 10 mg PO DAILY 30 Days Qty: 30 5RF melatonin 3 mg Tablet 3 mg PO BEDTIME PRN (Reason: insomnia) 0RF Changed metoprolol succinate 25 mg tablet extended release 24 hr 50 mg PO BEDTIME 30 Days Qty: 30 0RF Discontinued furosemide 20 mg tablet 20 mg PO QAM 0RF Follow up/Referrals: Junior Gonzales, [Primary Care Provider] - Diet/Activity/Treatments Diet: Diet as Tolerated and Low-sodium Activity: As tolerated Visit Report/Discharge Packet Instructions: DI for Heart Failure, DI for Pneumonia -- Adult Discharge Data Primary Care Provider: Junior Gonzales Quality VTE Deep Vein Thrombosis/Pulmonary Embolism Present on Admission: No
--- NOTE | 2021-08-11 14:42 | PC.NURSE ---
Addendum entered by Sergio Stacy R.N. 08/11/21 14:43: (continued) to take water taxi to his home with the help of his neighbors and friends. Discharge instructions and home care handouts reviewed with patient. He states understanding and has no further questions at this time. IV dc'd intact. Escorted out via wheelchair by SUPERVISOR [employer]ING to taxi. Patient instructed to seek care for new or worsening symptoms, and to follow up with his PCP in 2 weeks. Original Note: Patient was able to arrange with a friend to have a taxi pick him up and take him to the pharmacy and then plans t
--- NOTE | 2021-08-12 07:58 | CM.DPNOTE ---
DC Note Late Entry Met w/patient yesterday, day of discharge. Brief visit- patient stated he did not need a director of social services anymore because he had secured a ride from his friends from to the water taxi that would take him back to [place]; friend paying for the cost of the water taxi No MANAGER DATA needs identified this visit JW
== END 2021-08-11 14:44 | disposition home or self-care (01) | DRG 193 ==
LOC: ED 08-10 01:34 → AC 08-10 03:07
PROVIDERS: Emergency Medicine; Admitting Provider Nurse Practitioner Family; Emergency Provider Emergency Medicine; PCP Family Medicine; Referring Provider Emergency Medicine; Visit Provider Nurse Practitioner Family
DX: J18.9 Pneumonia, unspecified organism (principal); I50.33 Acute on chronic diastolic (congestive) heart failure; J96.11 Chronic respiratory failure with hypoxia; I11.0 Hypertensive heart disease with heart failure; I48.0 Paroxysmal atrial fibrillation; F15.90 Other stimulant use, unspecified, uncomplicated; E78.5 Hyperlipidemia, unspecified; Z20.822 Contact with and (suspected) exposure to COVID-19; Z86.73 Personal history of transient ischemic attack (TIA), and cerebral infarction without residual deficits; Z79.01 Long term (current) use of anticoagulants; Z91.14 Patient's other noncompliance with medication regimen
CPT/HCPCS: 36415; 36600; 71046; 71275; 80048; 80053; 80076; 80305; 81001; 82550; 82805; 83605; 83735; 83880; 84145; 84484; 85025; 87040; 87070; 87077; 87086; 87147; 87205; 87633; 93005; 94762; 96365; 96366; 96367; 99284; J0696; J1940; Q9967